=== PATIENT | female | born 1950 | race Caucasian/White ===

== ENCOUNTER 2020-07-23 19:36 | Inpatient (IN) | payer MEDICARE ==
[2020-07-23] MEDS ORDERED: Norepinephrine 8 MG/0.9% NS 250 ML ONE (19:41)
[2020-07-23] MEDS ORDERED: Vancomycin 1 GM/200 ML BAG ONE (20:20)
[2020-07-23] MEDS ORDERED: Vancomycin HCl 1.25 GM in Sodium Chloride 0.9% 250 ML 250 ML IVPB SCH (20:45)
[2020-07-23 21:03] LABS: Mean Corpuscular HGB CONC 34.4 g/dL (32.0-36.0); Mean Corpuscular Hemoglobin 32.2 pg (27.0-31.0); Mean Corpuscular Volume 93.7 fL (78.0-98.0); Mean Platelet Volume 9.3 fL (7.4-10.4); Platelet Count 155 thou/uL (130-400); RBC Distribution Width 13.6 % (11.5-14.5); White Blood Cell (WBC) Count 18.7 thou/uL (4.8-10.8)
[2020-07-23 21:04] LABS: ALT (SGPT) 143 U/L (8-55); AST (SGOT) 252 U/L (5-34); Acetaminophen Less than 6.0 mcg/mL (10.0-30.0); Alcohol Less than 10 mg/dL (Less than 10); Alkaline Phosphatase 82 U/L (40-110); Anion Gap 31 mmol/L (10-20); Bilirubin, Total 0.6 mg/dL (0.2-1.2); CK (CPK) 205 U/L (29-168); Calc. Creatinine Clearance 0 mL/min (70-130); Calcium 7.3 mg/dL (7.8-10.44); Carbon Dioxide 10 mmol/L (23-31); Chloride 104 mmol/L (98-107); Globulin 2.9 g/dL (2.4-3.5); Glucose 249 mg/dL (80-115); Protein, Total 5.9 g/dL (6.0-8.3); Salicylate Less than 8.0 mg/dL (15.0-30.0); Sodium 142 mmol/L (136-145)
[2020-07-23 21:06] LABS: Potassium 2.7 mmol/L (3.5-5.1)
[2020-07-23 21:15] LABS: BUN (Urea Nitrogen) 175 mg/dL (9.8-20.1)
[2020-07-23] MEDS ORDERED: Aspirin Chewable 81 MG TAB ONE (21:29)
[2020-07-23 21:34] LABS: CKMB 33.1 ng/mL (0-6.6)
[2020-07-23 21:47] LABS: Band 39 % (5-11); Lymphocytes 4 % (21-51); MDiff Complete? YES; Metamyelocyte 4 % (0-0); Monocytes 5 % (0-10); Myelocyte 1 % (0-0); Neutrophil 47 % (42-75)
[2020-07-23 21:50] LABS: SARS-CoV-2 NAA Rapid Test DETECTED (NotDetected)
[2020-07-23 21:54] LABS: Critical Call Chem Troponin I RESULT DECREASING; Troponin I 1.054 ng/mL (< 0.028)
--- NOTE | 2020-07-23 21:55 | PDOC.HHP ---
Hospitalist HPI - History of Present Illness Altered mental status, History of Present Illness: This is a 69-year-old female patient who was transferred from outside hospital in [place] on account of altered mental status and a septic shock. I talked to her friend Ms. Hameed who she was living with prior to transition to the hospital. He noted that she was brought to him by her friends about a week ago because she wanted to visit. Her friends did say she had not eaten several days prior to them visiting him. While she was with him she had not eaten anything in several days so he called EMS on account of increasing weakness and she was sent to the hospital. At the [facility] she was given antibiotics and 2 L normal saline on account of hypotension which was refractorywas started on Levophed. Creatinine there was 7.9, BUN 168, troponin 0.9, WBC 14,500 40, lactate [address] of abdomen and pelvis revealed bowel wall thickening of the distal and transverse and ascending colon's. She was transferred here for higher level care. Her friend notes that she has a colostomy which was placed about 3 years ago on account of intestinal obstruction due to colon cancer. He notes she never went back for reversal of the colostomy because she was afraid of the effects of anesthetics given her first experience during the surgery. He notes that she was positive for SARS about 3 months ago after she picked up some friends from the airport who all later had the disease. She has been generally sick since then. He also notes that she has some heart disease for which she takes metoprolol. She has no immediate family. She has children from a previous marriage however has not been in touch with them. She was supposed to come in as a direct admit however it was noted she was on Levophed and required ICU admission. She was brought to the ED on that account. On arrival her blood pressure was 115/79, pulse 104, respiratory 20, temperature 9 7.4 and saturating 97 on room air. She was ANO x2 but generally confused. Her labs showed a lactic acid of 5.2, WBC 18.7 with 39 bands. Hemoglobin was 11.0, platelets 155, troponin was elevated at 1.05. BMP showed potassium of 2.7, bicarb 10, creatinine 6.18 with BUN at 175. She was anuric at the outside facility and has been anuric since she presented here. Nephrology was consulted. She also had AST elevated at 252 and ALT at 153. Covid test is positive. Fluid resuscitation was continued with an extra liter bolus of normal saline, 3 A of sodium bicarb, IV potassium, aspirin 3 to 4 mg, vancomycin. She received Zosyn prior to arrival. Decision was made to admit her in ICU given her dependence on Levophed Dr. Corona was contacted and does not think has sepsis secondary to colitis and does not require any surgical intervention at the moment. Hospitalist team consulted for admission For the time of her evaluation patient ANO x2 but generally confused and was unable to answer many of my questions. Hospitalist ROS - Review of Systems ROS unobtainable: due to mental status Hospitalist History - Past Medical History Other Medical History: Colon cancer - Past Surgical History Other Surgical History: Colon resection - Family History Family History: reports: no pertinent history - Social History Living Situation: Friends - Exam General - other findings: Awake and alert but confused Eye: PERRL, anicteric sclera ENT: normocephalic atraumatic, no oropharyngeal lesions Neck: supple, symmetric, no JVD Heart: RRR, no murmur, no gallops, no rubs Respiratory: CTAB, no wheezes, no rales, no ronchi Gastrointestinal: soft, non-tender, non-distended, normal bowel sounds Gastrointestinal - other findings: Colostomy bag in place on left side. Possible surrounding hernia Neurological: cranial nerve grossly intact, no focal deficits Psychiatric - other findings: ANO x2. Hospitalist Results - Labs Result Diagrams: 07/24/20 03:30 07/24/20 13:14 Lab results: WBC 18.7 thou/uL (4.8-10.8) H 07/23/20 20:25 Hgb 11.0 g/dL (12.0-16.0) L 07/23/20 20:25 Hct 31.9 % (36.0-47.0) L 07/23/20 20:25 MCV 93.7 fL (78.0-98.0) 07/23/20 20:25 Plt Count 155 thou/uL (130-400) 07/23/20 20:25 Sodium 142 mmol/L (136-145) 07/23/20 20:25 Potassium 2.7 mmol/L (3.5-5.1) L* 07/23/20 20:25 Chloride 104 mmol/L (98-107) 07/23/20 20:25 Carbon Dioxide 10 mmol/L (23-31) L 07/23/20 20:25 BUN 175 mg/dL (9.8-20.1) H 07/23/20 20:25 Creatinine 6.18 mg/dL (0.6-1.1) H 07/23/20 20:25 Glucose 249 mg/dL (80-115) H 07/23/20 20:25 Lactic Acid 5.2 mmol/L (0.5-2.2) H* 07/23/20 21:19 Calcium 7.3 mg/dL (7.8-10.44) L 07/23/20 20:25 Total Bilirubin 0.6 mg/dL (0.2-1.2) 07/23/20 20:25 AST 252 U/L (5-34) H 07/23/20 20:25 ALT 143 U/L (8-55) H 07/23/20 20:25 Alkaline Phosphatase 82 U/L (40-110) 07/23/20 20:25 Creatine Kinase 205 U/L (29-168) H 07/23/20 20:25 CK-MB (CK-2) 33.1 ng/mL (0-6.6) H* 07/23/20 20: Troponin I 1.054 ng/mL (< 0.028) H* 07/23/20 21:21 Serum Total Protein 5.9 g/dL (6.0-8.3) L 07/23/20 20:25 Albumin 3.0 g/dL (3.4-4.8) L 07/23/20 20:25 Hospitalist H&P A/P - Plan Plan: This is a 69-year-old female patient transferred from [facility] on account of septic shock of unclear etiology. She is also positive for Covid. Septic shock Has white blood cells 18.7 with 39 bands, lactate 5.2, altered mental status with hypotension requiring pressors. Etiology unclearpossibly colitis/UTI Possibly Covid related Continue IV fluids Continue Levophed and wean off. Admit to CCU COVID-19 infection This could be recurrence Not sure pneumonic symptoms at the moment. Check CRP, ferritin Start zinc and vitamin C Anuric WAYNE Creatinine elevated Continue hydration Nephrology following NSTEMI Troponin I.06 at presentation trending down. Likely demand ischemia from septic shock Unlikely ACS We will trend and monitor. Colostomy Status post bowel resection Surgery was talked toDr. Agustin active intervention now Colostomy management. Severe hypokalemia Replace potassium Check magnesium Electrolyte placement therapy. DVT prophylaxisHeparin CODE STATUSto be discussed
[2020-07-23] MEDS ORDERED: Potassium Chloride 10 MEQ in Premix Bag 1 BAG IVPB SCH (22:00)
[2020-07-23] MEDS ORDERED: Sodium Bicarbonate 150 MEQ in Dextrose 5% in Water 1,000 ML IV SCH (22:30)
[2020-07-23 22:37] LABS: Magnesium 3.7 mg/dL (1.6-2.6); Phosphorus 2.6 mg/dL (2.3-4.7)
[2020-07-23 22:41] LABS: Actual Bicarbonate (HCO3a) 11.3 mEq/L (22-28); Analyzer IN Cardio ER; Base Excess (BEa) -10.6 mEq/L (-2.0 to +3.0); Calcium, Ionized (arterial) 0.92 mmol/L (1.12-1.30); Carboxyhemoglobin (COHb) 0.1 gm% (0.0-3.0); Hemoglobin (Hb) 10.4 g/dL (12.0-16.0); O2 Tension (PaO2), arterial 108.3 mmHg (> 80.0); Potassium - ABG Lab 2.61 mmol/L (3.70-5.30); pH, Arterial 7.45 (7.35-7.45)
[2020-07-23 22:42] LABS: CO2 Tension 16.8 mmHg (35.0-45.0); Puncture Site RRA
[2020-07-23] MEDS ORDERED: Electrolyte Replacement Protocol 1 EACH FS SCH (23:00)
[2020-07-24] MEDS: Sodium Bicarbonate 150 MEQ in Dextrose 5% in Water 1,000 ML IV SCH ×3 (00:05→21:26)
[2020-07-24] MEDS: Sodium Chloride 0.9% 1,000 ML IV SCH ×2 (00:06→06:23)
[2020-07-24] MEDS: Norepinephrine 8 MG/0.9% NS 250 ML IVPB SCH ×3 (00:09→18:43)
[2020-07-24] MEDS: Piperacillin/Tazobactam 4.5 GM in Sodium Chloride 0.9% 100 ML IVPB SCH ×2 (00:09→06:22)
[2020-07-24 00:41] LABS: Lactic Acid 4.4 mmol/L (0.5-2.2)
[2020-07-24 01:41] LABS: Critical Call Chem Troponin I RESULT DECREASING; Troponin I 0.906 ng/mL (< 0.028)
[2020-07-24 01:46] LABS: Creatinine, Urine 68.84 mg/dL (47-110)
[2020-07-24 02:27] LABS: Bacteria/HPF 4+ HPF (None Seen); Bilirubin Negative (Negative); Blood, Urine 2+ (Negative); Clarity Extra Turbid (Clear); Glucose, Urine (Dipstick) Normal (Negative); Ketone, Urine Negative (Negative); Leukocyte 500 Leu/uL (Negative); Nitrite Negative (Negative); Protein, Urine (Dipstick) 200 mg/dL (Neg-Trace); Specific Gravity, Urine 1.011 (1.002-1.036); Squamous Epithelial None Seen HPF (0-3); Urobilinogen Normal mg/dL (Less than 2); WBC/HPF Greater than 50 HPF (0-3); pH, Urine 5.5 (5.0-9.0)
[2020-07-24 02:37] LABS: Urine Culture Reflex Yes Yes
[2020-07-24 04:26] LABS: Anion Gap 20 mmol/L (10-20); Calc. Creatinine Clearance 8 mL/min (70-130); Carbon Dioxide 17 mmol/L (23-31); Chloride 107 mmol/L (98-107); Glucose 243 mg/dL (80-115); Sodium 142 mmol/L (136-145)
[2020-07-24 04:33] LABS: Potassium 2.4 mmol/L (3.5-5.1)
[2020-07-24 04:39] LABS: BUN (Urea Nitrogen) 160 mg/dL (9.8-20.1)
[2020-07-24 05:18] LABS: Anisocytosis SLIGHT = 6-15 cells (100X) (0-5/hpf); Band 53 % (5-11); Elliptocytes SLIGHT = 2-5 cells (100X) (0-1/hpf); Hemoglobin 9.2 g/dL (12.0-16.0); Lymphocytes 4 % (21-51); MDiff Complete? YES; Mean Corpuscular HGB CONC 33.5 g/dL (32.0-36.0); Mean Corpuscular Hemoglobin 31.3 pg (27.0-31.0); Mean Corpuscular Volume 93.4 fL (78.0-98.0); Mean Platelet Volume 9.2 fL (7.4-10.4); Metamyelocyte 6 % (0-0); Monocytes 1 % (0-10); Neutrophil 36 % (42-75); Platelet Count 112 thou/uL (130-400); Platelet Morphology Comment Appears Decreased; RBC Distribution Width 13.5 % (11.5-14.5); Red Blood Cell (RBC) Count 2.93 mill/uL (4.20-5.40); White Blood Cell (WBC) Count 10.3 thou/uL (4.8-10.8)
[2020-07-24] MEDS ORDERED: Potassium Chloride 20 MEQ in Premix Bag 1 BAG IVPB SCH (06:00)
[2020-07-24] MEDS ORDERED: Potassium Chloride 20 MEQ TAB PO SCH (06:45)
[2020-07-24 07:11] LABS: Lactic Acid 3.1 mmol/L (0.5-2.2)
--- NOTE | 2020-07-24 08:36 | PDOC.NEPPN ---
- Subjective Encounter Date: 07/24/20 Encounter Time: 08:34 Subjective: Seen in follow up for WAYNE and metabolic acidosis. More awke but still confused and unable to provide any history. - Objective Vital Signs & Weight: Vital Signs (12 hours) Temp Pulse Ox 07/24/20 08:00 97.8 F 07/24/20 04:00 97.5 F L 07/24/20 00:00 98 07/23/20 22:55 96.5 F L Weight Weight 120 lb 9.486 oz Most Recent Monitor Data Heart Rate from ECG 112 NIBP 112/84 NIBP BP-Mean 93 Respiration from ECG 20 SpO2 78 I&O: 07/23/20 07/24/20 07/25/20 06:59 06:59 06:59 Intake Total 1721 Output Total 355 150 Balance 1366 -150 Result Diagrams: 07/24/20 03:30 07/24/20 03:30 Nephrology ROS - Medication Medications: Active Medications Generic Name Dose Route Start Last Admin Trade Name Freq PRN Reason Stop Dose Admin Sodium Bicarbonate 150 meq/ 1,150 mls @ 100 mls/hr 07/23/20 22:00 07/24/20 00:05 Dextrose/Water IV 1,150 mls INF MELINA Administration Norepinephrine Bitartrate 250 mls @ 0 mls/hr 07/23/20 23:45 07/24/20 00:09 Levophed IVPB 250 mls INF MELINA Administration Protocol Titrate - Exam General Appearance: awake alert General - other findings: acutely ill looking, afebrile. Eye: anicteric sclera ENT: normocephalic atraumatic, dry oral mucosa Neck: symmetric, no JVD Respiratory: no ronchi, normal chest expansion, no tachypnea Respiratory - other findings: fair air entry bilaterally. Cardiovascular: RRR Heart - other findings: tachycardic Gastrointestinal - other findings: full and diffusely tender especially periunbilical/parastomal Extremities: no cyanosis, no edema Neurological: CN's grossly intact, no focal deficits PSYCH: oriented to person Nephrology Results - Labs Result Diagrams: 07/24/20 03:30 07/24/20 03:30 Lab results: WBC 10.3 thou/uL (4.8-10.8) 07/24/20 03:30 Hgb 9.2 g/dL (12.0-16.0) L 07/24/20 03:30 Hct 27.3 % (36.0-47.0) L 07/24/20 03:30 MCV 93.4 fL (78.0-98.0) 07/24/20 03:30 Plt Count 112 thou/uL (130-400) L 07/24/20 03:30 Band Neuts % (Manual) 53 % (5-11) H 07/24/20 03:30 ABG pH 7.45 (7.35-7.45) 07/23/20 20:30 ABG pCO2 16.8 mmHg (35.0-45.0) L* 07/23/20 20:30 ABG pO2 108.3 mmHg (> 80.0) H 07/23/20 20:30 Sodium 142 mmol/L (136-145) 07/24/20 03:30 Potassium 2.4 mmol/L (3.5-5.1) L* 07/24/20 03:30 Chloride 107 mmol/L (98-107) 07/24/20 03:30 Carbon Dioxide 17 mmol/L (23-31) L 07/24/20 03:30 BUN 160 mg/dL (9.8-20.1) H 07/24/20 03:30 Creatinine 5.40 mg/dL (0.6-1.1) H 07/24/20 03:30 Glucose 243 mg/dL (80-115) H 07/24/20 03:30 Lactic Acid 3.1 mmol/L (0.5-2.2) H 07/24/20 06:29 Calcium 7.0 mg/dL (7.8-10.44) L 07/24/20 03:30 Total Bilirubin 0.6 mg/dL (0.2-1.2) 07/23/20 20:25 AST 252 U/L (5-34) H 07/23/20 20:25 ALT 143 U/L (8-55) H 07/23/20 20:25 Alkaline Phosphatase 82 U/L (40-110) 07/23/20 20:25 Creatine Kinase 205 U/L (29-168) H 07/23/20 20:25 CK-MB (CK-2) 33.1 ng/mL (0-6.6) H* 07/23/20 20:25 Troponin I 0.906 ng/mL (< 0.028) H* 07/24/20 01:05 Serum Total Protein 5.9 g/dL (6.0-8.3) L 07/23/20 20:25 Albumin 3.0 g/dL (3.4-4.8) L 07/23/20 20:25 Urine Ketones Negative mg/dL (Negative) 07/24/20 Unknown Urine Blood 2+ (Negative) A 07/24/20 Unknown Urine Nitrite Negative (Negative) 07/24/20 Unknown Ur Leukocyte Esterase 500 Fariha/uL (Negative) A 07/24/20 Unknown Urine RBC 7-10 HPF (0-3) A 07/24/20 Unknown Urine WBC Greater than 50 HPF (0-3) A 07/24/20 Unknown Ur Squamous Epith Cells None Seen HPF (0-3) 07/24/20 Unknown Urine Bacteria 4+ HPF (None Seen) A 07/24/20 Unknown Sodium 142 mmol/L (136-145) 07/24/20 03:30 Potassium 2.4 mmol/L (3.5-5.1) L* 07/24/20 03:30 Chloride 107 mmol/L (98-107) 07/24/20 03:30 Carbon Dioxide 17 mmol/L (23-31) L 07/24/20 03:30 Anion Gap 20 mmol/L (10-20) 07/24/20 03:30 BUN 160 mg/dL (9.8-20.1) H 07/24/20 03:30 Creatinine 5.40 mg/dL (0.6-1.1) H 07/24/20 03:30 Glucose 243 mg/dL (80-115) H 07/24/20 03:30 Calcium 7.0 mg/dL (7.8-10.44) L 07/24/20 03:30 Phosphorus 2.6 mg/dL (2.3-4.7) 07/23/20 21:21 Magnesium 3.7 mg/dL (1.6-2.6) H 07/23/20 21:21 Albumin 3.0 g/dL (3.4-4.8) L 07/23/20 20:25 Nephrology AP PN - Plan ASSESSMENT Acute renal failure: Multifactorial most likely. Hemodynamic factors related sev ere dehydration and septic shock. initially anuric. Now making urine. Severe metabolic acidosis Hypokalemia Suspected mesenteric ischemia given colon thickening, elevated troponin and lactic acidosis. Severe dehydration Acute metabolic encephalopathy: Acute illness, acidosis, WAYNE +/- uremia: improvi ng. Colon cancer s/p colon resection and colostomy Hypocalcemia Elevated troponin Acute transaminitis PLAN Continue ivf and pressor Replete serum porassium monitor intake and output as well as renal functoion and electrolytes. Consider anticoagulation for possible mesenteric ischemia
--- NOTE | 2020-07-24 08:41 | CON ---
DATE OF CONSULTATION: 07/24/2020 TIME SPENT: This is 45 minutes of critical care time. CONSULTING PHYSICIAN: Hospitalist Group, specifically Dr. Sr. HISTORY OF PRESENT ILLNESS: Ms. Villatoro is a 69-year-old female, who is unable to give me any reliable history as she is pleasant, but disoriented and confabulates most of her answers. History and physical indicates that she presented to [facility] yesterday. She had been living with a friend. She had not eaten several days prior to visiting the friend. Apparently, had not been eating or drinking the whole time she was staying with him. When she presented to the hospital, she was hypotensive, she was found to be in acute renal failure. There was some history that she may have a coronavirus about 3 months ago, but I do not think anything that the patient says can be assumed to be reliable. She was given fluids, started on Levophed, and transported here. PAST MEDICAL HISTORY: Not known. PAST SURGICAL HISTORY: She has had some type of colon resection, we think, for colon cancer, but we were not sure, now has a colostomy. FAMILY MEDICAL HISTORY: Not known. SOCIAL HISTORY: She says she does not smoke, drink, or do drugs. MEDICATIONS PRIOR TO ADMISSION: None. REVIEW OF SYSTEMS: Unobtainable. PHYSICAL EXAMINATION: VITAL SIGNS: Heart rate 115, O2 saturation 100% on room air, respirations 16, blood pressure 122/77 on a Levophed drip running at 15 mcg/minute. GENERAL: The patient is pleasant but confused. HEENT: Pupils reactive to light. Sclerae anicteric. Oropharynx clear. NECK: No adenopathy or JVD. LUNGS: Clear to auscultation without evidence of wheezing or rhonchi. CARDIOVASCULAR: Slightly tachycardic without audible murmur. ABDOMEN: Soft except in the right lower quadrant where she has some mild tenderness to deep palpation. She has a colostomy in the left lower quadrant. EXTREMITIES: No clubbing, cyanosis, or edema. MUSCULOSKELETAL: She can move all 4 extremities. She has grossly diminished strength in her lower extremities compared to upper extremities. LABORATORY DATA: White blood cell count 10.3, hemoglobin 9.2, hematocrit 27.3, and platelet count 112, with 36% neutrophils, 53% bands. PH 7.45, pCO2 of 16, pO2 of 108 on room air. Sodium 142, potassium 2.4, chloride 107, CO2 of 17, BUN 160, creatinine 5.4, glucose 243. Lactate was originally 5.2, now is down to 3.1. Calcium 7.0, magnesium 3.7. Troponin 0.906. AST 55, ALT less than 5. Osmolality 344. A chest x-ray was essentially normal except for the subclavian line, which is in place. Abdominal CT shows some bowel wall thickening in the distal transverse colon and descending colon. I do not see any record of a head CT being done. I also do not see any indication of a urine drug screen being performed. ASSESSMENT: 1. Altered mental status, presumably due to sepsis, but could also be due to uremia and acute renal failure. She also may have some kind of underlying severe dementia. 2. Severe metabolic acidosis secondary to acute renal failure and sepsis. PLAN: 1. Agree with broad-spectrum IV antibiotics. 2. Agree with bicarbonate infusion. 3. Need to reduce the Zosyn dose to account for the patient's poor renal function. 4. Add thiamine empirically since we do not really know about alcohol history. 5. Send off COVID antibody test to see if the patient's COVID infection is more distant rather than recent. 6. Consider head CT. 7. Consider neurology consultation. Job ID: [id number]
[2020-07-24] MEDS ORDERED: Potassium Chloride 40 MEQ in Premix Bag 1 BAG IVPB SCH (08:45)
[2020-07-24 09:11] LABS: ALT (SGPT) 153 U/L (8-55); AST (SGOT) 304 U/L (5-34); Albumin 2.5 g/dL (3.4-4.8); Alkaline Phosphatase 64 U/L (40-110); Bilirubin, Direct 0.4 mg/dL (0.1-0.3); Bilirubin, Total 0.7 mg/dL (0.2-1.2); Protein, Total 4.9 g/dL (6.0-8.3)
--- NOTE | 2020-07-24 09:24 | CON ---
DATE OF CONSULTATION: 07/23/2020 SERVICE: Nephrology. REASON FOR CONSULTATION: Acute renal failure. REQUESTING PHYSICIAN: Dr. Sharmin Cote. HISTORY OF PRESENT ILLNESS: The following history was obtained from review of medical record as the patient currently is disoriented and could not provide any history. A 69-year-old female with history of colostomy as well as prior COVID infection in April, admitted on transfer from [place], [place] for further evaluation and treatment. The patient reportedly was brought to the hospital by a friend due to poor oral intake, generalized weakness. At the transferring hospital, the patient was found to be confused and disoriented as well as hypotensive and with markedly elevated BUN and creatinine. She was volume resuscitated and subsequently started on Levophed. On arrival here, the patient is still tachycardic and hypotensive with markedly elevated BUN and creatinine, however, potassium is low at 3.0. Volume resuscitation was continued due to elevated BUN and creatinine. Nephrology consult was requested. The patient initially was said to be somnolent/obtunded at transferring hospital, but currently, she seems more awake and oriented to person. Of note, the patient was anuric at the transferring hospital but has started to make some urine here. She also had markedly elevated lactic acid and impression of sepsis was noted. The patient was also started on broad-spectrum antibiotics. PAST MEDICAL HISTORY: Still unknown completely at this time as the patient is unable to provide any at this point. However, it was also reported the patient had colon cancer, for which she had colon resection and had colostomy. PAST SURGICAL HISTORY: Colon resection, status post colostomy. FAMILY HISTORY: Unable to obtain due to the patient's condition. SOCIAL HISTORY: Currently lives with family. Other components of social history are unknown at this point. ALLERGIES: NO KNOWN DRUG ALLERGIES REPORTED. PRIOR TO HOSPITAL MEDICATIONS: Unknown at this point due to the patient's condition. REVIEW OF SYSTEMS: Could not be performed due to the patient's condition. PHYSICAL EXAMINATION: VITAL SIGNS: Temperature 97.4, pulse 126, respiratory rate 16, SpO2 of 98% on room air, blood pressure is 111/78. GENERAL: Acutely ill-looking female, in no obvious distress. Confused. Afebrile and anicteric. HEENT: Normocephalic, atraumatic. Oral mucosa is dry. NECK: Supple. Symmetrical with no obvious JVD. CARDIOVASCULAR: Regular rhythm and rate but tachycardic. RESPIRATORY: Fair air entry bilaterally with some transmitted breath sounds. No obvious crackle or rhonchi or use of accessory muscles appreciated. GI: Full, soft. Left lower quadrant colostomy noted. Diffuse abdominal tenderness especially around the periumbilical area noted. UROGENITAL: Jacobs catheter is in. EXTREMITIES: Grossly normal looking extremities with no obvious edema or erythema. 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 Oriented to person. Memory lapses noted. Cranial nerves 2 through 12 are grossly intact. The patient moves all extremities. LAB DATA: Pertinent data from the transferring facility as follows. CBC, WBC 13.9, hemoglobin 12.8, MCV 93, platelets 172. CMP showed sodium is 134, potassium 3.0, glucose 287, BUN 186, creatinine 7.9, chloride 86, CO2 11, anion gap 40, calcium 9.8, albumin 3.6, total protein 7.4, AST 65, ALT less than 5, alkaline phosphatase 83, total bilirubin 1.12. Serum osmolality 344. Troponin . Magnesium 3.2. Lactic acid 12.0. Blood gas today showed a pH of 7.33, pCO2 of 18.1, pO2 of 379. COVID rapid antigen was negative. Influenza antigen A and B also negative. Chest x-ray showed right subclavian central venous catheter in place as well as linear scarring or atelectasis in the right lower lung, but otherwise, no infiltrate or pleural effusion, and heart size is normal. CT of the abdomen and pelvis without contrast showed previous sigmoid resection and left lower quadrant colostomy as well as parastomal hernia that contains a short segment of distal transverse colon. However, there was no obvious obstruction due to the hernia. Also noted was some bowel wall thickening of the distal transverse colon and descending colon leading to the colostomy, mild infection or inflammatory colitis cannot be excluded. Liquid stool within the cecum and proximal ascending colon with mild dilatation also noted. Labs obtained here on presentation showed CBC, WBC 18.7, hemoglobin of 11.0, MCV of 93.7, platelet of 155. Arterial blood gas showed pH of 7.45, pCO2 of 16.8, pO2 of 108.3, ionized calcium of 0.92. CMP showed sodium 142, potassium 2.7, chloride 104, CO2 10, BUN 175, creatinine 6.18, glucose 249, calcium 7.3, total bilirubin 0.6, AST 252, ALT 143, alkaline phosphatase 82, total protein 5.9, albumin 3.0. Initial lactic acid was 4.4. Cardiac markers showed CK 205, CK-MB 33.1, troponin 1.065. ASSESSMENT: 1. Acute renal failure: Most likely due to hemodynamic factors related to severe volume depletion from poor oral intake and GI losses. Contribution from medications and are also noted. We do not have patient's home medication list at this point. The patient is grossly volume depleted. Cytokine mediated injury also is contributory, given picture suggestive of septic shock. 2. Severe metabolic acidosis. 3. Hyperglycemia. The patient may be diabetic. 4. Hypokalemia: Most likely due to GI losses. 5. Elevated troponin: Mesenteric ischemia is a concern, given thickening of the colon as well as lactic acidosis and severe metabolic acidosis and GI symptoms. 6. Severe volume depletion. 7. Septic shock. 8. COVID infection. 9. Acute transaminitis. 10. Hypocalcemia. 11. Elevated troponin: NSTEMI versus mesenteric ischemia. PLAN: 1. Agree with aggressive IV fluid resuscitation as well as pressure support. 2. We will start sodium bicarbonate infusion. 3. We will also get urine electrolytes and urinalysis once the patient makes urine. 4. Given improvement in mental status and hemodynamics, there is no immediate need for hemodialysis tonight. We will re-examine the patient in the morning with aggressive fluid therapy. 5. Other treatment as per primary attending. Many thanks for involving us in the care of this patient. We will follow along with you. Job ID: [id number]
[2020-07-24] MEDS: Pantoprazole 40 MG VIAL IVP SCH (09:45)
[2020-07-24] MEDS: Heparin 5,000 UNITS/ML VIAL SC SCH ×3 (09:46→21:15)
--- NOTE | 2020-07-24 11:34 | CON ---
DATE OF CONSULTATION: CONSULTING PHYSICIAN: JANET SWENSON MD HISTORY OF PRESENT ILLNESS: The patient is a 69-year-old woman who was admitted with sepsis and was found to have an elevated troponin level. The patient is unable to give a coherent history. The patient was apparently in her usual state of health when she developed altered mental status. The patient was noted to be hypotensive. She was transferred for further evaluation. The patient unable to give any type of history. PAST MEDICAL HISTORY: Unknown. PAST SURGICAL HISTORY: Cholecystectomy. MEDICATIONS: None known. PHYSICAL EXAMINATION: VITAL SIGNS: Blood pressure 106/66. Physical exam was deferred due to being COVID positive. LABORATORY RESULTS: Sodium 142, potassium 4.2, chloride 107, bicarbonate 17, BUN 160, creatinine 5.4. Troponin was 0.96 with an MB of 33. AST is 304. White blood cell count is 10.3, hemoglobin 9.2, hematocrit 27.3, and platelets are 112. EKG revealed sinus tachycardia with Q-waves suggestive of possible inferior infarct in low-voltage QRS. IMPRESSION: 1. Septic shock. 2. Elevated troponin level. 3. COVID positive. 4. Renal failure. 5. Hypotension. PLAN: This unfortunate woman presented in septic shock. From a Cardiac standpoint, her elevated troponin level is probably secondary to demand ischemia. We will follow this patient with you through her hospitalization. Critical cars Time 30 minutes. Job ID: [id number] [id number]
[2020-07-24] MEDS: Piperacillin/Tazobactam 2.25 GM in Sodium Chloride 0.9% 100 ML IVPB SCH ×2 (13:01→21:17)
[2020-07-24 13:59] LABS: Anion Gap 22 mmol/L (10-20); Calc. Creatinine Clearance 10 mL/min (70-130); Calcium 6.6 mg/dL (7.8-10.44); Carbon Dioxide 20 mmol/L (23-31); Chloride 107 mmol/L (98-107); Glucose 274 mg/dL (80-115); Sodium 146 mmol/L (136-145)
[2020-07-24 14:10] LABS: BUN (Urea Nitrogen) 139 mg/dL (9.8-20.1)
[2020-07-24 16:13] LABS: Medtox Reader # READER 4; Phencyclidine (PCP) Not Detected (NotDetected); THC/Cannabinoid Screen Not Detected (NotDetected)
[2020-07-24 16:14] LABS: Amphetamine Not Detected (NotDetected); Barbiturates Screen Not Detected (NotDetected); Benzodiazepine Screen Not Detected (NotDetected); Cocaine Metabolite Screen Not Detected (NotDetected); Medtox Control Line Valid? VALID (VALID); Methadone Not Detected (NotDetected); Methamphetamine Not Detected (NotDetected); Opiate Screen Not Detected (NotDetected); Oxycodone Screen Not Detected (NotDetected); Tricyclic Screen Not Detected (NotDetected)
--- NOTE | 2020-07-24 16:55 | PDOC.HOSPP ---
- Subjective Encounter Date: 07/24/20 Encounter Time: 10:30 Subjective: pt up in bed no complains. - Objective Vital Signs & Weight: Vital Signs (12 hours) Temp Pulse Ox 07/24/20 12:00 97.6 F 07/24/20 08:00 97.8 F 97 Weight Admit Weight 120 lb Weight 120 lb 9.486 oz Most Recent Monitor Data Heart Rate from ECG 99 NIBP 112/65 NIBP BP-Mean 80 Respiration from ECG 14 SpO2 100 I&O: 07/23/20 07/24/20 07/25/20 06:59 06:59 06:59 Intake Total 1721 0 Output Total 355 985 Balance 1366 -985 Result Diagrams: 07/25/20 03:30 07/25/20 03:30 Hospitalist ROS - Review of Systems Cardiovascular: denies: chest pain, palpitations, orthopnea, paroxysmal noc. dyspnea, edema, light headedness, other Gastrointestinal: denies: nausea, vomiting, abdominal pain, diarrhea, constipation, melena, hematochezia, other Genitourinary: denies: dysuria, frequency, incontinence, hematuria, retention, other - Medication Medications: Active Medications Generic Name Dose Route Start Last Admin Trade Name Freq PRN Reason Stop Dose Admin Heparin Sodium (Porcine) 5,000 units 07/24/20 09:00 07/24/20 14:11 Heparin 5,000 Units/Ml Vial SC 5,000 units TID MELINA Administration Sodium Bicarbonate 150 meq/ 1,150 mls @ 100 mls/hr 07/23/20 22:00 07/24/20 11:05 Dextrose/Water IV 1,150 mls INF MELINA Administration Norepinephrine Bitartrate 250 mls @ 0 mls/hr 07/23/20 23:45 07/24/20 10:12 Levophed IVPB 250 mls INF MELINA Administration Protocol Titrate Thiamine HCl 100 mg/ Sodium 51 mls @ 100 mls/hr 07/24/20 09:00 07/24/20 09:44 Chloride IVPB 07/27/20 21:31 51 mls Q12HR MELINA Administration Piperacillin Sod/Tazobactam 100 mls @ 200 mls/hr 07/24/20 14:00 07/24/20 13:01 Sod 2.25 gm/ Sodium Chloride IVPB 100 mls Q8HR MELINA Administration Pantoprazole Sodium 40 mg 12/24/20 09:00 07/24/20 09:45 Pantoprazole 40 Mg Vial IVP 40 mg DAILY MELINA Administration - Exam Heart: negative: RRR, no murmur, no gallops, no rubs, normal peripheral pulses, irregular, diminshed peripheral pulses, murmur present, II/IV, III/IV Respiratory: negative: CTAB, no wheezes, no rales, no ronchi, normal chest expansion, no tachypnea, normal percussion, rales, rhonchi, tachypneic, wheezes Gastrointestinal: negative: soft, non-tender, non-distended, normal bowel kevin nds, no palpable masses, no hepatomegaly, no splenomegaly, no bruit, no guarding, no rigidity, tender to palpation, distended, diminished bowl sounds, voluntary guarding Hosp A/P (1) Septic shock Code(s): A41.9 - SEPSIS, UNSPECIFIED ORGANISM; R65.21 - SEVERE SEPSIS WITH SEPTIC SHOCK Status: Acute (2) Metabolic acidosis Code(s): E87.2 - ACIDOSIS Status: Acute (3) WAYNE (acute kidney injury) Code(s): N17.9 - ACUTE KIDNEY FAILURE, UNSPECIFIED Status: Acute (4) NSTEMI (non-ST elevated myocardial infarction) Code(s): I21.4 - NON-ST ELEVATION (NSTEMI) MYOCARDIAL INFARCTION Status: Acute (5) Elevated LFTs Code(s): R79.89 - OTHER SPECIFIED ABNORMAL FINDINGS OF BLOOD CHEMISTRY Status: Acute (6) COVID-19 Code(s): U07.1 - COVID-19 Status: Acute - Plan Continue current antibiotics. Creatinine improving. We will continue bicarb drip. Elevated troponins most likely secondary to type II demand ischemia. Will check stool for occult blood patient's colostomy indicates really dark stool. Her H&H also has trended down. Covid positive however she was diagnosed in April. We will continue to monitor blood cultures. ischemic colitis is a possibility given her high lactic acid at the outside facility. will get gi to see if her occult blood comes positive.
[2020-07-24] MEDS ORDERED: Potassium Chloride 40 MEQ in Premix Bag 1 BAG IVPB ONE (17:00)
[2020-07-24 17:12] LABS: SARS-CoV-2 IgG Ab Reactive (NonReactive); SARS-CoV-2 IgG Index 3.65 S/CO (< 1.40)
[2020-07-24 20:43] LABS: Vancomycin, Random 22.8 ug/mL (See Comment)
[2020-07-24] MEDS ORDERED: Vancomycin 1 GM in Premix Bag 1 BAG IVPB SCH (21:00)
[2020-07-24] MEDS ORDERED: FLU VACC QS2020-21(65YR UP)/PF 240 MCG/0.7 ML SYRINGE IM ONE (21:00)
[2020-07-24] MEDS: Benzocaine (Dental) 7 GM TUBE TOP PRN (22:22)
[2020-07-25 04:19] LABS: ALT (SGPT) 79 U/L (8-55); AST (SGOT) 59 U/L (5-34); Albumin 2.2 g/dL (3.4-4.8); Alkaline Phosphatase 57 U/L (40-110); Anion Gap 18 mmol/L (10-20); Bilirubin, Total 0.6 mg/dL (0.2-1.2); Calc. Creatinine Clearance 11 mL/min (70-130); Calcium 6.8 mg/dL (7.8-10.44); Carbon Dioxide 30 mmol/L (23-31); Chloride 104 mmol/L (98-107); Globulin 2.3 g/dL (2.4-3.5); Glucose 195 mg/dL (80-115); Protein, Total 4.5 g/dL (6.0-8.3); Sodium 149 mmol/L (136-145)
[2020-07-25 04:23] LABS: Band 44 % (5-11); Hemoglobin 7.4 g/dL (12.0-16.0); Hypochromia SLIGHT = 6-15 cells (100X) (0-5/hpf); Lymphocytes 5 % (21-51); MDiff Complete? YES; Mean Corpuscular HGB CONC 35.1 g/dL (32.0-36.0); Mean Corpuscular Hemoglobin 32.9 pg (27.0-31.0); Mean Platelet Volume 9.8 fL (7.4-10.4); Metamyelocyte 1 % (0-0); Monocytes 3 % (0-10); Neutrophil 47 % (42-75); Platelet Count 55 thou/uL (130-400); Platelet Morphology Comment Appears Decreased; RBC Distribution Width 13.6 % (11.5-14.5); Red Blood Cell (RBC) Count 2.26 mill/uL (4.20-5.40)
[2020-07-25 04:25] LABS: Potassium 2.8 mmol/L (3.5-5.1)
[2020-07-25 04:31] LABS: BUN (Urea Nitrogen) 139 mg/dL (9.8-20.1)
[2020-07-25] MEDS ORDERED: Potassium Chloride 20 MEQ in Premix Bag 1 BAG IVPB SCH (06:15)
[2020-07-25] MEDS: Piperacillin/Tazobactam 2.25 GM in Sodium Chloride 0.9% 100 ML IVPB SCH ×3 (06:37→21:57)
--- NOTE | 2020-07-25 07:57 | RAD ---
CHEST 1 VIEW: Date: 07/25/2020 INDICATION: Pneumonia. COMPARISON: None. FINDINGS: There is a right subclavian central venous catheter. Lungs are clear. Heart size is within normal [place] its. No pleural effusion or pneumothorax is evident. No acute osseous abnormality is noted. There is thoracolumbar scoliosis. IMPRESSION: 1. No acute air space disease to suggest pneumonia. 2. Right subclavian central venous catheter. POS: BH
[2020-07-25] MEDS: D5 1/4 NS 1,000 ML IV SCH ×3 (08:11→18:10)
[2020-07-25] MEDS: Heparin 5,000 UNITS/ML VIAL SC SCH ×2 (08:12→11:06)
[2020-07-25] MEDS: Pantoprazole 40 MG VIAL IVP SCH (08:12)
[2020-07-25] MEDS: Potassium Chloride 20 MEQ TAB PO SCH ×2 (08:12→10:04)
--- NOTE | 2020-07-25 09:32 | PDOC.NEPPN ---
- Subjective Encounter Date: 07/25/20 Subjective: Seen in follow up for WAYNE and electrolyte derangements. No new problem. Still with some confusion and memory lapses. Oral intake is still poor - Objective Vital Signs & Weight: Vital Signs (12 hours) Temp 07/25/20 04:00 98.5 F 07/25/20 00:00 98.6 F Weight Admit Weight 120 lb Weight 120 lb 9.486 oz Most Recent Monitor Data Heart Rate from ECG 86 NIBP 88/70 NIBP BP-Mean 76 Respiration from ECG 14 SpO2 99 I&O: 07/24/20 07/25/20 07/26/20 06:59 06:59 06:59 Intake Total 1721 4019 Output Total 355 2065 Balance 1366 1954 Result Diagrams: 07/25/20 03:30 07/25/20 03:30 Nephrology ROS - Medication Medications: Active Medications Generic Name Dose Route Start Last Admin Trade Name Freq PRN Reason Stop Dose Admin Benzocaine 0 gm 07/24/20 22:13 07/24/20 22:22 Benzocaine (Dental) 7 Gm Tube TOP 7 gm QIDPRN PRN Administration Topical Anesthetic Heparin Sodium (Porcine) 5,000 units 07/24/20 09:00 07/25/20 08:12 Heparin 5,000 Units/Ml Vial SC 5,000 units TID MELINA Administration Norepinephrine Bitartrate 250 mls @ 0 mls/hr 07/23/20 23:45 07/24/20 18:43 Levophed IVPB 250 mls INF MELINA Administration Protocol Titrate Thiamine HCl 100 mg/ Sodium 51 mls @ 100 mls/hr 07/24/20 09:00 07/25/20 08:12 Chloride IVPB 07/27/20 21:31 51 mls Q12HR MELINA Administration Piperacillin Sod/Tazobactam 100 mls @ 200 mls/hr 07/24/20 14:00 07/25/20 06:37 Sod 2.25 gm/ Sodium Chloride IVPB 100 mls Q8HR MELINA Administration Dextrose/Sodium Chloride 1,000 mls @ 150 mls/hr 07/25/20 07:30 07/25/20 08:11 D5 1/4 Ns IV 1,000 mls .[id number] MELINA Administration Pantoprazole Sodium 40 mg 07/24/20 09:00 07/25/20 08:12 Pantoprazole 40 Mg Vial IVP 40 mg DAILY MELINA Administration Potassium Chloride 40 meq 07/25/20 07:30 07/25/20 08:12 Potassium Chloride 20 Meq Tab PO 07/25/20 10:00 40 meq NOW MELINA Administration Sodium Chloride 10 ml 07/25/20 09:00 07/25/20 08:12 Flush - Normal Saline 10 Ml Syringe IVF 10 ml Q12HR MELINA Administration - Exam General Appearance: awake alert Eye: anicteric sclera ENT: normocephalic atraumatic, moist mucosa Neck: supple, symmetric, no JVD Respiratory: no wheezes, no ronchi, normal chest expansion, no tachypnea Cardiovascular: RRR Gastrointestinal: soft, non-distended, normal bowel sounds Gastrointestinal - other findings: Tenderness and LLQ colostomy noted Extremities: no edema Neurological: CN's grossly intact, no focal deficits PSYCH: oriented to person Psychiatric - other findings: some confusion and memory lapses noted Nephrology Results - Labs Result Diagrams: 07/25/20 03:30 07/25/20 03:30 Lab results: WBC 10.0 thou/uL (4.8-10.8) 07/25/20 03:30 Hgb 7.4 g/dL (12.0-16.0) L 07/25/20 03:30 Hct 21.2 % (36.0-47.0) L 07/25/20 03:30 MCV 94.0 fL (78.0-98.0) 07/25/20 03:30 Plt Count 55 thou/uL (130-400) L 07/25/20 03:30 Band Neuts % (Manual) 44 % (5-11) H 07/25/20 03:30 ABG pH 7.45 (7.35-7.45) 07/23/20 20:30 ABG pCO2 16.8 mmHg (35.0-45.0) L* 07/23/20 20:30 ABG pO2 108.3 mmHg (> 80.0) H 07/23/20 20:30 Sodium 149 mmol/L (136-145) H 07/25/20 03:30 Potassium 2.8 mmol/L (3.5-5.1) L* 07/25/20 03:30 Chloride 104 mmol/L (98-107) 07/25/20 03:30 Carbon Dioxide 30 mmol/L (23-31) 07/25/20 03:30 BUN 139 mg/dL (9.8-20.1) H 07/25/20 03:30 Creatinine 4.19 mg/dL (0.6-1.1) H 07/25/20 03:30 Glucose 195 mg/dL (80-115) H 07/25/20 03:30 Lactic Acid 3.1 mmol/L (0.5-2.2) H 07/24/20 06:29 Calcium 6.8 mg/dL (7.8-10.44) L 07/25/20 03:30 Total Bilirubin 0.6 mg/dL (0.2-1.2) 07/25/20 03:30 AST 59 U/L (5-34) H 07/25/20 03:30 ALT 79 U/L (8-55) H 07/25/20 03:30 Alkaline Phosphatase 57 U/L (40-110) 07/25/20 03:30 Creatine Kinase 205 U/L (29-168) H 07/23/20 20:25 CK-MB (CK-2) 33.1 ng/mL (0-6.6) H* 07/23/20 20:25 Troponin I 0.906 ng/mL (< 0.028) H* 07/24/20 01:05 Serum Total Protein 4.5 g/dL (6.0-8.3) L 07/25/20 03:30 Albumin 2.2 g/dL (3.4-4.8) L 07/25/20 03:30 Urine Ketones Negative mg/dL (Negative) 07/24/20 Unknown Urine Blood 2+ (Negative) A 07/24/20 Unknown Urine Nitrite Negative (Negative) 07/24/20 Unknown Ur Leukocyte Esterase 500 Fariha/uL (Negative) A 07/24/20 Unknown Urine RBC 7-10 HPF (0-3) A 07/24/20 Unknown Urine WBC Greater than 50 HPF (0-3) A 07/24/20 Unknown Ur Squamous Epith Cells None Seen HPF (0-3) 07/24/20 Unknown Urine Bacteria 4+ HPF (None Seen) A 07/24/20 Unknown Sodium 149 mmol/L (136-145) H 07/25/20 03:30 Potassium 2.8 mmol/L (3.5-5.1) L* 07/25/20 03:30 Chloride 104 mmol/L (98-107) 07/25/20 03:30 Carbon Dioxide 30 mmol/L (23-31) 07/25/20 03:30 Anion Gap 18 mmol/L (10-20) 07/25/20 03:30 BUN 139 mg/dL (9.8-20.1) H 07/25/20 03:30 Creatinine 4.19 mg/dL (0.6-1.1) H 07/25/20 03:30 Glucose 195 mg/dL (80-115) H 07/25/20 03:30 Calcium 6.8 mg/dL (7.8-10.44) L 07/25/20 03:30 Phosphorus 2.6 mg/dL (2.3-4.7) 07/23/20 21:21 Magnesium 3.7 mg/dL (1.6-2.6) H 07/23/20 21:21 Albumin 2.2 g/dL (3.4-4.8) L 07/25/20 03:30 Nephrology AP PN - Plan ASSESSMENT Acute renal failure: Multifactorial most likely. Hemodynamic factors related severe dehydration and septic shock. initially anuric. Now making urine. Creat/BUN are trending down, Severe metabolic acidosis: Resolved with alkali therapy Hypernatremia: Due to free water deficit Hypokalemia Suspected mesenteric ischemia given colon thickening, elevated troponin and lactic acidosis. Severe dehydration Acute metabolic encephalopathy: Acute illness, acidosis, WAYNE +/- uremia: improving. Colon cancer s/p colon resection and colostomy Hypocalcemia Elevated troponin Acute transaminitis Acute blood loss anemia: Occult stool positive. HB down to 7.4 PLAN Start hypotonic solution therapy with D5/1/4 saline. DC NS and sodium bicarb in fusion. Continue pressor as needed Replete serum potassium Get serum magnesium and replete if indicated. Monitor intake and output as well as renal functoion and electrolytes. Management of suspected mesenteric ischemia and GI bleeding as per Primary attending.
--- NOTE | 2020-07-25 10:14 | RAD ---
Exam: Abdomen one view HISTORY: Abdominal pain COMPARISON: None FINDINGS: Mild leftward curvature of the lumbar spine may be positional. There are scattered air-filled nondistended, nondilated loops of small bowel. There is air in nondist ended segment of transverse colon. Surgical clips are noted in the abdomen left hemipelvis. No evidence of pneumoperitoneum on this supine projection. No suspicious masses. There is bowel gas that is lateral to the left lower quadrant. If there is concern for hernia, consider CT. IMPRESSION: 1. Nonspecific bowel gas pattern. 2. Bowel gas that is lateral in location with respect to the left lower quadrant. If there is concern for hernia, consider CT.
[2020-07-25] MEDS ORDERED: Potassium Chloride 40 MEQ in Premix Bag 1 BAG IVPB SCH (10:30)
[2020-07-25 10:57] LABS: Base Excess-Venous -10.4 mmol/L (-2.0 to 3.0); Bicarbonate (HCO3v) 12.9 mmol/L (22.0-28.0); CO2 Tension (PvCO2) 21.5 mmHg (40.0-50.0); Calcium, Ionized 0.82 mmol/L (1.15-1.33); Chloride 107 mmol/L (98-107); Hemoglobin - Calc 10.5 g/dL (12.0-16.0); Potassium 2.4 mmol/L (3.5-5.1); Sodium 139 mmol/L (138-145); T. Carbon Dioxide 13.6 mmol/L (22.0-28.0)
[2020-07-25] MEDS: Norepinephrine 8 MG/0.9% NS 250 ML IVPB SCH (14:18)
--- NOTE | 2020-07-25 14:20 | PDOC.HOSPP ---
- Subjective Encounter Date: 07/25/20 Encounter Time: 10:30 Subjective: Patient up in bed oriented x2. - Objective Vital Signs & Weight: Vital Signs (12 hours) Temp Pulse Ox 07/25/20 13:00 97.7 F 07/25/20 08:00 97.2 F L 99 07/25/20 04:00 98.5 F Weight Admit Weight 120 lb Weight 120 lb 9.486 oz Most Recent Monitor Data Heart Rate from ECG 74 NIBP 90/54 NIBP BP-Mean 66 Respiration from ECG 15 SpO2 97 I&O: 07/24/20 07/25/20 07/26/20 06:59 06:59 06:59 Intake Total 1721 4019 434 Output Total 355 2065 435 Balance 1366 4 -1 Result Diagrams: 07/25/20 03:30 07/25/20 03:30 Hospitalist ROS - Review of Systems Respiratory: denies: cough, dry, shortness of breath, hemoptysis, SOB with excertion, pleuritic pain, sputum, wheezing, other Cardiovascular: denies: chest pain, palpitations, orthopnea, paroxysmal noc. dyspnea, edema, light headedness, other Gastrointestinal: reports: abdominal pain Genitourinary: denies: dysuria, frequency, incontinence, hematuria, retention, other - Medication Medications: Active Medications Generic Name Dose Route Start Last Admin Trade Name Freq PRN Reason Stop Dose Admin Benzocaine 0 gm 07/24/20 22:13 07/24/20 22:22 Benzocaine (Dental) 7 Gm Tube TOP 7 gm QIDPRN PRN Administration Topical Anesthetic Norepinephrine Bitartrate 250 mls @ 0 mls/hr 07/23/20 23:45 07/24/20 18:43 Levophed IVPB 250 mls INF MELINA Administration Protocol Titrate Thiamine HCl 100 mg/ Sodium 51 mls @ 100 mls/hr 07/24/20 09:00 07/25/20 08:12 Chloride IVPB 07/27/20 21:31 51 mls Q12HR MELINA Administration Piperacillin Sod/Tazobactam 100 mls @ 200 mls/hr 07/24/20 14:00 07/25/20 06:37 Sod 2.25 gm/ Sodium Chloride IVPB 100 mls Q8HR MELINA Administration Dextrose/Sodium Chloride 1,000 mls @ 150 mls/hr 07/25/20 07:30 07/25/20 08:11 D5 1/4 Ns IV 1,000 mls .[id number] MELINA Administration Potassium Chloride 40 meq/ 100 mls @ 25 mls/hr 07/25/20 10:30 07/25/20 10:37 Device IVPB 07/25/20 15:00 100 mls NOW MELINA Administration Pantoprazole Sodium 40 mg 07/24/20 09:00 07/25/20 08:12 Pantoprazole 40 Mg Vial IVP 40 mg DAILY MELINA Administration Sodium Chloride 10 ml 07/25/20 09:00 07/25/20 08:12 Flush - Normal Saline 10 Ml Syringe IVF 10 ml Q12HR MELINA Administration - Exam Neck: negative: supple, symmetric, no JVD, no thyromegaly, no lymphadenopathy, no carotid bruit, JVD Heart: negative: RRR, no murmur, no gallops, no rubs, normal peripheral pulses, irregular, diminshed peripheral pulses, murmur present, II/IV, III/IV Respiratory: negative: CTAB, no wheezes, no rales, no ronchi, normal chest expansion, no tachypnea, normal percussion, rales, rhonchi, tachypneic, wheezes Gastrointestinal: soft, normal bowel sounds Gastrointestinal - other findings: Pain upon palpation to epigastric area colostomy dark stools. Hosp A/P (1) Septic shock Code(s): A41.9 - SEPSIS, UNSPECIFIED ORGANISM; R65.21 - SEVERE SEPSIS WITH SEPTIC SHOCK Status: Acute (2) Metabolic acidosis Code(s): E87.2 - ACIDOSIS Status: Acute (3) WAYNE (acute kidney injury) Code(s): N17.9 - ACUTE KIDNEY FAILURE, UNSPECIFIED Status: Acute (4) NSTEMI (non-ST elevated myocardial infarction) Code(s): I21.4 - NON-ST ELEVATION (NSTEMI) MYOCARDIAL INFARCTION Status: Acute (5) Elevated LFTs Code(s): R79.89 - OTHER SPECIFIED ABNORMAL FINDINGS OF BLOOD CHEMISTRY Status: Acute (6) COVID-19 Code(s): U07.1 - COVID-19 Status: Acute (7) Colitis Code(s): K52.9 - NONINFECTIVE GASTROENTERITIS AND COLITIS, UNSPECIFIED Status: Acute - Plan Continue current antibiotics. Creatinine improving. We will continue bicarb drip. Elevated troponins most likely secondary to type II demand ischemia. Will check stool for occult blood patient's colostomy indicates really dark stool. Her H&H also has trended down. Covid positive however she was diagnosed in April. We will continue to monitor blood cultures. ischemic colitis is a possibility given her high lactic acid at the outside facility. will get gi to see if her occult blood comes positive. 07/25 patient's H&H continues to drop we will type and screen and transfuse if H&H continues to drop. Will get GI to see the patient since her occult blood is positive. We will continue current antibiotics. She continues to be on a Levophed drip. I believe once we give her blood possibly will be able to take her off the Levophed drip. I will also check a cortisol level in the morning. Patient's bicarb drip has been discontinued.
[2020-07-25 14:48] LABS: Hemoglobin 6.7 g/dL (12.0-16.0)
[2020-07-25 15:17] LABS: Anion Gap 18 mmol/L (10-20); Calc. Creatinine Clearance 12 mL/min (70-130); Calcium 6.9 mg/dL (7.8-10.44); Carbon Dioxide 30 mmol/L (23-31); Chloride 105 mmol/L (98-107); Glucose 206 mg/dL (80-115); Potassium 3.6 mmol/L (3.5-5.1); Sodium 149 mmol/L (136-145)
[2020-07-25 15:28] LABS: BUN (Urea Nitrogen) 117 mg/dL (9.8-20.1)
--- NOTE | 2020-07-25 16:03 | PRG ---
DATE OF SERVICE: 07/25/2020 SUBJECTIVE: Ms. Villatoro is a 69-year-old female. Her close friend from when she grew up gave a very good history when Ms. Villatoro presented with confusion and weakness. Apparently, she picked up several friends from an airport and now This was several months back. Her COVID screen here was still positive since she was isolated. She is confused. PHYSICAL EXAMINATION: VITAL SIGNS: She is afebrile. Heart rate is in the 80s, blood pressure 102/66, respiratory rates in the teens, oximetry is 100%. LUNGS: Clear. HEART: Regular rhythm. ABDOMEN: Soft, minimally tender. LABORATORY DATA: Her hemoglobin is 7.4 this morning, down from 9.2 yesterday. This afternoon, hemoglobin 6.7. I ordered 2 units of packed cells this morning and apparently that have not been given yet. Electrolytes were unremarkable. BUN 117, creatinine 3.87. IMPRESSION: 1. Severe dehydration. 2. ?Early sepsis with encephalopathy. I would wonder if she does not have an early dementia. She is growing gram-negative rods from her urine, but not from her blood. She can have her isolation discontinued. She should continue with volume resuscitation. Gastroenterology has been consulted because of a transverse colon that was noted to be herniated hernia with her colostomy. Dr. Benson has seen her, does not feel that she has ischemic bowel. I would agree with this given her clinical stability and improving creatinine and blood pressures, she does need to be transfused. We will continue to follow the other physicians caring for her. Job ID: [id number]
[2020-07-25] MEDS ORDERED: Calcium Chloride 13.6 MEQ in Sodium Chloride 0.9% 100 ML IVPB SCH (17:15)
--- NOTE | 2020-07-25 19:53 | CON ---
DATE OF CONSULTATION: REASON FOR CONSULT: Anemia, "possible ischemic colitis." History of present illness is obtained from talking with the nurse, reviewing the chart as the patient has altered mental status. HISTORY OF PRESENT ILLNESS: Ms. Villatoro is a 69-year-old female who is from around [place], [place], currently is visiting a friend in the [facility] and was brought to that hospital on the for confusion. Apparently, she was brought to that hospital at 11 with confusion, dehydration, hypotension, metabolic acidosis, and diagnosed with non-ST OH. EMS was told that the patient had not eaten in over a week and had developed confusion. Apparently, she was staying with a friend. The friend reported that she became ill about 2 months ago when she had COVID, but has never got right since that time. The friend is not available presently. The patient could add no further history. In the outside emergency room, she was hypotensive with pressures in the 60s and 70s. Heart rates in the 100s to 160s. She was given IV fluid resuscitation and started on Zosyn. Given sodium bicarbonate as well and placed on some Levophed. Ultimately, her pressures came up and she was transferred to this facility. At the outside hospital showed a white count of 13, hemoglobin of 12.8, platelet counts of 172. CMP showed a glucose of 280, sodium 130, potassium 3, BUN of 168, bicarb of 11, chloride of 86. Sodium 134, creatinine was 7. AST and ALT were 55 and less than 5, albumin 3.6, and protein of 7.4, troponin was 0.92. Lactic gas was 12, pH was 7.3. She had a chest x-ray that showed no infiltrates or effusions and normal heart. Had a CAT scan that showed a previous sigmoid resection, left lower quadrant colostomy, parastomal hernia, and short-segment of distal transverse colon. It did not seem that there was any obstruction and the radiologist did not feel that there was any incarceration. There was some mild thickening of the distal transverse colon. The cecum was full of liquid stool. There were no other abnormalities noted. On arrival here, her pulse is still in the 100s, blood pressure was over 100 systolic. She was afebrile. She is alert and oriented x2 in the emergency room apparently. The patient apparently had surgery consult who did not feel her situation was surgical or that she had ischemic bowel and she was admitted to the ICU. She was seen by Nephrology and Cardiology yesterday. She by ICU staff as well. Here, the nurse states that she is still on mild dose of Levophed. She is a bit confused. She has had only about 300 mL out through her colostomy. It is dark and thin liquid, which is almost black. She has had no hematemesis or nausea, vomiting. She has not had any complaints. She has scant bowel sounds. She was anuric on admission and is now making urine of 40 to 75 mL an hour. Cardiology felt that she was having demand ischemia and not an acute OH. Presently, the patient denies any abdominal pain. She is resting in bed. PAST MEDICAL HISTORY: Colon obstruction. Apparently, this was nonmalignant about 3 years ago. She had a transverse descending colostomy which has persisted. History of COVID back in May. She still is tested positive here today. PAST SURGICAL HISTORY: Previous cholecystectomy. SOCIAL HISTORY: Negative for alcohol, drugs, or tobacco. FAMILY HISTORY: Unknown. REVIEW OF SYSTEMS: Unable to be obtained. MEDICATIONS: Prior to admission outside ER has: 1. Losartan. 2. Metoprolol. 3. Sumatriptan. 4. Atorvastatin. 5. Hydrochlorothiazide. Present medications here: 1. D5 half-normal saline. 2. Levophed. 3. Protonix 40 q.12. 4. Zosyn. 5. Seroquel. 6. Thiamine. PHYSICAL EXAMINATION: VITAL SIGNS: Temperature 97, heart rate is 81 to 83, blood pressure is 96/64 right now. It has been as high as 124/60. Input and output yesterday were 4019 and 5. She has had 100 cc of stool today, 675 yesterday. She has had 1390 urine output yesterday, 415 so far today. GENERAL: She opens her eyes. She does not want to talk, but when I started examining her, she asked me to stop pressing her abdomen. She states that she does not know why she has a colostomy. She knows it is Alessandro time. She does not know where she is otherwise. HEENT: Conjunctiva and sclera clear. She is nonicteric. LUNGS: Clear. HEART: Regular rate and rhythm without clicks or murmurs. ABDOMEN: Soft. There is a stoma in the left lower quadrant which is pink without evidence of ischemia. She has a hernia around that, which is easily reducible. She has mild discomfort when I push her abdomen. No rebound or guarding. Bowel sounds are positive. EXTREMITIES: No clubbing, cyanosis, or edema. SKIN: Without rashes or lesions. There are no petechiae. [place]ATORY [place]: [place] [address] on admission, 10,000 today. Hemoglobin on arrival to this hospital was 11, then 9, then 7 and 6.7 today this afternoon, MCV 93, platelets 155 down to 55, bands 44%, pH on admission here was 7.45. Sodium 149, potassium is 2.9, BUN and creatinine are 139 and 4.1, down from 175 and 6. Lactic acid was 3.1 on arrival here down from 12 at the outside facility that was on the . It has not been checked. Calcium is 6.8, phosphorus is 2.6 on , magnesium 1.6 today, bilirubin 0.6, AST and ALT increased to a high of 304, down to 59 and 153 down to 79, alkaline phosphatase 56, protein 4.5, albumin 2.2. TSH 1.2, a 25-OH vitamin 51. Urine had greater than 50 white blood cells, no squames, 4+ bacteria. Urine drug screen, salicylates negative, acetaminophen level/alcohol negative. Urine drug screen negative. COVID positive. Abdominal x-ray today, nonspecific bowel-gas pattern. Chest x-ray, no pneumonia. ASSESSMENT: 1. This is a 69-year-old who presented to an outside facility with illness for several days prior, not eating for at least a week with profound dehydration, metabolic acidosis, elevated lactic acid, and renal failure with confusion. She has progressive drop in hemoglobin, which may be related to aggressive hydration. She does have dark stool in her ostomy bag, which is occult positive. She has a urine culture that shows gram-negative rods, blood cultures which have been negative here. She did receive antibiotics at an outside ER prior to coming here. Her acidosis is improved. Her blood pressure is improved. She is receiving 2 units of blood now. I think that she was profoundly dehydrated. She may have had a urinary tract infection. Differential diagnosis would include hemolytic uremic like syndrome or hemolysis with DIC and confusion. She does not have a history of heavy alcohol abuse or liver disease to explain her confusion. 2. With regard to her dropping hemoglobin, I do not think we are seeing enough of blood in her GI tract to account for her hypotension. I think her dropping hemoglobin is more related to aggressive fluid resuscitation which I think needs to continue, and I agree with transfusion. 3. As far as her acidosis, I do not think it is related to her bowel. She has a reducible hernia. She does not complain of severe abdominal pain as one would with bowel as this is over 48 hours into her hospitalization. She has had no abdominal pain. If she had necrotic bowel from ischemia, she would either be by now or shows signs of severe peritonitis. RECOMMENDATIONS: 1. Continue IV PPI q.12. Continue aggressive resuscitation. Continue broad-spectrum antibiotics. Consider evaluation for hemolytic uremic syndrome. If the patient does not improve, however, again with dropping BUN with hydration, I think this is probably all severe prerenal azotemia with UTI or other infection and there is still a possibility of GI bleeding. If she shows acute signs of hemorrhage, we can perform emergent EGD. Otherwise, we will transfuse as necessary and at a later date if she continues to have issues with the anemia, we can consider an EGD. 2. As far as a question of ischemic colitis, I do not think she has any ischemia that warrants surgical intervention at this time. She could have some mild ischemic colitis, but definitely has no signs of tenderness or infarction or incarceration of her hernia. Job ID: [id number]
[2020-07-25 21:01] LABS: Vancomycin, Random 16.2 ug/mL (See Comment)
[2020-07-26 04:11] LABS: #Eosinphils 0.1 thou/uL (0.0-0.7); #Lymphocytes 0.8 thou/uL (1.20-3.40); #Monocytes 0.3 thou/uL (0.11-0.59); #Neutrophils 8.1 thou/uL (1.40-6.50); %Basophils 0.1 % (0.0-1.0); %Eosinophils 1.1 % (0.0-10.0); %Lymphocytes 8.3 % (21.0-51.0); %Monocytes 3.2 % (0.0-10.0); %Neutrophils 87.3 % (42.0-75.0); Hemoglobin 9.4 g/dL (12.0-16.0); Mean Corpuscular HGB CONC 35.2 g/dL (32.0-36.0); Mean Corpuscular Hemoglobin 32.7 pg (27.0-31.0); Mean Corpuscular Volume 92.9 fL (78.0-98.0); Mean Platelet Volume 10.4 fL (7.4-10.4); Platelet Count 36 thou/uL (130-400); RBC Distribution Width 13.4 % (11.5-14.5); Red Blood Cell (RBC) Count 2.88 mill/uL (4.20-5.40); White Blood Cell (WBC) Count 9.2 thou/uL (4.8-10.8)
[2020-07-26 04:30] LABS: ALT (SGPT) 53 U/L (8-55); AST (SGOT) 27 U/L (5-34); Albumin 2.1 g/dL (3.4-4.8); Alkaline Phosphatase 58 U/L (40-110); Anion Gap 16 mmol/L (10-20); BUN (Urea Nitrogen) 111 mg/dL (9.8-20.1); Bilirubin, Total 0.7 mg/dL (0.2-1.2); Calc. Creatinine Clearance 14 mL/min (70-130); Calcium 7.2 mg/dL (7.8-10.44); Carbon Dioxide 26 mmol/L (23-31); Chloride 106 mmol/L (98-107); Globulin 2.1 g/dL (2.4-3.5); Glucose 218 mg/dL (80-115); Potassium 3.1 mmol/L (3.5-5.1); Protein, Total 4.2 g/dL (6.0-8.3); Sodium 145 mmol/L (136-145)
[2020-07-26] MEDS: Piperacillin/Tazobactam 2.25 GM in Sodium Chloride 0.9% 100 ML IVPB SCH ×3 (05:21→21:36)
[2020-07-26] MEDS: D5 1/4 NS 1,000 ML IV SCH (05:21)
[2020-07-26] MEDS ORDERED: Potassium Chloride 40 MEQ in Premix Bag 1 BAG IVPB SCH (06:45)
[2020-07-26] MEDS: Lactated Ringer's 1,000 ML IV SCH ×3 (07:24→23:50)
[2020-07-26 07:32] LABS: Magnesium 1.4 mg/dL (1.6-2.6)
[2020-07-26] MEDS ORDERED: Potassium Phosphate 15 MMOL in Sodium Chloride 0.9% 250 ML 250 ML IVPB SCH (08:15)
[2020-07-26] MEDS: Pantoprazole 40 MG VIAL IVP SCH (08:35)
[2020-07-26] MEDS ORDERED: [UNRECOGNIZED DRUG - OTHER] IVPB SCH (09:00)
[2020-07-26] MEDS ORDERED: MAGNESIUM SULFATE IVPB SCH (09:00)
[2020-07-26] MEDS ORDERED: POTASSIUM PHOSPHATE IVPB SCH (09:00)
[2020-07-26] MEDS ORDERED: Aluminum & Magnesium Hydroxide 60 ML, diphenhydrAMINE 150 MG, Lidocaine 2% Viscous Solu... SSW PRN (10:31)
[2020-07-26] MEDS: Albumin 25% 25 GM/100 ML BOT IVPB SCH ×3 (11:50→23:49)
--- NOTE | 2020-07-26 13:31 | PRG ---
DATE OF SERVICE: 07/26/2020 SUBJECTIVE: Ms. Villatoro remains in the Critical Care Unit. OBJECTIVE: VITAL SIGNS: Heart rate is in the 80s, blood pressure is in the 80s to 90s, respiratory rates in the teens, oximetry is in the high 90s. LUNGS: Clear anteriorly. HEART: Regular rhythm. ABDOMEN: Soft. EXTREMITIES: Without asymmetry. LABORATORY DATA: White count 9.2, hemoglobin 9.4, platelets 36,000. Sodium 145, potassium 3.1, chloride 106, bicarb 26, BUN 111, creatinine 3.39, down from 3.87 yesterday. IMPRESSION: 1. History of colostomy. 2. Herniated transverse colon into her parastomal hernia, not felt to be ischemic. 3. Acute on chronic kidney disease, it appears to be improving. 4. Hypotension. She does not appear to be adrenal insufficient based on coordinator of health services cortisol of 16. 5. She does appear to be severely malnourished with an albumin of 2.1. 6. She is empirically on broad antimicrobial coverage. Cultures only showing gram-negative in her urine. 7. Apparently, a manual differential was not done today, so it is unclear whether her left shift is resolving or not. We will get this done. We will continue to follow. Job ID: [id number]
[2020-07-26 14:07] LABS: Band 4 % (5-11); Lymphocytes 16 % (21-51); Ovalocytes SLIGHT = 2-5 cells (100X) (0-1/hpf); Polychromasia SLIGHT = 2-3 cells (100X) (0-2/hpf)
[2020-07-26 14:09] LABS: Large Platelets SLIGHT; Vacuoles SLIGHT
[2020-07-26 14:10] LABS: Platelet Morphology Comment Appears Decreased
[2020-07-26 14:12] LABS: Eosinophils 1 % (0-10); Monocytes 2 % (0-10); Neutrophil 77 % (42-75)
--- NOTE | 2020-07-26 14:18 | PDOC.HOSPP ---
- Subjective Encounter Date: 07/26/20 Encounter Time: 10:30 Subjective: pt up in bed confused. - Objective Vital Signs & Weight: Vital Signs (12 hours) Temp Pulse Ox 07/26/20 11:00 98.5 F 07/26/20 07:38 100 07/26/20 07:00 98.2 F 07/26/20 04:00 97.8 F Weight Admit Weight 120 lb Weight 132 lb 15.02 oz Most Recent Monitor Data Heart Rate from ECG 86 NIBP 93/60 NIBP BP-Mean 71 Respiration from ECG 18 SpO2 100 I&O: 07/25/20 07/26/20 07/27/20 06:59 06:59 06:59 Intake Total 4019 4202.1 545.5 Output Total 2065 1400 290 Balance 1954 2802.1 255.5 Result Diagrams: 07/26/20 03:26 07/26/20 03:26 Hospitalist ROS - Review of Systems Cardiovascular: denies: chest pain, palpitations, orthopnea, paroxysmal noc. dyspnea, edema, light headedness, other Gastrointestinal: denies: nausea, vomiting, abdominal pain, diarrhea, constipation, melena, hematochezia, other - Medication Medications: Active Medications Generic Name Dose Route Start Last Admin Trade Name Freq PRN Reason Stop Dose Admin Albumin Human 25 gm 07/26/20 12:00 07/26/20 11:50 Albumin 25% 25 Gm/100 Ml Bot IVPB 07/27/20 18:01 25 gm Q6H MELINA Administration Benzocaine 0 gm 07/24/20 22:13 07/24/20 22:22 Benzocaine (Dental) 7 Gm Tube TOP 7 gm QIDPRN PRN Administration Topical Anesthetic Al Hydroxide/Mg Hydroxide 60 0 ml 07/26/20 10:31 07/26/20 13:59 ml/ Diphenhydramine HCl 150 mg SSW 10 ml / Lidocaine HCl 60 ml/ Q8H PRN Administration Nystatin 6,000,000 units Mouth Irritation Norepinephrine Bitartrate 250 mls @ 0 mls/hr 07/23/20 23:45 07/25/20 14:18 Levophed IVPB 250 mls INF MELINA Administration Protocol Titrate Thiamine HCl 100 mg/ Sodium 51 mls @ 100 mls/hr 07/24/20 09:00 07/26/20 08:35 Chloride IVPB 07/27/20 21:31 51 mls Q12HR MELINA Administration Piperacillin Sod/Tazobactam 100 mls @ 200 mls/hr 07/24/20 14:00 07/26/20 13:50 Sod 2.25 gm/ Sodium Chloride IVPB 100 mls Q8HR MELINA Administration Lactated Ringer's 1,000 mls @ 125 mls/hr 07/26/20 06:45 07/26/20 07:24 Lactated Ringer's IV 1,000 mls .Q8H MELINA Administration Pantoprazole Sodium 40 mg 07/24/20 09:00 07/26/20 08:35 Pantoprazole 40 Mg Vial IVP 40 mg DAILY MELINA Administration Quetiapine Fumarate 25 mg 07/25/20 21:00 07/26/20 08:50 Quetiapine Fumarate 25 Mg Tab PO 25 mg BID MELINA Administration Sodium Chloride 10 ml 07/25/20 09:00 07/26/20 08:51 Flush - Normal Saline 10 Ml Syringe IVF 10 ml Q12HR MELINA Administration - Exam General - other findings: oral sores noted in mouth Heart: negative: RRR, no murmur, no gallops, no rubs, normal peripheral pulses, irregular, diminshed peripheral pulses, murmur present, II/IV, III/IV Respiratory: negative: CTAB, no wheezes, no rales, no ronchi, normal chest expansion, no tachypnea, normal percussion, rales, rhonchi, tachypneic, wheezes Gastrointestinal: soft Gastrointestinal - other findings: colostomy dark output Extremities: 1+ LE edema Hosp A/P (1) Septic shock Code(s): A41.9 - SEPSIS, UNSPECIFIED ORGANISM; R65.21 - SEVERE SEPSIS WITH SEPTIC SHOCK Status: Acute (2) Metabolic acidosis Code(s): E87.2 - ACIDOSIS Status: Acute (3) WAYNE (acute kidney injury) Code(s): N17.9 - ACUTE KIDNEY FAILURE, UNSPECIFIED Status: Acute (4) NSTEMI (non-ST elevated myocardial infarction) Code(s): I21.4 - NON-ST ELEVATION (NSTEMI) MYOCARDIAL INFARCTION Status: Acute (5) Elevated LFTs Code(s): R79.89 - OTHER SPECIFIED ABNORMAL FINDINGS OF BLOOD CHEMISTRY Status: Acute (6) COVID-19 Code(s): U07.1 - COVID-19 Status: Acute (7) Colitis Code(s): K52.9 - NONINFECTIVE GASTROENTERITIS AND COLITIS, UNSPECIFIED Status: Acute - Plan Continue current antibiotics. Creatinine improving. We will continue bicarb drip. Elevated troponins most likely secondary to type II demand ischemia. Will check stool for occult blood patient's colostomy indicates really dark stool. Her H&H also has trended down. Covid positive however she was diagnosed in April. We will continue to monitor blood cultures. ischemic colitis is a possibility given her high lactic acid at the outside facility. will get gi to see if her occult blood comes positive. 07/25 patient's H&H continues to drop we will type and screen and transfuse if H&H continues to drop. Will get GI to see the patient since her occult blood is positive. We will continue current antibiotics. She continues to be on a Levophed drip. I believe once we give her blood possibly will be able to take her off the Levophed drip. I will also check a cortisol level in the morning. Patient's bicarb drip has been discontinued. 07/26 electrolytes replaced. s/p 2units of blood. pt off levophed drip. will continue abx for now.
--- NOTE | 2020-07-26 14:36 | PDOC.NEPPN ---
- Subjective Encounter Date: 07/26/20 Subjective: Seen and examined. Still confused and disoriented. Oral intake remained very poor. Complaining of oral sores and pain. - Objective Vital Signs & Weight: Vital Signs (12 hours) Temp Pulse Ox 07/26/20 11:00 98.5 F 07/26/20 07:38 100 07/26/20 07:00 98.2 F 07/26/20 04:00 97.8 F Weight Admit Weight 120 lb Weight 132 lb 15.02 oz Most Recent Monitor Data Heart Rate from ECG 86 NIBP 93/60 NIBP BP-Mean 71 Respiration from ECG 18 SpO2 100 I&O: 07/25/20 07/26/20 07/27/20 06:59 06:59 06:59 Intake Total 4019 4202.1 545.5 Output Total 2065 1400 290 Balance 1954 2802.1 255.5 Result Diagrams: 07/26/20 03:26 07/26/20 03:26 Nephrology ROS - Medication Medications: Active Medications Generic Name Dose Route Start Last Admin Trade Name Freq PRN Reason Stop Dose Admin Albumin Human 25 gm 07/26/20 12:00 07/26/20 11:50 Albumin 25% 25 Gm/100 Ml Bot IVPB 07/27/20 18:01 25 gm Q6H MELINA Administration Benzocaine 0 gm 07/24/20 22:13 07/24/20 22:22 Benzocaine (Dental) 7 Gm Tube TOP 7 gm QIDPRN PRN Administration Topical Anesthetic Al Hydroxide/Mg Hydroxide 60 0 ml 07/26/20 10:31 07/26/20 13:59 ml/ Diphenhydramine HCl 150 mg SSW 10 ml / Lidocaine HCl 60 ml/ Q8H PRN Administration Nystatin 6,000,000 units Mouth Irritation Norepinephrine Bitartrate 250 mls @ 0 mls/hr 07/23/20 23:45 07/25/20 14:18 Levophed IVPB 250 mls INF MELINA Administration Protocol Titrate Thiamine HCl 100 mg/ Sodium 51 mls @ 100 mls/hr 07/24/20 09:00 07/26/20 08:35 Chloride IVPB 07/27/20 21:31 51 mls Q12HR MELINA Administration Piperacillin Sod/Tazobactam 100 mls @ 200 mls/hr 07/24/20 14:00 07/26/20 13:50 Sod 2.25 gm/ Sodium Chloride IVPB 100 mls Q8HR MELINA Administration Lactated Ringer's 1,000 mls @ 125 mls/hr 07/26/20 06:45 07/26/20 07:24 Lactated Ringer's IV 1,000 mls .Q8H MELINA Administration Pantoprazole Sodium 40 mg 07/24/20 09:00 07/26/20 08:35 Pantoprazole 40 Mg Vial IVP 40 mg DAILY MELINA Administration Quetiapine Fumarate 25 mg 07/25/20 21:00 07/26/20 08:50 Quetiapine Fumarate 25 Mg Tab PO 25 mg BID MELINA Administration Sodium Chloride 10 ml 07/25/20 09:00 07/26/20 08:51 Flush - Normal Saline 10 Ml Syringe IVF 10 ml Q12HR MELINA Administration - Exam General Appearance: awake alert Eye: anicteric sclera ENT: moist mucosa Neck: supple, symmetric, no JVD Respiratory - other findings: fair air entry bilaterally. No obvious crackles noted Cardiovascular: RRR Gastrointestinal: soft, non-distended, normal bowel sounds, tender to palpation Gastrointestinal - other findings: LLQ colostomy noted Extremities: no edema Neurological: CN's grossly intact, no focal deficits Musculoskeletal: generalized weakness PSYCH: oriented to person Nephrology Results - Labs Result Diagrams: 07/26/20 03:26 07/26/20 03:26 Lab results: WBC 9.2 thou/uL (4.8-10.8) 07/26/20 03:26 Hgb 9.4 g/dL (12.0-16.0) L 07/26/20 03:26 Hct 26.7 % (36.0-47.0) L 07/26/20 03:26 MCV 92.9 fL (78.0-98.0) 07/26/20 03:26 Plt Count 36 thou/uL (130-400) L 07/26/20 03:26 Neutrophils % 87.3 % (42.0-75.0) H 07/26/20 03:26 Band Neuts % (Manual) 4 % (5-11) L 07/26/20 03:26 ABG pH 7.45 (7.35-7.45) 07/23/20 20:30 ABG pCO2 16.8 mmHg (35.0-45.0) L* 07/23/20 20:30 ABG pO2 108.3 mmHg (> 80.0) H 07/23/20 20:30 VBG pCO2 21.5 mmHg (40.0-50.0) L* 07/23/20 20:52 VBG pO2 43.3 mmHg (35.0-45.0) 07/23/20 20:52 Sodium 145 mmol/L (136-145) 07/26/20 03:26 Potassium 3.1 mmol/L (3.5-5.1) L 07/26/20 03:26 Chloride 106 mmol/L (98-107) 07/26/20 03:26 Carbon Dioxide 26 mmol/L (23-31) 07/26/20 03:26 BUN 111 mg/dL (9.8-20.1) H 07/26/20 03:26 Creatinine 3.39 mg/dL (0.6-1.1) H 07/26/20 03:26 Glucose 218 mg/dL (80-115) H 07/26/20 03:26 Lactic Acid 3.1 mmol/L (0.5-2.2) H 07/24/20 06:29 Calcium 7.2 mg/dL (7.8-10.44) L 07/26/20 03:26 Total Bilirubin 0.7 mg/dL (0.2-1.2) 07/26/20 03:26 AST 27 U/L (5-34) 07/26/20 03:26 ALT 53 U/L (8-55) 07/26/20 03:26 Alkaline Phosphatase 58 U/L (40-110) 07/26/20 03:26 Creatine Kinase 205 U/L (29-168) H 07/23/20 20:25 CK-MB (CK-2) 33.1 ng/mL (0-6.6) H* 07/23/20 20:25 Troponin I 0.906 ng/mL (< 0.028) H* 07/24/20 01:05 Serum Total Protein 4.2 g/dL (6.0-8.3) L 07/26/20 03:26 Albumin 2.1 g/dL (3.4-4.8) L 07/26/20 03:26 Urine Ketones Negative mg/dL (Negative) 07/24/20 Unknown Urine Blood 2+ (Negative) A 07/24/20 Unknown Urine Nitrite Negative (Negative) 07/24/20 Unknown Ur Leukocyte Esterase 500 Fariha/uL (Negative) A 07/24/20 Unknown Urine RBC 7-10 HPF (0-3) A 07/24/20 Unknown Urine WBC Greater than 50 HPF (0-3) A 07/24/20 Unknown Ur Squamous Epith Cells None Seen HPF (0-3) 07/24/20 Unknown Urine Bacteria 4+ HPF (None Seen) A 07/24/20 Unknown Sodium 145 mmol/L (136-145) 07/26/20 03:26 Potassium 3.1 mmol/L (3.5-5.1) L 07/26/20 03:26 Chloride 106 mmol/L (98-107) 07/26/20 03:26 Carbon Dioxide 26 mmol/L (23-31) 07/26/20 03:26 Anion Gap 16 mmol/L (10-20) 07/26/20 03:26 BUN 111 mg/dL (9.8-20.1) H 07/26/20 03:26 Creatinine 3.39 mg/dL (0.6-1.1) H 07/26/20 03:26 Glucose 218 mg/dL (80-115) H 07/26/20 03:26 Calcium 7.2 mg/dL (7.8-10.44) L 07/26/20 03:26 Phosphorus 1.0 mg/dL (2.3-4.7) L 07/26/20 03:26 Magnesium 1.4 mg/dL (1.6-2.6) L 07/26/20 03:26 Albumin 2.1 g/dL (3.4-4.8) L 07/26/20 03:26 Nephrology AP PN - Plan ASSESSMENT Acute renal failure: Multifactorial most likely. Hemodynamic factors related severe dehydration and septic shock. initially anuric. Now making urine. Creat/BUN are trending down. Severe metabolic acidosis: Resolved with alkali therapy Hypernatremia: Due to free water deficit. Resolved Hypokalemia:recurrent. Hypomagnesemia Hypophosphatemia Suspected mesenteric ischemia given colon thickening, elevated troponin and lactic acidosis. Severe dehydration Acute metabolic encephalopathy: Acute illness, acidosis, WAYNE +/- uremia: improving. Colon cancer s/p colon resection and colostomy Hypocalcemia Elevated troponin Acute transaminitis Hypoalbuminemia Acute blood loss anemia: Occult stool positive. S/p PRBC transfusion. PLAN Start LR and DC D5/1/4 saline. Replete serum magnesium, potassium and phosphorus. Start albumin infusion inview of hypoalbuminemia to help with weaning off of pressor Wean pressor as tolerated Start magic mouth wash Monitor intake and output as well as renal functoion and electrolytes.
[2020-07-26] MEDS: Multivitamins, Adult 10 ML, Folic Acid 1 MG, Thiamine HCl 100 MG in Dextrose 5 %-0.45 %... IV SCH (16:38)
--- NOTE | 2020-07-27 04:35 | PRG ---
DATE OF SERVICE: 07/26/2020 SUBJECTIVE: Ms. Villatoro remains in the ICU. She has had no overt bleeding. She has ostomy output that is still dark. She is confused, acidosis has improved. She is off Levophed drip and continues on antibiotics. MEDICATIONS: 1. Albumin q.6. 2. Lactated Ringer's at 125. 3. Thiamine. 4. Levophed off. 5. Protonix 40 IV daily. 6. Zosyn. 7. Seroquel. PHYSICAL EXAMINATION: VITAL SIGNS: Temperature is 98, afebrile since admission. Heart rate 91, blood pressure 104/61, respirations 18, O2 saturation 99%. In's and out's today, 4202 and 1400 with urine output of 1 L. Ostomy output of 350. GENERAL: She is still confused when talking. She does not know where she is. She denies any pain. She denies any nausea. LUNGS: Clear. HEART: Regular rate and rhythm without murmurs. ABDOMEN: Soft and nontender. She has a parastomal hernia which is reducible. She has a scant amount of dark ostomy output. LABORATORY DATA: White count is down to 9.2, hemoglobin 6.4 after transfusion, platelet count 36,000, 77 bands, 4 segs. Sodium 145, potassium 3, BUN 111, creatinine 3.39, calcium 7.2, glucose 211, phosphorus 1, magnesium 1.4, protein 4, albumin 2, cortisol 16. TSH normal. ASSESSMENT: 1. Severe anemia, received 2 units of blood yesterday. Ostomy output is dark, it is Hemoccult positive. As she improves, she is going to need endoscopy. 2. Severe acidosis seems to be related to possibly severe hypotension from her anemia and also from severe prerenal azotemia. She had not been eating for some time when she came in. One wonders about alcoholism. She is not able to give any history on this. With her magnesium and phosphorus being low, she is obviously very malnourished and alcoholism would be one concern. She did have mildly elevated LFTs with AST greater than ALT on admission. Alcohol level was less than 10 on admission. I started a banana bag on her today. 3. Severe metabolic acidosis of unclear etiology. It may have been related to demand ischemia. There are no signs of ischemic bowel. There are no signs of incarceration of her hernia. PLAN: Continue hydration. Continue replacement of electrolytes. Continue banana bag. As she stabilizes, we will consider endoscopy tomorrow or the next day. Job ID: [id number]
[2020-07-27 05:23] LABS: Hemoglobin 8.7 g/dL (12.0-16.0); Mean Corpuscular HGB CONC 34.4 g/dL (32.0-36.0); Mean Corpuscular Hemoglobin 32.1 pg (27.0-31.0); Mean Corpuscular Volume 93.4 fL (78.0-98.0); Mean Platelet Volume 10.8 fL (7.4-10.4); Platelet Count 23 thou/uL (130-400); RBC Distribution Width 13.6 % (11.5-14.5); Red Blood Cell (RBC) Count 2.71 mill/uL (4.20-5.40); White Blood Cell (WBC) Count 6.5 thou/uL (4.8-10.8)
[2020-07-27 05:24] LABS: Band 3 % (5-11); Hypochromia SLIGHT = 6-15 cells (100X) (0-5/hpf); Lymphocytes 19 % (21-51); MDiff Complete? YES; Neutrophil 78 % (42-75); Platelet Morphology Comment Appears Decreased
[2020-07-27 05:26] LABS: ALT (SGPT) 28 U/L (8-55); AST (SGOT) 14 U/L (5-34); Albumin 3.4 g/dL (3.4-4.8); Alkaline Phosphatase 56 U/L (40-110); Anion Gap 15 mmol/L (10-20); BUN (Urea Nitrogen) 80 mg/dL (9.8-20.1); Bilirubin, Total 0.9 mg/dL (0.2-1.2); Calc. Creatinine Clearance 18 mL/min (70-130); Calcium 7.6 mg/dL (7.8-10.44); Carbon Dioxide 26 mmol/L (23-31); Chloride 109 mmol/L (98-107); Globulin 1.6 g/dL (2.4-3.5); Glucose 126 mg/dL (80-115); Potassium 3.3 mmol/L (3.5-5.1); Sodium 147 mmol/L (136-145)
[2020-07-27 05:32] LABS: Phosphorus 1.7 mg/dL (2.3-4.7)
[2020-07-27] MEDS: Albumin 25% 25 GM/100 ML BOT IVPB SCH ×2 (06:02→12:32)
[2020-07-27] MEDS: Piperacillin/Tazobactam 2.25 GM in Sodium Chloride 0.9% 100 ML IVPB SCH ×2 (06:05→16:07)
[2020-07-27] MEDS: Lactated Ringer's 1,000 ML IV SCH (06:06)
[2020-07-27] MEDS ORDERED: Potassium Phosphate 30 MMOL in Sodium Chloride 0.9% 250 ML 250 ML IVPB SCH (07:00)
[2020-07-27] MEDS: Pantoprazole 40 MG VIAL IVP SCH (08:04)
[2020-07-27] MEDS: Dextrose 5 %-0.45 % NaCl 1,000 ML IV SCH (08:10)
[2020-07-27] MEDS ORDERED: PHENYLEPHRINE-NS 100 MCG/ML 10 ML SYRINGE ONE (10:51)
--- NOTE | 2020-07-27 12:10 | PRG ---
DATE OF SERVICE: 07/27/2020 SUBJECTIVE: Ms. Villatoro is a little bit more awake. She knows she is in the hospital. She seems more lucid today. She states that she has not been a drinker in the past. She denies any abdominal pain. PHYSICAL EXAMINATION: VITAL SIGNS: Pulse 96, blood pressure 133/94, temperature 96.9. ABDOMEN: Soft, nontender. She still has very dark appearing output through her colostomy. LUNGS: Clear. LABORATORY DATA: Sodium 137, potassium 3.3, BUN and creatinine are 80 and 2.8, glucose 127, phosphorus 1.7, magnesium was 1.4 yesterday. Bilirubin is 0.9. AST and ALT of 14 and 28, protein 5, albumin 3.4, cortisol 16. TSH normal. Her SARS came back positive. She reports she had infection several months ago. ASSESSMENT: 1. History of colostomy. 2. Herniation of transverse colon, parastomal hernia with no overt evidence of ischemia. 3. Acute on chronic renal disease and prerenal azotemia, improving. 4. Hypertension, improving. No adrenal insufficiency. No evidence of overt hemorrhage. She is just not eating and drinking for a while. 5. Serial malnourished and was continued issues with magnesium and phosphorus and need to be corrected. She denies being an alcoholic. 6. Altered mental status, improving with thiamine, multivitamin, folate. 7. Only infection is gram-negative in the urine at this point in time. 8. Anemia with black stool. We will plan for EGD colon today. 9. Issues with the positive coronavirus disease test, radiology thinks that is related to coronavirus 3 months ago. She has no symptoms of active coronavirus disease infection. PLAN: EGD and flex sig via ostomy today. Job ID: [id number]
[2020-07-27] MEDS: Multivitamins, Adult 10 ML, Folic Acid 1 MG, Thiamine HCl 100 MG in Dextrose 5 %-0.45 %... IV SCH (12:34)
--- NOTE | 2020-07-27 12:58 | PDOC.NEPPN ---
- Subjective Encounter Date: 07/27/20 Subjective: Seen and examined. More cooperative and conversational today. Oral intake is still poor. - Objective Vital Signs & Weight: Vital Signs (12 hours) Temp Pulse Ox 07/27/20 11:35 97.4 F L 07/27/20 07:39 97 07/27/20 07:03 96.9 F L 07/27/20 04:00 97.8 F Weight Admit Weight 120 lb Weight 145 lb 8 oz Most Recent Monitor Data Heart Rate from ECG 110 NIBP 129/96 NIBP BP-Mean 107 Respiration from ECG 19 SpO2 97 I&O: 07/26/20 07/27/20 07/28/20 06:59 06:59 06:59 Intake Total 4202.1 3005.5 Output Total 1400 1185 Balance 2802.1 1820.5 Result Diagrams: 07/27/20 04:56 07/27/20 04:56 Nephrology ROS - Medication Medications: Active Medications Generic Name Dose Route Start Last Admin Trade Name Freq PRN Reason Stop Dose Admin Benzocaine 0 gm 07/24/20 22:13 07/24/20 22:22 Benzocaine (Dental) 7 Gm Tube TOP 7 gm QIDPRN PRN Administration Topical Anesthetic Al Hydroxide/Mg Hydroxide 60 0 ml 07/26/20 10:31 07/26/20 13:59 ml/ Diphenhydramine HCl 150 mg SSW 10 ml / Lidocaine HCl 60 ml/ Q8H PRN Administration Nystatin 6,000,000 units Mouth Irritation Norepinephrine Bitartrate 250 mls @ 0 mls/hr 07/23/20 23:45 07/25/20 14:18 Levophed IVPB 250 mls INF MELINA Administration Protocol Titrate Thiamine HCl 100 mg/ Sodium 51 mls @ 100 mls/hr 07/24/20 09:00 07/27/20 08:05 Chloride IVPB 07/27/20 21:31 51 mls Q12HR MELINA Administration Piperacillin Sod/Tazobactam 100 mls @ 200 mls/hr 07/24/20 14:00 07/27/20 06:05 Sod 2.25 gm/ Sodium Chloride IVPB 100 mls Q8HR MELINA Administration Multivitamins 10 ml/ Folic 1,011.2 mls @ 100 mls/hr 07/26/20 12:00 07/27/20 12:34 Acid 1 mg/ Thiamine HCl 100 mg IV 1,011.2 mls / Dextrose/Sodium Chloride Q24HR MELINA Administration Dextrose/Sodium Chloride 1,000 mls @ 150 mls/hr 07/27/20 07:00 07/27/20 08:10 D5 1/2 Ns IV 1,000 mls .Q6H40M MELINA Administration Potassium Phosphate 30 mmol/ 260 mls @ 41.7 mls/hr 07/27/20 07:00 07/27/20 08:04 Sodium Chloride IVPB 07/27/20 14:00 260 mls NOW MELINA Administration Pantoprazole Sodium 40 mg 07/24/20 09:00 07/27/20 08:04 Pantoprazole 40 Mg Vial IVP 40 mg DAILY MELINA Administration Quetiapine Fumarate 25 mg 07/25/20 21:00 07/27/20 08:00 Quetiapine Fumarate 25 Mg Tab PO Not Given BID MELINA Sodium Chloride 10 ml 07/25/20 09:00 07/27/20 08:04 Flush - Normal Saline 10 Ml Syringe IVF 10 ml Q12HR MELINA Administration - Exam General Appearance: awake alert Eye: anicteric sclera ENT: normocephalic atraumatic, moist mucosa Neck: supple, symmetric, no JVD Respiratory: no wheezes, no ronchi, normal chest expansion, no tachypnea Respiratory - other findings: fair air entry bilaterally Gastrointestinal: soft, non-distended, normal bowel sounds Gastrointestinal - other findings: LLQ colostomy and left sided and parastomal tenderness noted Extremities - other findings: bilateral feet fullness noted but no edema Neurological: CN's grossly intact, no focal deficits Musculoskeletal: generalized weakness PSYCH: oriented to person, oriented to place Nephrology Results - Labs Result Diagrams: 07/27/20 04:56 07/27/20 04:56 Lab results: WBC 6.5 thou/uL (4.8-10.8) 07/27/20 04:56 Hgb 8.7 g/dL (12.0-16.0) L 07/27/20 04:56 Hct 25.3 % (36.0-47.0) L 07/27/20 04:56 MCV 93.4 fL (78.0-98.0) 07/27/20 04:56 Plt Count 23 thou/uL (130-400) L* 07/27/20 04:56 Neutrophils % 87.3 % (42.0-75.0) H 07/26/20 03:26 Band Neuts % (Manual) 3 % (5-11) L 07/27/20 04:56 ABG pH 7.45 (7.35-7.45) 07/23/20 20:30 ABG pCO2 16.8 mmHg (35.0-45.0) L* 07/23/20 20:30 ABG pO2 108.3 mmHg (> 80.0) H 07/23/20 20:30 VBG pCO2 21.5 mmHg (40.0-50.0) L* 07/23/20 20:52 VBG pO2 43.3 mmHg (35.0-45.0) 07/23/20 20:52 Sodium 147 mmol/L (136-145) H 07/27/20 04:56 Potassium 3.3 mmol/L (3.5-5.1) L 07/27/20 04:56 Chloride 109 mmol/L (98-107) H 07/27/20 04:56 Carbon Dioxide 26 mmol/L (23-31) 07/27/20 04:56 BUN 80 mg/dL (9.8-20.1) H 07/27/20 04:56 Creatinine 2.80 mg/dL (0.6-1.1) H 07/27/20 04:56 Glucose 126 mg/dL (80-115) H 07/27/20 04:56 Lactic Acid 3.1 mmol/L (0.5-2.2) H 07/24/20 06:29 Calcium 7.6 mg/dL (7.8-10.44) L 07/27/20 04:56 Total Bilirubin 0.9 mg/dL (0.2-1.2) 07/27/20 04:56 AST 14 U/L (5-34) 07/27/20 04:56 ALT 28 U/L (8-55) 07/27/20 04:56 Alkaline Phosphatase 56 U/L (40-110) 07/27/20 04:56 Ammonia 20 umol/L (18-72) 07/27/20 04:56 Creatine Kinase 205 U/L (29-168) H 07/23/20 20:25 CK-MB (CK-2) 33.1 ng/mL (0-6.6) H* 07/23/20 20:25 Troponin I 0.906 ng/mL (< 0.028) H* 07/24/20 01:05 Serum Total Protein 5.0 g/dL (6.0-8.3) L 07/27/20 04:56 Albumin 3.4 g/dL (3.4-4.8) 07/27/20 04:56 Urine Ketones Negative mg/dL (Negative) 07/24/20 Unknown Urine Blood 2+ (Negative) A 07/24/20 Unknown Urine Nitrite Negative (Negative) 07/24/20 Unknown Ur Leukocyte Esterase 500 Fariha/uL (Negative) A 07/24/20 Unknown Urine RBC 7-10 HPF (0-3) A 07/24/20 Unknown Urine WBC Greater than 50 HPF (0-3) A 07/24/20 Unknown Ur Squamous Epith Cells None Seen HPF (0-3) 07/24/20 Unknown Urine Bacteria 4+ HPF (None Seen) A 07/24/20 Unknown Sodium 147 mmol/L (136-145) H 07/27/20 04:56 Potassium 3.3 mmol/L (3.5-5.1) L 07/27/20 04:56 Chloride 109 mmol/L (98-107) H 07/27/20 04:56 Carbon Dioxide 26 mmol/L (23-31) 07/27/20 04:56 Anion Gap 15 mmol/L (10-20) 07/27/20 04:56 BUN 80 mg/dL (9.8-20.1) H 07/27/20 04:56 Creatinine 2.80 mg/dL (0.6-1.1) H 07/27/20 04:56 Glucose 126 mg/dL (80-115) H 07/27/20 04:56 Calcium 7.6 mg/dL (7.8-10.44) L 07/27/20 04:56 Phosphorus 1.7 mg/dL (2.3-4.7) L 07/27/20 04:56 Magnesium 1.4 mg/dL (1.6-2.6) L 07/26/20 03:26 Albumin 3.4 g/dL (3.4-4.8) 07/27/20 04:56 Nephrology AP PN - Plan ASSESSMENT Acute renal failure: Multifactorial most likely. Hemodynamic factors related severe dehydration and septic shock. initially anuric. Now making urine. Creat/BUN are trending down. Severe metabolic acidosis: Resolved with alkali therapy Hypernatremia: Due to free water deficit. Hypokalemia:recurrent. Hypomagnesemia Hypophosphatemia Suspected mesenteric ischemia given colon thickening, elevated troponin and lactic acidosis. Severe dehydration Acute metabolic encephalopathy: Acute illness, acidosis, WAYNE +/- uremia: improving. Colon cancer s/p colon resection and colostomy Hypocalcemia Elevated troponin Acute transaminitis Hypoalbuminemia Acute blood loss anemia: Occult stool positive. S/p PRBC transfusion. Severe thrombocytpenia: medication and sepsis induced. PLAN Replete serum potassium and phosphurus with potassium phosphate. DC LR and start hypotonic solution due to hypernatremia [place] oral intake advised. Monitor intake and output as well as renal functoion and electrolytes.
--- NOTE | 2020-07-27 14:36 | PDOC.HOSPP ---
- Subjective Encounter Date: 07/27/20 Encounter Time: 12:00 Subjective: Patient up in bed more awake and oriented x2. - Objective Vital Signs & Weight: Vital Signs (12 hours) Temp Pulse Ox 07/27/20 11:35 97.4 F L 07/27/20 07:39 97 07/27/20 07:03 96.9 F L 07/27/20 04:00 97.8 F Weight Admit Weight 120 lb Weight 145 lb 8 oz Most Recent Monitor Data Heart Rate from ECG 115 NIBP 129/96 NIBP BP-Mean 107 Respiration from ECG 19 SpO2 96 I&O: 07/26/20 07/27/20 07/28/20 06:59 06:59 06:59 Intake Total 4202.1 3005.5 Output Total 1400 1185 Balance 2802.1 1820.5 Result Diagrams: 07/27/20 04:56 07/27/20 04:56 Hospitalist ROS - Review of Systems Cardiovascular: denies: chest pain, palpitations, orthopnea, paroxysmal noc. dyspnea, edema, light headedness, other Gastrointestinal: denies: nausea, vomiting, abdominal pain, diarrhea, constipation, melena, hematochezia, other Genitourinary: denies: dysuria, frequency, incontinence, hematuria, retention, other - Medication Medications: Active Medications Generic Name Dose Route Start Last Admin Trade Name Freq PRN Reason Stop Dose Admin Benzocaine 0 gm 07/24/20 22:13 07/24/20 22:22 Benzocaine (Dental) 7 Gm Tube TOP 7 gm QIDPRN PRN Administration Topical Anesthetic Al Hydroxide/Mg Hydroxide 60 0 ml 07/26/20 10:31 07/26/20 13:59 ml/ Diphenhydramine HCl 150 mg SSW 10 ml / Lidocaine HCl 60 ml/ Q8H PRN Administration Nystatin 6,000,000 units Mouth Irritation Norepinephrine Bitartrate 250 mls @ 0 mls/hr 07/23/20 23:45 07/25/20 14:18 Levophed IVPB 250 mls INF MELINA Administration Protocol Titrate Thiamine HCl 100 mg/ Sodium 51 mls @ 100 mls/hr 07/24/20 09:00 07/27/20 08:05 Chloride IVPB 07/27/20 21:31 51 mls Q12HR MELINA Administration Piperacillin Sod/Tazobactam 100 mls @ 200 mls/hr 07/24/20 14:00 07/27/20 06:05 Sod 2.25 gm/ Sodium Chloride IVPB 100 mls Q8HR MELINA Administration Multivitamins 10 ml/ Folic 1,011.2 mls @ 100 mls/hr 07/26/20 12:00 07/27/20 12:34 Acid 1 mg/ Thiamine HCl 100 mg IV 1,011.2 mls / Dextrose/Sodium Chloride Q24HR MELINA Administration Dextrose/Sodium Chloride 1,000 mls @ 150 mls/hr 07/27/20 07:00 07/27/20 08:10 D5 1/2 Ns IV 1,000 mls .Q6H40M MELINA Administration Pantoprazole Sodium 40 mg 07/24/20 09:00 07/27/20 08:04 Pantoprazole 40 Mg Vial IVP 40 mg DAILY MELINA Administration Quetiapine Fumarate 25 mg 07/25/20 21:00 07/27/20 08:00 Quetiapine Fumarate 25 Mg Tab PO Not Given BID MELINA Sodium Chloride 10 ml 07/25/20 09:00 07/27/20 08:04 Flush - Normal Saline 10 Ml Syringe IVF 10 ml Q12HR MELINA Administration - Exam Heart: negative: RRR, no murmur, no gallops, no rubs, normal peripheral pulses, irregular, diminshed peripheral pulses, murmur present, II/IV, III/IV Respiratory: negative: CTAB, no wheezes, no rales, no ronchi, normal chest expansion, no tachypnea, normal percussion, rales, rhonchi, tachypneic, wheezes Gastrointestinal: soft Gastrointestinal - other findings: Pain upon palpation Extremities: 1+ LE edema Hosp A/P (1) Septic shock Code(s): A41.9 - SEPSIS, UNSPECIFIED ORGANISM; R65.21 - SEVERE SEPSIS WITH SEPTIC SHOCK Status: Acute (2) Metabolic acidosis Code(s): E87.2 - ACIDOSIS Status: Acute (3) WAYNE (acute kidney injury) Code(s): N17.9 - ACUTE KIDNEY FAILURE, UNSPECIFIED Status: Acute (4) NSTEMI (non-ST elevated myocardial infarction) Code(s): I21.4 - NON-ST ELEVATION (NSTEMI) MYOCARDIAL INFARCTION Status: Acute (5) Elevated LFTs Code(s): R79.89 - OTHER SPECIFIED ABNORMAL FINDINGS OF BLOOD CHEMISTRY Status: Acute (6) COVID-19 Code(s): U07.1 - COVID-19 Status: Acute (7) Colitis Code(s): K52.9 - NONINFECTIVE GASTROENTERITIS AND COLITIS, UNSPECIFIED Status: Acute (8) Thrombocytopenia Code(s): D69.6 - THROMBOCYTOPENIA, UNSPECIFIED Status: Acute - Plan Continue current antibiotics. Creatinine improving. We will continue bicarb drip. Elevated troponins most likely secondary to type II demand ischemia. Will check stool for occult blood patient's colostomy indicates really dark stool. Her H&H also has trended down. Covid positive however she was diagnosed in April. We will continue to monitor blood cultures. ischemic colitis is a possibility given her high lactic acid at the outside facility. will get gi to see if her occult blood comes positive. 07/25 patient's H&H continues to drop we will type and screen and transfuse if H&H continues to drop. Will get GI to see the patient since her occult blood is positive. We will continue current antibiotics. She continues to be on a Levophed drip. I believe once we give her blood possibly will be able to take her off the Levophed drip. I will also check a cortisol level in the morning. Patient's bicarb drip has been discontinued. 07/26 electrolytes replaced. s/p 2units of blood. pt off levophed drip. will continue abx for now. 07/27 we will continue PPI. Patient off the Levophed drip doing well. We will continue antibiotics for now. We will continue to monitor her thrombocytopenia. She is only on Zosyn for possible colitis. Patient to undergo EGD today.
[2020-07-27] MEDS ORDERED: Promethazine HCl 25 MG/ML VIAL IM PRN (15:08)
[2020-07-27] MEDS ORDERED: Ondansetron HCl/PF 4 MG/2 ML Vial IVP PRN (15:08)
[2020-07-27] MEDS ORDERED: Promethazine HCl 25 MG/ML VIAL SLOW IVP PRN (15:08)
[2020-07-27 16:41] LABS: Hemoglobin 9.2 g/dL (12.0-16.0); Platelet Count 24 thou/uL (130-400)
--- NOTE | 2020-07-27 17:22 | PRG ---
DATE OF SERVICE: 07/27/2020 SUBJECTIVE: Sanjuanita Villatoro is clinically stable. She is more alert. Her Seroquel has been held. OBJECTIVE: VITAL SIGNS: She is afebrile. Heart rate is 111, blood pressure 120/92. LUNGS: Unchanged. HEART: Unchanged. ABDOMEN: Unchanged. ASSESSMENT AND PLAN: She is to go for endoscopy today. Her platelet count is down to the 20,000 range. Urine grew out Pseudomonas, pansensitive. She has no acute pulmonary issues. We will sign off. Job ID: [id number]
[2020-07-27 17:28] LABS: INR-International Normal Ratio 1.1
[2020-07-27 21:59] LABS: #Lymphocytes 0.6 thou/uL (1.20-3.40); #Monocytes 0.8 thou/uL (0.11-0.59); #Neutrophils 7.9 thou/uL (1.40-6.50); %Eosinophils 0.1 % (0.0-10.0); %Lymphocytes 6.1 % (21.0-51.0); %Monocytes 8.2 % (0.0-10.0); %Neutrophils 85.6 % (42.0-75.0); Hemoglobin 9.9 g/dL (12.0-16.0); Mean Corpuscular HGB CONC 33.9 g/dL (32.0-36.0); Mean Corpuscular Hemoglobin 31.9 pg (27.0-31.0); Mean Corpuscular Volume 94.3 fL (78.0-98.0); Mean Platelet Volume 11.3 fL (7.4-10.4); Platelet Count 28 thou/uL (130-400); RBC Distribution Width 13.8 % (11.5-14.5); White Blood Cell (WBC) Count 9.2 thou/uL (4.8-10.8)
--- NOTE | 2020-07-27 22:28 | CT ---
CT ABDOMEN NONCONTRAST CT PELVIS NONCONTRAST: (Urolithiasis protocol) DATE: 07/27/2020 HISTORY: 69-year-old female with abdominal pain. "Possible free air" COMPARISON: None TECHNIQUE: IV injection of iodinated contrast media: None Oral contrast media: None FINDINGS: Other than for urolithiasis, the lack of IV and oral contrast limits the evaluation. Through a 5 cm defect in the left lower quadrant anterolateral abdominal wall, there is a colostomy, with extension of left transverse colon loop through the defect, with a 6 x 5 cm air-filled distended component of bowel loop at the colostomy, without surrounding fat stranding. In addition to the colostomy, there are multiple nondilated loops of small intestine within this larg e parastomal hernia sac. The hernia sac is approximately 15.5 x 5.5 x 11 cm. Gas within the herniated small bowel loops, as well as gas within the colostomy, account for the finding noted on th e report of the [facility] earlier today. Abutting the posterior portion of the hernia sac, there is a ill-defined, 5.5 x 3.5 x 9.5 cm region o f fluid density, which could either represent hematoma or edema, in the subcutaneous fat abutting the left lateral abdominal wall. Similar, but smaller such changes in the contralateral right lateral subcutaneous abdominal wall fat. Small amount of free fluid around the liver. Small to moderate amount of free fluid around the spleen . The density of the perisplenic fluid is 22 Hounsfield units. Moderate to large bilateral pleural effusions with adjacent passive atelectasis at bilateral lower lo bes. No pneumoperitoneum identified. Free fluid along the bilateral paracolic gutters, right greater than left. Contiguous with, and inseparable from, the cecum, there is a large, tortuous, tubular shaped fluid co llection with density of approximately 24 Hounsfield units, within the right side of the pelvic cavity, measuring approximately 10.5 x 5 x 5.5 cm. It is uncertain whether this is a hematoma or a dilated bowel loop. Multiple surgical clips in the pelvic cavity, especially on the left. Jacobs catheter within a partially empty bladder. No small bowel dilation. No splenomegaly, abdominal aortic aneurysm, hydronephrosis, or urolithiasis. No small bowel dilation. IMPRESSION: 1) small amount of free fluid within the abdominal cavity. This could either be mild ascites, or hemo peritoneum. 2) large tubular structure within right pelvic cavity. Uncertain whether this represents a large jay nam or dilated bowel loop. 3) moderately large parastomal hernia containing multiple small bowel loops and mesentery, involving left lower quadrant colostomy. 4) moderate to large bilateral pleural effusions. 5) anasarca. 6) possible hematoma in the subcutaneous fat lateral to the lateral abdominal wall and posterior to t he left parastomal hernia. 7) no urolithiasis or obstructive uropathy. 8) no pneumoperitoneum.
[2020-07-28] MEDS ORDERED: Furosemide 20 MG/2 ML VIAL SLOW IVP SCH (00:30)
[2020-07-28 00:31] LABS: Actual Bicarbonate (HCO3a) 16.9 mEq/L (22-28); Base Excess (BEa) -5.3 mEq/L (-2.0 to +3.0); Calcium, Ionized (arterial) 0.99 mmol/L (1.12-1.30); Carboxyhemoglobin (COHb) 0.3 gm% (0.0-3.0); Hemoglobin (Hb) 10.1 g/dL (12.0-16.0); O2 Tension (PaO2), arterial 63.8 mmHg (> 80.0); Potassium - ABG Lab 4.18 mmol/L (3.70-5.30); pH, Arterial 7.48 (7.35-7.45)
[2020-07-28 00:33] LABS: CO2 Tension 23.3 mmHg (35.0-45.0); Puncture Site RBA
[2020-07-28 00:34] LABS: ALV-art Gradient 56.805 mmHg (0-20)
[2020-07-28] MEDS: Piperacillin/Tazobactam 2.25 GM in Sodium Chloride 0.9% 100 ML IVPB SCH ×4 (01:17→17:15)
[2020-07-28] MEDS: Dextrose 5 %-0.45 % NaCl 1,000 ML IV SCH ×2 (01:20→05:12)
--- NOTE | 2020-07-28 06:13 | PRG ---
DATE OF SERVICE: 07/27/2020 SUBJECTIVE: Nurse called me earlier this evening, noted the patient was tachycardic, complaining of more pain at her ostomy area and that it looks swollen. She had not seen it in the past. Also, her heart rate had jumped up. Nurse also stated that she was tachycardic. Reviewing her records, she was tachycardic. Pulse of 120 at 1343. Her endoscopy start time earlier today was at 1457. Due to concerns, repeat her CBC at 2100: White count was 9.2. Hemoglobin 9.9; it was 9.2 at 1600; 8.7 at 4:56, this morning; it was 9.4 yesterday. Also, went ahead and got a CT scan, but without contrast, there was no evidence of free air. However, hernia once again seen as seen the outside hospital with loop of bowel distended. There is no fat stranding. There are dilated loops of small bowel in the hernia sac as well. This hernia sac was about 15 x 5 x 11 cm with gas in the loops and the colostomy and in the small bowel loops. The radiologist was concerned that there was a 5 x 3 x 9 cm fluid density, which could represent hematoma or edema in the subcutaneous fat abutting left abdominal wall. Also, there were contralateral changes in the subcu tissue of the abdominal fat that looks similar. Small amount of fluid in the liver. Small amount of fluid around the spleen, bilateral effusions. No pneumoperitoneum was seen. Fluid along the bilateral paracolic gutters, right greater than left. Contiguous with and inseparable from the cecum. Large tortuous tubular shaped fluid density of 24 Hounsfield units within the right side of the pelvic cavity 10 x 5 x 5. It is uncertain if this is hematoma or dilated loop of bowel. Pelvic clips, Jacobs catheter. Radiologist was unsure if there was hematoma or dilated bowel loops, if there could be hematoma associated with left lower abdominal wall parastomal hernia. He did not comment on the spleen or any new trauma there. I reviewed those films as well. Imaging studies of fluid in the chest seems to have the same density as the fluid around the spleen. Hernia sac does appear a little bit different. Unfortunately, there are no films from the outside facility to compare to, but these changes were not mentioned on the outside report. PHYSICAL EXAMINATION: VITAL SIGNS: Presently, pulse is 124, blood pressure 119/88. This is not different than earlier today in fact higher than yesterday on admission. She is afebrile with a temperature of 97. GENERAL: She is more alert, but a little bit still confused. She knows she is in the hospital. ABDOMEN: She states the pain is not a lot, but she has tenderness around the ostomy. Looking at the ostomy, it is pink. There is minimal output in the bag that is still black like it was before for the last 2 days. Bowel sounds are positive. There is no severe right upper quadrant tenderness or right lower quadrant tenderness or left upper quadrant tenderness. HEART: Sinus tachycardia. LABORATORY DATA: As above. Platelets are low at 28,000. This is about where they have been since she came in. Initially were 155, but it dropped and were 36,000 yesterday. To me though she does appear pale. ASSESSMENT: Increased abdominal pain without any evidence of incarceration of hernia. No evidence of free air. There is some more fluid in the abdomen, could be a concern for rupture or hematoma in the abdomen and splenic rupture can be seen with colonoscopy, which was performed earlier today via ostomy. Additionally, she has about 9 L fluid positive. She does not seem to be short of breath or hypoxic. Unfortunately, we were not able to give IV contrast and cannot tell if the fluid densities represent blood or just third spacing of fluids. She is very malnourished with an albumin of 2 on admission, 2.1 on the , and 3.4 today. Alternately, she could be tachycardic from alcohol withdrawal. She has been here 3 days now. She denies alcohol use and had a negative alcohol level on admission. She does not appear septic. PLAN: We will transfuse 10-pack of platelets, transfuse a unit of blood and keep blood available for her and continue to monitor if there are signs of ongoing drop in hemoglobin or any signs of shock, would consider reimaging. Consult with General Surgery or Vascular Surgery to see if angiogram could be performed. She did have ulcers in the duodenum. They were nonbleeding, but this was felt to be the source of her black stools. Also, she had one small erosion in the colon. We could not reach the cecum due to excessive looping on exam and therefore, the procedure was terminated. I discussed the plan with the nurses. We will proceed. Job ID: [id number]
--- NOTE | 2020-07-28 06:54 | OP ---
DATE OF PROCEDURE: 07/27/2020 PROCEDURES PERFORMED: Esophagogastroduodenoscopy and colonoscopy via colostomy bag. ANESTHESIA: TIVA. PREPROCEDURE DIAGNOSIS: GI hemorrhage. POSTPROCEDURE DIAGNOSES: 1. Ulcers, flat in the esophagus, scattered in the distal third of the esophagus. It is unclear if this is a viral effect or if this is a healing of severe reflux esophagitis. Biopsies obtained. 2. Nodular erosive gastritis in the stomach with normal distention. No masses or overt ulcers. Biopsied. 3. Diffuse shallow ulcers from the bulb of the duodenum all the way to the third portion, scattered, some oozing. No visible vessels. Biopsies obtained. 4. Colonoscopy via the colostomy reveals parastomal hernia with no incarcerated bowel or ischemic bowel. About 20 cm in, there were a few areas of erosions and some old blood. No fresh blood or bleeding sites were identified. The cecum was not able to be reached secondary to excessive looping. RECOMMENDATIONS: 1. IV PPIs. 2. Await histopathology. 3. Transfuse as needed. DESCRIPTION OF PROCEDURE: After the patient was informed of the risks, benefits, and possible complications of endoscopy including perforation, reaction to medication, and aspiration, informed consent was obtained, and the patient was brought to endoscopy suite, where she was sedated in gradual fashion. Once she was comfortable, a bite-block was placed in the incisural orifice. The endoscope was advanced into the esophagus, stomach, into the second and third portions of the duodenum and slowly removed. There was good visualization of the mucosa. The esophagus was notable for several areas of shallow ulcers ranging in size from 3 mm to 1.5 cm in the distal third of the esophagus. It was unclear if this was a viral effect or healing reflux. I suspect the latter, but biopsies were obtained. The stomach was entered and found to have nodular gastritis, it was very friable, and multiple biopsies were obtained. Forward and retroflexed views revealed no infiltrative processes and normal distention. There was . The duodenum was entered and found to be affected by small to large shallow ulcers from the bulb all the way to the third portion with oozing of scant amount of blood, but no visible vessel seen. Multiple biopsies were obtained and submitted to Pathology. The scope was then removed after the stomach was desufflated. Retroflexed views in the stomach were normal. The attention was then turned to the patient's ostomy. A parastomal hernia was noted. This was decompressed as much as possible. The endoscope was advanced through the stoma and as far up into the colon as we could. Due to excessive looping, we could not reach the cecum. There was old blood in the colon, but no fresh blood. No fresh colitis. No evidence of ischemia to the bowel that is inside the hernia. There were a few small erosions in probably the region of the transverse or ascending colon. We could not get these biopsies as the motility of the area was difficult and the scope had excessive looping, the patient was uncomfortable, so the procedure was terminated. The scope was removed. The patient tolerated the procedure well. There were no complications. Job ID: [id number]
[2020-07-28 08:42] LABS: Hemoglobin 9.2 g/dL (12.0-16.0); Mean Corpuscular HGB CONC 34.1 g/dL (32.0-36.0); Mean Corpuscular Volume 93.8 fL (78.0-98.0); Mean Platelet Volume 8.4 fL (7.4-10.4); Platelet Count 90 thou/uL (130-400); RBC Distribution Width 13.6 % (11.5-14.5); Red Blood Cell (RBC) Count 2.87 mill/uL (4.20-5.40); White Blood Cell (WBC) Count 8.5 thou/uL (4.8-10.8)
[2020-07-28 08:46] LABS: Albumin 3.7 g/dL (3.4-4.8); Anion Gap 25 mmol/L (10-20); BUN (Urea Nitrogen) 73 mg/dL (9.8-20.1); Calc. Creatinine Clearance 19 mL/min (70-130); Carbon Dioxide 15 mmol/L (23-31); Chloride 113 mmol/L (98-107); Glucose 178 mg/dL (80-115); Phosphorus 4.8 mg/dL (2.3-4.7); Potassium 4.6 mmol/L (3.5-5.1); Sodium 148 mmol/L (136-145)
[2020-07-28 08:53] LABS: Phosphorus 4.7 mg/dL (2.3-4.7)
[2020-07-28] MEDS: Pantoprazole 40 MG VIAL IVP SCH (09:54)
[2020-07-28 10:51] LABS: Band 1 % (5-11); Lymphocytes 10 % (21-51); MDiff Complete? YES; Monocytes 8 % (0-10); Neutrophil 81 % (42-75); Platelet Morphology Comment Appears Decreased; Polychromasia SLIGHT = 2-3 cells (100X) (0-2/hpf)
--- NOTE | 2020-07-28 12:48 | RAD ---
Portable frontal chest radiograph: 07/28/2020 COMPARISON: 07/25/2020 HISTORY: Short of breath FINDINGS: There is a nasogastric tube extending into the upper abdomen on the left. There is a stable right-sided vascular catheter. No pneumothorax is seen. There is new pulmonary vascular congestion with new interstitial and alveolar opacity in the perihila r regions and both lung bases as well as new moderate-sized pleural effusions, left greater than right. IMPRESSION: Findings suggesting interval development of pulmonary edema. Superimposed infection or as piration cannot be excluded. Recommend follow-up imaging to document resolution.
--- NOTE | 2020-07-28 12:53 | RAD ---
Abdomen one view HISTORY: Nasogastric tube placement. FINDINGS: Distal tip of the nasogastric tube projects over the gastric antrum, sidehole over the arnaud nito body. Visualized bowel gas pattern is nonspecific. The pelvis and the left lower quadrant are excluded from the image. Multiple hemostasis clips overlie the right upper quadrant from prior surgery. Bibasilar infiltrates and pleural fluid are better detailed on chest radiograph performed same time. IMPRESSION : Nasogastric tube is in good radiographic position.
[2020-07-28 13:02] LABS: HIV (1/2) Antibody/Antigen Non-Reactive (NonReactive); HIV 1/2 INDEX 0.09 S/CO (<1.00)
[2020-07-28 13:04] LABS: Vitamin B12 1123 pg/mL (211-911)
[2020-07-28 13:19] LABS: CKMB 3.1 ng/mL (0-6.6)
[2020-07-28] MEDS: Multivitamins, Adult 10 ML, Folic Acid 1 MG, Thiamine HCl 100 MG in Dextrose 5 %-0.45 %... IV SCH (14:09)
--- NOTE | 2020-07-28 15:18 | PDOC.NEPPN ---
- Subjective Encounter Date: 07/28/20 Subjective: Seen and examined.Developed SOB and was given lasix and IVF discontinued. Still confused. - Objective Vital Signs & Weight: Vital Signs (12 hours) Temp Pulse Resp BP Pulse Ox 07/28/20 11:09 97.4 F L 07/28/20 08:00 99 07/28/20 07:24 97.2 F L 07/28/20 07:02 124 H 07/28/20 04:00 124 H 24 H 122/87 99 07/28/20 03:44 98.3 F 07/28/20 03:37 124 H Weight Admit Weight 120 lb Weight 145 lb Most Recent Monitor Data Heart Rate from ECG 124 NIBP 106/75 NIBP BP-Mean 85 Respiration from ECG 30 SpO2 98 I&O: 07/27/20 07/28/20 07/29/20 06:59 06:59 06:59 Intake Total 3005.5 2150 Output Total 1185 1250 Balance 1820.5 900 Result Diagrams: 07/28/20 16:37 07/28/20 08:14 Nephrology ROS - Medication Medications: Active Medications Generic Name Dose Route Start Last Admin Trade Name Freq PRN Reason Stop Dose Admin Benzocaine 0 gm 07/24/20 22:13 07/24/20 22:22 Benzocaine (Dental) 7 Gm Tube TOP 7 gm QIDPRN PRN Administration Topical Anesthetic Al Hydroxide/Mg Hydroxide 60 0 ml 07/26/20 10:31 07/26/20 13:59 ml/ Diphenhydramine HCl 150 mg SSW 10 ml / Lidocaine HCl 60 ml/ Q8H PRN Administration Nystatin 6,000,000 units Mouth Irritation Multivitamins 10 ml/ Folic 1,011.2 mls @ 100 mls/hr 07/26/20 12:00 07/28/20 14:09 Acid 1 mg/ Thiamine HCl 100 mg IV Not Given / Dextrose/Sodium Chloride Q24HR MELINA Piperacillin Sod/Tazobactam 100 mls @ 200 mls/hr 07/28/20 02:00 07/28/20 09:5 3 Sod 2.25 gm/ Sodium Chloride IVPB 100 mls 0200,1000,1800 MELINA Administration Pantoprazole Sodium 40 mg 07/24/20 09:00 07/28/20 09:54 Pantoprazole 40 Mg Vial IVP 40 mg DAILY MELINA Administration Sodium Chloride 10 ml 07/25/20 09:00 07/28/20 09:54 Flush - Normal Saline 10 Ml Syringe IVF 10 ml Q12HR MELINA Administration - Exam General Appearance: awake alert Eye: anicteric sclera ENT: normocephalic atraumatic, moist mucosa Neck: supple, symmetric Respiratory - other findings: fair air entry with crackles Cardiovascular: RRR, murmur present Gastrointestinal: soft, diminished bowl sounds Gastrointestinal - other findings: LLQ colostomy with parastoma swelling. Extremities - other findings: edema of the legs noted Neurological: CN's grossly intact, no focal deficits PSYCH: oriented to person Nephrology Results - Labs Result Diagrams: 07/28/20 16:37 07/28/20 08:14 Lab results: WBC 8.5 thou/uL (4.8-10.8) 07/28/20 08:14 Hgb 9.2 g/dL (12.0-16.0) L 07/28/20 08:14 Hct 26.9 % (36.0-47.0) L 07/28/20 08:14 MCV 93.8 fL (78.0-98.0) 07/28/20 08:14 Plt Count 90 thou/uL (130-400) L 07/28/20 08:14 Neutrophils % 85.6 % (42.0-75.0) H 07/27/20 21:46 Band Neuts % (Manual) 1 % (5-11) L 07/28/20 08:14 ABG pH 7.48 (7.35-7.45) H 07/28/20 00:06 ABG pCO2 23.3 mmHg (35.0-45.0) L* 07/28/20 00:06 ABG pO2 63.8 mmHg (> 80.0) 07/28/20 00:06 VBG pCO2 21.5 mmHg (40.0-50.0) L* 07/23/20 20:52 VBG pO2 43.3 mmHg (35.0-45.0) 07/23/20 20:52 Sodium 148 mmol/L (136-145) H 07/28/20 08:14 Potassium 4.6 mmol/L (3.5-5.1) 07/28/20 08:14 Chloride 113 mmol/L (98-107) H 07/28/20 08:14 Carbon Dioxide 15 mmol/L (23-31) L 07/28/20 08:14 BUN 73 mg/dL (9.8-20.1) H 07/28/20 08:14 Creatinine 2.84 mg/dL (0.6-1.1) H 07/28/20 08:14 Glucose 178 mg/dL (80-115) H 07/28/20 08:14 Lactic Acid 3.1 mmol/L (0.5-2.2) H 07/24/20 06:29 Calcium 8.0 mg/dL (7.8-10.44) 07/28/20 08:14 Total Bilirubin 0.9 mg/dL (0.2-1.2) 07/27/20 04:56 AST 14 U/L (5-34) 07/27/20 04:56 ALT 28 U/L (8-55) 07/27/20 04:56 Alkaline Phosphatase 56 U/L (40-110) 07/27/20 04:56 Ammonia 20 umol/L (18-72) 07/27/20 04:56 Creatine Kinase 205 U/L (29-168) H 07/23/20 20:25 CK-MB (CK-2) 3.1 ng/mL (0-6.6) 07/28/20 12:03 Troponin I 0.352 ng/mL (< 0.028) H* 07/28/20 12:03 Serum Total Protein 5.0 g/dL (6.0-8.3) L 07/27/20 04:56 Albumin 3.7 g/dL (3.4-4.8) 07/28/20 08:14 Urine Ketones Negative mg/dL (Negative) 07/24/20 Unknown Urine Blood 2+ (Negative) A 07/24/20 Unknown Urine Nitrite Negative (Negative) 07/24/20 Unknown Ur Leukocyte Esterase 500 Fariha/uL (Negative) A 07/24/20 Unknown Urine RBC 7-10 HPF (0-3) A 07/24/20 Unknown Urine WBC Greater than 50 HPF (0-3) A 07/24/20 Unknown Ur Squamous Epith Cells None Seen HPF (0-3) 07/24/20 Unknown Urine Bacteria 4+ HPF (None Seen) A 07/24/20 Unknown Sodium 148 mmol/L (136-145) H 07/28/20 08:14 Potassium 4.6 mmol/L (3.5-5.1) 07/28/20 08:14 Chloride 113 mmol/L (98-107) H 07/28/20 08:14 Carbon Dioxide 15 mmol/L (23-31) L 07/28/20 08:14 Anion Gap 25 mmol/L (10-20) H 07/28/20 08:14 BUN 73 mg/dL (9.8-20.1) H 07/28/20 08:14 Creatinine 2.84 mg/dL (0.6-1.1) H 07/28/20 08:14 Glucose 178 mg/dL (80-115) H 07/28/20 08:14 Calcium 8.0 mg/dL (7.8-10.44) 07/28/20 08:14 Phosphorus 4.7 mg/dL (2.3-4.7) 07/28/20 08:14 Phosphorus 4.8 mg/dL (2.3-4.7) H 07/28/20 08:14 Magnesium 2.0 mg/dL (1.6-2.6) 07/28/20 08:14 Albumin 3.7 g/dL (3.4-4.8) 07/28/20 08:14 Nephrology AP PN - Plan ASSESSMENT Acute renal failure: Multifactorial most likely. Hemodynamic factors related severe dehydration and septic shock. initially anuric. Creat/BUN are trending up with discontinuation of iVF. SOB: 2/2 Pulmonary congestion. Echo showed EF 0f 10-15%. Acute systolic and diastolic HF. Now on dobutamine. Severe metabolic acidosis: Resolved with alkali therapy Hypernatremia: Due to free water deficit. Hypokalemia:recurrent. Hypomagnesemia Hypophosphatemia Severe dehydration Acute metabolic encephalopathy: Acute illness, acidosis, WAYNE +/- uremia: improving. Colon cancer s/p colon resection and colostomy Hypocalcemia Elevated troponin Acute transaminitis Hypoalbuminemia Acute blood loss anemia: Occult stool positive. S/p PRBC transfusion. Severe thrombocytpenia: medication and sepsis induced. Improving. PLAN Start lasix now patient is on dobutamine Agree with holding of IVF Agrre with entereal nutrition via the NG tube. Start alkali therapy per tube Monitor intake and output as well as renal functoion and electrolytes.
[2020-07-28] MEDS ORDERED: Sodium Bicarbonate Tab 325 MG TAB PO SCH (15:30)
--- NOTE | 2020-07-28 15:52 | PDOC.HOSPP ---
- Subjective Encounter Date: 07/28/20 Encounter Time: 10:30 Subjective: Patient up in bed on BiPAP. - Objective Vital Signs & Weight: Vital Signs (12 hours) Temp Pulse Resp BP Pulse Ox 07/28/20 15:36 97.4 F L 07/28/20 11:09 97.4 F L 07/28/20 08:00 99 07/28/20 07:24 97.2 F L 07/28/20 07:02 124 H 07/28/20 04:00 124 H 24 H 122/87 99 Weight Admit Weight 120 lb Weight 145 lb Most Recent Monitor Data Heart Rate from ECG 125 NIBP 100/76 NIBP BP-Mean 84 Respiration from ECG 23 SpO2 98 I&O: 07/27/20 07/28/20 07/29/20 06:59 06:59 06:59 Intake Total 3005.5 2150 Output Total 1185 1250 Balance 1820.5 900 Result Diagrams: 07/28/20 08:14 07/28/20 08:14 Hospitalist ROS - Review of Systems Other: unable to obtain - Medication Medications: Active Medications Generic Name Dose Route Start Last Admin Trade Name Freq PRN Reason Stop Dose Admin Benzocaine 0 gm 07/24/20 22:13 07/24/20 22:22 Benzocaine (Dental) 7 Gm Tube TOP 7 gm QIDPRN PRN Administration Topical Anesthetic Al Hydroxide/Mg Hydroxide 60 0 ml 07/26/20 10:31 07/26/20 13:59 ml/ Diphenhydramine HCl 150 mg SSW 10 ml / Lidocaine HCl 60 ml/ Q8H PRN Administration Nystatin 6,000,000 units Mouth Irritation Multivitamins 10 ml/ Folic 1,011.2 mls @ 100 mls/hr 07/26/20 12:00 07/28/20 14:09 Acid 1 mg/ Thiamine HCl 100 mg IV Not Given / Dextrose/Sodium Chloride Q24HR MELINA Piperacillin Sod/Tazobactam 100 mls @ 200 mls/hr 07/28/20 02:00 07/28/20 09:53 Sod 2.25 gm/ Sodium Chloride IVPB 100 mls 0200,1000,1800 MELINA Administration Pantoprazole Sodium 40 mg 07/24/20 09:00 07/28/20 09:54 Pantoprazole 40 Mg Vial IVP 40 mg DAILY MELINA Administration Sodium Chloride 10 ml 07/25/20 09:00 07/28/20 09:54 Flush - Normal Saline 10 Ml Syringe IVF 10 ml Q12HR MELINA Administration - Exam General Appearance: ill appearing General - other findings: appears pale Heart: negative: RRR, no murmur, no gallops, no rubs, normal peripheral pulses, irregular, diminshed peripheral pulses, murmur present, II/IV, III/IV Respiratory: negative: CTAB, no wheezes, no rales, no ronchi, normal chest expansion, no tachypnea, normal percussion, rales, rhonchi, tachypneic, wheezes Gastrointestinal: negative: soft, non-tender, non-distended, normal bowel sounds, no palpable masses, no hepatomegaly, no splenomegaly, no bruit, no guarding, no rigidity, tender to palpation, distended, diminished bowl sounds, voluntary guarding Extremities: 1+ LE edema Hosp A/P (1) Septic shock Code(s): A41.9 - SEPSIS, UNSPECIFIED ORGANISM; R65.21 - SEVERE SEPSIS WITH SEPTIC SHOCK Status: Acute (2) Metabolic acidosis Code(s): E87.2 - ACIDOSIS Status: Acute (3) WAYNE (acute kidney injury) Code(s): N17.9 - ACUTE KIDNEY FAILURE, UNSPECIFIED Status: Acute (4) NSTEMI (non-ST elevated myocardial infarction) Code(s): I21.4 - NON-ST ELEVATION (NSTEMI) MYOCARDIAL INFARCTION Status: Acute (5) Elevated LFTs Code(s): R79.89 - OTHER SPECIFIED ABNORMAL FINDINGS OF BLOOD CHEMISTRY Status: Acute (6) COVID-19 Code(s): U07.1 - COVID-19 Status: Acute (7) Colitis Code(s): K52.9 - NONINFECTIVE GASTROENTERITIS AND COLITIS, UNSPECIFIED Status: Acute (8) Thrombocytopenia Code(s): D69.6 - THROMBOCYTOPENIA, UNSPECIFIED Status: Acute (9) Protein-calorie malnutrition, severe Code(s): E43 - UNSPECIFIED SEVERE PROTEIN-CALORIE MALNUTRITION Status: Acute (10) Systolic heart failure Code(s): I50.20 - UNSPECIFIED SYSTOLIC (CONGESTIVE) HEART FAILURE Status: A cute - Plan Continue current antibiotics. Creatinine improving. We will continue bicarb drip. Elevated troponins most likely secondary to type II demand ischemia. Ashu l check stool for occult blood patient's colostomy indicates really dark stool. Her H&H also has trended down. Covid positive however she was diagnosed in April. We will continue to monitor blood cultures. ischemic colitis is a possibility given her high lactic acid at the outside facility. will get gi to see if her occult blood comes positive. 07/25 patient's H&H continues to drop we will type and screen and transfuse if H&H continues to drop. Will get GI to see the patient since her occult blood is positive. We will continue current antibiotics. She continues to be on a Levophed drip. I believe once we give her blood possibly will be able to take her off the Levophed drip. I will also check a cortisol level in the morning. Patient's bicarb drip has been discontinued. 07/26 electrolytes replaced. s/p 2units of blood. pt off levophed drip. will continue abx for now. 07/27 we will continue PPI. Patient off the Levophed drip doing well. We will continue antibiotics for now. We will continue to monitor her thrombocytopenia. She is only on Zosyn for possible colitis. Patient to undergo EGD today. 07/28 patient's echo indicated an EF of 10% with severe tricuspid regurgitation. We will start her on dobutamine drip. Palliative care consulted. Patient has an NG tube inserted will start tube feedings. Electrolytes replaced. Patient received 1 unit of platelets due to her thrombocytopenia. She is significantly volume overloaded which is expected since she was very dehydrated and malnourished. Significant oral and esophageal ulcers noted on the EGD. Unclear if these oral ulcers are from her recent Covid infection versus other etiologies. B12 level is normal. We will check a CMV and HIV I will also go ahead and do an SONU. Patient was very short of breath she was put on BiPAP most likely secondary to pulmonary edema.
[2020-07-28 16:47] LABS: Hemoglobin 8.7 g/dL (12.0-16.0)
[2020-07-28] MEDS ORDERED: Furosemide 40 MG/4 ML VIAL SLOW IVP SCH (18:45)
[2020-07-28] MEDS ORDERED: D5W-AA 4.25% with LYTES 1,000 ML IV SCH (19:00)
[2020-07-28] MEDS: Sodium Bicarbonate Tab 325 MG TAB PO SCH (20:01)
[2020-07-28 22:25] LABS: Hemoglobin 8.9 g/dL (12.0-16.0)
[2020-07-29] MEDS: Piperacillin/Tazobactam 2.25 GM in Sodium Chloride 0.9% 100 ML IVPB SCH ×3 (02:35→18:03)
[2020-07-29 04:05] LABS: Band 5 % (5-11); Hemoglobin 8.2 g/dL (12.0-16.0); Hypochromia SLIGHT = 6-15 cells (100X) (0-5/hpf); Lymphocytes 4 % (21-51); MDiff Complete? YES; Mean Corpuscular Hemoglobin 32.1 pg (27.0-31.0); Mean Corpuscular Volume 94.4 fL (78.0-98.0); Mean Platelet Volume 10.3 fL (7.4-10.4); Monocytes 12 % (0-10); Neutrophil 79 % (42-75); Platelet Count 81 thou/uL (130-400); Platelet Morphology Comment Appears Decreased; Red Blood Cell (RBC) Count 2.55 mill/uL (4.20-5.40); White Blood Cell (WBC) Count 6.7 thou/uL (4.8-10.8)
[2020-07-29 04:06] LABS: ALT (SGPT) 179 U/L (8-55); AST (SGOT) 207 U/L (5-34); Albumin 3.3 g/dL (3.4-4.8); Alkaline Phosphatase 90 U/L (40-110); Anion Gap 21 mmol/L (10-20); BUN (Urea Nitrogen) 83 mg/dL (9.8-20.1); Bilirubin, Direct 0.7 mg/dL (0.1-0.3); Bilirubin, Total 1.1 mg/dL (0.2-1.2); Calc. Creatinine Clearance 18 mL/min (70-130); Calcium 7.8 mg/dL (7.8-10.44); Carbon Dioxide 20 mmol/L (23-31); Chloride 112 mmol/L (98-107); Globulin 1.8 g/dL (2.4-3.5); Glucose 218 mg/dL (80-115); Phosphorus 4.4 mg/dL (2.3-4.7); Potassium 3.2 mmol/L (3.5-5.1); Protein, Total 5.1 g/dL (6.0-8.3); Sodium 150 mmol/L (136-145)
[2020-07-29 04:07] LABS: Albumin 3.4 g/dL (3.4-4.8); Anion Gap 20 mmol/L (10-20); BUN (Urea Nitrogen) 78 mg/dL (9.8-20.1); BUN/Creatinine Ratio 26.09; Calc. Creatinine Clearance 18 mL/min (70-130); Carbon Dioxide 20 mmol/L (23-31); Chloride 112 mmol/L (98-107); Glucose 219 mg/dL (80-115); Magnesium 1.9 mg/dL (1.6-2.6); Phosphorus 4.6 mg/dL (2.3-4.7); Potassium 3.2 mmol/L (3.5-5.1); Sodium 149 mmol/L (136-145)
--- NOTE | 2020-07-29 06:03 | PRG ---
DATE OF SERVICE: 07/28/2020 SUBJECTIVE: Ms. Villatoro still complains of vague abdominal discomfort, more over by her ostomy than anywhere else. Overnight, she remained tachycardic. She is having echocardiogram now which shows decreased EF and right-sided failure. Reviewed films from last night again with Radiology. They feel that there is not any peritoneal blood. The right lower quadrant fluid collection I think is the cecal pole. The fluid in the ostomy is third spaced fluid and there is no evidence of hematoma around the spleen. OBJECTIVE: VITAL SIGNS: Temperature is 97.2, pulse 120, on BiPAP, 99% saturation. Blood pressure 101/79. Weight 145, it was 120 on admission. LUNGS: No wheezing. Decreased breath sounds at bases. HEART: Sinus tachycardia. ABDOMEN: Soft. No hematoma. Her ostomy is pink. A small amount of black fluid in the ostomy, output 300 mL. Urine output, Jacobs 550 at 6 a.m. this morning, 980 at 5 a.m. yesterday. I talked to the nurse, she put out a total of 1150 yesterday. ASSESSMENT: 1. As far as the issue of bleeding, she has black content in her ostomy but no overt hemorrhage. Her hemoglobin 9.2, it was 9.9, last evening at 2100 hours she did get 1 unit of blood between this. Platelets went from 28,000 to 90,000 with a 10-pack of platelets. White count 8.5. Peripheral smear is pending. EGD did show ulcerations throughout the duodenum but none actively bleeding, just ooze. Colonoscopy showed small erosion, but no overt ischemic colon. There was nodular gastritis which was biopsied as well. Ulcers noted in the esophagus as well, which were biopsied. 2. Tachycardia. This developed actually an hour or so before she went to endoscopy yesterday. There were signs of right-sided heart failure preliminary on echocardiogram and very low EF. 3. Malnutrition. She came in with history of not taking any intake in for 2 weeks. Her magnesium and phosphorus have been replaced now and these are up to 4.8 and 2 today. TSH was normal. Vitamin D was normal. Ammonia was normal. Cortisol was normal. 4. Renal failure. BUN is a little bit lower at 73, creatinine is 2.84, the same. She did become more acidotic with bicarb of 15, down from 26 yesterday. She is on BiPAP now. RECOMMENDATIONS: From a GI standpoint, I will continue IV PPI q.12 hours. Await biopsies. We will put a Cardiology consult for severe heart failure. Nephrology is already following. As she is out of the ICU, I think Pulmonary/Critical Care signed off, but with her change in respiratory status, I will inform them what is going on. Dr. Medel will be resuming care tomorrow, and for the rest of today, from GI standpoint. Job ID: [id number]
[2020-07-29] MEDS ORDERED: Potassium Chloride 20 MEQ TAB PER TUBE SCH (06:30)
--- NOTE | 2020-07-29 09:28 | PRG ---
DATE OF SERVICE: 07/29/2020 SUBJECTIVE: Ms. Villatoro denies any abdominal pain or nausea. Tube feeds have not yet been started. She has continued to have black liquid output from her colostomy, but no red blood. Cardiology has been reconsulted with new echocardiogram demonstrating biventricular heart failure. Biopsies are still pending. Hemoglobin declined by one point over the past 24 hours, down to 8.2. She is being diuresed. OBJECTIVE: VITAL SIGNS: Temperature 97.6, pulse rate 124, blood pressure 108/83, and 97% oxygen saturation on 2 L nasal cannula. GENERAL: Chronically ill, in no distress, somnolent but arousable, able to answer simple questions about symptoms. HEART: Regular tachycardia. LUNGS: Bibasilar crackles. ABDOMEN: Nondistended. Bowel sounds present. Some black liquid stool in the ostomy bag. No red blood. Nothing solid. EXTREMITIES: 1+ bilateral lower extremity edema. LABORATORY STUDIES: Hemoglobin 8.2, WBC 6.7, and platelets are 81. INR 1.1. Sodium 150. Potassium rather 3.2, BUN 83, creatinine 2.99, total bilirubin 1.1, alkaline phosphatase 90, AST 207, ALT 179, troponin 0.352, and albumin 3.3. ASSESSMENT/PLAN: 1. Gastric and esophageal ulcers. This was demonstrated on recent EGD. Biopsies are still pending, likely represents peptic/reflux gastritis and esophagitis, but need to rule out viral inclusions. 2. Acute post hemorrhagic anemia, overall fairly stable the past couple of days. Hemoglobin did drift down to 8.2, but given the patient's fluid overload status and what appears to be resolution of bleeding, would hold on transfusion for now. Continue to trend H and H, transfuse as needed. No plan for any repeat endoscopy. Continue with aggressive IV PPI. Okay to start tube feeds from my perspective. 3. Severe biventricular heart failure. Echocardiogram from yesterday shows severe elevation of right-sided pressures, tricuspid regurgitation and left ventricular ejection fraction only 10% to 15%. We are seeing some spikes in transaminases which are likely hemodynamically related. Cardiology has been reconsulted. Care per Primary Service and Cardiology service. 4. GI can continue to follow up biopsies. Please let us know if there is concern for any significant rebleeding. Job ID: [id number]
[2020-07-29] MEDS: Ivabradine 5 MG TAB PO SCH ×2 (10:28→20:45)
[2020-07-29] MEDS: Sodium Bicarbonate Tab 325 MG TAB PO SCH ×3 (10:29→20:37)
[2020-07-29] MEDS: Pantoprazole 40 MG VIAL IVP SCH (10:29)
--- NOTE | 2020-07-29 11:48 | PDOC.NEPPN ---
- Subjective Encounter Date: 07/29/20 Subjective: Still confused. No new problem On Parentereal nutritin. To start entereal nutrition via NG tube. - Objective Vital Signs & Weight: Vital Signs (12 hours) Temp Pulse Resp BP Pulse Ox 07/29/20 11:12 96.6 F L 07/29/20 07:26 97.6 F 07/29/20 04:00 120 H 28 H 108/85 100 07/29/20 03:55 97.9 F 07/29/20 00:00 118 H 24 H 99 Weight Admit Weight 120 lb Weight 144 lb Most Recent Monitor Data Heart Rate from ECG 124 NIBP 108/83 NIBP BP-Mean 91 Respiration from ECG 19 SpO2 98 I&O: 07/28/20 07/29/20 07/30/20 06:59 06:59 06:59 Intake Total 2150 800 Output Total 1250 1050 Balance 900 -250 Result Diagrams: 07/29/20 03:37 07/29/20 03:37 Nephrology ROS - Medication Medications: Active Medications Generic Name Dose Route Start Last Admin Trade Name Freq PRN Reason Stop Dose Admin Benzocaine 0 gm 07/24/20 22:13 07/24/20 22:22 Benzocaine (Dental) 7 Gm Tube TOP 7 gm QIDPRN PRN Administration Topical Anesthetic Al Hydroxide/Mg Hydroxide 60 0 ml 07/26/20 10:31 07/26/20 13:59 ml/ Diphenhydramine HCl 150 mg SSW 10 ml / Lidocaine HCl 60 ml/ Q8H PRN Administration Nystatin 6,000,000 units Mouth Irritation Multivitamins 10 ml/ Folic 1,011.2 mls @ 100 mls/hr 07/26/20 12:00 07/28/20 14:09 Acid 1 mg/ Thiamine HCl 100 mg IV Not Given / Dextrose/Sodium Chloride Q24HR MELINA Piperacillin Sod/Tazobactam 100 mls @ 200 mls/hr 07/28/20 02:00 07/29/20 10:29 Sod 2.25 gm/ Sodium Chloride IVPB 100 mls 0200,1000,1800 MELINA Administration Amino Acids/Electrolytes/Dextrose 1,000 mls @ 50 mls/hr 07/28/20 19:00 07/28/20 19:59 Clinimix E 4.25/5 IV 1,000 mls INF MELINA Administration Ivabradine 5 mg 07/29/20 09:00 07/29/20 10:28 Ivabradine 5 Mg Tab PO 5 mg BID MELINA Administration Pantoprazole Sodium 40 mg 07/24/20 09:00 07/29/20 10:29 Pantoprazole 40 Mg Vial IVP 40 mg DAILY MELINA Administration Sodium Bicarbonate 650 mg 07/28/20 21:00 07/29/20 10:29 Sodium Bicarbonate Tab 325 Mg Tab PO 650 mg TID MELINA Administration Sodium Chloride 10 ml 07/25/20 09:00 07/29/20 10:30 Flush - Normal Saline 10 Ml Syringe IVF 10 ml Q12HR MELINA Administration - Exam General - other findings: sleepy but arousable. ENT: normocephalic atraumatic, moist mucosa Neck: symmetric Respiratory - other findings: fair air entry with no crackles Cardiovascular: RRR Heart - other findings: tachycardic Gastrointestinal: non-distended, tender to palpation Extremities - other findings: trace to mild leg/feet edema Neurological: CN's grossly intact, no focal deficits PSYCH: oriented to person Psychiatric - other findings: onfused Nephrology Results - Labs Result Diagrams: 07/29/20 03:37 07/29/20 03:37 Lab results: WBC 6.7 thou/uL (4.8-10.8) 07/29/20 03:37 Hgb 8.2 g/dL (12.0-16.0) L 07/29/20 03:37 Hct 24.0 % (36.0-47.0) L 07/29/20 03:37 MCV 94.4 fL (78.0-98.0) 07/29/20 03:37 Plt Count 81 thou/uL (130-400) L 07/29/20 03:37 Neutrophils % 85.6 % (42.0-75.0) H 07/27/20 21:46 Band Neuts % (Manual) 5 % (5-11) 07/29/20 03:37 ABG pH 7.48 (7.35-7.45) H 07/28/20 00:06 ABG pCO2 23.3 mmHg (35.0-45.0) L* 07/28/20 00:06 ABG pO2 63.8 mmHg (> 80.0) 07/28/20 00:06 VBG pCO2 21.5 mmHg (40.0-50.0) L* 07/23/20 20:52 VBG pO2 43.3 mmHg (35.0-45.0) 07/23/20 20:52 Sodium 149 mmol/L (136-145) H 07/29/20 03:37 Sodium 150 mmol/L (136-145) H 07/29/20 03:37 Potassium 3.2 mmol/L (3.5-5.1) L 07/29/20 03:37 Potassium 3.2 mmol/L (3.5-5.1) L 07/29/20 03:37 Chloride 112 mmol/L (98-107) H 07/29/20 03:37 Chloride 112 mmol/L (98-107) H 07/29/20 03:37 Carbon Dioxide 20 mmol/L (23-31) L 07/29/20 03:37 Carbon Dioxide 20 mmol/L (23-31) L 07/29/20 03:37 BUN 78 mg/dL (9.8-20.1) H 07/29/20 03:37 BUN 83 mg/dL (9.8-20.1) H 07/29/20 03:37 Creatinine 2.99 mg/dL (0.6-1.1) H 07/29/20 03:37 Creatinine 2.99 mg/dL (0.6-1.1) H 07/29/20 03:37 Glucose 218 mg/dL (80-115) H 07/29/20 03:37 Glucose 219 mg/dL (80-115) H 07/29/20 03:37 Lactic Acid 3.1 mmol/L (0.5-2.2) H 07/24/20 06:29 Calcium 7.8 mg/dL (7.8-10.44) 07/29/20 03:37 Calcium 8.0 mg/dL (7.8-10.44) 07/29/20 03:37 Total Bilirubin 1.1 mg/dL (0.2-1.2) 07/29/20 03:37 AST 207 U/L (5-34) H 07/29/20 03:37 ALT 179 U/L (8-55) H 07/29/20 03:37 Alkaline Phosphatase 90 U/L (40-110) 07/29/20 03:37 Ammonia 20 umol/L (18-72) 07/27/20 04:56 Creatine Kinase 205 U/L (29-168) H 07/23/20 20:25 CK-MB (CK-2) 3.1 ng/mL (0-6.6) 07/28/20 12:03 Troponin I 0.352 ng/mL (< 0.028) H* 07/28/20 12:03 Serum Total Protein 5.1 g/dL (6.0-8.3) L 07/29/20 03:37 Albumin 3.3 g/dL (3.4-4.8) L 07/29/20 03:37 Albumin 3.4 g/dL (3.4-4.8) 07/29/20 03:37 Urine Ketones Negative mg/dL (Negative) 07/24/20 Unknown Urine Blood 2+ (Negative) A 07/24/20 Unknown Urine Nitrite Negative (Negative) 07/24/20 Unknown Ur Leukocyte Esterase 500 Fariha/uL (Negative) A 07/24/20 Unknown Urine RBC 7-10 HPF (0-3) A 07/24/20 Unknown Urine WBC Greater than 50 HPF (0-3) A 07/24/20 Unknown Ur Squamous Epith Cells None Seen HPF (0-3) 07/24/20 Unknown Urine Bacteria 4+ HPF (None Seen) A 07/24/20 Unknown Sodium 149 mmol/L (136-145) H 07/29/20 03:37 Sodium 150 mmol/L (136-145) H 07/29/20 03:37 Potassium 3.2 mmol/L (3.5-5.1) L 07/29/20 03:37 Potassium 3.2 mmol/L (3.5-5.1) L 07/29/20 03:37 Chloride 112 mmol/L (98-107) H 07/29/20 03:37 Chloride 112 mmol/L (98-107) H 07/29/20 03:37 Carbon Dioxide 20 mmol/L (23-31) L 07/29/20 03:37 Carbon Dioxide 20 mmol/L (23-31) L 07/29/20 03:37 Anion Gap 20 mmol/L (10-20) 07/29/20 03:37 Anion Gap 21 mmol/L (10-20) H 07/29/20 03:37 BUN 78 mg/dL (9.8-20.1) H 07/29/20 03:37 BUN 83 mg/dL (9.8-20.1) H 07/29/20 03:37 Creatinine 2.99 mg/dL (0.6-1.1) H 07/29/20 03:37 Creatinine 2.99 mg/dL (0.6-1.1) H 07/29/20 03:37 Glucose 218 mg/dL (80-115) H 07/29/20 03:37 Glucose 219 mg/dL (80-115) H 07/29/20 03:37 Calcium 7.8 mg/dL (7.8-10.44) 07/29/20 03:37 Calcium 8.0 mg/dL (7.8-10.44) 07/29/20 03:37 Phosphorus 4.4 mg/dL (2.3-4.7) 07/29/20 03:37 Phosphorus 4.6 mg/dL (2.3-4.7) 07/29/20 03:37 Magnesium 1.9 mg/dL (1.6-2.6) 07/29/20 03:37 Albumin 3.3 g/dL (3.4-4.8) L 07/29/20 03:37 Albumin 3.4 g/dL (3.4-4.8) 07/29/20 03:37 Nephrology AP PN - Plan ASSESSMENT Acute renal failure: Multifactorial most likely. Hemodynamic factors related severe dehydration and septic shock. initially anuric. Creat/BUN are trending up SOB: 2/2 Pulmonary congestion. Echo showed EF 0f 10-15%. Acute systolic and diastolic HF. Now on dobutamine. Severe metabolic acidosis: Resolved with alkali therapy Hypernatremia: Due to free water deficit. Hypokalemia:recurrent. Hypomagnesemia Hypophosphatemia Severe dehydration Acute metabolic encephalopathy: Acute illness, acidosis, WAYNE +/- uremia: improving. Colon cancer s/p colon resection and colostomy Hypocalcemia Elevated troponin Acute transaminitis Hypoalbuminemia Acute blood loss anemia: Occult stool positive. S/p PRBC transfusion. Severe thrombocytpenia: medication and sepsis induced. Improving. PLAN Replete serum potassium. Start spironolactone given reduced EF and hypokalemia Hold lasix for now Start free water flushes with entereal nutrition via the NG tube. Continue alkali therapy per tube Monitor intake and output as well as renal function and electrolytes. HF treatment as per Cardiology.
--- NOTE | 2020-07-29 12:45 | PDOC.HOSPP ---
- Subjective Encounter Date: 07/29/20 Encounter Time: 12:43 Subjective: Ms. Villatoro was seen today in follow-up of sepsis and acute kidney failure. She is a bit confused. She was not able to express her needs. - Objective Vital Signs & Weight: Vital Signs (12 hours) Temp Pulse Resp BP Pulse Ox 07/29/20 11:12 96.6 F L 07/29/20 07:26 97.6 F 07/29/20 04:00 120 H 28 H 108/85 100 07/29/20 03:55 97.9 F Weight Admit Weight 120 lb 9.486 oz Weight 144 lb Most Recent Monitor Data Heart Rate from ECG 124 NIBP 108/83 NIBP BP-Mean 91 Respiration from ECG 19 SpO2 98 I&O: 07/28/20 07/29/20 07/30/20 06:59 06:59 06:59 Intake Total 2150 800 Output Total 1250 1050 Balance 900 -250 Result Diagrams: 07/29/20 03:37 07/29/20 03:37 Hospitalist ROS - Medication Medications: Active Medications Generic Name Dose Route Start Last Admin Trade Name Freq PRN Reason Stop Dose Admin Benzocaine 0 gm 07/24/20 22:13 07/24/20 22:22 Benzocaine (Dental) 7 Gm Tube TOP 7 gm QIDPRN PRN Administration Topical Anesthetic Al Hydroxide/Mg Hydroxide 60 0 ml 07/26/20 10:31 07/26/20 13:59 ml/ Diphenhydramine HCl 150 mg SSW 10 ml / Lidocaine HCl 60 ml/ Q8H PRN Administration Nystatin 6,000,000 units Mouth Irritation Multivitamins 10 ml/ Folic 1,011.2 mls @ 100 mls/hr 07/26/20 12:00 07/28/20 14:09 Acid 1 mg/ Thiamine HCl 100 mg IV Not Given / Dextrose/Sodium Chloride Q24HR MELINA Piperacillin Sod/Tazobactam 100 mls @ 200 mls/hr 07/28/20 02:00 07/29/20 10:29 Sod 2.25 gm/ Sodium Chloride IVPB 100 mls 0200,1000,1800 MELINA Administration Amino Acids/Electrolytes/Dextrose 1,000 mls @ 50 mls/hr 07/28/20 19:00 07/28/20 19:59 Clinimix E 4.25/5 IV 1,000 mls INF MELINA Administration Ivabradine 5 mg 07/29/20 09:00 07/29/20 10:28 Ivabradine 5 Mg Tab PO 5 mg BID MELINA Administration Pantoprazole Sodium 40 mg 07/24/20 09:00 07/29/20 10:29 Pantoprazole 40 Mg Vial IVP 40 mg DAILY MELINA Administration Sodium Bicarbonate 650 mg 07/28/20 21:00 07/29/20 10:29 Sodium Bicarbonate Tab 325 Mg Tab PO 650 mg TID MELINA Administration Sodium Chloride 10 ml 07/25/20 09:00 07/29/20 10:30 Flush - Normal Saline 10 Ml Syringe IVF 10 ml Q12HR MELINA Administration - Exam Eye: PERRL, anicteric sclera Heart: RRR, no murmur, no gallops, no rubs, normal peripheral pulses Gastrointestinal: soft, non-tender, non-distended, normal bowel sounds, no palpable masses Extremities: no cyanosis, 2+ LE edema Hosp A/P (1) Sepsis Code(s): A41.9 - SEPSIS, UNSPECIFIED ORGANISM Status: Acute (2) Hypernatremia Code(s): E87.0 - HYPEROSMOLALITY AND HYPERNATREMIA Status: Acute (3) WAYNE (acute kidney injury) Code(s): N17.9 - ACUTE KIDNEY FAILURE, UNSPECIFIED Status: Acute - Plan * Sepsis-urine culture is growing pseudomonas- continue Zosyn * Hypernatremia- replace free water deficit- this is being done via tube feeding, with free water 200ml Q6 * Gastric ulcerations- continue PPI * WAYNE- being managed by Nephrology * COVID infection- this was in April
[2020-07-29] MEDS: Acetaminophen 325 MG TAB PER TUBE PRN (14:37)
[2020-07-29] MEDS: Furosemide 40 MG/4 ML VIAL SLOW IVP SCH (14:38)
[2020-07-29] MEDS ORDERED: Spironolactone 25 MG TAB PER TUBE SCH (16:00)
[2020-07-29] MEDS: Multivitamins, Adult 10 ML, Folic Acid 1 MG, Thiamine HCl 100 MG in Dextrose 5 %-0.45 %... IV SCH (18:01)
--- NOTE | 2020-07-29 19:57 | RAD ---
KUB: 07/29/20 PROVIDED CLINICAL HISTORY: NG tube placement. FINDINGS: Comparison 07/28/20. Bibasilar parenchymal opacities are redemonstrated. Enteric catheter is noted, tip of which overlies the left upper quadrant. The visualized abdominal bowel gas pattern is nonspecific. Surgical clips o verlie the right abdomen. There is no evidence for pneumoperitoneum. IMPRESSION: Enteric catheter positioning as described. POS: JOSE
[2020-07-30] MEDS: Piperacillin/Tazobactam 2.25 GM in Sodium Chloride 0.9% 100 ML IVPB SCH ×3 (02:22→17:52)
[2020-07-30 04:47] LABS: ALT (SGPT) 203 U/L (8-55); AST (SGOT) 127 U/L (5-34); Albumin 3.4 g/dL (3.4-4.8); Alkaline Phosphatase 147 U/L (40-110); Bilirubin, Direct 0.9 mg/dL (0.1-0.3); Bilirubin, Total 1.3 mg/dL (0.2-1.2); Magnesium 1.7 mg/dL (1.6-2.6); Phosphorus 4.3 mg/dL (2.3-4.7); Protein, Total 5.6 g/dL (6.0-8.3)
[2020-07-30 04:57] LABS: Band 26 % (5-11); Lymphocytes 12 % (21-51); MDiff Complete? YES; Mean Corpuscular HGB CONC 33.3 g/dL (32.0-36.0); Mean Corpuscular Hemoglobin 32.1 pg (27.0-31.0); Mean Corpuscular Volume 96.2 fL (78.0-98.0); Mean Platelet Volume 11.8 fL (7.4-10.4); Metamyelocyte 1 % (0-0); Monocytes 10 % (0-10); Neutrophil 51 % (42-75); Nucleated RBC 1 % (0); Platelet Count 121 thou/uL (130-400); Platelet Morphology Comment Appears Decreased; RBC Distribution Width 14.7 % (11.5-14.5); White Blood Cell (WBC) Count 9.9 thou/uL (4.8-10.8)
[2020-07-30] MEDS: Furosemide 40 MG/4 ML VIAL SLOW IVP SCH ×2 (06:09→13:58)
[2020-07-30] MEDS: Sodium Bicarbonate Tab 325 MG TAB PO SCH ×3 (10:19→21:47)
[2020-07-30] MEDS: Ivabradine 5 MG TAB PO SCH ×2 (10:19→21:47)
[2020-07-30] MEDS: Spironolactone 25 MG TAB PER TUBE SCH (10:19)
[2020-07-30] MEDS: Pantoprazole 40 MG VIAL IVP SCH (10:20)
[2020-07-30 11:55] LABS: Anion Gap 23 mmol/L (10-20); BUN (Urea Nitrogen) 90 mg/dL (9.8-20.1); Calc. Creatinine Clearance 18 mL/min (70-130); Calcium 8.2 mg/dL (7.8-10.44); Carbon Dioxide 20 mmol/L (23-31); Chloride 112 mmol/L (98-107); Glucose 177 mg/dL (80-115); Potassium 3.4 mmol/L (3.5-5.1); Sodium 152 mmol/L (136-145)
[2020-07-30] MEDS: Multivitamins, Adult 10 ML, Folic Acid 1 MG, Thiamine HCl 100 MG in Dextrose 5 %-0.45 %... IV SCH (12:33)
--- NOTE | 2020-07-30 13:07 | PDOC.HOSPP ---
- Subjective Encounter Date: 07/30/20 Encounter Time: 13:04 Subjective: awake ,denies any complaint - Objective Vital Signs & Weight: Vital Signs (12 hours) Temp Pulse Resp BP Pulse Ox 07/30/20 11:04 98.0 F 07/30/20 08:00 97 07/30/20 07:21 97.0 F L 07/30/20 04:00 97.0 F L 94 24 H 110/76 98 Weight Admit Weight 120 lb 9.486 oz Weight 144 lb Most Recent Monitor Data Heart Rate from ECG 83 NIBP 121/82 NIBP BP-Mean 95 Respiration from ECG 22 SpO2 98 I&O: 07/29/20 07/30/20 07/31/20 06:59 06:59 06:59 Intake Total 800 1459 Output Total 1050 1400 Balance -250 59 Result Diagrams: 07/30/20 04:12 07/30/20 04:12 Hospitalist ROS - Medication Medications: Active Medications Generic Name Dose Route Start Last Admin Trade Name Freq PRN Reason Stop Dose Admin Acetaminophen 650 mg 07/29/20 13:08 07/29/20 14:37 Acetaminophen 325 Mg Tab PER TUBE 650 mg Q4H PRN Administration Headache/Fever or Pain Benzocaine 0 gm 07/24/20 22:13 07/24/20 22:22 Benzocaine (Dental) 7 Gm Tube TOP 7 gm QIDPRN PRN Administration Topical Anesthetic Al Hydroxide/Mg Hydroxide 60 0 ml 07/26/20 10:31 07/26/20 13:59 ml/ Diphenhydramine HCl 150 mg SSW 10 ml / Lidocaine HCl 60 ml/ Q8H PRN Administration Nystatin 6,000,000 units Mouth Irritation Furosemide 40 mg 07/29/20 14:00 07/30/20 06:09 Furosemide 40 Mg/4 Ml Vial SLOW IVP 40 mg 0600,1400 MELINA Administration Multivitamins 10 ml/ Folic 1,011.2 mls @ 100 mls/hr 07/26/20 12:00 07/30/20 12:33 Acid 1 mg/ Thiamine HCl 100 mg IV Not Given / Dextrose/Sodium Chloride Q24HR MELINA Piperacillin Sod/Tazobactam 100 mls @ 200 mls/hr 07/28/20 02:00 07/30/20 10:18 Sod 2.25 gm/ Sodium Chloride IVPB 100 mls 0200,1000,1800 MELINA Administration Ivabradine 5 mg 07/29/20 09:00 07/30/20 10:19 Ivabradine 5 Mg Tab PO 5 mg BID MELINA Administration Pantoprazole Sodium 40 mg 07/24/20 09:00 07/30/20 10:20 Pantoprazole 40 Mg Vial IVP 40 mg DAILY MELINA Administration Sodium Bicarbonate 650 mg 07/28/20 21:00 07/30/20 10:19 Sodium Bicarbonate Tab 325 Mg Tab PO 650 mg TID MELINA Administration Sodium Chloride 10 ml 07/25/20 09:00 07/30/20 10:20 Flush - Normal Saline 10 Ml Syringe IVF 10 ml Q12HR MELINA Administration Spironolactone 25 mg 07/30/20 08:00 07/30/20 10:19 Spironolactone 25 Mg Tab PER TUBE 25 mg QAM-WM MELINA Administration - Exam General Appearance: awake alert Neck: JVD Heart: RRR Respiratory - other findings: decreased BS, post rales Gastrointestinal: soft, non-distended, normal bowel sounds Extremities: no edema Hosp A/P (1) Acute systolic HF (heart failure) Code(s): I50.21 - ACUTE SYSTOLIC (CONGESTIVE) HEART FAILURE Status: Acute (2) Acute renal failure Status: Acute Qualifiers: Acute renal failure type: unspecified Qualified Code(s): N17.9 - Acute kidney failure, unspecified (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
--- NOTE | 2020-07-30 14:52 | RAD ---
Supine radiograph abdomen: 07/30/2020 COMPARISON: 07/29/2020 HISTORY: Nasogastric tube placement FINDINGS: Stable nasogastric tube in place, distal tip seen within the medial aspect of the left uppe r quadrant. There is nonspecific pleural and parenchymal opacity in the partially imaged lung bases. Supine imaging limits assessment for free intraperitoneal air. IMPRESSION: Nasogastric tube in the left upper quadrant. Bibasilar pleural-parenchymal opacity.
--- NOTE | 2020-07-30 16:58 | PDOC.NEPPN ---
- Subjective Encounter Date: 07/30/20 Subjective: Still confused. Pulled out NG tube. urine output has improved with dobutamine, ivabradine and lasix. Subjective: non-verbal - Objective Vital Signs & Weight: Vital Signs (12 hours) Temp Pulse Ox 07/30/20 15:16 98.3 F 07/30/20 11:04 98.0 F 07/30/20 08:00 97 07/30/20 07:21 97.0 F L Weight Admit Weight 120 lb 9.486 oz Weight 144 lb Most Recent Monitor Data Heart Rate from ECG 114 NIBP 113/77 NIBP BP-Mean 89 Respiration from ECG 25 SpO2 99 I&O: 07/29/20 07/30/20 07/31/20 06:59 06:59 06:59 Intake Total 800 1459 100 Output Total 1050 1400 Balance -250 59 100 Result Diagrams: 07/30/20 04:12 07/30/20 04:12 Nephrology ROS - Medication Medications: Active Medications Generic Name Dose Route Start Last Admin Trade Name Freq PRN Reason Stop Dose Admin Acetaminophen 650 mg 07/29/20 13:08 07/29/20 14:37 Acetaminophen 325 Mg Tab PER TUBE 650 mg Q4H PRN Administration Headache/Fever or Pain Benzocaine 0 gm 07/24/20 22:13 07/24/20 22:22 Benzocaine (Dental) 7 Gm Tube TOP 7 gm QIDPRN PRN Administration Topical Anesthetic Al Hydroxide/Mg Hydroxide 60 0 ml 07/26/20 10:31 07/26/20 13:59 ml/ Diphenhydramine HCl 150 mg SSW 10 ml / Lidocaine HCl 60 ml/ Q8H PRN Administration Nystatin 6,000,000 units Mouth Irritation Furosemide 40 mg 07/29/20 14:00 07/30/20 13:58 Furosemide 40 Mg/4 Ml Vial SLOW IVP 40 mg 0600,1400 MELINA Administration Multivitamins 10 ml/ Folic 1,011.2 mls @ 100 mls/hr 07/26/20 12:00 07/30/20 12:33 Acid 1 mg/ Thiamine HCl 100 mg IV Not Given / Dextrose/Sodium Chloride Q24HR MELINA Piperacillin Sod/Tazobactam 100 mls @ 200 mls/hr 07/28/20 02:00 07/30/20 10:18 Sod 2.25 gm/ Sodium Chloride IVPB 100 mls 0200,1000,1800 MELINA Administration Ivabradine 5 mg 07/29/20 09:00 07/30/20 10:19 Ivabradine 5 Mg Tab PO 5 mg BID MELINA Administration Pantoprazole Sodium 40 mg 07/24/20 09:00 07/30/20 10:20 Pantoprazole 40 Mg Vial IVP 40 mg DAILY MELINA Administration Sodium Bicarbonate 650 mg 07/28/20 21:00 07/30/20 14:04 Sodium Bicarbonate Tab 325 Mg Tab PO 650 mg TID MELINA Administration Sodium Chloride 10 ml 07/25/20 09:00 07/30/20 10:20 Flush - Normal Saline 10 Ml Syringe IVF 10 ml Q12HR MELINA Administration Spironolactone 25 mg 07/30/20 08:00 07/30/20 10:19 Spironolactone 25 Mg Tab PER TUBE 25 mg QAM-WM MELINA Administration - Exam General Appearance: awake alert Eye: anicteric sclera ENT: normocephalic atraumatic, dry oral mucosa Neck: supple, symmetric, no JVD Respiratory: no wheezes, no ronchi, normal chest expansion, no tachypnea Cardiovascular: RRR Gastrointestinal: soft, non-distended, tender to palpation Extremities: no edema Neurological: CN's grossly intact, no focal deficits Musculoskeletal: generalized weakness, diffuse muscle atrophy PSYCH: oriented to person Nephrology Results - Labs Result Diagrams: 07/30/20 04:12 07/30/20 04:12 Lab results: WBC 9.9 thou/uL (4.8-10.8) 07/30/20 04:12 Hgb 9.0 g/dL (12.0-16.0) L 07/30/20 04:12 Hct 27.0 % (36.0-47.0) L 07/30/20 04:12 MCV 96.2 fL (78.0-98.0) 07/30/20 04:12 Plt Count 121 thou/uL (130-400) L 07/30/20 04:12 Neutrophils % 85.6 % (42.0-75.0) H 07/27/20 21:46 Band Neuts % (Manual) 26 % (5-11) H 07/30/20 04:12 ABG pH 7.48 (7.35-7.45) H 07/28/20 00:06 ABG pCO2 23.3 mmHg (35.0-45.0) L* 07/28/20 00:06 ABG pO2 63.8 mmHg (> 80.0) 07/28/20 00:06 VBG pCO2 21.5 mmHg (40.0-50.0) L* 07/23/20 20:52 VBG pO2 43.3 mmHg (35.0-45.0) 07/23/20 20:52 Sodium 152 mmol/L (136-145) H 07/30/20 04:12 Potassium 3.4 mmol/L (3.5-5.1) L 07/30/20 04:12 Chloride 112 mmol/L (98-107) H 07/30/20 04:12 Carbon Dioxide 20 mmol/L (23-31) L 07/30/20 04:12 BUN 90 mg/dL (9.8-20.1) H 07/30/20 04:12 Creatinine 3.08 mg/dL (0.6-1.1) H 07/30/20 04:12 Glucose 177 mg/dL (80-115) H 07/30/20 04:12 Lactic Acid 3.1 mmol/L (0.5-2.2) H 07/24/20 06:29 Calcium 8.2 mg/dL (7.8-10.44) 07/30/20 04:12 Total Bilirubin 1.3 mg/dL (0.2-1.2) H 07/30/20 04:12 AST 127 U/L (5-34) H 07/30/20 04:12 ALT 203 U/L (8-55) H 07/30/20 04:12 Alkaline Phosphatase 147 U/L (40-110) H 07/30/20 04:12 Ammonia 20 umol/L (18-72) 07/27/20 04:56 Creatine Kinase 205 U/L (29-168) H 07/23/20 20:25 CK-MB (CK-2) 3.1 ng/mL (0-6.6) 07/28/20 12:03 Troponin I 0.352 ng/mL (< 0.028) H* 07/28/20 12:03 Serum Total Protein 5.6 g/dL (6.0-8.3) L 07/30/20 04:12 Albumin 3.4 g/dL (3.4-4.8) 07/30/20 04:12 Urine Ketones Negative mg/dL (Negative) 07/24/20 Unknown Urine Blood 2+ (Negative) A 07/24/20 Unknown Urine Nitrite Negative (Negative) 07/24/20 Unknown Ur Leukocyte Esterase 500 Fariha/uL (Negative) A 07/24/20 Unknown Urine RBC 7-10 HPF (0-3) A 07/24/20 Unknown Urine WBC Greater than 50 HPF (0-3) A 07/24/20 Unknown Ur Squamous Epith Cells None Seen HPF (0-3) 07/24/20 Unknown Urine Bacteria 4+ HPF (None Seen) A 07/24/20 Unknown Sodium 152 mmol/L (136-145) H 07/30/20 04:12 Potassium 3.4 mmol/L (3.5-5.1) L 07/30/20 04:12 Chloride 112 mmol/L (98-107) H 07/30/20 04:12 Carbon Dioxide 20 mmol/L (23-31) L 07/30/20 04:12 Anion Gap 23 mmol/L (10-20) H 07/30/20 04:12 BUN 90 mg/dL (9.8-20.1) H 07/30/20 04:12 Creatinine 3.08 mg/dL (0.6-1.1) H 07/30/20 04:12 Glucose 177 mg/dL (80-115) H 07/30/20 04:12 Calcium 8.2 mg/dL (7.8-10.44) 07/30/20 04:12 Phosphorus 4.3 mg/dL (2.3-4.7) 07/30/20 04:12 Magnesium 1.7 mg/dL (1.6-2.6) 07/30/20 04:12 Albumin 3.4 g/dL (3.4-4.8) 07/30/20 04:12 Nephrology AP PN - Plan ASSESSMENT Acute renal failure: Multifactorial most likely. Hemodynamic factors related severe dehydration and septic shock. initially anuric. Creat seem stable around 3. Baseline creat is unknown. ? CKD. Acute systolic and diastolic HF. Now on dobutamine. Improved. Off oxygen Severe metabolic acidosis: Improved with alkali therapy Hypernatremia: Due to free water deficit. improved. Hypokalemia:recurrent. Hypomagnesemia Hypophosphatemia Severe dehydration. Improved with IVF Acute metabolic encephalopathy: Acute illness, acidosis, WAYNE +/- uremia: improving. TMA is a concern given association of encephalopathy with WAYNE and thrombocytopenia. Colon cancer s/p colon resection and colostomy Hypocalcemia Elevated troponin Acute transaminitis Hypoalbuminemia Acute blood loss anemia: Occult stool positive. S/p PRBC transfusion. Severe thrombocytopenia: medication and sepsis induced. Improving. PLAN Replete serum potassium and magnesium Get iron chemistry, PTH, complements, DIC panel and LDH Restart tube feeding and free water flushes once NG tube is reinserted. Continue alkali therapy per tube Monitor intake and output as well as renal function and electrolytes. HF treatment as per Cardiology.
[2020-07-30] MEDS ORDERED: Potassium Chloride 40 MEQ in Premix Bag 1 BAG IVPB SCH (17:15)
[2020-07-30] MEDS ORDERED: Magnesium 2 GM/50 ML 2 GM in Premix Bag 1 BAG IVPB SCH (17:15)
--- NOTE | 2020-07-30 20:07 | PRG ---
DATE OF SERVICE: 07/30/2020 REASON FOR CONSULTATION: Melena, gastric and esophageal ulcerations. SUBJECTIVE: Per nursing staff, the patient has been exhibiting moments of lucidity followed by moments of complete disorientation with inability to follow simple commands. She also had an NG tube placed for tube feeds, but has been restrained at this point due to multiple episodes where the patient removed the NG tube. On my evaluation today, the patient was alert but oriented x0, being unable to tell me her own name. Per nursing staff, they state that she was able to do that earlier in the day. With her inability to adequately give information, most of the information was obtained from nursing staff with no episodes of vomiting, fevers, chills, hematemesis, or hematochezia. She continues to have dark green/black output from her ostomy bag, but no evidence of overt bleeding. OBJECTIVE: VITAL SIGNS: Temperature 98.3, pulse 87, blood pressure 105/62, respiratory rate 19, saturating 96% on room air. GENERAL: The patient was lying in bed, in no acute distress. Alert, but oriented x0. Currently restrained. CARDIOVASCULAR: Regular rate and rhythm with no discernible murmurs, gallops, or rubs. RESPIRATORY: Mild bibasilar crackles auscultated in both lung bases, but clear to auscultation otherwise. ABDOMEN: Normoactive bowel sounds. Soft, nontender, nondistended. EXTREMITIES: No cyanosis or clubbing. 1+ bilateral lower extremity edema extending up to about mid sagastume. LABORATORY DATA: CBC with a white blood cell count of 9.9, hemoglobin 9, hematocrit 27, platelets 121. IMAGING DATA: No current GI imaging is available for review. 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 The stomach with random biopsy showed predominantly unremarkable gastric antral-type mucosa without presence of H pylori. Biopsies within the GE junction and distal esophagus showed active erosive esophagitis with no viral cytopathic effects present. ASSESSMENT AND PLAN: 1. Gastric and esophageal ulcers. The patient presented with darker-colored stools in her ostomy bag, prompting upper endoscopy on July 28, 2020. The upper endoscopy showed ulcerations within the distal esophagus, stomach, as well as the duodenum with biopsy showing evidence of erosive esophagitis likely from reflux. 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 At this time, the origin of her ulcerations is largely unknown and it is unclear if this was due to critical illness versus the use of NSAIDs as an outpatient versus possible Alessia-Sosa syndrome given the fact that the ulcers were within the entire upper GI tract. Recommendations: a. Would continue the patient on PPI 40 mg IV b.i.d. b. Would continue to monitor the patient's H and H and transfuse as necessary to maintain an H and H of 7/. c. Continue to monitor clinically for signs of active GI bleeding. d. Would obtain a fasting gastrin level on the patient in the morning for evaluation of possible Alessia-Sosa syndrome. It may be elevated due to the concurrent administration of PPIs, but should not be greater than 500. 2. Acute post-hemorrhagic anemia. The patient is presenting with darker-colored stools concerning for melena as well as a decrease in her H and H on admission. However, over the last 24 to 48 hours, the patient has had an uptrending H and H with no further evidence of active GI bleeding. She does continue to have some darker-colored stools, but this may be more indicative of dark bile as opposed to continued GI bleeding. Recommendations: a. Would continue to trend her H and H as above. b. Continue PPI IV b.i.d. 3. Severe biventricular heart failure. The patient is presenting with a recent COVID infection and echocardiogram obtained during this admission is now showing severe elevation of right-sided pressures with tricuspid regurgitation and left ventricular ejection fraction of 10% to 15%. 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 Cardiology has been consulted and is currently following the patient. Recommendations: Would defer to Cardiology for evaluation. We will continue to follow. Please call with any questions. Job ID: [id number]
[2020-07-31] MEDS: Piperacillin/Tazobactam 2.25 GM in Sodium Chloride 0.9% 100 ML IVPB SCH ×3 (02:18→18:14)
[2020-07-31] MEDS: Furosemide 40 MG/4 ML VIAL SLOW IVP SCH (05:36)
[2020-07-31 06:54] LABS: Fibrinogen 281 mg/dL (253-463); INR-International Normal Ratio 1.4; PTT 28.6 sec (22.9-36.1); Prothrombin Time 17.5 sec (12.0-14.7)
[2020-07-31 07:02] LABS: D-Dimer Test 3.98 *mcg/mL (0.27-0.43)
[2020-07-31 07:03] LABS: FSP-Qualitative ABNORMAL (Normal); FSP-Semiquantitative >=40 & <80 mcg/mL (Less than 5)
[2020-07-31 07:04] LABS: Platelet Count 159 thou/uL (130-400)
[2020-07-31 07:04] LABS: #Lymphocytes 0.5 thou/uL (1.20-3.40); #Monocytes 0.7 thou/uL (0.11-0.59); #Neutrophils 8.4 thou/uL (1.40-6.50); %Basophils 0.1 % (0.0-1.0); %Eosinophils 0.3 % (0.0-10.0); %Lymphocytes 5.1 % (21.0-51.0); %Monocytes 7.2 % (0.0-10.0); %Neutrophils 87.3 % (42.0-75.0); Mean Corpuscular Hemoglobin 32.2 pg (27.0-31.0); Mean Corpuscular Volume 97.7 fL (78.0-98.0); Mean Platelet Volume 11.3 fL (7.4-10.4); Platelet Count 156 thou/uL (130-400); RBC Distribution Width 14.9 % (11.5-14.5); Red Blood Cell (RBC) Count 2.48 mill/uL (4.20-5.40); White Blood Cell (WBC) Count 9.6 thou/uL (4.8-10.8)
[2020-07-31 07:09] LABS: Iron 52 ug/dL (50-170); Iron Binding Capacity, Total 134 mcg/dL (265-497)
[2020-07-31 07:14] LABS: ALT (SGPT) 132 U/L (8-55); AST (SGOT) 53 U/L (5-34); Albumin 3.2 g/dL (3.4-4.8); Alkaline Phosphatase 113 U/L (40-110); Anion Gap 18 mmol/L (10-20); BUN (Urea Nitrogen) 89 mg/dL (9.8-20.1); Bilirubin, Total 1.1 mg/dL (0.2-1.2); Calc. Creatinine Clearance 17 mL/min (70-130); Calcium 8.1 mg/dL (7.8-10.44); Carbon Dioxide 27 mmol/L (23-31); Chloride 112 mmol/L (98-107); Globulin 2.1 g/dL (2.4-3.5); Glucose 165 mg/dL (80-115); Magnesium 2.1 mg/dL (1.6-2.6); Phosphorus 3.3 mg/dL (2.3-4.7); Potassium 2.6 mmol/L (3.5-5.1); Protein, Total 5.3 g/dL (6.0-8.3); Sodium 154 mmol/L (136-145)
[2020-07-31] MEDS ORDERED: Potassium Chloride 20 MEQ in Premix Bag 1 BAG IVPB SCH (07:45)
--- NOTE | 2020-07-31 07:55 | PDOC.NEPPN ---
- Subjective Encounter Date: 07/31/20 Subjective: Seen in follow up for WAYNE. Still confused. Tolerating tube feeding. - Objective Vital Signs & Weight: Vital Signs (12 hours) Temp Pulse Ox 07/31/20 07:18 97.2 F L 07/31/20 04:43 99 07/31/20 03:34 97.2 F L 07/31/20 00:00 97.1 F L Weight Admit Weight 120 lb 9.486 oz Weight 138 lb 8 oz Most Recent Monitor Data Heart Rate from ECG 64 NIBP 114/64 NIBP BP-Mean 80 Respiration from ECG 19 SpO2 100 I&O: 07/30/20 07/31/20 08/01/20 06:59 06:59 06:59 Intake Total 1459 1500 Output Total 1400 2520 Balance 59 -1020 Result Diagrams: 07/31/20 06:34 07/31/20 06:34 Nephrology ROS - Medication Medications: Active Medications Generic Name Dose Route Start Last Admin Trade Name Freq PRN Reason Stop Dose Admin Acetaminophen 650 mg 07/29/20 13:08 07/29/20 14:37 Acetaminophen 325 Mg Tab PER TUBE 650 mg Q4H PRN Administration Headache/Fever or Pain Benzocaine 0 gm 07/24/20 22:13 07/24/20 22:22 Benzocaine (Dental) 7 Gm Tube TOP 7 gm QIDPRN PRN Administration Topical Anesthetic Al Hydroxide/Mg Hydroxide 60 0 ml 07/26/20 10:31 07/26/20 13:59 ml/ Diphenhydramine HCl 150 mg SSW 10 ml / Lidocaine HCl 60 ml/ Q8H PRN Administration Nystatin 6,000,000 units Mouth Irritation Furosemide 40 mg 07/29/20 14:00 07/31/20 05:36 Furosemide 40 Mg/4 Ml Vial SLOW IVP 40 mg 0600,1400 MELINA Administration Multivitamins 10 ml/ Folic 1,011.2 mls @ 100 mls/hr 07/26/20 12:00 07/30/20 12:33 Acid 1 mg/ Thiamine HCl 100 mg IV Not Given / Dextrose/Sodium Chloride Q24HR MELINA Piperacillin Sod/Tazobactam 100 mls @ 200 mls/hr 07/28/20 02:00 07/31/20 02:18 Sod 2.25 gm/ Sodium Chloride IVPB 100 mls 0200,1000,1800 MELINA Administration Ivabradine 5 mg 07/29/20 09:00 07/30/20 21:47 Ivabradine 5 Mg Tab PO 5 mg BID MELINA Administration Pantoprazole Sodium 40 mg 07/24/20 09:00 07/30/20 10:20 Pantoprazole 40 Mg Vial IVP 40 mg DAILY MELINA Administration Sodium Bicarbonate 650 mg 07/28/20 21:00 07/30/20 21:47 Sodium Bicarbonate Tab 325 Mg Tab PO 650 mg TID MELINA Administration Sodium Chloride 10 ml 07/25/20 09:00 07/30/20 21:47 Flush - Normal Saline 10 Ml Syringe IVF 10 ml Q12HR MELINA Administration Sodium Chloride 10 ml 07/27/20 11:11 07/31/20 05:36 Flush - Normal Saline 10 Ml Syringe IVF 10 ml PRN PRN Administration Saline Flush Spironolactone 25 mg 07/30/20 08:00 07/30/20 10:19 Spironolactone 25 Mg Tab PER TUBE 25 mg QAM-WM MELINA Administration - Exam General Appearance: awake alert General - other findings: afebrile. No distress ENT: normocephalic atraumatic, dry oral mucosa ENT - other findings: NG tube in place Neck: supple, symmetric, no JVD Respiratory - other findings: Fair air entry bilaterally with no obvious c rackles Cardiovascular: RRR Gastrointestinal: soft, non-distended, normal bowel sounds Gastrointestinal - other findings: LLQ colostomy noted Neurological: CN's grossly intact, no focal deficits Musculoskeletal: generalized weakness, diffuse muscle atrophy PSYCH: oriented to person Psychiatric - other findings: confused with memory lapses. Nephrology Results - Labs Result Diagrams: 07/31/20 06:34 07/31/20 06:34 Lab results: WBC 9.6 thou/uL (4.8-10.8) 07/31/20 06:33 Hgb 8.0 g/dL (12.0-16.0) L 07/31/20 06:33 Hct 24.3 % (36.0-47.0) L 07/31/20 06:33 MCV 97.7 fL (78.0-98.0) 07/31/20 06:33 Plt Count 159 thou/uL (130-400) 07/31/20 06:34 Neutrophils % 87.3 % (42.0-75.0) H 07/31/20 06:33 Band Neuts % (Manual) 26 % (5-11) H 07/30/20 04:12 ABG pH 7.48 (7.35-7.45) H 07/28/20 00:06 ABG pCO2 23.3 mmHg (35.0-45.0) L* 07/28/20 00:06 ABG pO2 63.8 mmHg (> 80.0) 07/28/20 00:06 VBG pCO2 21.5 mmHg (40.0-50.0) L* 07/23/20 20:52 VBG pO2 43.3 mmHg (35.0-45.0) 07/23/20 20:52 Sodium 154 mmol/L (136-145) H 07/31/20 06:34 Potassium 2.6 mmol/L (3.5-5.1) L* 07/31/20 06:34 Chloride 112 mmol/L (98-107) H 07/31/20 06:34 Carbon Dioxide 27 mmol/L (23-31) 07/31/20 06:34 BUN 89 mg/dL (9.8-20.1) H 07/31/20 06:34 Creatinine 3.18 mg/dL (0.6-1.1) H 07/31/20 06:34 Glucose 165 mg/dL (80-115) H 07/31/20 06:34 Lactic Acid 3.1 mmol/L (0.5-2.2) H 07/24/20 06:29 Calcium 8.1 mg/dL (7.8-10.44) 07/31/20 06:34 Total Bilirubin 1.1 mg/dL (0.2-1.2) 07/31/20 06:34 AST 53 U/L (5-34) H 07/31/20 06:34 ALT 132 U/L (8-55) H 07/31/20 06:34 Alkaline Phosphatase 113 U/L (40-110) H 07/31/20 06:34 Ammonia 20 umol/L (18-72) 07/27/20 04:56 Creatine Kinase 205 U/L (29-168) H 07/23/20 20:25 CK-MB (CK-2) 3.1 ng/mL (0-6.6) 07/28/20 12:03 Troponin I 0.352 ng/mL (< 0.028) H* 07/28/20 12:03 Serum Total Protein 5.3 g/dL (6.0-8.3) L 07/31/20 06:34 Albumin 3.2 g/dL (3.4-4.8) L 07/31/20 06:34 Urine Ketones Negative mg/dL (Negative) 07/24/20 Unknown Urine Blood 2+ (Negative) A 07/24/20 Unknown Urine Nitrite Negative (Negative) 07/24/20 Unknown Ur Leukocyte Esterase 500 Fariha/uL (Negative) A 07/24/20 Unknown Urine RBC 7-10 HPF (0-3) A 07/24/20 Unknown Urine WBC Greater than 50 HPF (0-3) A 07/24/20 Unknown Ur Squamous Epith Cells None Seen HPF (0-3) 07/24/20 Unknown Urine Bacteria 4+ HPF (None Seen) A 07/24/20 Unknown Sodium 154 mmol/L (136-145) H 07/31/20 06:34 Potassium 2.6 mmol/L (3.5-5.1) L* 07/31/20 06:34 Chloride 112 mmol/L (98-107) H 07/31/20 06:34 Carbon Dioxide 27 mmol/L (23-31) 07/31/20 06:34 Anion Gap 18 mmol/L (10-20) 07/31/20 06:34 BUN 89 mg/dL (9.8-20.1) H 07/31/20 06:34 Creatinine 3.18 mg/dL (0.6-1.1) H 07/31/20 06:34 Glucose 165 mg/dL (80-115) H 07/31/20 06:34 Calcium 8.1 mg/dL (7.8-10.44) 07/31/20 06:34 Phosphorus 3.3 mg/dL (2.3-4.7) 07/31/20 06:34 Magnesium 2.1 mg/dL (1.6-2.6) 07/31/20 06:34 Albumin 3.2 g/dL (3.4-4.8) L 07/31/20 06:34 Nephrology AP PN - Plan ASSESSMENT Acute renal failure: Multifactorial most likely. Hemodynamic factors related severe dehydration and septic shock. initially anuric. Creat seem stable around 3. Baseline creat is unknown. Baseline CKD cannot be ruled given elevated PTH. Acute systolic and diastolic HF. Now on dobutamine. Improved. Off oxygen Severe metabolic acidosis: Improved with alkali therapy Hypernatremia: Due to free water deficit. Hypokalemia:recurrent. Hypomagnesemia Hypophosphatemia Severe dehydration. Improved with IVF Acute metabolic encephalopathy: Acute illness, acidosis, WAYNE +/- uremia: improving. TMA is a concern given association of encephalopathy with WAYNE and thrombocytopenia. Colon cancer s/p colon resection and colostomy Hypocalcemia Elevated troponin Acute transaminitis Hypoalbuminemia Acute blood loss anemia: Occult stool positive. S/p PRBC transfusion. Severe thrombocytopenia: medication and sepsis induced/DIC. Improving. PLAN Replete serum potassium with 80 po and 20 IV of KCL. Get iron chemistry, PTH, complements, DIC panel and LDH Increase free water flushes. Continue alkali therapy per tube Monitor intake and output as well as renal function and electrolytes.
[2020-07-31] MEDS: Pantoprazole 40 MG VIAL IVP SCH (09:03)
[2020-07-31] MEDS: Sodium Bicarbonate Tab 325 MG TAB PO SCH ×3 (09:03→20:36)
[2020-07-31] MEDS: Ivabradine 5 MG TAB PO SCH ×2 (09:03→20:35)
[2020-07-31] MEDS: Spironolactone 25 MG TAB PER TUBE SCH (09:04)
[2020-07-31] MEDS: Potassium Chloride 20 MEQ TAB PO SCH ×2 (09:04→13:08)
[2020-07-31] MEDS: Multivitamins, Adult 10 ML, Folic Acid 1 MG, Thiamine HCl 100 MG in Dextrose 5 %-0.45 %... IV SCH (12:47)
--- NOTE | 2020-07-31 14:10 | PRG ---
DATE OF SERVICE: 07/31/2020 SUBJECTIVE: Ms. Villatoro has had her ostomy output turned back to brown, non-bloody, non-melenic stool. She has also had some sores in her mouth and is not tolerating oral intake for that reason. She has an NG tube in place. OBJECTIVE: VITAL SIGNS: Temperature 97.2, blood pressure 106/66, pulse 66. GENERAL: She is in no acute distress. NG tube is in place. LUNGS: Clear to auscultation bilaterally. HEART: Regular rate and rhythm without murmur. ABDOMEN: Soft, nontender, and nondistended. Bowel sounds are present. She has liquidy brown stool in ostomy bag. EXTREMITIES: No lower extremity edema. IMPRESSION: 1. Gastrointestinal bleed, currently resolved. 2. Anemia secondary to acute blood loss. 3. Ulcerations of the esophagus and stomach and small bowel. Biopsies are negative for Helicobacter pylori. Biopsies of the esophagus were negative for viral inclusions. 4. 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 RECOMMENDATIONS: 1. Continue proton pump inhibitor IV. 2. She can continue NG tube feedings and as her oral ulcerations improve, then she could transition back to oral diet intake. 3. I will ask Pathology to send additional stains to rule out HSV or CMV from the ulcer biopsies. 4. I will sign off for now. Please call if GI can be of assistance. Job ID: [id number]
--- NOTE | 2020-07-31 14:40 | PDOC.HOSPP ---
- Subjective Encounter Date: 07/31/20 Encounter Time: 14:38 Subjective: awake, makes eye contact. no verbalization - Objective Vital Signs & Weight: Vital Signs (12 hours) Temp Pulse Ox 07/31/20 11:17 97.2 F L 07/31/20 09:42 99 07/31/20 08:00 99 07/31/20 07:18 97.2 F L 07/31/20 04:43 99 07/31/20 03:34 97.2 F L Weight Admit Weight 120 lb 9.486 oz Weight 138 lb 8 oz Most Recent Monitor Data Heart Rate from ECG 66 NIBP 106/66 NIBP BP-Mean 79 Respiration from ECG 23 SpO2 99 I&O: 07/30/20 07/31/20 08/01/20 06:59 06:59 06:59 Intake Total 1459 1500 200 Output Total 1400 2520 Balance 59 -1020 200 Result Diagrams: 07/31/20 06:34 07/31/20 06:34 Hospitalist ROS - Medication Medications: Active Medications Generic Name Dose Route Start Last Admin Trade Name Freq PRN Reason Stop Dose Admin Acetaminophen 650 mg 07/29/20 13:08 07/29/20 14:37 Acetaminophen 325 Mg Tab PER TUBE 650 mg Q4H PRN Administration Headache/Fever or Pain Benzocaine 0 gm 07/24/20 22:13 07/24/20 22:22 Benzocaine (Dental) 7 Gm Tube TOP 7 gm QIDPRN PRN Administration Topical Anesthetic Al Hydroxide/Mg Hydroxide 60 0 ml 07/26/20 10:31 07/26/20 13:59 ml/ Diphenhydramine HCl 150 mg SSW 10 ml / Lidocaine HCl 60 ml/ Q8H PRN Administration Nystatin 6,000,000 units Mouth Irritation Multivitamins 10 ml/ Folic 1,011.2 mls @ 100 mls/hr 07/26/20 12:00 07/31/20 12:47 Acid 1 mg/ Thiamine HCl 100 mg IV Not Given / Dextrose/Sodium Chloride Q24HR MELINA Piperacillin Sod/Tazobactam 100 mls @ 200 mls/hr 07/28/20 02:00 07/31/20 09:03 Sod 2.25 gm/ Sodium Chloride IVPB 100 mls 0200,1000,1800 MELINA Administration Ivabradine 5 mg 07/29/20 09:00 07/31/20 09:03 Ivabradine 5 Mg Tab PO 5 mg BID MELINA Administration Pantoprazole Sodium 40 mg 07/24/20 09:00 07/31/20 09:03 Pantoprazole 40 Mg Vial IVP 40 mg DAILY MELINA Administration Sodium Bicarbonate 650 mg 07/28/20 21:00 07/31/20 09:03 Sodium Bicarbonate Tab 325 Mg Tab PO 650 mg TID MELINA Administration Sodium Chloride 10 ml 07/25/20 09:00 07/31/20 09:04 Flush - Normal Saline 10 Ml Syringe IVF 10 ml Q12HR MELINA Administration Sodium Chloride 10 ml 07/27/20 11:11 07/31/20 05:36 Flush - Normal Saline 10 Ml Syringe IVF 10 ml PRN PRN Administration Saline Flush Spironolactone 25 mg 07/30/20 08:00 07/31/20 09:04 Spironolactone 25 Mg Tab PER TUBE 25 mg QAM-WM MELINA Administration - Exam Neck: JVD Heart: RRR, II/IV Respiratory - other findings: coarse BS Gastrointestinal: soft, normal bowel sounds Extremities: 1+ LE edema Hosp A/P (1) Acute systolic HF (heart failure) Code(s): I50.21 - ACUTE SYSTOLIC (CONGESTIVE) HEART FAILURE Status: Acute (2) Acute renal failure Status: Acute Qualifiers: Acute renal failure type: unspecified Qualified Code(s): N17.9 - Acute kidney failure, unspecified (3) 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
[2020-07-31] MEDS: Furosemide 20 MG/2 ML VIAL SLOW IVP SCH (14:56)
--- NOTE | 2020-07-31 16:23 | RAD ---
Abdomen one view HISTORY: Nasogastric tube replacement. COMPARISON: 07/30/2020. FINDINGS: Nasogastric tube is partially obscured by motion. Proximal port overlies the expected locat ion of the gastric fundus with the distal tip at the inferior margin of the image expected location of the gastric antrum. Central venous catheter in the SVC, bilateral pleural fluid, and gallbladder fossa hemostasis clips a re apparent (despite motion artifact). Lower abdomen and pelvis are not included on the image. IMPRESSION : Nasogastric tube within the stomach.
[2020-07-31 19:06] LABS: Hemoglobin 8.3 g/dL (12.0-16.0); Platelet Count 161 thou/uL (130-400)
[2020-07-31 19:36] LABS: CMV IgG AB Less than 0.60 U/mL (0.00-0.59)
[2020-08-01 00:24] LABS: Hemoglobin 8.1 g/dL (12.0-16.0); Platelet Count 149 thou/uL (130-400)
[2020-08-01] MEDS: Piperacillin/Tazobactam 2.25 GM in Sodium Chloride 0.9% 100 ML IVPB SCH ×3 (02:40→17:38)
[2020-08-01 04:36] LABS: ALT (SGPT) 101 U/L (8-55); AST (SGOT) 40 U/L (5-34); Albumin 2.9 g/dL (3.4-4.8); Alkaline Phosphatase 109 U/L (40-110); Anion Gap 19 mmol/L (10-20); BUN (Urea Nitrogen) 84 mg/dL (9.8-20.1); Calc. Creatinine Clearance 17 mL/min (70-130); Calcium 7.8 mg/dL (7.8-10.44); Carbon Dioxide 26 mmol/L (23-31); Chloride 109 mmol/L (98-107); Globulin 2.1 g/dL (2.4-3.5); Glucose 205 mg/dL (80-115); Sodium 152 mmol/L (136-145)
[2020-08-01 04:37] LABS: Complement-C4 12.3 mg/dL (15-57)
[2020-08-01 04:39] LABS: Potassium 2.4 mmol/L (3.5-5.1)
[2020-08-01] MEDS: Potassium Bicarbonate/Cit Ac 20 MEQ TAB PER TUBE SCH ×2 (05:27→08:57)
[2020-08-01] MEDS: Furosemide 20 MG/2 ML VIAL SLOW IVP SCH ×2 (05:27→14:30)
[2020-08-01 06:44] LABS: HBSAg Index 0.12 S/CO (0-0.99); Hep B Surf Ag Non-Reactive S/CO (NonReactive)
[2020-08-01 06:45] LABS: HBCM Index 0.06 S/CO (0-0.79); Hep C IgG Ab Non-Reactive (NonReactive); Hep C Index 0.06 S/CO (0-0.79); Hepatitis B Core IgM Abs Non-Reactive (NonReactive)
[2020-08-01 07:16] LABS: Hemoglobin 7.6 g/dL (12.0-16.0); Platelet Count 135 thou/uL (130-400)
[2020-08-01] MEDS: Pantoprazole 40 MG VIAL IVP SCH (08:56)
[2020-08-01] MEDS: Spironolactone 25 MG TAB PER TUBE SCH (08:56)
[2020-08-01] MEDS: Sodium Bicarbonate Tab 325 MG TAB PO SCH ×2 (08:56→20:17)
[2020-08-01] MEDS: Ivabradine 5 MG TAB PO SCH ×2 (08:56→20:18)
--- NOTE | 2020-08-01 09:31 | PDOC.NEPPN ---
- Subjective Encounter Date: 08/01/20 Subjective: Seen and examined. Still confused. No distress. - Objective Vital Signs & Weight: Vital Signs (12 hours) Temp 08/01/20 07:29 97.6 F 08/01/20 04:00 96.7 F L 07/31/20 23:27 96.8 F L Weight Admit Weight 120 lb 9.486 oz Weight 136 lb 2 oz Most Recent Monitor Data Heart Rate from ECG 72 NIBP 126/70 NIBP BP-Mean 88 Respiration from ECG 19 SpO2 97 I&O: 07/31/20 08/01/20 08/02/20 06:59 06:59 06:59 Intake Total 1500 3302 Output Total 2520 2125 Balance -1020 1177 Result Diagrams: 08/01/20 07:09 08/01/20 03:48 Nephrology ROS - Medication Medications: Active Medications Generic Name Dose Route Start Last Admin Trade Name Freq PRN Reason Stop Dose Admin Acetaminophen 650 mg 07/29/20 13:08 07/29/20 14:37 Acetaminophen 325 Mg Tab PER TUBE 650 mg Q4H PRN Administration Headache/Fever or Pain Benzocaine 0 gm 07/24/20 22:13 07/24/20 22:22 Benzocaine (Dental) 7 Gm Tube TOP 7 gm QIDPRN PRN Administration Topical Anesthetic Al Hydroxide/Mg Hydroxide 60 0 ml 07/26/20 10:31 07/26/20 13:59 ml/ Diphenhydramine HCl 150 mg SSW 10 ml / Lidocaine HCl 60 ml/ Q8H PRN Administration Nystatin 6,000,000 units Mouth Irritation Furosemide 20 mg 07/31/20 14:00 08/01/20 05:27 Furosemide 20 Mg/2 Ml Vial SLOW IVP 20 mg 0600,1400 MELINA Administration Multivitamins 10 ml/ Folic 1,011.2 mls @ 100 mls/hr 07/26/20 12:00 07/31/20 12:47 Acid 1 mg/ Thiamine HCl 100 mg IV Not Given / Dextrose/Sodium Chloride Q24HR MELINA Piperacillin Sod/Tazobactam 100 mls @ 200 mls/hr 07/28/20 02:00 08/01/20 08:56 Sod 2.25 gm/ Sodium Chloride IVPB 100 mls 0200,1000,1800 MELINA Administration Ivabradine 5 mg 07/29/20 09:00 08/01/20 08:56 Ivabradine 5 Mg Tab PO 5 mg BID MELINA Administration Pantoprazole Sodium 40 mg 07/24/20 09:00 08/01/20 08:56 Pantoprazole 40 Mg Vial IVP 40 mg DAILY MELINA Administration Sodium Bicarbonate 650 mg 07/31/20 21:00 08/01/20 08:56 Sodium Bicarbonate Tab 325 Mg Tab PO 650 mg BID MELINA Administration Sodium Chloride 10 ml 07/25/20 09:00 08/01/20 08:58 Flush - Normal Saline 10 Ml Syringe IVF 10 ml Q12HR MELINA Administration Sodium Chloride 10 ml 07/27/20 11:11 07/31/20 05:36 Flush - Normal Saline 10 Ml Syringe IVF 10 ml PRN PRN Administration Saline Flush Spironolactone 25 mg 07/30/20 08:00 08/01/20 08:56 Spironolactone 25 Mg Tab PER TUBE 25 mg QAM-WM MELINA Administration - Exam General Appearance: awake alert Eye: anicteric sclera ENT: normocephalic atraumatic, moist mucosa Neck: symmetric, no JVD Respiratory: no tachypnea Respiratory - other findings: fair air entry bilaterally with no obvious crackle s. Cardiovascular: irregular Gastrointestinal: soft, non-distended, normal bowel sounds Gastrointestinal - other findings: Colostomy noted Extremities: no edema Neurological: CN's grossly intact, no focal deficits PSYCH: oriented to person Nephrology Results - Labs Result Diagrams: 08/01/20 07:09 08/01/20 03:48 Lab results: WBC 9.6 thou/uL (4.8-10.8) 07/31/20 06:33 Hgb 7.6 g/dL (12.0-16.0) L 08/01/20 07:09 Hct 23.3 % (36.0-47.0) L 08/01/20 07:09 MCV 97.7 fL (78.0-98.0) 07/31/20 06:33 Plt Count 135 thou/uL (130-400) 08/01/20 07:09 Neutrophils % 87.3 % (42.0-75.0) H 07/31/20 06:33 Band Neuts % (Manual) 26 % (5-11) H 07/30/20 04:12 ABG pH 7.48 (7.35-7.45) H 07/28/20 00:06 ABG pCO2 23.3 mmHg (35.0-45.0) L* 07/28/20 00:06 ABG pO2 63.8 mmHg (> 80.0) 07/28/20 00:06 VBG pCO2 21.5 mmHg (40.0-50.0) L* 07/23/20 20:52 VBG pO2 43.3 mmHg (35.0-45.0) 07/23/20 20:52 Sodium 152 mmol/L (136-145) H 08/01/20 03:48 Potassium 2.4 mmol/L (3.5-5.1) L* 08/01/20 03:48 Chloride 109 mmol/L (98-107) H 08/01/20 03:48 Carbon Dioxide 26 mmol/L (23-31) 08/01/20 03:48 BUN 84 mg/dL (9.8-20.1) H 08/01/20 03:48 Creatinine 3.03 mg/dL (0.6-1.1) H 08/01/20 03:48 Glucose 205 mg/dL (80-115) H 08/01/20 03:48 Lactic Acid 3.1 mmol/L (0.5-2.2) H 07/24/20 06:29 Calcium 7.8 mg/dL (7.8-10.44) 08/01/20 03:48 Total Bilirubin 1.0 mg/dL (0.2-1.2) 08/01/20 03:48 AST 40 U/L (5-34) H 08/01/20 03:48 ALT 101 U/L (8-55) H 08/01/20 03:48 Alkaline Phosphatase 109 U/L (40-110) 08/01/20 03:48 Ammonia 20 umol/L (18-72) 07/27/20 04:56 Creatine Kinase 205 U/L (29-168) H 07/23/20 20:25 CK-MB (CK-2) 3.1 ng/mL (0-6.6) 07/28/20 12:03 Troponin I 0.352 ng/mL (< 0.028) H* 07/28/20 12:03 Serum Total Protein 5.0 g/dL (6.0-8.3) L 08/01/20 03:48 Albumin 2.9 g/dL (3.4-4.8) L 08/01/20 03:48 Urine Ketones Negative mg/dL (Negative) 07/24/20 Unknown Urine Blood 2+ (Negative) A 07/24/20 Unknown Urine Nitrite Negative (Negative) 07/24/20 Unknown Ur Leukocyte Esterase 500 Fariha/uL (Negative) A 07/24/20 Unknown Urine RBC 7-10 HPF (0-3) A 07/24/20 Unknown Urine WBC Greater than 50 HPF (0-3) A 07/24/20 Unknown Ur Squamous Epith Cells None Seen HPF (0-3) 07/24/20 Unknown Urine Bacteria 4+ HPF (None Seen) A 07/24/20 Unknown Sodium 152 mmol/L (136-145) H 08/01/20 03:48 Potassium 2.4 mmol/L (3.5-5.1) L* 08/01/20 03:48 Chloride 109 mmol/L (98-107) H 08/01/20 03:48 Carbon Dioxide 26 mmol/L (23-31) 08/01/20 03:48 Anion Gap 19 mmol/L (10-20) 08/01/20 03:48 BUN 84 mg/dL (9.8-20.1) H 08/01/20 03:48 Creatinine 3.03 mg/dL (0.6-1.1) H 08/01/20 03:48 Glucose 205 mg/dL (80-115) H 08/01/20 03:48 Calcium 7.8 mg/dL (7.8-10.44) 08/01/20 03:48 Phosphorus 3.3 mg/dL (2.3-4.7) 07/31/20 06:34 Magnesium 2.1 mg/dL (1.6-2.6) 07/31/20 06:34 Albumin 2.9 g/dL (3.4-4.8) L 08/01/20 03:48 Nephrology AP PN - Plan ASSESSMENT Acute renal failure: Multifactorial most likely. Hemodynamic factors related severe dehydration and septic shock. initially anuric. Creat seem stable around 3. Baseline creat is unknown. Baseline CKD cannot be ruled given elevated PTH. Acute systolic and diastolic HF. Now on dobutamine. Improved. Off oxygen Severe metabolic acidosis: Improved with alkali therapy Hypernatremia: Due to free water deficit. Hypokalemia:recurrent. Hypomagnesemia Hypophosphatemia Severe dehydration. Improved with IVF Acute metabolic encephalopathy: Acute illness, acidosis, WAYNE +/- uremia: improving. TTP is a concern given association of encephalopathy with WAYNE and thrombocytopenia. Complements are low also. Colon cancer s/p colon resection and colostomy Hypocalcemia Elevated troponin Acute transaminitis Hypoalbuminemia Acute blood loss anemia: Occult stool positive. S/p PRBC transfusion. Severe thrombocytopenia: medication and sepsis induced/DIC. Improving. PLAN Replete serum potassium. Recheck electrolytes and supllement more if indicated. Get Retic count and peripheral blood smear. Recommend MRI head and Hematology consult. Increase free water flushes. Continue alkali therapy per tube Monitor intake and output as well as renal function and electrolytes. D/w primary attending.
[2020-08-01 11:52] LABS: Reticulocyte Count 3.8 % (0.5-1.5)
--- NOTE | 2020-08-01 12:30 | PDOC.HOSPP ---
- Subjective Encounter Date: 08/01/20 Subjective: awake, no appropriate verbal responce. does make eye contact and acknowledge examiners presence - Objective Vital Signs & Weight: Vital Signs (12 hours) Temp Pulse Ox 08/01/20 11:08 98.1 F 08/01/20 08:00 99 08/01/20 07:29 97.6 F 08/01/20 04:00 96.7 F L Weight Admit Weight 120 lb 9.486 oz Weight 136 lb 2 oz Most Recent Monitor Data Heart Rate from ECG 75 NIBP 116/54 NIBP BP-Mean 74 Respiration from ECG 28 SpO2 96 I&O: 07/31/20 08/01/20 08/02/20 06:59 06:59 06:59 Intake Total 1500 3302 Output Total 2520 2125 Balance -1020 1177 Result Diagrams: 08/01/20 07:09 08/01/20 03:48 Hospitalist ROS - Medication Medications: Active Medications Generic Name Dose Route Start Last Admin Trade Name Freq PRN Reason Stop Dose Admin Acetaminophen 650 mg 07/29/20 13:08 07/29/20 14:37 Acetaminophen 325 Mg Tab PER TUBE 650 mg Q4H PRN Administration Headache/Fever or Pain Benzocaine 0 gm 07/24/20 22:13 07/24/20 22:22 Benzocaine (Dental) 7 Gm Tube TOP 7 gm QIDPRN PRN Administration Topical Anesthetic Al Hydroxide/Mg Hydroxide 60 0 ml 07/26/20 10:31 07/26/20 13:59 ml/ Diphenhydramine HCl 150 mg SSW 10 ml / Lidocaine HCl 60 ml/ Q8H PRN Administration Nystatin 6,000,000 units Mouth Irritation Furosemide 20 mg 07/31/20 14:00 08/01/20 05:27 Furosemide 20 Mg/2 Ml Vial SLOW IVP 20 mg 0600,1400 MELINA Administration Multivitamins 10 ml/ Folic 1,011.2 mls @ 100 mls/hr 07/26/20 12:00 07/31/20 12:47 Acid 1 mg/ Thiamine HCl 100 mg IV Not Given / Dextrose/Sodium Chloride Q24HR MELINA Piperacillin Sod/Tazobactam 100 mls @ 200 mls/hr 07/28/20 02:00 08/01/20 08:56 Sod 2.25 gm/ Sodium Chloride IVPB 100 mls 0200,1000,1800 MELINA Administration Ivabradine 5 mg 07/29/20 09:00 08/01/20 08:56 Ivabradine 5 Mg Tab PO 5 mg BID MELINA Administration Pantoprazole Sodium 40 mg 07/24/20 09:00 08/01/20 08:56 Pantoprazole 40 Mg Vial IVP 40 mg DAILY MELINA Administration Sodium Bicarbonate 650 mg 07/31/20 21:00 08/01/20 08:56 Sodium Bicarbonate Tab 325 Mg Tab PO 650 mg BID MELIAN Administration Sodium Chloride 10 ml 07/25/20 09:00 08/01/20 08:58 Flush - Normal Saline 10 Ml Syringe IVF 10 ml Q12HR MELINA Administration Sodium Chloride 10 ml 07/27/20 11:11 07/31/20 05:36 Flush - Normal Saline 10 Ml Syringe IVF 10 ml PRN PRN Administration Saline Flush Spironolactone 25 mg 07/30/20 08:00 08/01/20 08:56 Spironolactone 25 Mg Tab PER TUBE 25 mg QAM-WM MELINA Administration - Exam General Appearance: awake alert Neck: no JVD Heart: RRR, no murmur Respiratory: CTAB Gastrointestinal: soft, normal bowel sounds Gastrointestinal - other findings: ostomy LLQ, fcning Extremities: no edema Hosp A/P (1) Acute systolic HF (heart failure) Code(s): I50.21 - ACUTE SYSTOLIC (CONGESTIVE) HEART FAILURE Status: Acute (2) Acute renal failure Status: Acute Qualifiers: Acute renal failure type: unspecified Qualified Code(s): N17.9 - Acute kidney failure, unspecified (3) 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 Code(s): U07.1 - COVID-19; I43 - CARDIOMYOPATHY IN DISEASES CLASSIFIED ELSEWHERE Status: Acute (4) Lactic acidosis Code(s): E87.2 - ACIDOSIS Status: Acute (5) COVID-19 Code(s): U07.1 - COVID-19 Status: Acute (6) Encephalopathy Code(s): G93.40 - ENCEPHALOPATHY, UNSPECIFIED Status: Acute (7) Hypokalemia Code(s): E87.6 - HYPOKALEMIA Status: Acute (8) Elevated LFTs Code(s): R79.89 - OTHER SPECIFIED ABNORMAL FINDINGS OF BLOOD CHEMISTRY Status: Acute (9) Hypernatremia Code(s): E87.0 - HYPEROSMOLALITY AND HYPERNATREMIA Status: Acute (10) Thrombocytopenia Code(s): D69.6 - THROMBOCYTOPENIA, UNSPECIFIED Status: Resolved (11) Colostomy in place Code(s): Z93.3 - COLOSTOMY STATUS Status: Acute - Plan 1. 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 encephalopathy-multifactoral- MRI brain 4. COVID 5. hypokalemia- replace, discussed with nephrology prognosis poor. has been seen by palliative care. no family
[2020-08-01] MEDS: Multivitamins, Adult 10 ML, Folic Acid 1 MG, Thiamine HCl 100 MG in Dextrose 5 %-0.45 %... IV SCH (13:17)
[2020-08-01] MEDS: Potassium Chloride 20 MEQ in Premix Bag 1 BAG IVPB SCH (13:17)
--- NOTE | 2020-08-01 13:58 | PRG ---
DATE OF SERVICE: 08/01/2020 SUBJECTIVE: Remains in the MICU. OBJECTIVE: VITAL SIGNS: Temperature 98, blood pressure 106/70, pulse respiratory rate 18. GENERAL: She is apparently on Dobutrex. She is encephalopathic. Is and Os are positive. CHEST: Rhonchi, crackles. CARDIAC: Normal S1, S2. No gallops. ABDOMEN: No masses. LABORATORY DATA: Sodium is 152, potassium 2.4. BUN is 84, creatinine 3.0, so that is why she may be dry. She had a serology done on the seven days ago, which was positive for coronavirus. Cardiomyopathy, renal failure, encephalopathy. She is on Dobutrex antibiotics. All cultures are negative. Urine has Pseudomonas. Pulmonary burch, she appears to be stable. I am going to follow at a distance. Job ID: [id number]
[2020-08-01 15:49] LABS: Anisocytosis SLIGHT = 6-15 cells (100X) (0-5/hpf); Band 31 % (5-11); Eosinophils 1 % (0-10); Hemoglobin 7.8 g/dL (12.0-16.0); Large Platelets SLIGHT; Lymphocytes 7 % (21-51); MDiff Complete? YES; Macrocytosis SLIGHT = 6-15 cells (100X) (0-5/hpf); Mean Corpuscular HGB CONC 33.6 g/dL (32.0-36.0); Mean Corpuscular Hemoglobin 33.3 pg (27.0-31.0); Mean Platelet Volume 11.6 fL (7.4-10.4); Monocytes 5 % (0-10); Neutrophil 56 % (42-75); Nucleated RBC 2 % (0); Platelet Count 147 thou/uL (130-400); Platelet Morphology Comment Appears Adequate; Polychromasia MODERATE = 3-4 cells (100X) (0-2/hpf); RBC Distribution Width 15.1 % (11.5-14.5); Red Blood Cell (RBC) Count 2.35 mill/uL (4.20-5.40); Target Cells SLIGHT = 2-5 cells (100X) (0-1/hpf); White Blood Cell (WBC) Count 9.4 thou/uL (4.8-10.8)
[2020-08-01 16:08] LABS: Anion Gap 20 mmol/L (10-20); Carbon Dioxide 27 mmol/L (23-31); Chloride 106 mmol/L (98-107); Potassium 3.5 mmol/L (3.5-5.1); Sodium 149 mmol/L (136-145)
[2020-08-01 16:13] LABS: BUN (Urea Nitrogen) 79 mg/dL (9.8-20.1); Calc. Creatinine Clearance 17 mL/min (70-130); Glucose 182 mg/dL (80-115)
[2020-08-01 17:57] LABS: Hep A IgM AB Non-Reactive (NonReactive); Hep A IgM S/CO 0.09 S/CO (0-0.79)
[2020-08-01] MEDS: Acetaminophen 325 MG TAB PER TUBE PRN (20:17)
[2020-08-01] MEDS ORDERED: Potassium Chloride 20 MEQ TAB PO SCH (21:30)
[2020-08-01] MEDS: DOBUTamine 500 mg/250 ml 250 ML IVPB SCH (23:07)
[2020-08-02] MEDS: Piperacillin/Tazobactam 2.25 GM in Sodium Chloride 0.9% 100 ML IVPB SCH ×3 (02:24→19:43)
[2020-08-02 04:16] LABS: ALT (SGPT) 91 U/L (8-55); AST (SGOT) 54 U/L (5-34); Alkaline Phosphatase 148 U/L (40-110); Anion Gap 22 mmol/L (10-20); BUN (Urea Nitrogen) 84 mg/dL (9.8-20.1); Calc. Creatinine Clearance 18 mL/min (70-130); Calcium 7.9 mg/dL (7.8-10.44); Carbon Dioxide 25 mmol/L (23-31); Chloride 107 mmol/L (98-107); Globulin 2.4 g/dL (2.4-3.5); Glucose 178 mg/dL (80-115); Magnesium 1.9 mg/dL (1.6-2.6); Potassium 3.8 mmol/L (3.5-5.1); Protein, Total 5.4 g/dL (6.0-8.3); Sodium 150 mmol/L (136-145)
[2020-08-02] MEDS: Furosemide 20 MG/2 ML VIAL SLOW IVP SCH ×2 (05:38→13:42)
[2020-08-02] MEDS: Spironolactone 25 MG TAB PER TUBE SCH (10:13)
[2020-08-02] MEDS: Potassium Bicarbonate/Cit Ac 20 MEQ TAB PO SCH (10:13)
[2020-08-02] MEDS: Sodium Bicarbonate Tab 325 MG TAB PO SCH ×2 (10:13→22:00)
[2020-08-02] MEDS: Ivabradine 5 MG TAB PO SCH ×2 (10:13→22:00)
[2020-08-02] MEDS: Pantoprazole 40 MG VIAL IVP SCH (10:14)
--- NOTE | 2020-08-02 13:32 | EKG ---
Test Reason : Blood Pressure : / mmHG Vent. Rate : 124 BPM Atrial Rate : 124 BPM P-R Int : 140 ms QRS Dur : 078 ms QT Int : 332 ms P-R-T Axes : 100 259 079 degrees QTc Int : 476 ms Suspect arm lead reversal, interpretation assumes no reversal Sinus tachycardia with Fusion complexes Right atrial enlargement Right superior axis deviation Pulmonary disease pattern Inferior-posterior infarct , age undetermined Abnormal ECG Low voltage QRS Poor precordial transition Confirmed by MARISOL COATS DO ([id number]), manager editorial WINIFRED GIBBS ([id number]) on 08/02/2020 1:31:56 PM Referred By: Confirmed By:MARISOL COATS DO
--- NOTE | 2020-08-02 13:38 | PDOC.NEPPN ---
- Subjective Encounter Date: 08/02/20 Subjective: Since confused. Remained awake and afebrile. Tolerating tube feeding - Objective Vital Signs & Weight: Vital Signs (12 hours) Temp Pulse Ox 08/02/20 11:26 97.7 F 08/02/20 07:54 99 08/02/20 07:10 97.1 F L 08/02/20 03:40 97.6 F Weight Admit Weight 120 lb 9.486 oz Weight 138 lb 6 oz Most Recent Monitor Data Heart Rate from ECG 64 NIBP 110/66 NIBP BP-Mean 80 Respiration from ECG 21 SpO2 99 I&O: 08/01/20 08/02/20 08/03/20 06:59 06:59 06:59 Intake Total 3902 3801 250 Output Total 2125 2050 Balance 1777 1751 250 Result Diagrams: 08/01/20 15:06 08/02/20 03:41 Nephrology ROS - Medication Medications: Active Medications Generic Name Dose Route Start Last Admin Trade Name Freq PRN Reason Stop Dose Admin Acetaminophen 650 mg 07/29/20 13:08 08/01/20 20:17 Acetaminophen 325 Mg Tab PER TUBE 650 mg Q4H PRN Administration Headache/Fever or Pain Benzocaine 0 gm 07/24/20 22:13 07/24/20 22:22 Benzocaine (Dental) 7 Gm Tube TOP 7 gm QIDPRN PRN Administration Topical Anesthetic Al Hydroxide/Mg Hydroxide 60 0 ml 07/26/20 10:31 07/26/20 13:59 ml/ Diphenhydramine HCl 150 mg SSW 10 ml / Lidocaine HCl 60 ml/ Q8H PRN Administration Nystatin 6,000,000 units Mouth Irritation Furosemide 20 mg 07/31/20 14:00 08/02/20 05:38 Furosemide 20 Mg/2 Ml Vial SLOW IVP 20 mg 0600,1400 MELINA Administration Piperacillin Sod/Tazobactam 100 mls @ 200 mls/hr 07/28/20 02:00 08/02/20 10:12 Sod 2.25 gm/ Sodium Chloride IVPB 100 mls 0200,1000,1800 MELINA Administration Dobutamine HCl/Dextrose 250 mls @ 4.933 mls/hr 07/28/20 13:30 08/01/20 23:07 Dobutamine 500 Mg/250 Ml IVPB 250 mls INF MELINA Administration Protocol 2.5 MCG/KG/MIN Ivabradine 5 mg 07/29/20 09:00 08/02/20 10:13 Ivabradine 5 Mg Tab PO 5 mg BID MELINA Administration Pantoprazole Sodium 40 mg 07/24/20 09:00 08/02/20 10:14 Pantoprazole 40 Mg Vial IVP 40 mg DAILY MELINA Administration Potassium Bicarbonate/Citric Acid 20 meq 08/02/20 08:00 08/02/20 10:13 Potassium Bicarbonate/Cit Ac 20 Meq Tab PO 20 meq QAM-WM MELINA Administration Sodium Bicarbonate 650 mg 07/31/20 21:00 08/02/20 10:13 Sodium Bicarbonate Tab 325 Mg Tab PO 650 mg BID MELINA Administration Sodium Chloride 10 ml 07/25/20 09:00 08/02/20 10:14 Flush - Normal Saline 10 Ml Syringe IVF 10 ml Q12HR MELINA Administration Sodium Chloride 10 ml 07/27/20 11:11 07/31/20 05:36 Flush - Normal Saline 10 Ml Syringe IVF 10 ml PRN PRN Administration Saline Flush Spironolactone 25 mg 07/30/20 08:00 08/02/20 10:13 Spironolactone 25 Mg Tab PER TUBE 25 mg QAM-WM MELINA Administration - Exam General Appearance: awake alert Eye: anicteric sclera ENT: normocephalic atraumatic, moist mucosa Neck: supple, symmetric, no JVD Respiratory - other findings: fair air entry bilateraly with no crackles or rhonchi Cardiovascular: RRR Gastrointestinal: soft, non-distended Gastrointestinal - other findings: LLQ colostomy noted Extremities - other findings: Edema of upper limbs noted. No leg edema Neurological: CN's grossly intact, no focal deficits Musculoskeletal: generalized weakness, diffuse muscle atrophy PSYCH: oriented to person Nephrology Results - Labs Result Diagrams: 08/01/20 15:06 08/02/20 03:41 Lab results: WBC 9.4 thou/uL (4.8-10.8) 08/01/20 15:06 Hgb 7.8 g/dL (12.0-16.0) L 08/01/20 15:06 Hct 23.2 % (36.0-47.0) L 08/01/20 15:06 MCV 99.0 fL (78.0-98.0) H 08/01/20 15:06 Plt Count 147 thou/uL (130-400) 08/01/20 15:06 Neutrophils % 87.3 % (42.0-75.0) H 07/31/20 06:33 Band Neuts % (Manual) 31 % (5-11) H 08/01/20 15:06 ABG pH 7.48 (7.35-7.45) H 07/28/20 00:06 ABG pCO2 23.3 mmHg (35.0-45.0) L* 07/28/20 00:06 ABG pO2 63.8 mmHg (> 80.0) 07/28/20 00:06 VBG pCO2 21.5 mmHg (40.0-50.0) L* 07/23/20 20:52 VBG pO2 43.3 mmHg (35.0-45.0) 07/23/20 20:52 Sodium 150 mmol/L (136-145) H 08/02/20 03:41 Potassium 3.8 mmol/L (3.5-5.1) 08/02/20 03:41 Chloride 107 mmol/L (98-107) 08/02/20 03:41 Carbon Dioxide 25 mmol/L (23-31) 08/02/20 03:41 BUN 84 mg/dL (9.8-20.1) H 08/02/20 03:41 Creatinine 2.93 mg/dL (0.6-1.1) H 08/02/20 03:41 Glucose 178 mg/dL (80-115) H 08/02/20 03:41 Lactic Acid 3.1 mmol/L (0.5-2.2) H 07/24/20 06:29 Calcium 7.9 mg/dL (7.8-10.44) 08/02/20 03:41 Total Bilirubin 1.0 mg/dL (0.2-1.2) 08/02/20 03:41 AST 54 U/L (5-34) H 08/02/20 03:41 ALT 91 U/L (8-55) H 08/02/20 03:41 Alkaline Phosphatase 148 U/L (40-110) H 08/02/20 03:41 Ammonia 20 umol/L (18-72) 07/27/20 04:56 Creatine Kinase 205 U/L (29-168) H 07/23/20 20:25 CK-MB (CK-2) 3.1 ng/mL (0-6.6) 07/28/20 12:03 Troponin I 0.352 ng/mL (< 0.028) H* 07/28/20 12:03 Serum Total Protein 5.4 g/dL (6.0-8.3) L 08/02/20 03:41 Albumin 3.0 g/dL (3.4-4.8) L 08/02/20 03:41 Urine Ketones Negative mg/dL (Negative) 07/24/20 Unknown Urine Blood 2+ (Negative) A 07/24/20 Unknown Urine Nitrite Negative (Negative) 07/24/20 Unknown Ur Leukocyte Esterase 500 Fariha/uL (Negative) A 07/24/20 Unknown Urine RBC 7-10 HPF (0-3) A 07/24/20 Unknown Urine WBC Greater than 50 HPF (0-3) A 07/24/20 Unknown Ur Squamous Epith Cells None Seen HPF (0-3) 07/24/20 Unknown Urine Bacteria 4+ HPF (None Seen) A 07/24/20 Unknown Sodium 150 mmol/L (136-145) H 08/02/20 03:41 Potassium 3.8 mmol/L (3.5-5.1) 08/02/20 03:41 Chloride 107 mmol/L (98-107) 08/02/20 03:41 Carbon Dioxide 25 mmol/L (23-31) 08/02/20 03:41 Anion Gap 22 mmol/L (10-20) H 08/02/20 03:41 BUN 84 mg/dL (9.8-20.1) H 08/02/20 03:41 Creatinine 2.93 mg/dL (0.6-1.1) H 08/02/20 03:41 Glucose 178 mg/dL (80-115) H 08/02/20 03:41 Calcium 7.9 mg/dL (7.8-10.44) 08/02/20 03:41 Phosphorus 3.3 mg/dL (2.3-4.7) 07/31/20 06:34 Magnesium 1.9 mg/dL (1.6-2.6) 08/02/20 03:41 Albumin 3.0 g/dL (3.4-4.8) L 08/02/20 03:41 Nephrology AP PN - Plan ASSESSMENT Acute renal failure: Multifactorial most likely. Hemodynamic factors related severe dehydration and septic shock. initially anuric. Creat seem stable around 3. Baseline creat is unknown. Baseline CKD cannot be ruled given elevated PTH. Acute systolic and diastolic HF. Now on dobutamine. Improved. Severe metabolic acidosis: Improved with alkali therapy Hypernatremia: Due to free water deficit. Hypokalemia:recurrent. Hypomagnesemia Hypophosphatemia Severe dehydration. Improved with IVF Acute metabolic encephalopathy: Acute illness, acidosis, WAYNE +/- uremia: improving. TTP is a concern given association of encephalopathy with WAYNE, cardiomyopathy and thrombocytopenia. Complements are low also. Colon cancer s/p colon resection and colostomy Hypocalcemia Elevated troponin Acute transaminitis Hypoalbuminemia Acute blood loss anemia: Occult stool positive. S/p PRBC transfusion. Severe thrombocytopenia: medication and sepsis induced/DIC. Improving. PLAN Increase free water flushes to 250 cc every 2 hours Continue alkali therapy per tube Awaiting Hematology evaluation and MRI Monitor intake and output as well as renal function and electrolytes. D/w primary attending.
--- NOTE | 2020-08-02 19:18 | PDOC.HOSPP ---
- Subjective Encounter Date: 08/02/20 Subjective: Patient did verbalize some today. She appeared to be apologizing and upset that she had done something wrong. Was not able to fully comprehend what she was saying. - Objective Vital Signs & Weight: Vital Signs (12 hours) Temp Pulse Ox 08/02/20 15:07 97.2 F L 08/02/20 11:26 97.7 F 08/02/20 07:54 99 Weight Admit Weight 120 lb 9.486 oz Weight 138 lb 6 oz Most Recent Monitor Data Heart Rate from ECG 86 NIBP 93/75 NIBP BP-Mean 81 Respiration from ECG 16 SpO2 97 I&O: 08/01/20 08/02/20 08/03/20 06:59 06:59 06:59 Intake Total 3902 3801 1000 Output Total 2125 2050 Balance 1777 1751 1000 Result Diagrams: 08/01/20 15:06 08/02/20 03:41 Hospitalist ROS - Medication Medications: Active Medications Generic Name Dose Route Start Last Admin Trade Name Freq PRN Reason Stop Dose Admin Acetaminophen 650 mg 07/29/20 13:08 08/01/20 20:17 Acetaminophen 325 Mg Tab PER TUBE 650 mg Q4H PRN Administration Headache/Fever or Pain Benzocaine 0 gm 07/24/20 22:13 07/24/20 22:22 Benzocaine (Dental) 7 Gm Tube TOP 7 gm QIDPRN PRN Administration Topical Anesthetic Al Hydroxide/Mg Hydroxide 60 0 ml 07/26/20 10:31 07/26/20 13:59 ml/ Diphenhydramine HCl 150 mg SSW 10 ml / Lidocaine HCl 60 ml/ Q8H PRN Administration Nystatin 6,000,000 units Mouth Irritation Furosemide 20 mg 07/31/20 14:00 08/02/20 13:42 Furosemide 20 Mg/2 Ml Vial SLOW IVP 20 mg 0600,1400 MELINA Administration Piperacillin Sod/Tazobactam 100 mls @ 200 mls/hr 07/28/20 02:00 08/02/20 10:12 Sod 2.25 gm/ Sodium Chloride IVPB 100 mls 0200,1000,1800 MELINA Administration Dobutamine HCl/Dextrose 250 mls @ 4.933 mls/hr 07/28/20 13:30 08/01/20 23:07 Dobutamine 500 Mg/250 Ml IVPB 250 mls INF MELINA Administration Protocol 2.5 MCG/KG/MIN Ivabradine 5 mg 07/29/20 09:00 08/02/20 10:13 Ivabradine 5 Mg Tab PO 5 mg BID MELINA Administration Pantoprazole Sodium 40 mg 07/24/20 09:00 08/02/20 10:14 Pantoprazole 40 Mg Vial IVP 40 mg DAILY MELINA Administration Potassium Bicarbonate/Citric Acid 20 meq 08/02/20 08:00 08/02/20 10:13 Potassium Bicarbonate/Cit Ac 20 Meq Tab PO 20 meq QAM-WM MELINA Administration Sodium Bicarbonate 650 mg 07/31/20 21:00 08/02/20 10:13 Sodium Bicarbonate Tab 325 Mg Tab PO 650 mg BID MELIAN Administration Sodium Chloride 10 ml 07/25/20 09:00 08/02/20 10:14 Flush - Normal Saline 10 Ml Syringe IVF 10 ml Q12HR MELINA Administration Sodium Chloride 10 ml 07/27/20 11:11 07/31/20 05:36 Flush - Normal Saline 10 Ml Syringe IVF 10 ml PRN PRN Administration Saline Flush Spironolactone 25 mg 07/30/20 08:00 08/02/20 10:13 Spironolactone 25 Mg Tab PER TUBE 25 mg QAM-WM MELINA Administration - Exam General Appearance: NAD, awake alert General - other findings: She does make eye contact and try to interact. ENT - other findings: Tiny erythematous spot on soft palate. Heart: RRR, no murmur, no gallops, no rubs, normal peripheral pulses Respiratory: CTAB, no wheezes, no rales, no ronchi, normal chest expansion, no tachypnea, normal percussion Gastrointestinal: soft, non-tender, non-distended, normal bowel sounds, no palpable masses, no hepatomegaly, no splenomegaly, no bruit Extremities: no cyanosis, no clubbing, no edema Skin: normal turgor Neurological: no new deficit Musculoskeletal: normal tone, normal strength, no muscle wasting Hosp A/P (1) Acute metabolic encephalopathy Code(s): G93.41 - METABOLIC ENCEPHALOPATHY Status: Acute (2) Acute blood loss anemia Code(s): D62 - ACUTE POSTHEMORRHAGIC ANEMIA Status: Acute (3) WAYNE (acute kidney injury) Code(s): N17.9 - ACUTE KIDNEY FAILURE, UNSPECIFIED Status: Acute (4) Acute renal failure Status: Acute Qualifiers: Acute renal failure type: unspecified Qualified Code(s): N17.9 - Acute kidney failure, unspecified (5) Acute systolic HF (heart failure) Code(s): I50.21 - ACUTE SYSTOLIC (CONGESTIVE) HEART FAILURE Status: Acute (6) COVID-19 Code(s): U07.1 - COVID-19 Status: Acute (7) 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 Code(s): U07.1 - COVID-19; I43 - CARDIOMYOPATHY IN DISEASES CLASSIFIED ELSEWHERE Status: Acute (8) Elevated LFTs Code(s): R79.89 - OTHER SPECIFIED ABNORMAL FINDINGS OF BLOOD CHEMISTRY Status: Acute (9) Hypernatremia Code(s): E87.0 - HYPEROSMOLALITY AND HYPERNATREMIA Status: Acute (10) Metabolic acidosis Code(s): E87.2 - ACIDOSIS Status: Acute (11) Septic shock Code(s): A41.9 - SEPSIS, UNSPECIFIED ORGANISM; R65.21 - SEVERE SEPSIS WITH SEPTIC SHOCK Status: Acute (12) Thrombocytopenia Code(s): D69.6 - THROMBOCYTOPENIA, UNSPECIFIED Status: Resolved (13) Esophageal ulcer Code(s): K22.10 - ULCER OF ESOPHAGUS WITHOUT BLEEDING Status: Acute - Plan Septic shock: Patient experienced this at the outside facility prior to her transfer here. Specific source is not clear to me at this time. Appears to be resolved presently. Acute metabolic encephalopathy: Unclear etiology but it appears to be almost chronic at this point. Patient does appear to be actually talking more today than she has this entire admission per her nurse. MRI was ordered however she is not likely able to be compliant enough to do that yet. We will hold for now. GI bleed: Patient had ulcerations in her mouth esophagus stomach and small intestine. Hemoglobin is holding relatively steady. Continue PPI. Appreciate GI input. Anemia: Possibly secondary to GI bleeding. Patient has been transfused 2 units of packed red blood cells and 1 unit of platelets. Continue to monitor hemoglobin. Acute kidney injury/renal failure: Appreciate nephrology following. Managing fluids. Cardiomyopathy: Possibly related to Covid infection. Echo reveals an ejection fraction of 10 to 15%. She also has severely enlarged right ventricle with severe tricuspid regurgitation and dilated IVC. She also has moderate MR. On dobutamine. Acute transaminitis: May be secondary to right heart failure and passive congestion. Hypernatremia: Patient is currently receiving NG tube feeds awaiting resolution of mouth ulcers. Increase free water. Ulcers of the mouth, esophagus, stomach, small intestine: Etiology unclear. Viral studies pending. Oral exam today appears to not reveal significant ulcerations. Can likely DC the NG tube and try oral feeds again tomorrow. Recent COVID-19 pneumonia: Appears to be stable from that perspective. Disposition: Patient does not appear to have any family members that can be located. Continue IMCU care for now. Will discuss with cardiology and consider transition to telemetry.
--- NOTE | 2020-08-02 20:10 | CON ---
DATE OF CONSULTATION: 08/02/2020 REASON FOR CONSULTATION: Possible TTP. HISTORY OF PRESENT ILLNESS: The patient is a 69-year-old woman who has been hospitalized since July 23 for multiorgan system failure associated initially with shock and altered mental status. There was a question of COVID positivity 1 to 2 months prior to admission and she tested positive again with a rapid test on admission. She has been treated with fluids, antibiotics, pressors, and general supportive measures over the past 10 days and is improving. Laboratory studies on admission included an abnormal CBC manifested by a white blood cell count of 18.7 with left shift, hemoglobin 11, MCV 93.7, and platelet count 155,000. Over the next few days, the platelet count decreased to a low of 23,000 on July 27 and has since gradually improved to a platelet count of 147,000 today. She received 2 units packed red blood cells shortly after admission and her hemoglobin has been stable without transfusion since the day after [place]. Chemistries initially showed lactic acidosis with renal failure with a significant prerenal component. Most recent creatinine is 2.93 and BUN 84, fairly stable over several days. Liver function is mildly abnormal, manifested by an AST of 54 and ALT 91. The reticulocyte index is near normal. LDH slightly elevated. Total bilirubin is 1.0 with no fractionation. At this point, there was some concern over thrombotic thrombocytopenic purpura (TTP) and I am asked to see the patient and provide further recommendations in that regard. PAST MEDICAL HISTORY: ALLERGIES: none noted MEDICATIONS: Dobutamine, furosemide, ivabradine, pantoprazole, and spironolactone. MEDICAL ILLNESS: she had a history of colon obstruction and underwent a colostomy which is in place. This apparently was not for tumor. She has no other significant medical problems noted in the chart. PAST SURGICAL HISTORY: She underwent previous cholecystectomy as well as the colostomy creation. SOCIAL HISTORY: She does not use alcohol or tobacco. FAMILY HISTORY: Unknown. REVIEW OF SYSTEMS: Unobtainable as the patient is unable to meaningfully participate in a history. PHYSICAL EXAMINATION: VITAL SIGNS: Temperature 97.7, blood pressure 110/66, respiratory rate 21, pulse 64 and regular. GENERAL: The patient is chronically ill, but in no acute distress. She is alert and cooperative. However, she is disoriented to person, place, and time. HEENT: The extraocular movements are intact. The pupils seem equal and round, reactive to light. NECK: Supple. LUNGS: Clear. CARDIOVASCULAR: Regular rate and rhythm without murmur, gallop, or click. ABDOMEN: No tenderness, organomegaly, masses, bruits, or ascites. EXTREMITIES: No clubbing, cyanosis, edema. SKIN: Normal. LYMPH: No adenopathy. MUSCULOSKELETAL: No active arthritis. NEUROLOGICAL: No focal findings and the cranial nerves 2-12 grossly intact. LABORATORY DATA: See history of present illness. Cultures are negative except urine positive for Pseudomonas. IMAGING DATA: A CT scan of the abdomen and pelvis on July 27 shows no significant abnormality, although there is fluid and a large parastomal hernia. IMPRESSION: 1. Multiorgan system failure, possibly COVID related and/or sepsis with only culture positive being urine Pseudomonas. 2. Transient thrombocytopenia, now resolved with no evidence of TTP likely secondary to sepsis syndrome. RECOMMENDATIONS: At this point, there is no evidence of TTP. There is no evidence of microangiopathic hemolytic anemia and the platelet count has improved spontaneously, which would be inconsistent with untreated TTP. I would continue current therapy. I have no specific hematologic recommendations at this time. Thanks very much for allowing me to provide more recommendations. Job ID: [id number] [facility]
[2020-08-03] MEDS: Piperacillin/Tazobactam 2.25 GM in Sodium Chloride 0.9% 100 ML IVPB SCH ×3 (02:25→18:19)
[2020-08-03 04:52] LABS: ALT (SGPT) 109 U/L (8-55); AST (SGOT) 94 U/L (5-34); Albumin 2.9 g/dL (3.4-4.8); Alkaline Phosphatase 152 U/L (40-110); Anion Gap 21 mmol/L (10-20); BUN (Urea Nitrogen) 77 mg/dL (9.8-20.1); Bilirubin, Total 0.9 mg/dL (0.2-1.2); Calc. Creatinine Clearance 19 mL/min (70-130); Calcium 7.6 mg/dL (7.8-10.44); Carbon Dioxide 25 mmol/L (23-31); Chloride 100 mmol/L (98-107); Globulin 2.6 g/dL (2.4-3.5); Glucose 165 mg/dL (80-115); Potassium 4.3 mmol/L (3.5-5.1); Protein, Total 5.5 g/dL (6.0-8.3); Sodium 142 mmol/L (136-145)
[2020-08-03] MEDS: Furosemide 20 MG/2 ML VIAL SLOW IVP SCH ×2 (05:37→13:16)
[2020-08-03] MEDS: Spironolactone 25 MG TAB PER TUBE SCH (09:01)
[2020-08-03] MEDS: Ivabradine 5 MG TAB PO SCH ×2 (09:02→22:04)
[2020-08-03] MEDS: Pantoprazole 40 MG VIAL IVP SCH (09:02)
[2020-08-03] MEDS: Potassium Bicarbonate/Cit Ac 20 MEQ TAB PO SCH (09:02)
[2020-08-03] MEDS: Sodium Bicarbonate Tab 325 MG TAB PO SCH (10:30)
--- NOTE | 2020-08-03 15:42 | PRG ---
DATE OF SERVICE: 08/03/2020 SUBJECTIVE: Ms. Villatoro is in bed, resting comfortably. OBJECTIVE: VITAL SIGNS: Her blood pressure 102/58, pulse 100, sinus. LUNGS: Clear anteriorly and laterally. CARDIAC: Normal S1, normal S2. ABDOMEN: Soft, nontender. The patient is still on dobutamine. ASSESSMENT: 1. Congestive heart failure systolic chronic. 2. Anemia. 3. Hypernatremia, improved. PLAN: 1. Continue dobutamine. 2. Continue Corlanor. 3. Continue furosemide. No other recommendations presently. addendum chart reviewed, no clear indication to continue dobutamine at this time, wean dobutamine off. Job ID: [id number] [facility]TDD
--- NOTE | 2020-08-03 15:46 | PDOC.NEPPN ---
- Subjective Encounter Date: 08/03/20 Subjective: Still confused. Tolerating tube feeding well. Still on dobutamine. - Objective Vital Signs & Weight: Vital Signs (12 hours) Temp 08/03/20 15:23 97.5 F L 08/03/20 11:19 97.1 F L 08/03/20 07:01 97.5 F L 08/03/20 04:00 97.7 F Weight Admit Weight 120 lb 9.486 oz Weight 138 lb 6 oz Most Recent Monitor Data Heart Rate from ECG 111 NIBP 102/58 NIBP BP-Mean 72 Respiration from ECG 23 SpO2 99 I&O: 08/02/20 08/03/20 08/04/20 06:59 06:59 06:59 Intake Total 3801 3298.3 250 Output Total 2049 1975 Balance 1751 1323.3 250 Result Diagrams: 08/01/20 15:06 08/03/20 03:40 Nephrology ROS - Medication Medications: Active Medications Generic Name Dose Route Start Last Admin Trade Name Freq PRN Reason Stop Dose Admin Acetaminophen 650 mg 07/29/20 13:08 08/01/20 20:17 Acetaminophen 325 Mg Tab PER TUBE 650 mg Q4H PRN Administration Headache/Fever or Pain Benzocaine 0 gm 07/24/20 22:13 07/24/20 22:22 Benzocaine (Dental) 7 Gm Tube TOP 7 gm QIDPRN PRN Administration Topical Anesthetic Al Hydroxide/Mg Hydroxide 60 0 ml 07/26/20 10:31 07/26/20 13:59 ml/ Diphenhydramine HCl 150 mg SSW 10 ml / Lidocaine HCl 60 ml/ Q8H PRN Administration Nystatin 6,000,000 units Mouth Irritation Furosemide 20 mg 07/31/20 14:00 08/03/20 13:16 Furosemide 20 Mg/2 Ml Vial SLOW IVP 20 mg 0600,1400 MELINA Administration Piperacillin Sod/Tazobactam 100 mls @ 200 mls/hr 07/28/20 02:00 08/03/20 09:01 Sod 2.25 gm/ Sodium Chloride IVPB 100 mls 0200,1000,1800 MELINA Administration Dobutamine HCl/Dextrose 250 mls @ 4.933 mls/hr 07/28/20 13:30 08/01/20 23:07 Dobutamine 500 Mg/250 Ml IVPB 250 mls INF MELINA Administration Protocol 2.5 MCG/KG/MIN Ivabradine 5 mg 07/29/20 09:00 08/03/20 09:02 Ivabradine 5 Mg Tab PO 5 mg BID MELINA Administration Pantoprazole Sodium 40 mg 07/24/20 09:00 08/03/20 09:02 Pantoprazole 40 Mg Vial IVP 40 mg DAILY MELINA Administration Potassium Bicarbonate/Citric Acid 20 meq 08/02/20 08:00 08/03/20 09:02 Potassium Bicarbonate/Cit Ac 20 Meq Tab PO 20 meq QAM-WM MELINA Administration Sodium Chloride 10 ml 07/25/20 09:00 08/03/20 09:02 Flush - Normal Saline 10 Ml Syringe IVF 10 ml Q12HR MELINA Administration Sodium Chloride 10 ml 07/27/20 11:11 07/31/20 05:36 Flush - Normal Saline 10 Ml Syringe IVF 10 ml PRN PRN Administration Saline Flush Spironolactone 25 mg 07/30/20 08:00 08/03/20 09:01 Spironolactone 25 Mg Tab PER TUBE 25 mg QAM-WM MELINA Administration - Exam General Appearance: awake alert Eye: anicteric sclera ENT: normocephalic atraumatic, moist mucosa Neck: symmetric, no JVD Respiratory: no wheezes, no rales, no ronchi, normal chest expansion Respiratory - other findings: fair air entry bilaterally Cardiovascular: RRR Gastrointestinal: soft, non-tender, non-distended, normal bowel sounds Gastrointestinal - other findings: LLQ colostomy noted. Jacobs catheter in place Extremities - other findings: edema of the hands noted. no edema of the legs noted Neurological: CN's grossly intact, no focal deficits Musculoskeletal: generalized weakness PSYCH: oriented to person Nephrology Results - Labs Result Diagrams: 08/01/20 15:06 08/03/20 03:40 Lab results: WBC 9.4 thou/uL (4.8-10.8) 08/01/20 15:06 Hgb 7.8 g/dL (12.0-16.0) L 08/01/20 15:06 Hct 23.2 % (36.0-47.0) L 08/01/20 15:06 MCV 99.0 fL (78.0-98.0) H 08/01/20 15:06 Plt Count 147 thou/uL (130-400) 08/01/20 15:06 Neutrophils % 87.3 % (42.0-75.0) H 07/31/20 06:33 Band Neuts % (Manual) 31 % (5-11) H 08/01/20 15:06 ABG pH 7.48 (7.35-7.45) H 07/28/20 00:06 ABG pCO2 23.3 mmHg (35.0-45.0) L* 07/28/20 00:06 ABG pO2 63.8 mmHg (> 80.0) 07/28/20 00:06 VBG pCO2 21.5 mmHg (40.0-50.0) L* 07/23/20 20:52 VBG pO2 43.3 mmHg (35.0-45.0) 07/23/20 20:52 Sodium 142 mmol/L (136-145) 08/03/20 03:40 Potassium 4.3 mmol/L (3.5-5.1) 08/03/20 03:40 Chloride 100 mmol/L (98-107) 08/03/20 03:40 Carbon Dioxide 25 mmol/L (23-31) 08/03/20 03:40 BUN 77 mg/dL (9.8-20.1) H 08/03/20 03:40 Creatinine 2.74 mg/dL (0.6-1.1) H 08/03/20 03:40 Glucose 165 mg/dL (80-115) H 08/03/20 03:40 Lactic Acid 3.1 mmol/L (0.5-2.2) H 07/24/20 06:29 Calcium 7.6 mg/dL (7.8-10.44) L 08/03/20 03:40 Total Bilirubin 0.9 mg/dL (0.2-1.2) 08/03/20 03:40 AST 94 U/L (5-34) H 08/03/20 03:40 ALT 109 U/L (8-55) H 08/03/20 03:40 Alkaline Phosphatase 152 U/L (40-110) H 08/03/20 03:40 Ammonia 20 umol/L (18-72) 07/27/20 04:56 Creatine Kinase 205 U/L (29-168) H 07/23/20 20:25 CK-MB (CK-2) 3.1 ng/mL (0-6.6) 07/28/20 12:03 Troponin I 0.352 ng/mL (< 0.028) H* 07/28/20 12:03 Serum Total Protein 5.5 g/dL (6.0-8.3) L 08/03/20 03:40 Albumin 2.9 g/dL (3.4-4.8) L 08/03/20 03:40 Urine Ketones Negative mg/dL (Negative) 07/24/20 Unknown Urine Blood 2+ (Negative) A 07/24/20 Unknown Urine Nitrite Negative (Negative) 07/24/20 Unknown Ur Leukocyte Esterase 500 Fariha/uL (Negative) A 07/24/20 Unknown Urine RBC 7-10 HPF (0-3) A 07/24/20 Unknown Urine WBC Greater than 50 HPF (0-3) A 07/24/20 Unknown Ur Squamous Epith Cells None Seen HPF (0-3) 07/24/20 Unknown Urine Bacteria 4+ HPF (None Seen) A 07/24/20 Unknown Sodium 142 mmol/L (136-145) 08/03/20 03:40 Potassium 4.3 mmol/L (3.5-5.1) 08/03/20 03:40 Chloride 100 mmol/L (98-107) 08/03/20 03:40 Carbon Dioxide 25 mmol/L (23-31) 08/03/20 03:40 Anion Gap 21 mmol/L (10-20) H 08/03/20 03:40 BUN 77 mg/dL (9.8-20.1) H 08/03/20 03:40 Creatinine 2.74 mg/dL (0.6-1.1) H 08/03/20 03:40 Glucose 165 mg/dL (80-115) H 08/03/20 03:40 Calcium 7.6 mg/dL (7.8-10.44) L 08/03/20 03:40 Phosphorus 3.3 mg/dL (2.3-4.7) 07/31/20 06:34 Magnesium 1.9 mg/dL (1.6-2.6) 08/02/20 03:41 Albumin 2.9 g/dL (3.4-4.8) L 08/03/20 03:40 Nephrology AP PN - Plan ASSESSMENT Acute renal failure: Multifactorial most likely. Hemodynamic factors related severe dehydration, cardiorenal syndrome and septic shock. Initially anuric. Making more urine with dobutamine. Acute systolic and diastolic HF. Now on dobutamine. Improved. Cardiomyopathy with EF of 10-15. etiology is unclear. Severe metabolic acidosis: Improved with alkali therapy Hypernatremia: Due to free water deficit. Hypokalemia:recurrent. Hypomagnesemia Hypophosphatemia Severe dehydration. Resolved with IVF Acute metabolic encephalopathy: Etiology remained unclear. ? Acute illness, acidosis, CVA, WAYNE +/- uremia. No significant change yet. MRI cannot be done due to tremors. TTP unlikely with no schistocytes. Colon cancer s/p colon resection and colostomy Hypocalcemia Elevated troponin Acute transaminitis Hypoalbuminemia Acute blood loss anemia: Occult stool positive. S/p PRBC transfusion. Severe thrombocytopenia: medication and sepsis induced/DIC. Improving. PLAN Continue tube feeding with free water flushes Continue alkali therapy per tube Monitor intake and output as well as renal function and electrolytes.
[2020-08-03 16:01] LABS: ANA Symphony (Qualitative) Negative (Negative); ANA Symphony (Quantitative) 0.1 Ratio (< 0.7 Negative); dsDNA IgG Antibody 0.5 IU/mL (<10 Negative)
--- NOTE | 2020-08-03 18:05 | PDOC.HOSPP ---
- Subjective Encounter Date: 08/03/20 non-verbal - Objective Vital Signs & Weight: Vital Signs (12 hours) Temp 08/03/20 15:23 97.5 F L 08/03/20 11:19 97.1 F L 08/03/20 07:01 97.5 F L Weight Admit Weight 120 lb 9.486 oz Weight 138 lb 6 oz Most Recent Monitor Data Heart Rate from ECG 83 NIBP 126/72 NIBP BP-Mean 90 Respiration from ECG 18 SpO2 99 I&O: 08/02/20 08/03/20 08/04/20 06:59 06:59 06:59 Intake Total 3801 3298.3 500 Output Total 2050 1975 700 Balance 1751 1323.3 -200 Result Diagrams: 08/01/20 15:06 08/03/20 03:40 Hospitalist ROS - Medication Medications: Active Medications Generic Name Dose Route Start Last Admin Trade Name Freq PRN Reason Stop Dose Admin Acetaminophen 650 mg 07/29/20 13:08 08/01/20 20:17 Acetaminophen 325 Mg Tab PER TUBE 650 mg Q4H PRN Administration Headache/Fever or Pain Benzocaine 0 gm 07/24/20 22:13 07/24/20 22:22 Benzocaine (Dental) 7 Gm Tube TOP 7 gm QIDPRN PRN Administration Topical Anesthetic Al Hydroxide/Mg Hydroxide 60 0 ml 07/26/20 10:31 07/26/20 13:59 ml/ Diphenhydramine HCl 150 mg SSW 10 ml / Lidocaine HCl 60 ml/ Q8H PRN Administration Nystatin 6,000,000 units Mouth Irritation Furosemide 20 mg 07/31/20 14:00 08/03/20 13:16 Furosemide 20 Mg/2 Ml Vial SLOW IVP 20 mg 0600,1400 MELINA Administration Piperacillin Sod/Tazobactam 100 mls @ 200 mls/hr 07/28/20 02:00 08/03/20 09:01 Sod 2.25 gm/ Sodium Chloride IVPB 100 mls 0200,1000,1800 MELINA Administration Dobutamine HCl/Dextrose 250 mls @ 4.933 mls/hr 07/28/20 13:30 08/01/20 23:07 Dobutamine 500 Mg/250 Ml IVPB 250 mls INF MELINA Administration Protocol 2.5 MCG/KG/MIN Ivabradine 5 mg 07/29/20 09:00 08/03/20 09:02 Ivabradine 5 Mg Tab PO 5 mg BID MELINA Administration Pantoprazole Sodium 40 mg 07/24/20 09:00 08/03/20 09:02 Pantoprazole 40 Mg Vial IVP 40 mg DAILY MELINA Administration Potassium Bicarbonate/Citric Acid 20 meq 08/02/20 08:00 08/03/20 09:02 Potassium Bicarbonate/Cit Ac 20 Meq Tab PO 20 meq QAM-WM MELINA Administration Sodium Chloride 10 ml 07/25/20 09:00 08/03/20 09:02 Flush - Normal Saline 10 Ml Syringe IVF 10 ml Q12HR MELINA Administration Sodium Chloride 10 ml 07/27/20 11:11 07/31/20 05:36 Flush - Normal Saline 10 Ml Syringe IVF 10 ml PRN PRN Administration Saline Flush Spironolactone 25 mg 07/30/20 08:00 08/03/20 09:01 Spironolactone 25 Mg Tab PER TUBE 25 mg QAM-WM MELINA Administration - Exam General Appearance: NAD, awake alert ENT: no oropharyngeal lesions Neck: supple Heart: RRR, no murmur, no gallops, no rubs, normal peripheral pulses Respiratory: CTAB, no wheezes, no rales, no ronchi, normal chest expansion, no tachypnea, normal percussion Gastrointestinal: soft, non-tender, non-distended, normal bowel sounds, no palpable masses, no hepatomegaly, no splenomegaly, no bruit Extremities: no cyanosis, no clubbing, no edema Skin: normal turgor Neurological - other findings: Tremor Musculoskeletal: generalized weakness Psychiatric: not oriented Psychiatric - other findings: Encephalopathic. She does follow a few very simple commands. Hosp A/P (1) Acute metabolic encephalopathy Code(s): G93.41 - METABOLIC ENCEPHALOPATHY Status: Acute (2) Acute blood loss anemia Code(s): D62 - ACUTE POSTHEMORRHAGIC ANEMIA Status: Acute (3) WAYNE (acute kidney injury) Code(s): N17.9 - ACUTE KIDNEY FAILURE, UNSPECIFIED Status: Acute (4) Acute renal failure Status: Acute Qualifiers: Acute renal failure type: unspecified Qualified Code(s): N17.9 - Acute kidney failure, unspecified (5) Acute systolic HF (heart failure) Code(s): I50.21 - ACUTE SYSTOLIC (CONGESTIVE) HEART FAILURE Status: Acute (6) COVID-19 Code(s): U07.1 - COVID-19 Status: Acute (7) 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 Code(s): U07.1 - COVID-19; I43 - CARDIOMYOPATHY IN DISEASES CLASSIFIED ELSEWHERE Status: Acute (8) Elevated LFTs Code(s): R79.89 - OTHER SPECIFIED ABNORMAL FINDINGS OF BLOOD CHEMISTRY Status: Acute (9) Hypernatremia Code(s): E87.0 - HYPEROSMOLALITY AND HYPERNATREMIA Status: Acute (10) Metabolic acidosis Code(s): E87.2 - ACIDOSIS Status: Acute (11) Septic shock Code(s): A41.9 - SEPSIS, UNSPECIFIED ORGANISM; R65.21 - SEVERE SEPSIS WITH SEPTIC SHOCK Status: Acute (12) Thrombocytopenia Code(s): D69.6 - THROMBOCYTOPENIA, UNSPECIFIED Status: Resolved (13) Esophageal ulcer Code(s): K22.10 - ULCER OF ESOPHAGUS WITHOUT BLEEDING Status: Acute - Plan Septic shock: Patient experienced this at the outside facility prior to her transfer here. Specific source is not clear to me at this time. Appears to be resolved presently. Acute metabolic encephalopathy: Unclear etiology but it appears to be almost chronic at this point. Patient has attempted to talk a bit at times but is largely nonverbal. MRI was ordered however she is not likely able to be compliant enough to do that yet. We will hold for now. GI bleed: Patient had ulcerations in her mouth, esophagus, stomach and small intestine. Hemoglobin is holding relatively steady. Continue PPI. Appreciate GI input. Anemia: Possibly secondary to GI bleeding. Patient has been transfused 2 units of packed red blood cells and 1 unit of platelets. Continue to monitor hemoglobin. Acute kidney injury/renal failure: Appreciate nephrology following. [place] to be partly due to significant dehydration. Managing fluids. GFR has appeared to stabilize around 17. Cardiomyopathy: Possibly related to Covid infection. Echo reveals an ejection fraction of 10 to 15%. She also has severely enlarged right ventricle with severe tricuspid regurgi tation and dilated IVC. She also has moderate MR. On dobutamine until 08/03/2020 at which time it is being weaned by cardiology. Acute transaminitis: May be secondary to right heart failure and passive congestion. No evidence of other significant pathology Hypernatremia: Patient had significant mouth ulcers requiring the use of an NG tube for nutri tion. She became hypernatremic and subsequently free water was increased. On 08/03/2020 the patient's sodium normalized. Ulcers of the mouth, esophagus, stomach, small intestine: Etiology unclear. Viral studies pending. Exam on 08/02/2020 did not reveal any persistent ulcerations. On 08/03/2020 speech therapy reassess the patient. She appears to have an intact swallow although cognitively it is still challenging. Attempting to retry oral feeds. If successful, can likely DC the NG tube on 08/04/2020. Recent COVID-19 pneumonia: Appears to be stable from that perspective. Unclear if this might have been the source of her encephalopathy or cardiomyo drake. Disposition: Patient does not appear to have any family members that can be located. Continue [facility] care for now. Will discuss with cardiology and consider transition to telemetry now that she is weaning off the dobutamine. This patient will need to be placed.
[2020-08-04] MEDS: DOBUTamine 500 mg/250 ml 250 ML IVPB SCH (02:56)
[2020-08-04] MEDS: Piperacillin/Tazobactam 2.25 GM in Sodium Chloride 0.9% 100 ML IVPB SCH (02:56)
[2020-08-04 04:05] LABS: ALT (SGPT) 133 U/L (8-55); AST (SGOT) 102 U/L (5-34); Albumin 2.9 g/dL (3.4-4.8); Alkaline Phosphatase 170 U/L (40-110); Anion Gap 19 mmol/L (10-20); BUN (Urea Nitrogen) 71 mg/dL (9.8-20.1); Bilirubin, Total 0.8 mg/dL (0.2-1.2); Calc. Creatinine Clearance 21 mL/min (70-130); Calcium 7.6 mg/dL (7.8-10.44); Carbon Dioxide 28 mmol/L (23-31); Chloride 95 mmol/L (98-107); Globulin 2.6 g/dL (2.4-3.5); Glucose 170 mg/dL (80-115); Potassium 3.4 mmol/L (3.5-5.1); Protein, Total 5.5 g/dL (6.0-8.3); Sodium 139 mmol/L (136-145)
[2020-08-04] MEDS: Furosemide 20 MG/2 ML VIAL SLOW IVP SCH ×2 (06:10→14:56)
--- NOTE | 2020-08-04 08:36 | PDOC.NEPPN ---
- Subjective Encounter Date: 08/04/20 Subjective: Seen and examined. Still confused. Pulled out NG tube earlier. verbalizing some ocassionally. - Objective Vital Signs & Weight: Vital Signs (12 hours) Temp 08/04/20 07:35 97.9 F 08/04/20 03:38 97.1 F L 08/04/20 00:27 97.3 F L Weight Admit Weight 120 lb 9.486 oz Weight 138 lb 6 oz Most Recent Monitor Data Heart Rate from ECG 88 NIBP 135/79 NIBP BP-Mean 97 Respiration from ECG 20 SpO2 99 I&O: 08/03/20 08/04/20 08/05/20 06:59 06:59 06:59 Intake Total 3298.3 2395 Output Total 1975 1900 Balance 1323.3 495 Result Diagrams: 08/01/20 15:06 08/04/20 03:38 Nephrology ROS - Medication Medications: Active Medications Generic Name Dose Route Start Last Admin Trade Name Freq PRN Reason Stop Dose Admin Acetaminophen 650 mg 07/29/20 13:08 08/01/20 20:17 Acetaminophen 325 Mg Tab PER TUBE 650 mg Q4H PRN Administration Headache/Fever or Pain Benzocaine 0 gm 07/24/20 22:13 07/24/20 22:22 Benzocaine (Dental) 7 Gm Tube TOP 7 gm QIDPRN PRN Administration Topical Anesthetic Al Hydroxide/Mg Hydroxide 60 0 ml 07/26/20 10:31 07/26/20 13:59 ml/ Diphenhydramine HCl 150 mg SSW 10 ml / Lidocaine HCl 60 ml/ Q8H PRN Administration Nystatin 6,000,000 units Mouth Irritation Furosemide 20 mg 07/31/20 14:00 08/04/20 06:10 Furosemide 20 Mg/2 Ml Vial SLOW IVP 20 mg 0600,1400 MELINA Administration Piperacillin Sod/Tazobactam 100 mls @ 200 mls/hr 07/28/20 02:00 08/04/20 02:56 Sod 2.25 gm/ Sodium Chloride IVPB 100 mls 0200,1000,1800 MELINA Administration Dobutamine HCl/Dextrose 250 mls @ 4.933 mls/hr 07/28/20 13:30 08/04/20 02:56 Dobutamine 500 Mg/250 Ml IVPB 250 mls INF MELINA Administration Protocol 2.5 MCG/KG/MIN Ivabradine 5 mg 07/29/20 09:00 08/03/20 22:04 Ivabradine 5 Mg Tab PO 5 mg BID MELINA Administration Pantoprazole Sodium 40 mg 07/24/20 09:00 08/03/20 09:02 Pantoprazole 40 Mg Vial IVP 40 mg DAILY MELINA Administration Sodium Chloride 10 ml 07/25/20 09:00 08/03/20 22:03 Flush - Normal Saline 10 Ml Syringe IVF 10 ml Q12HR MELINA Administration Sodium Chloride 10 ml 07/27/20 11:11 07/31/20 05:36 Flush - Normal Saline 10 Ml Syringe IVF 10 ml PRN PRN Administration Saline Flush - Exam General Appearance: awake alert Eye: anicteric sclera ENT: normocephalic atraumatic Neck: symmetric, no JVD Respiratory - other findings: fair air entry bilaterally Cardiovascular: RRR Gastrointestinal: soft, non-distended, normal bowel sounds Gastrointestinal - other findings: LLQ colostomy noted as well as bernal catheter Extremities - other findings: edema of upper limbs noted. No lower extremity edema appreciated Neurological: CN's grossly intact, no focal deficits Neurological - other findings: still confused. oriented to person. Nephrology Results - Labs Result Diagrams: 08/01/20 15:06 08/04/20 03:38 Lab results: WBC 9.4 thou/uL (4.8-10.8) 08/01/20 15:06 Hgb 7.8 g/dL (12.0-16.0) L 08/01/20 15:06 Hct 23.2 % (36.0-47.0) L 08/01/20 15:06 MCV 99.0 fL (78.0-98.0) H 08/01/20 15:06 Plt Count 147 thou/uL (130-400) 08/01/20 15:06 Neutrophils % 87.3 % (42.0-75.0) H 07/31/20 06:33 Band Neuts % (Manual) 31 % (5-11) H 08/01/20 15:06 ABG pH 7.48 (7.35-7.45) H 07/28/20 00:06 ABG pCO2 23.3 mmHg (35.0-45.0) L* 07/28/20 00:06 ABG pO2 63.8 mmHg (> 80.0) 07/28/20 00:06 VBG pCO2 21.5 mmHg (40.0-50.0) L* 07/23/20 20:52 VBG pO2 43.3 mmHg (35.0-45.0) 07/23/20 20:52 Sodium 139 mmol/L (136-145) 08/04/20 03:38 Potassium 3.4 mmol/L (3.5-5.1) L 08/04/20 03:38 Chloride 95 mmol/L (98-107) L 08/04/20 03:38 Carbon Dioxide 28 mmol/L (23-31) 08/04/20 03:38 BUN 71 mg/dL (9.8-20.1) H 08/04/20 03:38 Creatinine 2.53 mg/dL (0.6-1.1) H 08/04/20 03:38 Glucose 170 mg/dL (80-115) H 08/04/20 03:38 Lactic Acid 3.1 mmol/L (0.5-2.2) H 07/24/20 06:29 Calcium 7.6 mg/dL (7.8-10.44) L 08/04/20 03:38 Total Bilirubin 0.8 mg/dL (0.2-1.2) 08/04/20 03:38 AST 102 U/L (5-34) H 08/04/20 03:38 ALT 133 U/L (8-55) H 08/04/20 03:38 Alkaline Phosphatase 170 U/L (40-110) H 08/04/20 03:38 Ammonia 20 umol/L (18-72) 07/27/20 04:56 Creatine Kinase 205 U/L (29-168) H 07/23/20 20:25 CK-MB (CK-2) 3.1 ng/mL (0-6.6) 07/28/20 12:03 Troponin I 0.352 ng/mL (< 0.028) H* 07/28/20 12:03 Serum Total Protein 5.5 g/dL (6.0-8.3) L 08/04/20 03:38 Albumin 2.9 g/dL (3.4-4.8) L 08/04/20 03:38 Urine Ketones Negative mg/dL (Negative) 07/24/20 Unknown Urine Blood 2+ (Negative) A 07/24/20 Unknown Urine Nitrite Negative (Negative) 07/24/20 Unknown Ur Leukocyte Esterase 500 Fariha/uL (Negative) A 07/24/20 Unknown Urine RBC 7-10 HPF (0-3) A 07/24/20 Unknown Urine WBC Greater than 50 HPF (0-3) A 07/24/20 Unknown Ur Squamous Epith Cells None Seen HPF (0-3) 07/24/20 Unknown Urine Bacteria 4+ HPF (None Seen) A 07/24/20 Unknown Sodium 139 mmol/L (136-145) 08/04/20 03:38 Potassium 3.4 mmol/L (3.5-5.1) L 08/04/20 03:38 Chloride 95 mmol/L (98-107) L 08/04/20 03:38 Carbon Dioxide 28 mmol/L (23-31) 08/04/20 03:38 Anion Gap 19 mmol/L (10-20) 08/04/20 03:38 BUN 71 mg/dL (9.8-20.1) H 08/04/20 03:38 Creatinine 2.53 mg/dL (0.6-1.1) H 08/04/20 03:38 Glucose 170 mg/dL (80-115) H 08/04/20 03:38 Calcium 7.6 mg/dL (7.8-10.44) L 08/04/20 03:38 Phosphorus 3.3 mg/dL (2.3-4.7) 07/31/20 06:34 Magnesium 1.9 mg/dL (1.6-2.6) 08/02/20 03:41 Albumin 2.9 g/dL (3.4-4.8) L 08/04/20 03:38 Nephrology AP PN - Plan ASSESSMENT Acute renal failure: Multifactorial most likely. Hemodynamic factors related severe dehydration, cardiorenal syndrome and septic shock. Initially anuric. Making more urine with dobutamine. Creat is trending down. Acute systolic and diastolic HF. Now on dobutamine. Improved. Cardiomyopathy with EF of 10-15. etiology is unclear. Severe metabolic acidosis: Improved with alkali therapy Electrolytes derangement: Hypernatremia, Hypokalemia, Hypomagnesemia, Hypophosphatemia and hypocalcemia Severe dehydration. Resolved with IVF Acute metabolic encephalopathy: Etiology remained unclear. ? Acute illness, acidosis, CVA, WAYNE +/- uremia. No significant change yet. MRI cannot be done due to tremors. Colon cancer s/p colon resection and colostomy Hypoalbuminemia Acute blood loss anemia: Occult stool positive. S/p PRBC transfusion. Severe thrombocytopenia: medication and sepsis induced/DIC. Improving. Worsening LFT: ? etiology unclear PLAN Increase spironolactone Replete serum potassium Decrease free water flushes Monitor intake and output as well as renal function and electrolytes.
[2020-08-04] MEDS ORDERED: Potassium Chloride 20 MEQ TAB PO SCH (08:45)
[2020-08-04] MEDS: Spironolactone 25 MG TAB PER TUBE SCH ×2 (10:51→10:53)
[2020-08-04] MEDS: Potassium Bicarbonate/Cit Ac 20 MEQ TAB PO SCH (10:52)
[2020-08-04] MEDS: Ivabradine 5 MG TAB PO SCH ×2 (10:52→21:13)
[2020-08-04] MEDS: Pantoprazole 40 MG VIAL IVP SCH (10:53)
--- NOTE | 2020-08-04 14:02 | PDOC.FMACP ---
Advance Care Planning - Problem (1) WAYNE (acute kidney injury) Status: Acute Code(s): N17.9 - ACUTE KIDNEY FAILURE, UNSPECIFIED (2) Acute blood loss anemia Status: Acute Code(s): D62 - ACUTE POSTHEMORRHAGIC ANEMIA (3) 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 Status: Acute Code(s): U07.1 - COVID-19; I43 - CARDIOMYOPATHY IN DISEASES CLASSIFIED ELSEWHERE (4) Encephalopathy Status: Acute Code(s): G93.40 - ENCEPHALOPATHY, UNSPECIFIED (5) Systolic heart failure Status: Acute Code(s): I50.20 - UNSPECIFIED SYSTOLIC (CONGESTIVE) HEART FAILURE - Note Participants: palliative care, other Summary: Patient encephalopathic. Lacking Medical capacity. Patient is reported to have two sons, no known contact information. Patient has a gentlemen Gustoshia Hunter who is listed on demographic information, but no legal documents completed designating him as surrogate decision maker. He is unaware of patient sons names or contact information. Discussed with Dr Prince. Will reach out to Dr Nugent and Dr Hopper to see if either is agreeable to complete DNAR/OOHDNAR with Dr Prince as a second signature. Francesca Ramon has communicated with Terrie Hunter and suggested communicating with "[employer]" to attempt to secure a surrogate decision maker for Ms Villatoro. Advanced Care Planning was discussed. The Palliative Care Team will be engaged to assist with completion of any outstanding forms that are needed. Time Spent (mins): 35
--- NOTE | 2020-08-04 14:11 | CT ---
CT Abdomen Pelvis WO Con 08/04/2020 12:30 PM HISTORY: Transaminitis. Prior abnormal CT exam. COMPARISON: 07/27/2020 Technique: Multiple contiguous axial CT images are obtained through the abdomen and pelvis without IV contrast. Coronal reformats are provided. FINDINGS: This examination is limited for the evaluation of solid organs and vascular structures due to the lac k of intravenous contrast. Lower Chest: Small to moderate-sized bilateral pleural effusions are present which do appear mildly i mproved from prior study with persistent adjacent consolidation probably attributable to passive atelectasis. Liver: Grossly normal non-enhanced CT appearance. Gallbladder: Surgically absent. Pancreas: Grossly normal nonenhanced CT appearance. Spleen: Grossly normal nonenhanced CT appearance. Adrenals: Grossly normal nonenhanced CT appearance. Kidneys and ureters: No ureteral calculus is seen bilaterally. Questionable punctate nonobstructing c alculus in the lower pole right kidney. No hydronephrosis is present. Urinary bladder: Jacobs catheter present in decompressed urinary bladder Reproductive Organs: Evidence of hysterectomy. Lymph Nodes: No enlarged lymph nodes. Bowel: Small bowel is normal in caliber. Left lower quadrant colostomy with Su's pouch is again noted. There is a large parastomal hernia with multiple loops of small bowel seen extending into the hernia defect also noted on prior exam. There is no evidence of a bowel obstruction. Peritoneum/retroperitoneum: There has been interval improvement in the free fluid within the abdomen and pelvis noted on prior exam. Trace amount of fluid is again seen adjacent to the liver, and this also appears improved. There is mention of a large tubular shaped mildly increased density tubular st ructure in the right lower quadrant. This area is much smaller on today's examination with previous greatest dimension of 10.6 cm and on today's examination greatest measurement is 4.4 cm. This may act ually represent the cecum in this region as this is contiguous with the ascending colon. This again could potentially represent fluid collection which is decreasing in size, but this is difficult to fu rther evaluate without oral contrast. Surgical clips are seen in the pelvis. Vessels: Mild vascular calcifications are seen in the abdominal aorta.. Abdominal Wall: There is subcutaneous edema seen about the abdomen bilaterally also present on prior exam with mild improvement in the degree of subcutaneous edema posterior to the region of the peristomal hernia left lateral lower quadrant/upper pelvis. Midline scarring is present anterior abdo hernando wall. Bones: No suspicious lytic or sclerotic osseous lesions are identified. IMPRESSION: 1. Moderate size bilateral pleural effusions which do appear mildly improved compared to prior exam. Associated passive atelectasis is noted. 2. Previously described tubular structure in the right lateral pelvis is again seen but much smaller in size. This could represent a loop of bowel which has decompressed. This is difficult to adequately evaluate without oral contrast. Interval decrease in size of a right pelvic collection can not be excluded. 3. Left lower quadrant colostomy with associated parastomal hernia with multiple loops of nondilated small bowel within the hernia defect. There is no evidence of a bowel obstruction. 4. Mild interval decrease in intraperitoneal free fluid including slight interval decrease in fluid a djacent to the liver. 5. Subcutaneous edema diffusely, but improvement in subcutaneous edema lateral left flank region autumn cent to the parastomal hernia.
--- NOTE | 2020-08-04 14:47 | PRG ---
DATE OF SERVICE: 08/04/2020 SUBJECTIVE: Ms. Villatoro is resting comfortably. No complaints. No shortness of breath. She is being weaned off dobutamine. OBJECTIVE: VITAL SIGNS: Blood pressure 135/78, pulse is 94. LUNGS: Clear. CARDIAC: Normal S1, normal S2. There is no new murmur, rub, or gallop. ABDOMEN: Soft, nontender. ASSESSMENT: 1. Congestive heart failure, systolic, chronic, stable. 2. Anemia with a hemoglobin of 7.8. PLAN: 1. Discontinue dobutamine. 2. She is still on IV Lasix. 3. She is on Corlanor. 4. Okay to transfer to telemetry. Prognosis appears guarded to poor. Liver function tests are elevated. Creatinine is 2.5. Job ID: [id number]
--- NOTE | 2020-08-04 16:45 | PDOC.HOSPP ---
- Subjective Encounter Date: 08/04/20 non-verbal - Objective Vital Signs & Weight: Vital Signs (12 hours) Temp Pulse Ox 08/04/20 15:52 98.2 F 08/04/20 13:14 100 08/04/20 12:00 100 08/04/20 11:19 98.1 F 08/04/20 08:00 98 08/04/20 07:35 97.9 F Weight Admit Weight 120 lb 9.486 oz Weight 138 lb 6 oz Most Recent Monitor Data Heart Rate from ECG 96 NIBP 136/83 NIBP BP-Mean 100 Respiration from ECG 23 SpO2 94 I&O: 08/03/20 08/04/20 08/05/20 06:59 06:59 06:59 Intake Total 3298.3 2395 Output Total 1975 1900 Balance 1323.3 495 Result Diagrams: 08/01/20 15:06 08/04/20 03:38 Hospitalist ROS - Medication Medications: Active Medications Generic Name Dose Route Start Last Admin Trade Name Freq PRN Reason Stop Dose Admin Acetaminophen 650 mg 07/29/20 13:08 08/01/20 20:17 Acetaminophen 325 Mg Tab PER TUBE 650 mg Q4H PRN Administration Headache/Fever or Pain Benzocaine 0 gm 07/24/20 22:13 07/24/20 22:22 Benzocaine (Dental) 7 Gm Tube TOP 7 gm QIDPRN PRN Administration Topical Anesthetic Al Hydroxide/Mg Hydroxide 60 0 ml 07/26/20 10:31 07/26/20 13:59 ml/ Diphenhydramine HCl 150 mg SSW 10 ml / Lidocaine HCl 60 ml/ Q8H PRN Administration Nystatin 6,000,000 units Mouth Irritation Furosemide 20 mg 07/31/20 14:00 08/04/20 14:56 Furosemide 20 Mg/2 Ml Vial SLOW IVP 20 mg 0600,1400 MELINA Administration Dobutamine HCl/Dextrose 250 mls @ 4.933 mls/hr 07/28/20 13:30 08/04/20 02:56 Dobutamine 500 Mg/250 Ml IVPB 250 mls INF MELINA Administration Protocol 2.5 MCG/KG/MIN Ivabradine 5 mg 07/29/20 09:00 08/04/20 10:52 Ivabradine 5 Mg Tab PO 5 mg BID MELINA Administration Pantoprazole Sodium 40 mg 07/24/20 09:00 08/04/20 10:53 Pantoprazole 40 Mg Vial IVP 40 mg DAILY MELINA Administration Sodium Chloride 10 ml 07/25/20 09:00 08/04/20 10:53 Flush - Normal Saline 10 Ml Syringe IVF 10 ml Q12HR MELINA Administration Sodium Chloride 10 ml 07/27/20 11:11 07/31/20 05:36 Flush - Normal Saline 10 Ml Syringe IVF 10 ml PRN PRN Administration Saline Flush Spironolactone 50 mg 08/04/20 08:00 08/04/20 10:51 Spironolactone 25 Mg Tab PER TUBE 50 mg QAM-WM MELINA Administration - Exam General Appearance: NAD, awake alert General - other findings: Nonverbal and does not interact significantly Heart: RRR, no murmur, no gallops, no rubs, normal peripheral pulses Respiratory: CTAB, no wheezes, no rales, no ronchi, normal chest expansion, no tachypnea, normal percussion Gastrointestinal: soft, non-tender, non-distended, normal bowel sounds, no palpable masses Gastrointestinal - other findings: Colostomy Extremities - other findings: Diffuse generalized edema Skin: normal turgor Neurological: no focal deficits Psychiatric - other findings: Still encephalopathic Hosp A/P (1) Acute metabolic encephalopathy Code(s): G93.41 - METABOLIC ENCEPHALOPATHY Status: Acute (2) Acute blood loss anemia Code(s): D62 - ACUTE POSTHEMORRHAGIC ANEMIA Status: Acute (3) WAYNE (acute kidney injury) Code(s): N17.9 - ACUTE KIDNEY FAILURE, UNSPECIFIED Status: Acute (4) Acute renal failure Status: Acute Qualifiers: Acute renal failure type: unspecified Qualified Code(s): N17.9 - Acute kidney failure, unspecified (5) Acute systolic HF (heart failure) Code(s): I50.21 - ACUTE SYSTOLIC (CONGESTIVE) HEART FAILURE Status: Acute (6) COVID-19 Code(s): U07.1 - COVID-19 Status: Acute (7) 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 Code(s): U07.1 - COVID-19; I43 - CARDIOMYOPATHY IN DISEASES CLASSIFIED ELSEWHERE Status: Acute (8) Elevated LFTs Code(s): R79.89 - OTHER SPECIFIED ABNORMAL FINDINGS OF BLOOD CHEMISTRY Status: Acute (9) Hypernatremia Code(s): E87.0 - HYPEROSMOLALITY AND HYPERNATREMIA Status: Acute (10) Metabolic acidosis Code(s): E87.2 - ACIDOSIS Status: Acute (11) Septic shock Code(s): A41.9 - SEPSIS, UNSPECIFIED ORGANISM; R65.21 - SEVERE SEPSIS WITH SEPTIC SHOCK Status: Acute (12) Thrombocytopenia Code(s): D69.6 - THROMBOCYTOPENIA, UNSPECIFIED Status: Resolved (13) Esophageal ulcer Code(s): K22.10 - ULCER OF ESOPHAGUS WITHOUT BLEEDING Status: Acute - Plan Septic shock: Patient experienced this at the outside facility prior to her transfer here. Specific source is not clear to me at this time. Appears to be resolved presently. Acute metabolic encephalopathy: Unclear etiology but it appears to be chronic at this point. Patient has attempted to talk a bit at times but is largely nonverbal. MRI was ordered however she is not likely able to be compliant enough to do that yet. GI bleed: Patient had ulcerations in her mouth, esophagus, stomach and small intestine. Hemoglobin is holding relatively steady. Continue PPI. Appreciate GI input. Anemia: Possibly secondary to GI bleeding. Patient has been transfused 2 units of packed red blood cells and 1 unit of platelets. Continue to monitor hemoglobin. Acute kidney injury/renal failure: Appreciate nephrology following. Devers to be partly due to significant dehydration. Managing fluids. GFR has appeared to stabilize around 17. Cardiomyopathy: Possibly related to Covid infection. Echo reveals an ejection fraction of 10 to 15%. She also has severely enlarged right ventricle with severe tricuspid regurgitation and dilated IVC. She also has moderate MR. On dobutamine until 08/03/2020 at which time it is being weaned by cardiology. On 08/04/2020 patient appears to still be somewhat dependent on the dobutamine. Acute transaminitis: May be secondary to right heart failure and passive congestion. No evidence of other significant pathology. CT abdomen and pelvis on 08/04/2020 revealed normal-appearing liver and a surgically absent gallbladder. Abnormal CT pelvis: Patient had some tubelike structure in the pelvis that was concerning for possible dilated loop of small bowel or possible hematoma on original CT. Repeat on 08/04/2020 appears to show some improvement. Likely was actually small bowel. Hypernatremia: Patient had significant mouth ulcers requiring the use of an NG tube for nutrition. She became hypernatremic and subsequently free water was increased. On 08/03/2020 the patient's sodium normalized. Ulcers of the mouth, esophagus, stomach, small intestine: Etiology unclear. Viral studies pending. Exam on 08/02/2020 did not reveal any persistent ulcerations. Dysphagia: On 08/03/2020 speech therapy reassess the patient. She appears to have an intact swallow although cognitively it is still challenging. Attempting to retry oral feeds. On 08/04/2020 the patient continued to have some difficulties. Unclear if the patient will be able to sustain adequate amounts of p.o. intake. Patient has pulled out number less than 8 NG tube at this time. I suspect she would pull out a PEG tube as well. We will likely need to give it a day or 2 to see how she will manage. Recent COVID-19 pneumonia: Appears to be stable from that perspective. Unclear if this might have been the source of her encephalopathy or cardiomyopathy. Disposition: Patient does not appear to have any family members that can be located. Continue [facility] care for now. Will discuss with cardiology and consider transition to telemetry now that she is weaning off the dobutamine. This patient will need to be placed.
[2020-08-05] MEDS: Furosemide 20 MG/2 ML VIAL SLOW IVP SCH ×2 (06:22→14:45)
[2020-08-05] MEDS: Pantoprazole 40 MG VIAL IVP SCH (07:47)
[2020-08-05] MEDS: Ivabradine 5 MG TAB PO SCH ×2 (07:47→20:58)
[2020-08-05] MEDS: Spironolactone 25 MG TAB PER TUBE SCH (07:47)
[2020-08-05 08:31] LABS: ALT (SGPT) 120 U/L (8-55); AST (SGOT) 71 U/L (5-34); Alkaline Phosphatase 116 U/L (40-110); Anion Gap 21 mmol/L (10-20); BUN (Urea Nitrogen) 65 mg/dL (9.8-20.1); Calc. Creatinine Clearance 21 mL/min (70-130); Calcium 7.9 mg/dL (7.8-10.44); Carbon Dioxide 29 mmol/L (23-31); Chloride 95 mmol/L (98-107); Glucose 103 mg/dL (80-115); Hemoglobin 7.7 g/dL (12.0-16.0); Mean Corpuscular HGB CONC 32.4 g/dL (32.0-36.0); Mean Corpuscular Hemoglobin 32.4 pg (27.0-31.0); Mean Platelet Volume 10.9 fL (7.4-10.4); Platelet Count 132 thou/uL (130-400); RBC Distribution Width 15.5 % (11.5-14.5); Red Blood Cell (RBC) Count 2.37 mill/uL (4.20-5.40); Sodium 142 mmol/L (136-145); White Blood Cell (WBC) Count 9.7 thou/uL (4.8-10.8)
[2020-08-05 08:35] LABS: Potassium 2.8 mmol/L (3.5-5.1)
--- NOTE | 2020-08-05 09:08 | PDOC.NEPPN ---
- Subjective Encounter Date: 08/05/20 Subjective: Seen and examined. More responsives and will more words today. Still confused. Refusing oral intake since pulling out NG tube yesterday. - Objective Vital Signs & Weight: Vital Signs (12 hours) Temp 08/05/20 07:15 97.7 F 08/05/20 04:00 99.1 F 08/04/20 23:24 99.0 F Weight Admit Weight 120 lb 9.486 oz Weight 138 lb 6 oz Most Recent Monitor Data Heart Rate from ECG 86 NIBP 118/65 NIBP BP-Mean 82 Respiration from ECG 22 SpO2 90 I&O: 08/04/20 08/05/20 08/06/20 06:59 06:59 06:59 Intake Total 2395 200 Output Total 1900 2700 Balance 495 -2500 Result Diagrams: 08/05/20 07:40 08/05/20 07:40 Nephrology ROS - Medication Medications: Active Medications Generic Name Dose Route Start Last Admin Trade Name Freq PRN Reason Stop Dose Admin Acetaminophen 650 mg 07/29/20 13:08 08/01/20 20:17 Acetaminophen 325 Mg Tab PER TUBE 650 mg Q4H PRN Administration Headache/Fever or Pain Benzocaine 0 gm 07/24/20 22:13 07/24/20 22:22 Benzocaine (Dental) 7 Gm Tube TOP 7 gm QIDPRN PRN Administration Topical Anesthetic Al Hydroxide/Mg Hydroxide 60 0 ml 07/26/20 10:31 07/26/20 13:59 ml/ Diphenhydramine HCl 150 mg SSW 10 ml / Lidocaine HCl 60 ml/ Q8H PRN Administration Nystatin 6,000,000 units Mouth Irritation Furosemide 20 mg 07/31/20 14:00 08/05/20 06:22 Furosemide 20 Mg/2 Ml Vial SLOW IVP 20 mg 0600,1400 MELINA Administration Dobutamine HCl/Dextrose 250 mls @ 4.933 mls/hr 07/28/20 13:30 08/04/20 02:56 Dobutamine 500 Mg/250 Ml IVPB 250 mls INF MELINA Administration Protocol 2.5 MCG/KG/MIN Ivabradine 5 mg 07/29/20 09:00 08/05/20 07:47 Ivabradine 5 Mg Tab PO 5 mg BID MELINA Administration Pantoprazole Sodium 40 mg 07/24/20 09:00 08/05/20 07:47 Pantoprazole 40 Mg Vial IVP 40 mg DAILY MELINA Administration Sodium Chloride 10 ml 07/25/20 09:00 08/05/20 07:47 Flush - Normal Saline 10 Ml Syringe IVF 10 ml Q12HR MELINA Administration Sodium Chloride 10 ml 07/27/20 11:11 07/31/20 05:36 Flush - Normal Saline 10 Ml Syringe IVF 10 ml PRN PRN Administration Saline Flush Spironolactone 50 mg 08/04/20 08:00 08/05/20 07:47 Spironolactone 25 Mg Tab PER TUBE 50 mg QAM- MELINA Administration - Exam General Appearance: awake alert Eye: anicteric sclera ENT: normocephalic atraumatic, moist mucosa Neck: supple, symmetric, no JVD Respiratory: no wheezes, no rales, no ronchi, normal chest expansion, no tachypnea Respiratory - other findings: fair air entry bilaterally Cardiovascular: RRR Gastrointestinal: soft, non-tender, non-distended, normal bowel sounds Gastrointestinal - other findings: LLQ colostomy noted Extremities: no edema Neurological: CN's grossly intact PSYCH: oriented to person Psychiatric - other findings: confused Nephrology Results - Labs Result Diagrams: 08/05/20 07:40 08/05/20 07:40 Lab results: WBC 9.7 thou/uL (4.8-10.8) 08/05/20 07:40 Hgb 7.7 g/dL (12.0-16.0) L 08/05/20 07:40 Hct 23.7 % (36.0-47.0) L 08/05/20 07:40 MCV 100.0 fL (78.0-98.0) H 08/05/20 07:40 Plt Count 132 thou/uL (130-400) 08/05/20 07:40 Neutrophils % 87.3 % (42.0-75.0) H 07/31/20 06:33 Band Neuts % (Manual) 31 % (5-11) H 08/01/20 15:06 ABG pH 7.48 (7.35-7.45) H 07/28/20 00:06 ABG pCO2 23.3 mmHg (35.0-45.0) L* 07/28/20 00:06 ABG pO2 63.8 mmHg (> 80.0) 07/28/20 00:06 VBG pCO2 21.5 mmHg (40.0-50.0) L* 07/23/20 20:52 VBG pO2 43.3 mmHg (35.0-45.0) 07/23/20 20:52 Sodium 142 mmol/L (136-145) 08/05/20 07:40 Potassium 2.8 mmol/L (3.5-5.1) L* 08/05/20 07:40 Chloride 95 mmol/L (98-107) L 08/05/20 07:40 Carbon Dioxide 29 mmol/L (23-31) 08/05/20 07:40 BUN 65 mg/dL (9.8-20.1) H 08/05/20 07:40 Creatinine 2.54 mg/dL (0.6-1.1) H 08/05/20 07:40 Glucose 103 mg/dL (80-115) 08/05/20 07:40 Lactic Acid 3.1 mmol/L (0.5-2.2) H 07/24/20 06:29 Calcium 7.9 mg/dL (7.8-10.44) 08/05/20 07:40 Total Bilirubin 1.0 mg/dL (0.2-1.2) 08/05/20 07:40 AST 71 U/L (5-34) H 08/05/20 07:40 ALT 120 U/L (8-55) H 08/05/20 07:40 Alkaline Phosphatase 116 U/L (40-110) H 08/05/20 07:40 Ammonia 20 umol/L (18-72) 07/27/20 04:56 Creatine Kinase 205 U/L (29-168) H 07/23/20 20:25 CK-MB (CK-2) 3.1 ng/mL (0-6.6) 07/28/20 12:03 Troponin I 0.352 ng/mL (< 0.028) H* 07/28/20 12:03 Serum Total Protein 6.0 g/dL (6.0-8.3) 08/05/20 07:40 Albumin 3.0 g/dL (3.4-4.8) L 08/05/20 07:40 Urine Ketones Negative mg/dL (Negative) 07/24/20 Unknown Urine Blood 2+ (Negative) A 07/24/20 Unknown Urine Nitrite Negative (Negative) 07/24/20 Unknown Ur Leukocyte Esterase 500 Fariha/uL (Negative) A 07/24/20 Unknown Urine RBC 7-10 HPF (0-3) A 07/24/20 Unknown Urine WBC Greater than 50 HPF (0-3) A 07/24/20 Unknown Ur Squamous Epith Cells None Seen HPF (0-3) 07/24/20 Unknown Urine Bacteria 4+ HPF (None Seen) A 07/24/20 Unknown Sodium 142 mmol/L (136-145) 08/05/20 07:40 Potassium 2.8 mmol/L (3.5-5.1) L* 08/05/20 07:40 Chloride 95 mmol/L (98-107) L 08/05/20 07:40 Carbon Dioxide 29 mmol/L (23-31) 08/05/20 07:40 Anion Gap 21 mmol/L (10-20) H 08/05/20 07:40 BUN 65 mg/dL (9.8-20.1) H 08/05/20 07:40 Creatinine 2.54 mg/dL (0.6-1.1) H 08/05/20 07:40 Glucose 103 mg/dL (80-115) 08/05/20 07:40 Calcium 7.9 mg/dL (7.8-10.44) 08/05/20 07:40 Phosphorus 3.3 mg/dL (2.3-4.7) 07/31/20 06:34 Magnesium 1.9 mg/dL (1.6-2.6) 08/02/20 03:41 Albumin 3.0 g/dL (3.4-4.8) L 08/05/20 07:40 Nephrology AP PN - Plan ASSESSMENT Hypokalemia: Due to diuretic and poor oral intake Acute renal failure: Multifactorial most likely. Hemodynamic factors related severe dehydration, cardiorenal syndrome and septic shock. Improved with IVF and ionorope with diuretic. Acute systolic and diastolic HF. Dobutamine discontinued on 08/04/20. Improved. Cardiomyopathy with EF of 10-15. etiology is unclear. Severe metabolic acidosis: Improved with alkali therapy Electrolytes derangement: Hypernatremia, Hypokalemia, Hypomagnesemia, Hypophosphatemia and hypocalcemia Severe dehydration. Resolved with IVF Acute metabolic encephalopathy: Etiology remained unclear. ? Acute illness, acidosis, CVA, WAYNE +/- uremia. Severe PCM may be contributory Colon cancer s/p colon resection and colostomy Hypoalbuminemia PLAN Replete serum potassium with IV potassium chloride. Get magnesium level and replete if indicated Recommend PEG tube placement for nutrition and administration of medications. Continue other medications Monitor intake and output as well as renal function and electrolytes.
[2020-08-05 09:17] LABS: Band 18 % (5-11); Eosinophils 1 % (0-10); Lymphocytes 1 % (21-51); MDiff Complete? YES; Monocytes 13 % (0-10); Neutrophil 65 % (42-75); Platelet Morphology Comment Appears Adequate; Polychromasia SLIGHT = 2-3 cells (100X) (0-2/hpf)
[2020-08-05] MEDS ORDERED: Potassium Chloride 40 MEQ in Premix Bag 1 BAG IVPB SCH (09:45)
[2020-08-05] MEDS: hydrALAZINE 10 MG TAB PO SCH ×2 (14:44→20:59)
[2020-08-05] MEDS ORDERED: hydrALAZINE 25 MG TAB PO SCH (15:00)
--- NOTE | 2020-08-05 18:41 | PDOC.HOSPP ---
- Subjective Encounter Date: 08/05/20 Subjective: The patient has become remarkably talkative today. Patient indicated to me that she felt okay. She denied any pains. She did tell me that she does have 2 children. Says she has a son named Oskar Villatoro who lives outside of [facility]. She says she also has a daughter. She is not sure where she lives now. Sounds like she had a falling out with her children around a divorce situation. - Objective Vital Signs & Weight: Vital Signs (12 hours) Temp Pulse 08/05/20 15:40 99.6 F 08/05/20 14:44 94 08/05/20 11:50 99.0 F 08/05/20 07:15 97.7 F Weight Admit Weight 120 lb 9.486 oz Weight 138 lb 6 oz Most Recent Monitor Data Heart Rate from ECG 98 NIBP 107/85 NIBP BP-Mean 92 Respiration from ECG 12 SpO2 80 I&O: 08/04/20 08/05/20 08/06/20 06:59 06:59 06:59 Intake Total 2395 200 Output Total 1900 2700 Balance 495 -2500 Result Diagrams: 08/05/20 07:40 08/05/20 07:40 Hospitalist ROS - Medication Medications: Active Medications Generic Name Dose Route Start Last Admin Trade Name Nader PRN Reason Stop Dose Admin Acetaminophen 650 mg 07/29/20 13:08 08/01/20 20:17 Acetaminophen 325 Mg Tab PER TUBE 650 mg Q4H PRN Administration Headache/Fever or Pain Benzocaine 0 gm 07/24/20 22:13 07/24/20 22:22 Benzocaine (Dental) 7 Gm Tube TOP 7 gm QIDPRN PRN Administration Topical Anesthetic Al Hydroxide/Mg Hydroxide 60 0 ml 07/26/20 10:31 07/26/20 13:59 ml/ Diphenhydramine HCl 150 mg SSW 10 ml / Lidocaine HCl 60 ml/ Q8H PRN Administration Nystatin 6,000,000 units Mouth Irritation Furosemide 20 mg 07/31/20 14:00 08/05/20 14:45 Furosemide 20 Mg/2 Ml Vial SLOW IVP 20 mg 0600,1400 MELINA Administration Hydralazine HCl 10 mg 08/05/20 15:00 08/05/20 14:44 Hydralazine 10 Mg Tab PO 10 mg TID MELINA Administration Ivabradine 5 mg 07/29/20 09:00 08/05/20 07:47 Ivabradine 5 Mg Tab PO 5 mg BID MELINA Administration Pantoprazole Sodium 40 mg 07/24/20 09:00 08/05/20 07:47 Pantoprazole 40 Mg Vial IVP 40 mg DAILY MELINA Administration Sodium Chloride 10 ml 07/25/20 09:00 08/05/20 07:47 Flush - Normal Saline 10 Ml Syringe IVF 10 ml Q12HR MELINA Administration Sodium Chloride 10 ml 07/27/20 11:11 07/31/20 05:36 Flush - Normal Saline 10 Ml Syringe IVF 10 ml PRN PRN Administration Saline Flush Spironolactone 50 mg 08/04/20 08:00 08/05/20 07:47 Spironolactone 25 Mg Tab PER TUBE 50 mg QAM-WM MELINA Administration - Exam General Appearance: NAD, awake alert Heart: RRR, no murmur, no gallops, no rubs, normal peripheral pulses Respiratory: CTAB, no wheezes, no rales, no ronchi, normal chest expansion, no tachypnea, normal percussion Gastrointestinal: soft, non-tender, non-distended, normal bowel sounds, no palpable masses, no hepatomegaly, no splenomegaly, no bruit Extremities: 1+ LE edema Skin: normal turgor Neurological: no focal deficits Psychiatric: normal affect Psychiatric - other findings: Much improved mentation. Coherent speech for the most part Hosp A/P (1) Acute metabolic encephalopathy Code(s): G93.41 - METABOLIC ENCEPHALOPATHY Status: Acute (2) Acute blood loss anemia Code(s): D62 - ACUTE POSTHEMORRHAGIC ANEMIA Status: Acute (3) WAYNE (acute kidney injury) Code(s): N17.9 - ACUTE KIDNEY FAILURE, UNSPECIFIED Status: Acute (4) Acute renal failure Status: Acute Qualifiers: Acute renal failure type: unspecified Qualified Code(s): N17.9 - Acute kidney failure, unspecified (5) Acute systolic HF (heart failure) Code(s): I50.21 - ACUTE SYSTOLIC (CONGESTIVE) HEART FAILURE Status: Acute (6) COVID-19 Code(s): U07.1 - COVID-19 Status: Acute (7) 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 Code(s): U07.1 - COVID-19; I43 - CARDIOMYOPATHY IN DISEASES CLASSIFIED ELSEWHERE Status: Acute (8) Elevated LFTs Code(s): R79.89 - OTHER SPECIFIED ABNORMAL FINDINGS OF BLOOD CHEMISTRY Status: Acute (9) Hypernatremia Code(s): E87.0 - HYPEROSMOLALITY AND HYPERNATREMIA Status: Acute (10) Metabolic acidosis Code(s): E87.2 - ACIDOSIS Status: Acute (11) Septic shock Code(s): A41.9 - SEPSIS, UNSPECIFIED ORGANISM; R65.21 - SEVERE SEPSIS WITH SEPTIC SHOCK Status: Acute (12) Thrombocytopenia Code(s): D69.6 - THROMBOCYTOPENIA, UNSPECIFIED Status: Resolved (13) Esophageal ulcer Code(s): K22.10 - ULCER OF ESOPHAGUS WITHOUT BLEEDING Status: Acute - Plan Septic shock: Patient experienced this at the outside facility prior to her transfer here. Specific source is not clear to me at this time. Appears to be resolved presently. Acute metabolic encephalopathy: Unclear etiology but it appears to be chronic at this point. Patient has attempted to talk a bit at times but is largely nonverbal. On 08/05/2020 the patient abruptly became much more appropriate. Relatively normal conversation, but still somewhat confused. GI bleed: Patient had ulcerations in her mouth, esophagus, stomach and small intestine. Hemoglobin is holding relatively steady. Continue PPI. Appreciate GI input. Anemia: Possibly secondary to GI bleeding. Patient has been transfused 2 units of packed red blood cells and 1 unit of platelets. Continue to monitor hemoglobin. Acute kidney injury/renal failure: Appreciate nephrology following. [place] to be partly due to significant dehydration. Managing fluids. GFR has appeared to stabilize around 17. Metabolic acidosis: Appears to be improved. Cardiomyopathy: Possibly related to Covid infection. Echo reveals an ejection fraction of 10 to 15%. She also has severely enlarged right ventricle with severe tricuspid regurgitation and dilated IVC. She also has moderate MR. On dobutamine until 08/03/2020 at which time it is being weaned by cardiology. On 08/04/2020 patient appears to still be somewhat dependent on the dobutamine. Acute transaminitis: May be secondary to right heart failure and passive congestion. No evidence of other significant pathology. CT abdomen and pelvis on 08/04/2020 revealed normal-appearing liver and a surgically absent gallbladder. Abnormal CT pelvis: Patient had some tubelike structure in the pelvis that was concerning for possible dilated loop of small bowel or possible hematoma on original CT. Repeat on 08/04/2020 appears to show some improvement. Likely was actually small bowel. Hypernatremia: Patient had significant mouth ulcers requiring the use of an NG tube for nutrition. She became hypernatremic and subsequently free water was increased. On 08/03/2020 the patient's sodium normalized. Ulcers of the mouth, esophagus, stomach, small intestine: Etiology unclear. Viral studies pending. Exam on 08/02/2020 did not reveal any persistent ulcerations. Dysphagia: On 08/03/2020 speech therapy reassess the patient. She appears to have an intact swallow although cognitively it is still challenging. Attempting to retry oral feeds. On 08/04/2020 the patient continued to have some difficulties. Unclear if the patient will be able to sustain adequate amounts of p.o. intake. Patient has pulled out no less than 8 NG tubes. We will continue to follow her p.o. intake as her encephalopathy clearly appears to be improving. Recent COVID-19 pneumonia: Appears to be stable from that perspective. Unclear if this might have been the source of her encephalopathy or cardiomyopathy. Disposition: Patient does not appear to have any family members that can be located. Continue [facility] care for now. Will discuss with cardiology and consider transition to telemetry now that she is weaning off the dobutamine. This patient will need to be placed.
[2020-08-05] MEDS: Acetaminophen 325 MG TAB PER TUBE PRN (20:57)
[2020-08-06] MEDS: Furosemide 20 MG/2 ML VIAL SLOW IVP SCH ×2 (05:10→15:07)
[2020-08-06] MEDS ORDERED: Magnesium Sulfate 4 GM in Sodium Chloride 0.9% 250 ML 250 ML IVPB SCH (07:15)
[2020-08-06] MEDS: Pantoprazole 40 MG VIAL IVP SCH (08:42)
[2020-08-06] MEDS: hydrALAZINE 10 MG TAB PO SCH ×4 (08:43→21:09)
[2020-08-06] MEDS: Spironolactone 25 MG TAB PER TUBE SCH (08:43)
[2020-08-06] MEDS: Ivabradine 5 MG TAB PO SCH ×2 (09:14→21:09)
[2020-08-06 12:36] LABS: Anion Gap 20 mmol/L (10-20); BUN (Urea Nitrogen) 58 mg/dL (9.8-20.1); Calc. Creatinine Clearance 21 mL/min (70-130); Carbon Dioxide 29 mmol/L (23-31); Chloride 97 mmol/L (98-107); Glucose 199 mg/dL (80-115); Sodium 144 mmol/L (136-145)
[2020-08-06 12:43] LABS: Potassium 2.2 mmol/L (3.5-5.1)
[2020-08-06] MEDS: Acetaminophen 325 MG TAB PER TUBE PRN (15:07)
[2020-08-06] MEDS: Potassium Chloride 40 MEQ in Premix Bag 1 BAG IVPB SCH ×2 (15:31→17:39)
--- NOTE | 2020-08-06 16:27 | PDOC.HOSPP ---
- Subjective Encounter Date: 08/06/20 Subjective: Again the patient today is very talkative. She denies any particular problems. Says she actually feels quite well. She remains confused and believes we are in [place]. - Objective Vital Signs & Weight: Vital Signs (12 hours) Temp Pulse Resp BP Pulse Ox 08/06/20 15:07 91 08/06/20 11:54 99.1 F 91 18 123/74 97 08/06/20 09:16 92 08/06/20 08:43 92 08/06/20 08:00 99 F 92 18 127/71 97 Weight Admit Weight 120 lb 9.486 oz Weight 138 lb 6 oz Most Recent Monitor Data Heart Rate from ECG 81 NIBP 112/48 NIBP BP-Mean 69 Respiration from ECG 22 SpO2 97 I&O: 08/05/20 08/06/20 08/07/20 06:59 06:59 06:59 Intake Total 200 270 300 Output Total 2700 1250 Balance -2500 -980 300 Result Diagrams: 08/05/20 07:40 08/06/20 11:27 Hospitalist ROS - Medication Medications: Active Medications Generic Name Dose Route Start Last Admin Trade Name Freq PRN Reason Stop Dose Admin Acetaminophen 650 mg 07/29/20 13:08 08/06/20 15:07 Acetaminophen 325 Mg Tab PER TUBE 650 mg Q4H PRN Administration Headache/Fever or Pain Benzocaine 0 gm 07/24/20 22:13 07/24/20 22:22 Benzocaine (Dental) 7 Gm Tube TOP 7 gm QIDPRN PRN Administration Topical Anesthetic Al Hydroxide/Mg Hydroxide 60 0 ml 07/26/20 10:31 07/26/20 13:59 ml/ Diphenhydramine HCl 150 mg SSW 10 ml / Lidocaine HCl 60 ml/ Q8H PRN Administration Nystatin 6,000,000 units Mouth Irritation Furosemide 20 mg 07/31/20 14:00 08/06/20 15:07 Furosemide 20 Mg/2 Ml Vial SLOW IVP 20 mg 0600,1400 MELINA Administration Hydralazine HCl 25 mg 08/06/20 09:00 08/06/20 15:07 Hydralazine 10 Mg Tab PO 25 mg TID MELINA Administration Potassium Chloride 40 meq/ 100 mls @ 25 mls/hr 08/06/20 14:00 01/06/21 15:31 Device IVPB 08/06/20 21:59 100 mls Q4H MELINA Administration Ivabradine 5 mg 07/29/20 09:00 08/06/20 09:14 Ivabradine 5 Mg Tab PO 5 mg BID MELINA Administration Pantoprazole Sodium 40 mg 07/24/20 09:00 08/06/20 08:42 Pantoprazole 40 Mg Vial IVP 40 mg DAILY MELINA Administration Sodium Chloride 10 ml 07/25/20 09:00 08/06/20 08:37 Flush - Normal Saline 10 Ml Syringe IVF 10 ml Q12HR MELINA Administration Sodium Chloride 10 ml 07/27/20 11:11 07/31/20 05:36 Flush - Normal Saline 10 Ml Syringe IVF 10 ml PRN PRN Administration Saline Flush Spironolactone 50 mg 08/04/20 08:00 08/06/20 08:43 Spironolactone 25 Mg Tab PER TUBE 50 mg QAM-WM MELINA Administration - Exam General Appearance: NAD, awake alert Neck: supple, symmetric, no JVD, no thyromegaly, no lymphadenopathy, no carotid bruit Heart: RRR, no murmur, no gallops, no rubs, normal peripheral pulses Respiratory: CTAB, no wheezes, no rales, no ronchi, normal chest expansion, no tachypnea, normal percussion Gastrointestinal: soft, non-tender, non-distended, normal bowel sounds, no palpable masses, no hepatomegaly Gastrointestinal - other findings: Colostomy Extremities: no cyanosis, no clubbing, no edema Skin: normal turgor Musculoskeletal: normal tone, normal strength, no muscle wasting Psychiatric: normal affect, not oriented Hosp A/P (1) Acute metabolic encephalopathy Code(s): G93.41 - METABOLIC ENCEPHALOPATHY Status: Acute (2) Acute blood loss anemia Code(s): D62 - ACUTE POSTHEMORRHAGIC ANEMIA Status: Acute (3) WAYNE (acute kidney injury) Code(s): N17.9 - ACUTE KIDNEY FAILURE, UNSPECIFIED Status: Acute (4) Acute renal failure Status: Acute Qualifiers: Acute renal failure type: unspecified Qualified Code(s): N17.9 - Acute kidney failure, unspecified (5) Acute systolic HF (heart failure) Code(s): I50.21 - ACUTE SYSTOLIC (CONGESTIVE) HEART FAILURE Status: Acute (6) COVID-19 Code(s): U07.1 - COVID-19 Status: Acute (7) 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 Code(s): U07.1 - COVID-19; I43 - CARDIOMYOPATHY IN DISEASES CLASSIFIED ELSEWHERE Status: Acute (8) Elevated LFTs Code(s): R79.89 - OTHER SPECIFIED ABNORMAL FINDINGS OF BLOOD CHEMISTRY Status: Acute (9) Hypernatremia Code(s): E87.0 - HYPEROSMOLALITY AND HYPERNATREMIA Status: Acute (10) Metabolic acidosis Code(s): E87.2 - ACIDOSIS Status: Acute (11) Septic shock Code(s): A41.9 - SEPSIS, UNSPECIFIED ORGANISM; R65.21 - SEVERE SEPSIS WITH SEPTIC SHOCK Status: Acute (12) Thrombocytopenia Code(s): D69.6 - THROMBOCYTOPENIA, UNSPECIFIED Status: Resolved (13) Esophageal ulcer Code(s): K22.10 - ULCER OF ESOPHAGUS WITHOUT BLEEDING Status: Acute - Plan Septic shock: Patient experienced this at the outside facility prior to her transfer here. Specific source is not clear to me at this time. Appears to be resolved presently. It is possible the patient just had some profound dehydration. Acute metabolic encephalopathy: Unclear etiology but it appears to be chronic at this point. Given the severe uremia its likely that she had uremic encephalopathy. Patient has attempted to talk a bit at times but is largely nonverbal. On 08/05/2020 the patient abruptly became much more appropriate. Relatively normal conversation, but still somewhat confused. This coincides with her uremia improving. GI bleed: Patient had ulcerations in her mouth, esophagus, stomach and small intestine. She underwent endoscopy which revealed some ulcerations of the mouth esophagus stomach and small intestine. Biopsies were unrevealing. Hemoglobin is holding relatively steady. Continue PPI. Appreciate GI input. Could have potentially been contributing to some of the uremia. Anemia: Possibly secondary to GI bleeding. Patient has been transfused 2 units of packed red blood cells and 1 unit of platelets. Continue to monitor hemoglobin. Acute kidney injury/renal failure: Appreciate nephrology following. [place] to be partly due to significant dehydration. Managing fluids. GFR has appeared to stabilize around 19. Initially had very extreme uremia. Patient initially had a BUN of 175. Has subsequently improved over time with fluids and management. Metabolic acidosis: Appears to be improved. Secondary to severe uremia and kidney failure. Cardiomyopathy: Possibly related to Covid infection. Echo reveals an ejection fraction of 10 to 15%. She also has severely enlarged right ventricle with severe tricuspid regurgitation and dilated IVC. She also has moderate MR. On dobutamine until 08/03/2020 at which time it was weaned off. Acute transaminitis: May be secondary to right heart failure and passive congestion. No evidence of other significant pathology. CT abdomen and pelvis on 08/04/2020 revealed normal-appearing liver and a surgically absent gallbladder. Abnormal CT pelvis: Patient had some tubelike structure in the pelvis that was concerning for pos sible dilated loop of small bowel or possible hematoma on original CT. Repeat on 08/04/2020 appears to show some improvement. Likely was actually small bowel. Hypernatremia: Patient had significant mouth ulcers requiring the use of an NG tube for nutrition. She became hypernatremic and subsequently free water was increased. On 08/03/2020 the patient's sodium normalized. Ulcers of the mouth, esophagus, stomach, small intestine: Etiology unclear. Viral studies negative. Exam on 08/02/2020 did not reveal any persistent ulcerations. Patient did have some low complement levels but her autoimmune screening was otherwise negative. Dysphagia: Largely related to her encephalopathy. On 08/03/2020 speech therapy reassess the patient. On 08/04/2020 the patient continued to have some difficulties. Patient has pulled out no less than 8 NG tubes. Continue to monitor as her encephalopathy improved. Suspect that she would likely pull out a PEG tube if that was attempted. Recent COVID-19 pneumonia: Appears to be stable from that perspective. Unclear what if any role played in her presentation. Did not appear that she had any specific symptoms related to this. Disposition: Patient does not appear to have any family members that can be located. If her information is correct she has had a falling out with her children over a divorce situation and she is not in a relationship with her children at this time. This patient will need to be placed.
--- NOTE | 2020-08-06 18:05 | PRG ---
DATE OF SERVICE: 08/06/2020 OBJECTIVE: VITAL SIGNS: Patient noted with the following vital signs; afebrile, temperature 99.1, pulse 91 to 113, respiratory rate of 18, O2 saturations are 95% with blood pressure 146/74. HEENT: Unremarkable. CARDIOVASCULAR SYSTEM: First and second heart sounds were heard. Tachycardic. RESPIRATORY SYSTEM: Clear to auscultation. DIGESTIVE SYSTEM: Benign with positive bowel sounds. EXTREMITIES: No peripheral edema. SKIN: No new gross rash. LYMPHATICS: No peripheral lymphadenopathy. LABORATORY INVESTIGATION: Showed a potassium of 2.2, creatinine 2.5 with BUN of 58. CBC showed a hemoglobin of 7.7. IMPRESSION: 1. Advanced systolic heart failure/cardiomyopathy. 2. Severe hypokalemia. 3. Acute on chronic kidney disease, much improved. Likely in the context of dehydration and cardiorenal syndrome. 4. Coronavirus disease pneumonitis. 5. Tachyarrhythmia. PLAN: 1. Given the fact that this seems patient's creatinine has plateaued around 2.5, this may be the new baseline of this patient. Therefore, may be able to start this patient on a low-dose angiotensin-converting enzyme inhibitor and discontinue hydralazine. 2. Gentle diuresis. 3. Replete the potassium. Patient already getting some magnesium supplementation. 4. Further management will be dependent on the clinical course. I do agree with adding beta-fani to this patient's regimen to address the tachyarrhythmia, which could be a combination of though patient may benefit more from carvedilol as opposed to p.o. metoprolol. Job ID: [id number]
[2020-08-06] MEDS ORDERED: Metoprolol Tartrate 25 MG TAB PO SCH (21:00)
[2020-08-07] MEDS: Furosemide 20 MG/2 ML VIAL SLOW IVP SCH (05:22)
[2020-08-07 07:22] LABS: Anion Gap 22 mmol/L (10-20); BUN (Urea Nitrogen) 56 mg/dL (9.8-20.1); Calc. Creatinine Clearance 19 mL/min (70-130); Calcium 8.5 mg/dL (7.8-10.44); Carbon Dioxide 26 mmol/L (23-31); Chloride 102 mmol/L (98-107); Glucose 146 mg/dL (80-115); Sodium 147 mmol/L (136-145)
[2020-08-07 07:27] LABS: Potassium 2.9 mmol/L (3.5-5.1)
--- NOTE | 2020-08-07 07:50 | PDOC.PALFU ---
Palliative Care Follow-up Note Discussed if OOHDNAR needs to be signed for two physicians secondary to no family/mpoa. Discussed with both Dr Prince and Dr Nugent. Patient family friend Kennedy provided guidance on attempting to secure [employer]PO[employer], provided information for "[facility] [employer]". Secondary to confusion, declining functional status patient will require kj barroso CM to assist. Palliative care will sign off, if we can assist in the future please re consult our team
[2020-08-07] MEDS ORDERED: Spironolactone 25 MG TAB PO SCH (08:30)
[2020-08-07] MEDS: Potassium Chloride 40 MEQ in Sodium Chloride 0.9% 250 ML 250 ML IVPB SCH ×2 (09:34→15:49)
[2020-08-07] MEDS: Ivabradine 5 MG TAB PO SCH ×2 (09:39→21:17)
[2020-08-07] MEDS: hydrALAZINE 10 MG TAB PO SCH ×3 (09:39→21:17)
[2020-08-07] MEDS: Pantoprazole 40 MG VIAL IVP SCH (09:40)
[2020-08-07] MEDS: Spironolactone 25 MG TAB PER TUBE SCH (09:47)
--- NOTE | 2020-08-07 10:53 | CT ---
EXAM: CT Brain WO Con PROVIDED CLINICAL HISTORY: Subdural hematoma COMPARISON: MRI brain 08/17/2020 9:10 AM FINDINGS: The ventricular system appears normal in size and morphology. There are bilateral hypodense extra-axi al fluid collections about the cerebral convexities, left greater than right. There is no shift of the midline structures. The basilar cisterns appear patent. There is no evidence for acute intracrani al hemorrhage. The extracranial soft tissues and osseous structures demonstrate an unremarkable CT appearance. IMPRESSION: Hypodense extra-axial cerebral convexity fluid collections, left greater than right, compatible with chronic subdural hematoma/subdural hygromas. No evidence for acute intracranial hemorrhage or mass effect.
--- NOTE | 2020-08-07 11:33 | MRI ---
BRAIN MRI WITHOUT CONTRAST: DATE: 08/07/2020. COMPARISON: None. HISTORY: Difficulty breathing, encephalopathy. TECHNIQUE: Multiplanar, multisequence MR imaging of the brain is provided without contrast. FINDINGS: This study is markedly limited secondary to patient motion artifact. There are 2-3 punctate foci of increased signal intensity on the diffusion weighted imaging within the right frontal lobe near the v ertex suggesting punctate areas of acute infarction. The axial gradient echo imaging demonstrates no evidence for intracranial hemorrhage. The axial FLAIR imaging is quite limited secondary to motion. There appears to be a subdural fluid collection on the right with FLAIR iso-hyperintensity which is seen at the axial level of the centrum semiovale through the axial level of the sylvian fissure. Th ere are linear areas of blooming artifact within this region on the gradient echo imaging. This sugg ests an age-indeterminate right subdural hematoma measuring up to approximately 5 mm in greatest mary sverse dimension. There is prominence of the subdural space on the left as well with increased T2 and decreased FLAIR s ignal which could represent prominence of the subdural space on the basis of volume loss or could rep resent a small chronic left subdural hematoma. Imaged paranasal sinuses and mastoid air cells appear well aerated. Subdural fluid collection in the left frontal region measures up to 6 mm in transvers e dimension. IMPRESSION: Findings suggesting punctate acute infarctions near the vertex within the right frontal lobe. Age-in determinate bilateral subdural hematomas are suspected, for which a head CT is advised. Results were relayed to Dr. Prince via Jarv[facility] at 9:30 a.m. 08/07/2020. CODE CR POS: [facility]
--- NOTE | 2020-08-07 14:14 | PDOC.HOSPP ---
- Subjective Encounter Date: 08/07/20 Subjective: Patient is again talkative today. - Objective Vital Signs & Weight: Vital Signs (12 hours) Temp Pulse Resp BP Pulse Ox 08/07/20 11:22 98.2 F 92 16 139/80 92 L 08/07/20 09:39 91 08/07/20 07:55 97.6 F 91 16 155/92 H 92 L 08/07/20 07:50 92 L 08/07/20 04:00 98.2 F 98 16 161/99 H 92 L Weight Admit Weight 120 lb 9.486 oz Weight 125 lb 11.2 oz Most Recent Monitor Data Heart Rate from ECG 81 NIBP 112/48 NIBP BP-Mean 69 Respiration from ECG 22 SpO2 97 I&O: 08/06/20 08/07/20 08/08/20 06:59 06:59 06:59 Intake Total 270 780 Output Total 1250 1050 20 Balance -980 -270 -20 Result Diagrams: 08/05/20 07:40 08/07/20 06:44 Hospitalist ROS - Medication Medications: Active Medications Generic Name Dose Route Start Last Admin Trade Name Freq PRN Reason Stop Dose Admin Acetaminophen 650 mg 07/29/20 13:08 08/06/20 15:07 Acetaminophen 325 Mg Tab PER TUBE 650 mg Q4H PRN Administration Headache/Fever or Pain Benzocaine 0 gm 07/24/20 22:13 07/24/20 22:22 Benzocaine (Dental) 7 Gm Tube TOP 7 gm QIDPRN PRN Administration Topical Anesthetic Al Hydroxide/Mg Hydroxide 60 0 ml 07/26/20 10:31 07/26/20 13:59 ml/ Diphenhydramine HCl 150 mg SSW 10 ml / Lidocaine HCl 60 ml/ Q8H PRN Administration Nystatin 6,000,000 units Mouth Irritation Hydralazine HCl 25 mg 08/06/20 09:00 08/07/20 09:39 Hydralazine 10 Mg Tab PO 25 mg TID MELINA Administration Potassium Chloride 40 meq/ 270 mls @ 67.5 mls/hr 08/07/20 08:30 08/07/20 09:34 Sodium Chloride IVPB 08/07/20 16:29 270 mls Q4H MELINA Administration Ivabradine 5 mg 07/29/20 09:00 08/07/20 09:39 Ivabradine 5 Mg Tab PO 5 mg BID MELINA Administration Pantoprazole Sodium 40 mg 07/24/20 09:00 08/07/20 09:40 Pantoprazole 40 Mg Vial IVP 40 mg DAILY MELINA Administration Sodium Chloride 10 ml 07/25/20 09:00 08/07/20 09:34 Flush - Normal Saline 10 Ml Syringe IVF 10 ml Q12HR MELINA Administration Sodium Chloride 10 ml 07/27/20 11:11 07/31/20 05:36 Flush - Normal Saline 10 Ml Syringe IVF 10 ml PRN PRN Administration Saline Flush - Exam General Appearance: NAD, awake alert Heart: RRR, no murmur, no gallops, no rubs, normal peripheral pulses Respiratory: CTAB, no wheezes, no rales, no ronchi, normal chest expansion, no tachypnea Respiratory - other findings: Diminished at bases Gastrointestinal: soft, non-tender, non-distended, normal bowel sounds, no palpable masses, no hepatomegaly, no splenomegaly, no bruit Extremities: no cyanosis, no clubbing, no edema Skin: normal turgor Neurological: no focal deficits Musculoskeletal: generalized weakness (Significant) Psychiatric: normal affect, normal behavior, oriented to person (Patient appears to actually comprehend fairly well. I believe she may have some expressive defects but is actually fairly cognitively clear.) Hosp A/P (1) Acute metabolic encephalopathy Code(s): G93.41 - METABOLIC ENCEPHALOPATHY Status: Acute (2) Acute blood loss anemia Code(s): D62 - ACUTE POSTHEMORRHAGIC ANEMIA Status: Acute (3) WAYNE (acute kidney injury) Code(s): N17.9 - ACUTE KIDNEY FAILURE, UNSPECIFIED Status: Acute (4) Acute renal failure Status: Acute Qualifiers: Acute renal failure type: unspecified Qualified Code(s): N17.9 - Acute kidney failure, unspecified (5) Acute systolic HF (heart failure) Code(s): I50.21 - ACUTE SYSTOLIC (CONGESTIVE) HEART FAILURE Status: Acute (6) COVID-19 Code(s): U07.1 - COVID-19 Status: Acute (7) 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 Code(s): U07.1 - COVID-19; I43 - CARDIOMYOPATHY IN DISEASES CLASSIFIED ELSEWHERE Status: Acute (8) Elevated LFTs Code(s): R79.89 - OTHER SPECIFIED ABNORMAL FINDINGS OF BLOOD CHEMISTRY Status: Acute (9) Hypernatremia Code(s): E87.0 - HYPEROSMOLALITY AND HYPERNATREMIA Status: Acute (10) Metabolic acidosis Code(s): E87.2 - ACIDOSIS Status: Acute (11) Septic shock Code(s): A41.9 - SEPSIS, UNSPECIFIED ORGANISM; R65.21 - SEVERE SEPSIS WITH SEPTIC SHOCK Status: Acute (12) Thrombocytopenia Code(s): D69.6 - THROMBOCYTOPENIA, UNSPECIFIED Status: Resolved (13) Esophageal ulcer Code(s): K22.10 - ULCER OF ESOPHAGUS WITHOUT BLEEDING Status: Acute (14) Acute CVA (cerebrovascular accident) Code(s): I63.9 - CEREBRAL INFARCTION, UNSPECIFIED Status: Acute (15) Chronic subdural hematoma Code(s): I62.03 - NONTRAUMATIC CHRONIC SUBDURAL HEMORRHAGE Status: Acute - Plan Septic shock: Patient experienced this at the outside facility prior to her transfer here. Specific source is not clear to me at this time. Appears to be resolved presently. It is possible the patient just had some profound dehydration. No specific source of infection was identified. She certainly did have evidence of significant dehydration with prerenal azotemia and acute renal failure. Acute metabolic encephalopathy: Unclear etiology. Given the severe uremia its likely that she had uremic encephalopathy. She also has a new stroke which was diagnosed on 08/07/2020 with MRI and chronic subdural hematomas. Patient was completely nonverbal until around 08/04/2020. On 08/05/2020 the patient abruptly became much more appropriate. Relatively normal conversation, but still somewhat confused. This coincides with her uremia improving. She appeared to have improved cognitive function by 08/07/2020. GI bleed: Patient had ulcerations in her mouth, esophagus, stomach and small intestine. She underwent endoscopy which revealed some ulcerations of the mouth esophagus stomach and small intestine. Biopsies were unrevealing. Hemoglobin subsequently held relatively steady. Continued PPI. Appreciate GI input. Could have potentially been contributing to some of the uremia. Anemia: Possibly secondary to GI bleeding. Patient has been transfused 2 units of packed red blood cells and 1 unit of platelets. Continued to monitor hemoglobin. Acute kidney injury/renal failure: Appreciate nephrology following. Mchenry to be partly due to significant dehydration. Managing fluids. GFR has appeared to stabilize around 19. Initially had very extreme uremia. Patient initially had a BUN of 175. Has subsequently improved over time with fluids and management. Metabolic acidosis: Appears to be improved. Secondary to severe uremia and kidney failure. Cardiomyopathy: Possibly related to Covid infection. Echo reveals an ejection fraction of 10 to 15%. She also has severely enlarged right ventricle with severe tricuspid regurgitation and dilated IVC. She also has moderate MR. On dobutamine until 08/03/2020 at which time it was weaned off. The patient was on fairly high dose of metoprolol prior to admission. Once her blood pressure stabilized that she was started back on carvedilol. Continue to titrate the carvedilol and consider MONIK inhibitor/ARB as her renal function has stabilized. Continuing hydralazine for afterload reduction. Acute transaminitis: May be secondary to right heart failure and passive congestion. No evidence of other significant pathology. CT abdomen and pelvis on 08/04/2020 revealed normal-appearing liver and a surgically absent gallbladder. Abnormal CT pelvis: Patient had some tubelike structure in the pelvis that was concerning for possible dilated loop of small bowel or possible hematoma on original CT. Repeat on 08/04/2020 appears to show some improvement. Likely was actually small bowel. Hypernatremia: Patient had significant mouth ulcers requiring the use of an NG tube for nutrition. She became hypernatremic and subsequently free water was increased. On 08/03/2020 the patient's sodium normalized. Ulcers of the mouth, esophagus, stomach, small intestine: Etiology unclear. Viral studies negative. Could possibly have been related to the severe uremia. Exam on 08/02/2020 did not reveal any persistent ulcerations. Patient did have some low complement levels but her autoimmune screening was otherwise negative. Dysphagia: Largely related to her encephalopathy although evidence for stroke and subdural hematoma on 08/07/2020 certainly could be responsible as well.. On 08/03/2020 speech therapy reassess the patient. On 08/04/2020 the patient continued to have some difficulties. Patient has pulled out no less than 8 NG tubes. Continue to monitor as her encephalopathy improved. Suspect that she would likely pull out a PEG tube if that was attempted. On 08/07/2020 patient still having relatively modest p.o. intake. Consult dietary for calorie count. Recent COVID-19 pneumonia: Appears to be stable from that perspective. Unclear what if any role played in her presentation. Did not appear that she had any specific symptoms related to this. Hypokalemia: Patient has been experiencing significant hypokalemia for several days on 08/07. She has received repletion through the electrolyte protocol but continues to remain hypokalemic. Her Aldactone dose is increased to 100 mg p.o. daily. Continue with IV repletion. Acute CVA: MRI of the head on 08/07/2020 revealed acute CVA. Patient did not have any new neurologic findings. In fact she seems to be improving. The MRI was obtained on this date due to the fact that she was finally at a point we felt she was stable and could be appropriately still long enough to get the test performed. We will consult neurology. Resume statin. Avoid significant aspirin or anticoagulation due to the recent GI bleed with GI tract ulcerations, and the fact that she has the chronic subdural hematomas. Neurochecks every 4. Patient already has therapy involvement. We will add OT. Chronic subdural hematoma: Given the more chronic nature of these findings per radiology, will not likely need any intervention at this time. She may need repeat CT scan in a few weeks to determine stability. Disposition: Patient does not appear to have any family members that can be located. If her information is correct she has had a falling out with her children over a divorce situation and she is not in a relationship with her children at this time. This patient will likely need to be placed. On 08/07/2020 the patient appeared to be more cognitively intact. Palliative care pharmacy services representative talk to the patient. The patient was able to define a medical power of state attorney and understand what that meant. She was able to identify a friend named Constance as that person. Constance was contacted and and was willing to serve as the MPOA. Initially the plan was to pursue two-physician DNR status, however the patient has cognitively improved to the point where she will likely be able to participate in that decision process herself.
[2020-08-07] MEDS: Carvedilol 6.25 MG TAB PO SCH (15:54)
[2020-08-07] MEDS ORDERED: Carvedilol 3.125 MG TAB PO SCH (17:00)
--- NOTE | 2020-08-07 17:26 | CON ---
NEUROLOGY CONSULTATION DATE OF CONSULTATION: 08/07/2020 REASON FOR CONSULTATION: Stroke. HISTORY OF PRESENT ILLNESS: Ms. Villatoro is a 69-year-old female with medical history significant for recent COVID pneumonia, chronic subdural hematoma, cardiomyopathy, has been admitted to the hospital for the treatment of septic shock, acute metabolic encephalopathy, gastrointestinal bleed, anemia, hyponatremia, ulcers of the mouth, stomach and small intestine and hypokalemia, consulted by Neurology for acute CVA. History is obtained from review of the medical records since the patient is a poor historian and is unable to provide the history. Per records, she has difficulty breathing and was encephalopathic, so MRI of the brain was ordered which showed punctate acute infarction near the vertex within the right frontal lobe and age indeterminate bilateral subdural hematoma. Head CT was recommended to further evaluate the subdural hematoma. Head CT was performed also today which showed hypodense extra-axial cerebral convexity fluid collections, left greater than right, compatible with chronic subdural hematoma/subdural hygromas. No evidence of acute intracranial effect. The patient knows the name only. She does have expressive aphasia and emotional lability and is unable to provide much of the history. REVIEW OF SYSTEMS: Unobtainable due to the patient's mental status. ALLERGIES: NO KNOWN DRUG ALLERGIES. HOME MEDICATIONS: 1. Nexium. 2. Cetirizine. 3. Losartan. 4. Hydrochlorothiazide. 5. Montelukast sodium. 6. Metoprolol succinate. 7. Atorvastatin. 8. Calcium. 9. Sumatriptan succinate. PAST MEDICAL HISTORY: Colon cancer. PAST SURGICAL HISTORY: Colon resection. FAMILY HISTORY: No significant family history. SOCIAL HISTORY: The patient was living with a friend. Vital Signs & Weight: Vital Signs (12 hours) Temp Pulse Resp BP Pulse Ox 08/07/20 11:22 98.2 F 92 16 139/80 92 L 08/07/20 09:39 91 08/07/20 07:55 97.6 F 91 16 155/92 H 92 L 08/07/20 07:50 92 L 08/07/20 04:00 98.2 F 98 16 161/99 H 92 L Weight Admit Weight 120 lb 9.486 oz Weight 125 lb 11.2 oz Most Recent Monitor Data Heart Rate from ECG 81 NIBP 112/48 NIBP BP-Mean 69 Respiration from ECG 22 SpO2 97 I&O: 08/06/20 08/07/20 08/08/20 06:59 06:59 06:59 Intake Total 270 780 Output Total 5098 1050 20 Balance -980 -270 -20 Active Medications Generic Name Dose Route Start Last Admin Trade Name Freq PRN Reason Stop Dose Admin Acetaminophen 650 mg 07/29/20 13:08 08/06/20 15:07 Acetaminophen 325 Mg Tab PER TUBE 650 mg Q4H PRN Administration Headache/Fever or Pain Benzocaine 0 gm 07/24/20 22:13 07/24/20 22:22 Benzocaine (Dental) 7 Gm Tube TOP 7 gm QIDPRN PRN Administration Topical Anesthetic Al Hydroxide/Mg Hydroxide 60 0 ml 07/26/20 10:31 07/26/20 13:59 ml/ Diphenhydramine HCl 150 mg SSW 10 ml / Lidocaine HCl 60 ml/ Q8H PRN Administration Nystatin 6,000,000 units Mouth Irritation Hydralazine HCl 25 mg 08/06/20 09:00 08/07/20 09:39 Hydralazine 10 Mg Tab PO 25 mg TID MELINA Administration Potassium Chloride 40 meq/ 270 mls @ 67.5 mls/hr 08/07/20 08:30 08/07/20 09:34 Sodium Chloride IVPB 08/07/20 16:29 270 mls Q4H MELINA Administration Ivabradine 5 mg 07/29/20 09:00 08/07/20 09:39 Ivabradine 5 Mg Tab PO 5 mg BID MELINA Administration Pantoprazole Sodium 40 mg 07/24/20 09:00 08/07/20 09:40 Pantoprazole 40 Mg Vial IVP 40 mg DAILY MELINA Administration Sodium Chloride 10 ml 07/25/20 09:00 08/07/20 09:34 Flush - Normal Saline 10 Ml Syringe IVF 10 ml Q12HR MELINA Administration Sodium Chloride 10 ml 07/27/20 11:11 07/31/20 05:36 Flush - Normal Saline 10 Ml Syringe IVF 10 ml PRN PRN Administration Saline Flush PHYSICAL EXAMINATION: General Appearance: NAD, awake alert Heart: RRR, no murmur, no gallops, no rubs, normal peripheral pulses Respiratory: CTAB, no wheezes, no rales, no ronchi, normal chest expansion, no tachypnea Respiratory - other findings: Diminished at bases Gastrointestinal: soft, non-tender, non-distended, normal bowel sounds, no palpable masses, no hepatomegaly, no splenomegaly, no bruit Extremities: no cyanosis, no clubbing, no edema Skin: normal turgor Neurological: Mental status; the patient is alert and oriented to person only. She is emotionally labile and does have expressive aphasia. Cranial nerves 2 through 12 intact. Muscle, tone and bulk are normal. Moving all 4 extremities equally and symmetrically. Sensory, withdraws to nailbed pressure bilaterally. Cerebellar, did not cooperate with the testing. Gait deferred due to the patient's safety reason. DATA REVIEWED: I reviewed the labs and MRI of the brain, which was consistent with acute infarction. ASSESSMENT AND PLAN: (1) Acute metabolic encephalopathy Code(s): G93.41 - METABOLIC ENCEPHALOPATHY Status: Acute (2) Acute blood loss anemia Code(s): D62 - ACUTE POSTHEMORRHAGIC ANEMIA Status: Acute (3) WAYNE (acute kidney injury) Code(s): N17.9 - ACUTE KIDNEY FAILURE, UNSPECIFIED Status: Acute (4) Acute renal failure Status: Acute Qualifiers: Acute renal failure type: unspecified Qualified Code(s): N17.9 - Acute kidney failure, unspecified (5) Acute systolic HF (heart failure) Code(s): I50.21 - ACUTE SYSTOLIC (CONGESTIVE) HEART FAILURE Status: Acute (6) COVID-19 Code(s): U07.1 - COVID-19 Status: Acute (7) 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 Code(s): U07.1 - COVID-19; I43 - CARDIOMYOPATHY IN DISEASES CLASSIFIED ELSEWHERE Status: Acute (8) Elevated LFTs Code(s): R79.89 - OTHER SPECIFIED ABNORMAL FINDINGS OF BLOOD CHEMISTRY Status: Acute (9) Hypernatremia Code(s): E87.0 - HYPEROSMOLALITY AND HYPERNATREMIA Status: Acute (10) Metabolic acidosis Code(s): E87.2 - ACIDOSIS Status: Acute (11) Septic shock Code(s): A41.9 - SEPSIS, UNSPECIFIED ORGANISM; R65.21 - SEVERE SEPSIS WITH SEPTIC SHOCK Status: Acute (12) Thrombocytopenia Code(s): D69.6 - THROMBOCYTOPENIA, UNSPECIFIED Status: Resolved (13) Esophageal ulcer Code(s): K22.10 - ULCER OF ESOPHAGUS WITHOUT BLEEDING Status: Acute (14) Acute CVA (cerebrovascular accident) Code(s): I63.9 - CEREBRAL INFARCTION, UNSPECIFIED Status: Acute (15) Chronic subdural hematoma Code(s): I62.03 - NONTRAUMATIC CHRONIC SUBDURAL HEMORRHAGE Status: Acute Ms. Sanjuanita Villatoro is a 69-year-old female, who was transferred from [facility] [place] on 07/23/2020 with septic shock of unclear etiology. She was also positive for COVID. The patient has been treated in the hospital for multiple problems including septic shock, acute kidney injury, NSTEMI, and severe hypokalemia. She became encephalopathic today, so MRI of the brain was done, which showed acute infarctions in the right frontal lobe and subdural hematomas. Follow up head CT did show there are chronic subdural hematomas. Telemetry to rule out arrhythmias. 2D echocardiogram from 07/28/2020 reviewed, which shows ejection fraction of 10% to 15%. Cardiology is on board. Carotid Dopplers to rule out significant stenosis. Neuro checks every 4 hours. PT/OT/Speech. EEG to evaluate for confusion and to rule out cortical irritability. Continue medical management per primary team, Cardiology and Nephrology. Start aspirin and high-intensity statin for secondary stroke prevention. Permissive control of blood pressure at this time. Strict control of blood glucose. DVT prophylaxis, GI prophylaxis. Thank you for the consult. Job ID: [id number] MTDD
[2020-08-07] MEDS: Atorvastatin Calcium 40 MG TAB PO SCH (21:17)
[2020-08-08 05:44] LABS: Anion Gap 21 mmol/L (10-20); BUN (Urea Nitrogen) 58 mg/dL (9.8-20.1); Calc. Creatinine Clearance 20 mL/min (70-130); Calcium 8.7 mg/dL (7.8-10.44); Carbon Dioxide 26 mmol/L (23-31); Chloride 108 mmol/L (98-107); Glucose 161 mg/dL (80-115); Sodium 151 mmol/L (136-145)
[2020-08-08 06:15] LABS: Band 20 % (5-11); Hemoglobin 8.4 g/dL (12.0-16.0); Lymphocytes 3 % (21-51); MDiff Complete? YES; Mean Corpuscular HGB CONC 31.3 g/dL (32.0-36.0); Mean Corpuscular Hemoglobin 32.3 pg (27.0-31.0); Mean Platelet Volume 10.9 fL (7.4-10.4); Monocytes 5 % (0-10); Neutrophil 72 % (42-75); Platelet Count 229 thou/uL (130-400); Platelet Morphology Comment Appears Adequate; RBC Distribution Width 16.4 % (11.5-14.5); White Blood Cell (WBC) Count 17.1 thou/uL (4.8-10.8)
--- NOTE | 2020-08-08 09:31 | PDOC.EEG ---
Neurology EEG Report - Report Report: This EEG was performed using 24 channel [employer] video EEG machine with 24 disc yeni ctrodes. This was an extended 2 hours 7 minutes of inpatient video EEG recording. Digital analysis of the EEG was done for spike and seizure detection which revealed no abnormalities. Background: There is a nonsustained posterior background rhythm of 8-8.5 Hz. Hyperventilation: Not performed. Photic Stimulation: No significant response. Sleep: No stage change is observed. EEG Diagnosis: Intermittent irregular theta activity seen during the reording. Nonsustained P osterior background rhythm. Clinical Interpretation: This EEG is consistent with mild generalized nonspecific cerebral dysfunction.
[2020-08-08] MEDS: Ivabradine 5 MG TAB PO SCH ×2 (09:57→20:15)
[2020-08-08] MEDS: hydrALAZINE 10 MG TAB PO SCH ×3 (09:57→20:16)
[2020-08-08] MEDS: Pantoprazole 40 MG VIAL IVP SCH (09:57)
[2020-08-08] MEDS: Spironolactone 25 MG TAB PO SCH (09:59)
[2020-08-08] MEDS: Carvedilol 6.25 MG TAB PO SCH ×2 (09:59→18:40)
[2020-08-08] MEDS: Furosemide 40 MG TAB PO SCH (09:59)
[2020-08-08] MEDS: Acetaminophen 325 MG TAB PER TUBE PRN ×2 (10:03→20:17)
--- NOTE | 2020-08-08 15:02 | PDOC.HOSPP ---
- Subjective Encounter Date: 08/08/20 - Objective Vital Signs & Weight: Vital Signs (12 hours) Temp Pulse Resp BP Pulse Ox 08/08/20 12:50 54 L 119/67 08/08/20 11:22 97.5 F L 71 18 96/52 L 95 08/08/20 09:57 88 08/08/20 07:43 97.7 F 81 18 147/87 H 97 08/08/20 04:00 97.5 F L 84 18 154/85 H 94 L Weight Admit Weight 120 lb 9.486 oz Weight 128 lb 1.6 oz Most Recent Monitor Data Heart Rate from ECG 81 NIBP 112/48 NIBP BP-Mean 69 Respiration from ECG 22 SpO2 97 I&O: 08/07/20 08/08/20 08/09/20 06:59 06:59 06:59 Intake Total 780 240 Output Total 1050 420 Balance -270 -420 240 Result Diagrams: 08/08/20 04:44 08/08/20 04:44 Hospitalist ROS - Medication Medications: Active Medications Generic Name Dose Route Start Last Admin Trade Name Freq PRN Reason Stop Dose Admin Acetaminophen 650 mg 07/29/20 13:08 08/08/20 10:03 Acetaminophen 325 Mg Tab PER TUBE 650 mg Q4H PRN Administration Headache/Fever or Pain Atorvastatin Calcium 40 mg 08/07/20 21:00 08/07/20 21:17 Atorvastatin Calcium 40 Mg Tab PO 40 mg HS MELINA Administration Benzocaine 0 gm 07/24/20 22:13 07/24/20 22:22 Benzocaine (Dental) 7 Gm Tube TOP 7 gm QIDPRN PRN Administration Topical Anesthetic Carvedilol 6.25 mg 08/07/20 17:00 08/08/20 09:59 Carvedilol 6.25 Mg Tab PO 6.25 mg BID-WM MELINA Administration Al Hydroxide/Mg Hydroxide 60 0 ml 07/26/20 10:31 07/26/20 13:59 ml/ Diphenhydramine HCl 150 mg SSW 10 ml / Lidocaine HCl 60 ml/ Q8H PRN Administration Nystatin 6,000,000 units Mouth Irritation Furosemide 40 mg 08/08/20 07:30 08/08/20 09:59 Furosemide 40 Mg Tab PO 40 mg DAILY-AC MELINA Administration Hydralazine HCl 25 mg 08/06/20 09:00 08/08/20 09:57 Hydralazine 10 Mg Tab PO 25 mg TID MELINA Administration Ivabradine 5 mg 07/29/20 09:00 08/08/20 09:57 Ivabradine 5 Mg Tab PO 5 mg BID MELINA Administration Sodium Chloride 10 ml 07/25/20 09:00 08/08/20 10:00 Flush - Normal Saline 10 Ml Syringe IVF 10 ml Q12HR MELINA Administration Sodium Chloride 10 ml 07/27/20 11:11 07/31/20 05:36 Flush - Normal Saline 10 Ml Syringe IVF 10 ml PRN PRN Administration Saline Flush Spironolactone 100 mg 08/08/20 08:00 08/08/20 09:59 Spironolactone 25 Mg Tab PO 100 mg QAM-WM MELINA Administration - Exam General Appearance: NAD, awake alert Heart: RRR, no murmur, no gallops, no rubs, normal peripheral pulses, II/IV Respiratory: CTAB, no wheezes, no rales, no ronchi, normal chest expansion, no tachypnea, normal percussion Gastrointestinal: soft, non-tender, non-distended, normal bowel sounds, no palpable masses, no hepatomegaly, no splenomegaly, no bruit Extremities: no cyanosis, no clubbing Extremities - other findings: Edema of the LEs Musculoskeletal: generalized weakness Psychiatric: normal affect, normal behavior, A&O x 3 Hosp A/P (1) Acute metabolic encephalopathy Code(s): G93.41 - METABOLIC ENCEPHALOPATHY Status: Acute (2) Acute blood loss anemia Code(s): D62 - ACUTE POSTHEMORRHAGIC ANEMIA Status: Acute (3) WAYNE (acute kidney injury) Code(s): N17.9 - ACUTE KIDNEY FAILURE, UNSPECIFIED Status: Acute (4) Acute renal failure Status: Acute Qualifiers: Acute renal failure type: unspecified Qualified Code(s): N17.9 - Acute kidney failure, unspecified (5) Acute systolic HF (heart failure) Code(s): I50.21 - ACUTE SYSTOLIC (CONGESTIVE) HEART FAILURE Status: Acute (6) COVID-19 Code(s): U07.1 - COVID-19 Status: Acute (7) 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 Code(s): U07.1 - COVID-19; I43 - CARDIOMYOPATHY IN DISEASES CLASSIFIED ELSEWHERE Status: Acute (8) Elevated LFTs Code(s): R79.89 - OTHER SPECIFIED ABNORMAL FINDINGS OF BLOOD CHEMISTRY Status: Acute (9) Hypernatremia Code(s): E87.0 - HYPEROSMOLALITY AND HYPERNATREMIA Status: Acute (10) Metabolic acidosis Code(s): E87.2 - ACIDOSIS Status: Acute (11) Septic shock Code(s): A41.9 - SEPSIS, UNSPECIFIED ORGANISM; R65.21 - SEVERE SEPSIS WITH SEPTIC SHOCK Status: Acute (12) Thrombocytopenia Code(s): D69.6 - THROMBOCYTOPENIA, UNSPECIFIED Status: Resolved (13) Esophageal ulcer Code(s): K22.10 - ULCER OF ESOPHAGUS WITHOUT BLEEDING Status: Acute (14) Acute CVA (cerebrovascular accident) Code(s): I63.9 - CEREBRAL INFARCTION, UNSPECIFIED Status: Acute (15) Chronic subdural hematoma Code(s): I62.03 - NONTRAUMATIC CHRONIC SUBDURAL HEMORRHAGE Status: Acute - Plan Septic shock: Patient experienced this at the outside facility prior to her transfer here. Specific source is not clear to me at this time. Appears to be resolved presently. It is possible the patient just had some profound dehydration. No specific source of infection was identified. She certainly did have evidence of significant dehydration with prerenal azotemia and acute renal failure. Acute metabolic encephalopathy: Unclear etiology. Given the severe uremia its likely that she had uremic encephalopathy. She also has a new stroke which was diagnosed on 08/07/2020 with MRI and chronic subdural hematomas. Patient was completely nonverbal until around 08/04/2020. On 08/05/2020 the patient abruptly became much more appropriate. Relatively normal conversation, but still somewhat confused. This coincides with her uremia improving. She appeared to have improved cognitive function by 08/07/2020. GI bleed: Patient had ulcerations in her mouth, esophagus, stomach and small intestine. She underwent endoscopy which revealed some ulcerations of the mouth esophagus stomach and small intestine. Biopsies were unrevealing. Hemoglobin subsequently held relatively steady. Continued PPI. Appreciate GI input. Could have potentially been contributing to some of the uremia. Anemia: Possibly secondary to GI bleeding. Patient has been transfused 2 units of packed red blood cells and 1 unit of platelets. Continued to monitor hemoglobin. Acute kidney injury/renal failure: Appreciate nephrology following. [place] to be partly due to significant dehydration. Managing fluids. GFR has appeared to stabilize around 19. Initially had very extreme uremia. Patient initially had a BUN of 175. Has subsequently improved over time with fluids and management. Metabolic acidosis: Appears to be improved. Secondary to severe uremia and kidney failure. Cardiomyopathy: Possibly related to Covid infection. Echo reveals an ejection fraction of 10 to 15%. She also has severely enlarged right ventricle with severe tricuspid regurgitation and dilated IVC. She also has moderate MR. On dobutamine until 08/03/2020 at which time it was weaned off. The patient was on fairly high dose of metoprolol prior to admission. Once her blood pressure stabilized that she was started back on carvedilol. Continue to titrate the carvedilol and consider MONIK inhibitor/ARB as her renal function has stabilized. Continuing hydralazine for afterload reduction. Acute transaminitis: May be secondary to right heart failure and passive congestion. No evidence of other significant pathology. CT abdomen and pelvis on 08/04/2020 revealed normal-appearing liver and a surgically absent gallbladder. Abnormal CT pelvis: Patient had some tubelike structure in the pelvis that was concerning for possible dilated loop of small bowel or possible hematoma on original CT. Repeat on 08/04/2020 appears to show some improvement. Likely was actually small bowel. Hypernatremia: Patient had significant mouth ulcers requiring the use of an NG tube for nutrition. She became hypernatremic and subsequently free water was increased. On 08/03/2020 the patient's sodium normalized. Subsequently, her sodium gradually increased to 151 on 08/08/20. Given the poor po intake, she was started on D5 08/02 NS with 20 meq of Kcl at 50 cc/hr. Ulcers of the mouth, esophagus, stomach, small intestine: Etiology unclear. Viral studies negative. Could possibly have been related to the severe uremia. Exam on 08/02/2020 did not reveal any persistent ulcerations. Patient did have some low complement levels but her autoimmune screening was otherwise negative. Dysphagia: Largely related to her encephalopathy although evidence for stroke and subdural hematoma on 08/07/2020 certainly could be responsible as well.. On 08/03/2020 speech therapy reassess the patient. On 08/04/2020 the patient continued to have some difficulties. Patient has pulled out no less than 8 NG tubes. Continue to monitor as her encephalopathy improved. Suspect that she would likely pull out a PEG tube if that was attempted. On 08/07/2020 patient still having relatively modest p.o. intake. Consult dietary for calorie count. Appeared to be failing on her calorie count on 08/08/20 and her sodium required D5 1/2 NS. She may need a PEG. Her mental status has improved and she may be able to tolerate a PEG at this p oint. Appears to be necessary. She has an MPOA now that could consent for it. Recent COVID-19 pneumonia: Appears to be stable from that perspective. Unclear what if any role played in her presentation. Did not appear that she had any specific symptoms related to this. Hypokalemia: Patient has been experiencing significant hypokalemia for several days on 08/07/2020. She has received repletion through the electrolyte protocol but continues to re main hypokalemic. Her Aldactone dose is increased to 100 mg p.o. daily. Continue with IV repletion. Acute CVA: MRI of the head on 08/07/2020 revealed acute CVA. Patient did not have any new neurologic findings. In fact she seems to be improving. The MRI was obtained on this date due to the fact that she was finally at a point we felt she was stable and could be appropriately still long enough to get the test performed. We will consult neurology. Resume statin. Avoid significant aspirin or anticoagulation due to the recent GI bleed with GI tract ulcerations, and the fact that she has the chronic subdural hematomas. Neurochecks every 4. Patient already has therapy involvement. We will add OT. Avoiding ASA in light of the GI bleed. Chronic subdural hematoma: Given the more chronic nature of these findings per radiology, will not likely need any intervention at this time. She may need repeat CT scan in a few weeks to determine stability. Disposition: Patient does not appear to have any family members that can be located. If her information is correct she has had a falling out with her children over a divorce situation and she is not in a relationship with her children at this time. This patient will likely need to be placed. On 08/07/2020 the patient appeared to be more cognitively intact. Palliative care used equipment sales representative talk to the patient. The patient was able to define a medical power of commercial real estate attorney and understand what that meant. She was able to identify a friend named Constance as that person. Constance was contacted and and was willing to serve as the MPOA. Initially the plan was to pursue two-physician DNR status, however the patient has cognitively improved to the point where she will likely be able to participate in that decision process herself.
[2020-08-08 15:46] LABS: Bacteria/HPF None Seen HPF (None Seen); Bilirubin Negative (Negative); Blood, Urine Negative (Negative); Clarity Clear (Clear); Glucose, Urine (Dipstick) Normal (Negative); Ketone, Urine Negative (Negative); Leukocyte Negative Leu/uL (Negative); Nitrite Negative (Negative); Protein, Urine (Dipstick) 70 mg/dL (Neg-Trace); RBC/HPF 0-3 HPF (0-3); Specific Gravity, Urine 1.014 (1.002-1.036); Squamous Epithelial 0-3 HPF (0-3); Urobilinogen Normal mg/dL (Less than 2); pH, Urine 6.5 (5.0-9.0)
[2020-08-08 15:51] LABS: Urine Culture Reflex Yes Yes
[2020-08-08] MEDS: D5 1/2 NS w/20 mEq KCL 1,000 ML IV SCH (16:01)
[2020-08-08] MEDS: Atorvastatin Calcium 40 MG TAB PO SCH (20:15)
[2020-08-09 08:22] LABS: #Eosinphils 0.1 thou/uL (0.0-0.7); #Lymphocytes 0.6 thou/uL (1.20-3.40); #Monocytes 0.5 thou/uL (0.11-0.59); #Neutrophils 12.4 thou/uL (1.40-6.50); %Basophils 0.1 % (0.0-1.0); %Lymphocytes 4.7 % (21.0-51.0); %Monocytes 3.3 % (0.0-10.0); %Neutrophils 90.9 % (42.0-75.0); Hemoglobin 8.1 g/dL (12.0-16.0); Mean Corpuscular HGB CONC 31.8 g/dL (32.0-36.0); Mean Corpuscular Hemoglobin 32.7 pg (27.0-31.0); Mean Platelet Volume 9.8 fL (7.4-10.4); Platelet Count 221 thou/uL (130-400); Red Blood Cell (RBC) Count 2.49 mill/uL (4.20-5.40); White Blood Cell (WBC) Count 13.7 thou/uL (4.8-10.8)
[2020-08-09 08:40] LABS: Anion Gap 18 mmol/L (10-20); BUN (Urea Nitrogen) 60 mg/dL (9.8-20.1); Calc. Creatinine Clearance 20 mL/min (70-130); Calcium 8.4 mg/dL (7.8-10.44); Carbon Dioxide 26 mmol/L (23-31); Chloride 110 mmol/L (98-107); Glucose 165 mg/dL (80-115); Potassium 3.2 mmol/L (3.5-5.1); Sodium 151 mmol/L (136-145)
[2020-08-09] MEDS: Ivabradine 5 MG TAB PO SCH ×2 (10:17→21:36)
[2020-08-09] MEDS: Spironolactone 25 MG TAB PO SCH (10:17)
[2020-08-09] MEDS: Carvedilol 6.25 MG TAB PO SCH ×2 (10:18→17:16)
[2020-08-09] MEDS: Furosemide 40 MG TAB PO SCH (10:18)
[2020-08-09] MEDS: hydrALAZINE 10 MG TAB PO SCH ×3 (10:18→21:35)
[2020-08-09] MEDS: D5 1/2 NS w/20 mEq KCL 1,000 ML IV SCH (11:45)
[2020-08-09] MEDS: Acetaminophen 325 MG TAB PER TUBE PRN (17:13)
--- NOTE | 2020-08-09 17:21 | PDOC.HOSPP ---
- Subjective Encounter Date: 08/09/20 Encounter Time: 17:10 Subjective: f/u for prolonged hospital stay admitted on 07/23/20. Awaiting placement options but no decision yet. - Objective Vital Signs & Weight: Vital Signs (12 hours) Temp Pulse Resp BP Pulse Ox 08/09/20 16:00 97.7 F 70 20 144/78 H 98 08/09/20 12:26 97.4 F L 61 16 120/81 97 08/09/20 10:18 76 08/09/20 07:15 97.7 F 71 17 143/77 H 98 08/09/20 06:00 96 F L Weight Admit Weight 120 lb 9.486 oz Weight 130 lb Most Recent Monitor Data Heart Rate from ECG 81 NIBP 112/48 NIBP BP-Mean 69 Respiration from ECG 22 SpO2 97 I&O: 08/08/20 08/09/20 08/10/20 06:59 06:59 06:59 Intake Total 1116 60 Output Total 420 395 Balance -420 721 60 Result Diagrams: 08/09/20 08:05 08/09/20 08:05 Additional Labs: Microbiology 08/08/20 15:50 Urine Straight Catheter Urine Culture - Preliminary NO GROWTH AT 12 HOURS Laboratory Tests 08/05/20 08/05/20 08/07/20 07:40 07:40 06:44 WBC Hgb 7.7 L Sodium 147 H Potassium 2.9 L* BUN 56 H Creatinine 2.48 H Magnesium 1.3 L 08/08/20 08/08/20 08/09/20 04:44 04:44 05:09 WBC 17.1 H Hgb 8.4 L Sodium 151 H Potassium 4.0 BUN 58 H Creatinine 2.45 H Magnesium 2.0 Radiology Reviewed by me: Yes (MRI brain - chronic bilat subdural hematomas, punctate infarcts noted) EKG Reviewed by me: Yes (Tele - SR) Hospitalist ROS - Medication Medications: Active Medications Generic Name Dose Route Start Last Admin Trade Name Freq PRN Reason Stop Dose Admin Acetaminophen 650 mg 07/29/20 13:08 08/08/20 20:17 Acetaminophen 325 Mg Tab PER TUBE 650 mg Q4H PRN Administration Headache/Fever or Pain Atorvastatin Calcium 40 mg 08/07/20 21:00 08/08/20 20:15 Atorvastatin Calcium 40 Mg Tab PO 40 mg HS MELINA Administration Benzocaine 0 gm 07/24/20 22:13 07/24/20 22:22 Benzocaine (Dental) 7 Gm Tube TOP 7 gm QIDPRN PRN Administration Topical Anesthetic Carvedilol 6.25 mg 08/07/20 17:00 08/09/20 10:18 Carvedilol 6.25 Mg Tab PO 6.25 mg BID-WM MELINA Administration Al Hydroxide/Mg Hydroxide 60 0 ml 07/26/20 10:31 07/26/20 13:59 ml/ Diphenhydramine HCl 150 mg SSW 10 ml / Lidocaine HCl 60 ml/ Q8H PRN Administration Nystatin 6,000,000 units Mouth Irritation Furosemide 40 mg 08/08/20 07:30 08/09/20 10:18 Furosemide 40 Mg Tab PO 40 mg DAILY-AC MELINA Administration Hydralazine HCl 25 mg 08/06/20 09:00 08/09/20 10:18 Hydralazine 10 Mg Tab PO 25 mg TID MELINA Administration Potassium Chloride/Dextrose/Sod Cl 1,000 mls @ 50 mls/hr 08/08/20 15:15 08/09/20 11:45 D5 1/2 Ns W/20 Meq Kcl IV 1,000 mls .Q20H MELINA Administration Ivabradine 5 mg 07/29/20 09:00 08/09/20 10:17 Ivabradine 5 Mg Tab PO 5 mg BID MELINA Administration Pantoprazole Sodium 40 mg 08/09/20 09:00 08/09/20 10:20 Pantoprazole 40 Mg Tab PO 40 mg DAILY MELINA Administration Sodium Chloride 10 ml 07/25/20 09:00 08/09/20 10:20 Flush - Normal Saline 10 Ml Syringe IVF Not Given Q12HR MELINA Sodium Chloride 10 ml 07/27/20 11:11 07/31/20 05:36 Flush - Normal Saline 10 Ml Syringe IVF 10 ml PRN PRN Administration Saline Flush Spironolactone 100 mg 08/08/20 08:00 08/09/20 10:17 Spironolactone 25 Mg Tab PO 100 mg QAM-WM MELINA Administration - Exam General Appearance: NAD, awake alert Eye: PERRL, anicteric sclera ENT: normocephalic atraumatic, no oropharyngeal lesions Neck: supple, symmetric, no JVD, no thyromegaly, no lymphadenopathy Heart: RRR, no gallops, no rubs, normal peripheral pulses Heart - other findings: S1, S2 Respiratory: CTAB, no wheezes, no rales, no ronchi, normal chest expansion Gastrointestinal: soft, non-tender, non-distended, normal bowel sounds, no palpable masses Extremities: no cyanosis, 1+ LE edema Skin: normal turgor Neurological: cranial nerve grossly intact, no new deficit Musculoskeletal: normal tone, generalized weakness Psychiatric: normal affect, A&O x 3 Hosp A/P (1) WAYNE (acute kidney injury) Code(s): N17.9 - ACUTE KIDNEY FAILURE, UNSPECIFIED Status: Acute Plan: Continue low-volume IVF's, avoid nephrotoxic meds and limit contrast exposure (2) Hypernatremia Code(s): E87.0 - HYPEROSMOLALITY AND HYPERNATREMIA Status: Acute Plan: Continue D5W @ 50ml/h, serial Na+ monitoring (3) Acute metabolic encephalopathy Code(s): G93.41 - METABOLIC ENCEPHALOPATHY Status: Acute Plan: Improved, likely multifactorial (4) Acute CVA (cerebrovascular accident) Code(s): I63.9 - CEREBRAL INFARCTION, UNSPECIFIED Status: Acute Plan: Small punctate infarcts, med mgmt (5) Acute blood loss anemia Code(s): D62 - ACUTE POSTHEMORRHAGIC ANEMIA Status: Acute Plan: s/p 2u PRBC's and 1u Plts, stable H/H currently (6) COVID-19 Code(s): U07.1 - COVID-19 Status: Chronic (7) Chronic subdural hematoma Code(s): I62.03 - NONTRAUMATIC CHRONIC SUBDURAL HEMORRHAGE Status: Chronic Plan: Supportive mgmt - Plan PT/OT, social worker aide, respiratory therapy, out of bed/ambulate, DVT proph w/SCDs Consults: Palliative Care Continue supportive mgmt OOB with PT for mobilization Change to D5W @ 50ml/h Encourage po intake Placement options pending AM lab: BMP
[2020-08-09] MEDS ORDERED: Electrolyte Replacement Protocol FS PRN (18:15)
[2020-08-09] MEDS: Dextrose 5% in Water 1,000 ML IV SCH (18:17)
[2020-08-09] MEDS: Benzocaine (Dental) 7 GM TUBE TOP PRN ×2 (18:17→21:37)
[2020-08-09] MEDS ORDERED: Magnesium 2 GM/50 ML 2 GM in Premix Bag 1 BAG IVPB SCH (18:30)
[2020-08-09] MEDS ORDERED: Potassium Chloride 40 MEQ in Sodium Chloride 0.9% 250 ML 250 ML IVPB SCH (19:00)
[2020-08-09] MEDS: Zolpidem Tartrate 5 MG TAB PO PRN (21:34)
[2020-08-09] MEDS: Atorvastatin Calcium 40 MG TAB PO SCH (21:35)
[2020-08-10 05:40] LABS: Anion Gap 19 mmol/L (10-20); BUN (Urea Nitrogen) 58 mg/dL (9.8-20.1); Calc. Creatinine Clearance 20 mL/min (70-130); Calcium 8.4 mg/dL (7.8-10.44); Carbon Dioxide 26 mmol/L (23-31); Chloride 112 mmol/L (98-107); Glucose 149 mg/dL (80-115); Potassium 3.8 mmol/L (3.5-5.1); Sodium 153 mmol/L (136-145)
[2020-08-10 05:52] LABS: Hemoglobin 8.8 g/dL (12.0-16.0); Mean Corpuscular HGB CONC 31.8 g/dL (32.0-36.0); Mean Corpuscular Hemoglobin 32.3 pg (27.0-31.0); Mean Platelet Volume 9.7 fL (7.4-10.4); Platelet Count 269 thou/uL (130-400); RBC Distribution Width 16.1 % (11.5-14.5); Red Blood Cell (RBC) Count 2.71 mill/uL (4.20-5.40); White Blood Cell (WBC) Count 15.2 thou/uL (4.8-10.8)
[2020-08-10 05:53] LABS: Lymphocytes 2 % (21-51); MDiff Complete? YES; Myelocyte 1 % (0-0); Neutrophil 97 % (42-75); Platelet Morphology Comment PLT clumps seen-ADEQ; RBC Morphology Normal; Target Cells MODERATE= 6-15 cells (100X) (0-1/hpf)
[2020-08-10] MEDS: Carvedilol 6.25 MG TAB PO SCH ×2 (08:00→18:02)
[2020-08-10] MEDS: Furosemide 40 MG TAB PO SCH (08:00)
[2020-08-10] MEDS: hydrALAZINE 10 MG TAB PO SCH ×3 (08:01→20:24)
[2020-08-10] MEDS: Spironolactone 25 MG TAB PO SCH (08:04)
[2020-08-10] MEDS: Ivabradine 5 MG TAB PO SCH (08:05)
[2020-08-10] MEDS: Acetaminophen 325 MG TAB PER TUBE PRN (10:59)
[2020-08-10] MEDS: Dextrose 5% in Water 1,000 ML IV SCH ×2 (15:47→17:28)
--- NOTE | 2020-08-10 16:54 | PDOC.HOSPP ---
- Subjective Encounter Date: 08/10/20 Encounter Time: 16:45 Subjective: f/u for WAYNE/hypernatremia/AMS/deconditioning. Receiving D5W with persistent hypernatremia. - Objective Vital Signs & Weight: Vital Signs (12 hours) Temp Pulse Resp BP BP Pulse Ox 08/10/20 15:43 69 140/76 08/10/20 12:00 97.9 F 67 29 H 108/58 L 94 L 08/10/20 08:01 73 132/83 Weight Admit Weight 120 lb 9.486 oz Weight 128 lb 1.6 oz Most Recent Monitor Data Heart Rate from ECG 81 NIBP 112/48 NIBP BP-Mean 69 Respiration from ECG 22 SpO2 97 I&O: 08/09/20 08/10/20 08/11/20 06:59 06:59 06:59 Intake Total 1116 1419 Output Total 395 570 Balance 721 849 Result Diagrams: 08/10/20 05:09 08/10/20 05:09 Additional Labs: Microbiology 08/09/20 03:57 Catheter Tip Catheter Tip Culture - Preliminary 08/08/20 15:50 Urine Straight Catheter Urine Culture - Preliminary NO GROWTH AT 12 HOURS Laboratory Tests 08/05/20 08/05/20 08/07/20 07:40 07:40 06:44 WBC Hgb 7.7 L Sodium 147 H Potassium 2.9 L* BUN 56 H Creatinine 2.48 H Magnesium 1.3 L 08/08/20 08/08/20 08/09/20 04:44 04:44 05:09 WBC 17.1 H Hgb 8.4 L Sodium 151 H Potassium 4.0 BUN 58 H Creatinine 2.45 H Magnesium 2.0 08/09/20 08:05 WBC Hgb Sodium 151 H Potassium 3.2 L BUN Creatinine 2.42 H Magnesium EKG Reviewed by me: Yes (Tele - SR) Hospitalist ROS - Medication Medications: Active Medications Generic Name Dose Route Start Last Admin Trade Name Freq PRN Reason Stop Dose Admin Acetaminophen 650 mg 07/29/20 13:08 08/10/20 10:59 Acetaminophen 325 Mg Tab PER TUBE 650 mg Q4H PRN Administration Headache/Fever or Pain Atorvastatin Calcium 40 mg 08/07/20 21:00 08/09/20 21:35 Atorvastatin Calcium 40 Mg Tab PO 40 mg HS MELINA Administration Benzocaine 0 gm 07/24/20 22:13 08/09/20 21:37 Benzocaine (Dental) 7 Gm Tube TOP 7 gm QIDPRN PRN Administration Topical Anesthetic Carvedilol 6.25 mg 08/07/20 17:00 08/10/20 08:00 Carvedilol 6.25 Mg Tab PO 6.25 mg BID-WM MELINA Administration Al Hydroxide/Mg Hydroxide 60 0 ml 07/26/20 10:31 07/26/20 13:59 ml/ Diphenhydramine HCl 150 mg SSW 10 ml / Lidocaine HCl 60 ml/ Q8H PRN Administration Nystatin 6,000,000 units Mouth Irritation Furosemide 40 mg 08/08/20 07:30 08/10/20 08:00 Furosemide 40 Mg Tab PO 40 mg DAILY-AC MELINA Administration Hydralazine HCl 25 mg 08/06/20 09:00 08/10/20 15:43 Hydralazine 10 Mg Tab PO 25 mg TID MELINA Administration Pantoprazole Sodium 40 mg 08/09/20 09:00 08/10/20 08:01 Pantoprazole 40 Mg Tab PO 40 mg DAILY MELINA Administration Sacubitril/Valsartan 1 tab 08/09/20 21:00 08/10/20 08:00 Sacubitril 24mg/Valsartan 26mg Tab PO 1 tab BID MELINA Administration Sodium Chloride 10 ml 07/25/20 09:00 08/10/20 08:06 Flush - Normal Saline 10 Ml Syringe IVF Not Given Q12HR MELINA Sodium Chloride 10 ml 07/27/20 11:11 07/31/20 05:36 Flush - Normal Saline 10 Ml Syringe IVF 10 ml PRN PRN Administration Saline Flush Spironolactone 100 mg 08/08/20 08:00 08/10/20 08:04 Spironolactone 25 Mg Tab PO 100 mg QAM-WM MELINA Administration Zolpidem Tartrate 5 mg 08/07/20 17:12 08/09/20 21:34 Zolpidem Tartrate 5 Mg Tab PO 5 mg HSPRN PRN Administration Insomnia - Exam General Appearance: NAD, awake alert, ill appearing Eye: PERRL, anicteric sclera ENT: normocephalic atraumatic, no oropharyngeal lesions Neck: supple, symmetric, no JVD, no thyromegaly, no lymphadenopathy Heart: RRR, no gallops, no rubs, normal peripheral pulses Heart - other findings: S1, S2 Respiratory: CTAB, no wheezes, no rales, no ronchi, normal chest expansion Gastrointestinal: soft, non-tender, non-distended, normal bowel sounds, no palpable masses Extremities: no cyanosis, no clubbing, 1+ LE edema Skin: normal turgor Neurological: no new deficit Musculoskeletal: generalized weakness Psychiatric: oriented to person, flat affect, somnolent Hosp A/P (1) WAYNE (acute kidney injury) Code(s): N17.9 - ACUTE KIDNEY FAILURE, UNSPECIFIED Status: Acute Plan: Continue IVF's, avoid nephrotoxic meds and limit contrast exposure (2) Hypernatremia Code(s): E87.0 - HYPEROSMOLALITY AND HYPERNATREMIA Status: Acute Plan: Persistent, increase D5W 75ml/h, serial Na+ monitoring (3) Acute metabolic encephalopathy Code(s): G93.41 - METABOLIC ENCEPHALOPATHY Status: Acute Plan: Intermittent and persistent, multifactorial, supportive mgmt (4) Acute CVA (cerebrovascular accident) Code(s): I63.9 - CEREBRAL INFARCTION, UNSPECIFIED Status: Acute (5) Acute blood loss anemia Code(s): D62 - ACUTE POSTHEMORRHAGIC ANEMIA Status: Acute (6) COVID-19 Code(s): U07.1 - COVID-19 Status: Chronic (7) Chronic subdural hematoma Code(s): I62.03 - NONTRAUMATIC CHRONIC SUBDURAL HEMORRHAGE Status: Chronic Plan: No acute surgical intervention, avoid anticoagulation - Plan PT/OT, social media intern, out of bed/ambulate, DVT proph w/SCDs Consults: Palliative Care Continue supportive mgmt OOB with PT for mobilization Change to D5W @ 75ml/h Encourage po intake Placement options pending AM lab: BMP
[2020-08-10] MEDS: Atorvastatin Calcium 40 MG TAB PO SCH (20:24)
[2020-08-10] MEDS: Zolpidem Tartrate 5 MG TAB PO PRN (20:24)
[2020-08-11] MEDS: Dextrose 5% in Water 1,000 ML IV SCH ×2 (04:32→13:38)
[2020-08-11 05:32] LABS: Anion Gap 20 mmol/L (10-20); BUN (Urea Nitrogen) 58 mg/dL (9.8-20.1); Calc. Creatinine Clearance 20 mL/min (70-130); Calcium 8.2 mg/dL (7.8-10.44); Carbon Dioxide 24 mmol/L (23-31); Chloride 114 mmol/L (98-107); Glucose 132 mg/dL (80-115); Potassium 3.3 mmol/L (3.5-5.1); Sodium 155 mmol/L (136-145)
[2020-08-11] MEDS ORDERED: Potassium Chloride 20 MEQ TAB PO SCH (08:30)
[2020-08-11] MEDS: Carvedilol 6.25 MG TAB PO SCH ×2 (09:35→18:02)
[2020-08-11] MEDS: Spironolactone 25 MG TAB PO SCH (09:35)
[2020-08-11] MEDS: Furosemide 40 MG TAB PO SCH (09:35)
[2020-08-11] MEDS: hydrALAZINE 10 MG TAB PO SCH ×3 (09:36→21:54)
--- NOTE | 2020-08-11 12:06 | PDOC.HOSPP ---
- Subjective Encounter Date: 08/11/20 Encounter Time: 12:00 Subjective: f/u for AMS/WAYNE/hypernatremia/deconditioning. Nursing reports pt has pulled out multiple IV's/colostomy bag. Remains confused. - Objective Vital Signs & Weight: Vital Signs (12 hours) Temp Pulse Resp BP Pulse Ox 08/11/20 12:00 98.2 F 83 16 130/58 L 98 08/11/20 09:36 89 08/11/20 08:59 98 08/11/20 07:57 97.9 F 89 18 141/96 H 98 08/11/20 03:38 97.8 F 85 16 129/68 95 08/11/20 00:09 97.4 F L 80 16 118/69 99 Weight Admit Weight 120 lb 9.486 oz Weight 127 lb 14.4 oz Most Recent Monitor Data Heart Rate from ECG 81 NIBP 112/48 NIBP BP-Mean 69 Respiration from ECG 22 SpO2 97 I&O: 08/10/20 08/11/20 08/12/20 06:59 06:59 06:59 Intake Total 1419 230 Output Total 570 200 Balance 849 30 Result Diagrams: 08/10/20 05:09 08/11/20 04:45 Additional Labs: Microbiology 08/09/20 03:57 Catheter Tip Catheter Tip Culture - Preliminary 08/08/20 15:50 Urine Straight Catheter Urine Culture - Preliminary NO GROWTH AT 12 HOURS Laboratory Tests 08/05/20 08/05/20 08/07/20 07:40 07:40 06:44 WBC Hgb 7.7 L Sodium 147 H Potassium 2.9 L* BUN 56 H Creatinine 2.48 H Magnesium 1.3 L 08/08/20 08/08/20 08/09/20 04:44 04:44 05:09 WBC 17.1 H Hgb 8.4 L Sodium 151 H Potassium 4.0 BUN 58 H Creatinine 2.45 H Magnesium 2.0 08/09/20 08/10/20 08:05 05:09 WBC Hgb Sodium 151 H 153 H Potassium 3.2 L BUN 58 H Creatinine 2.42 H 2.42 H Magnesium Hospitalist ROS - Medication Medications: Active Medications Generic Name Dose Route Start Last Admin Trade Name Freq PRN Reason Stop Dose Admin Acetaminophen 650 mg 07/29/20 13:08 08/10/20 10:59 Acetaminophen 325 Mg Tab PER TUBE 650 mg Q4H PRN Administration Headache/Fever or Pain Atorvastatin Calcium 40 mg 08/07/20 21:00 08/10/20 20:24 Atorvastatin Calcium 40 Mg Tab PO 40 mg HS MELINA Administration Benzocaine 0 gm 07/24/20 22:13 08/09/20 21:37 Benzocaine (Dental) 7 Gm Tube TOP 7 gm QIDPRN PRN Administration Topical Anesthetic Carvedilol 6.25 mg 08/07/20 17:00 08/11/20 09:35 Carvedilol 6.25 Mg Tab PO 6.25 mg BID-WM MELINA Administration Al Hydroxide/Mg Hydroxide 60 0 ml 07/26/20 10:31 07/26/20 13:59 ml/ Diphenhydramine HCl 150 mg SSW 10 ml / Lidocaine HCl 60 ml/ Q8H PRN Administration Nystatin 6,000,000 units Mouth Irritation Hydralazine HCl 25 mg 08/06/20 09:00 08/11/20 09:36 Hydralazine 10 Mg Tab PO 25 mg TID MELINA Administration Dextrose/Water 1,000 mls @ 75 mls/hr 08/10/20 16:50 08/11/20 04:32 D5w IV Not Given .[id number] MELINA Pantoprazole Sodium 40 mg 08/09/20 09:00 08/11/20 09:36 Pantoprazole 40 Mg Tab PO 40 mg DAILY MELINA Administration Sacubitril/Valsartan 1 tab 08/09/20 21:00 08/11/20 09:36 Sacubitril 24mg/Valsartan 26mg Tab PO 1 tab BID MELINA Administration Sodium Chloride 10 ml 07/25/20 09:00 08/11/20 09:39 Flush - Normal Saline 10 Ml Syringe IVF Not Given Q12HR MELINA Sodium Chloride 10 ml 07/27/20 11:11 07/31/20 05:36 Flush - Normal Saline 10 Ml Syringe IVF 10 ml PRN PRN Administration Saline Flush Spironolactone 100 mg 08/08/20 08:00 08/11/20 09:35 Spironolactone 25 Mg Tab PO 100 mg QAM-WM MELINA Administration Zolpidem Tartrate 5 mg 08/07/20 17:12 08/10/20 20:24 Zolpidem Tartrate 5 Mg Tab PO 5 mg HSPRN PRN Administration Insomnia - Exam General Appearance: awake alert Eye: PERRL, anicteric sclera ENT: normocephalic atraumatic, no oropharyngeal lesions Neck: supple, symmetric, no JVD, no thyromegaly, no lymphadenopathy Heart: RRR, no gallops, no rubs, normal peripheral pulses Respiratory: CTAB, no wheezes, no rales, no ronchi, normal chest expansion, no tachypnea Gastrointestinal: soft, non-tender, non-distended, normal bowel sounds, no palpable masses Gastrointestinal - other findings: + colostomy in place Extremities: no cyanosis, no clubbing, no edema Extremities - other findings: moves randomly and spontaneously Skin - other findings: poor turgor Neurological: cranial nerve grossly intact Musculoskeletal: normal tone, generalized weakness Psychiatric: oriented to person Hosp A/P (1) WAYNE (acute kidney injury) Code(s): N17.9 - ACUTE KIDNEY FAILURE, UNSPECIFIED Status: Acute Plan: Secondary to dehydration and poor po intake, IVF's, avoid nephrotoxic meds and limit contrast exposure (2) Hypernatremia Code(s): E87.0 - HYPEROSMOLALITY AND HYPERNATREMIA Status: Acute Plan: Worsening, start D5W @ 100ml/h, serial Na+ monitoring (3) Acute metabolic encephalopathy Code(s): G93.41 - METABOLIC ENCEPHALOPATHY Status: Acute Plan: Persistent, likely multifactorial with component of dementia (4) Acute CVA (cerebrovascular accident) Code(s): I63.9 - CEREBRAL INFARCTION, UNSPECIFIED Status: Acute (5) Acute blood loss anemia Code(s): D62 - ACUTE POSTHEMORRHAGIC ANEMIA Status: Acute (6) COVID-19 Code(s): U07.1 - COVID-19 Status: Chronic (7) Chronic subdural hematoma Code(s): I62.03 - NONTRAUMATIC CHRONIC SUBDURAL HEMORRHAGE Status: Chronic - Plan PT/OT, social work specialist, speech therapy, out of bed/ambulate, DVT proph w/SCDs Continue supportive mgmt OOB with PT for mobilization Change to D5W @ 100ml/h Encourage po intake Placement options with CM Place soft wrist restraints to limit pulling out IV's/colostomy AM lab: BMP
[2020-08-11] MEDS: Atorvastatin Calcium 40 MG TAB PO SCH (21:38)
[2020-08-12] MEDS: Acetaminophen 325 MG TAB PER TUBE PRN ×2 (02:15→09:51)
[2020-08-12] MEDS: Melatonin 3 MG TAB PO PRN (02:17)
[2020-08-12] MEDS: Dextrose 5% in Water 1,000 ML IV SCH ×3 (02:24→17:00)
[2020-08-12 05:37] LABS: Anion Gap 15 mmol/L (10-20); BUN (Urea Nitrogen) 48 mg/dL (9.8-20.1); Calc. Creatinine Clearance 19 mL/min (70-130); Calcium 7.7 mg/dL (7.8-10.44); Carbon Dioxide 24 mmol/L (23-31); Chloride 116 mmol/L (98-107); Glucose 188 mg/dL (80-115); Potassium 3.3 mmol/L (3.5-5.1); Sodium 152 mmol/L (136-145)
[2020-08-12] MEDS: Benzocaine (Dental) 7 GM TUBE TOP PRN ×2 (09:49→15:10)
[2020-08-12] MEDS: Spironolactone 25 MG TAB PO SCH (09:51)
[2020-08-12] MEDS: hydrALAZINE 10 MG TAB PO SCH ×3 (09:52→20:57)
[2020-08-12] MEDS: Carvedilol 6.25 MG TAB PO SCH ×2 (09:52→18:15)
--- NOTE | 2020-08-12 12:37 | PDOC.HOSPP ---
- Subjective Encounter Date: 08/12/20 Encounter Time: 12:05 Subjective: f/u for WAYNE/hypernatremia/confusion/deconditioning pulling out 2 more IV's in last 24h. Placed in wrist restraints. - Objective Vital Signs & Weight: Vital Signs (12 hours) Temp Pulse Resp BP Pulse Ox 08/12/20 11:33 97.4 F L 80 18 96/58 L 99 08/12/20 09:52 90 08/12/20 07:40 97.8 F 90 18 134/70 99 08/12/20 04:00 97.9 F 87 16 115/67 99 Weight Admit Weight 120 lb 9.486 oz Weight 122 lb 9.6 oz Most Recent Monitor Data Heart Rate from ECG 81 NIBP 112/48 NIBP BP-Mean 69 Respiration from ECG 22 SpO2 97 I&O: 08/11/20 08/12/20 08/13/20 06:59 06:59 06:59 Intake Total 230 1536 30 Output Total 200 450 Balance 30 1086 30 Result Diagrams: 08/10/20 05:09 08/12/20 04:54 Additional Labs: Microbiology 08/09/20 03:57 Catheter Tip Catheter Tip Culture - Preliminary 08/08/20 15:50 Urine Straight Catheter Urine Culture - Preliminary NO GROWTH AT 12 HOURS Laboratory Tests 08/05/20 08/05/20 08/07/20 07:40 07:40 06:44 WBC Hgb 7.7 L Sodium 147 H Potassium 2.9 L* BUN 56 H Creatinine 2.48 H Magnesium 1.3 L 08/08/20 08/08/20 08/09/20 04:44 04:44 05:09 WBC 17.1 H Hgb 8.4 L Sodium 151 H Potassium 4.0 BUN 58 H Creatinine 2.45 H Magnesium 2.0 08/09/20 08/10/20 08:05 05:09 WBC Hgb Sodium 151 H 153 H Potassium 3.2 L BUN 58 H Creatinine 2.42 H 2.42 H Magnesium EKG Reviewed by me: Yes (Tele - SR) Hospitalist ROS - Medication Medications: Active Medications Generic Name Dose Route Start Last Admin Trade Name Freq PRN Reason Stop Dose Admin Acetaminophen 650 mg 07/29/20 13:08 08/12/20 09:51 Acetaminophen 325 Mg Tab PER TUBE 650 mg Q4H PRN Administration Headache/Fever or Pain Atorvastatin Calcium 40 mg 08/07/20 21:00 08/11/20 21:38 Atorvastatin Calcium 40 Mg Tab PO 40 mg HS MELINA Administration Benzocaine 0 gm 07/24/20 22:13 08/12/20 09:49 Benzocaine (Dental) 7 Gm Tube TOP 7 gm QIDPRN PRN Administration Topical Anesthetic Carvedilol 6.25 mg 08/07/20 17:00 08/12/20 09:52 Carvedilol 6.25 Mg Tab PO 6.25 mg BID-WM MELINA Administration Al Hydroxide/Mg Hydroxide 60 0 ml 07/26/20 10:31 07/26/20 13:59 ml/ Diphenhydramine HCl 150 mg SSW 10 ml / Lidocaine HCl 60 ml/ Q8H PRN Administration Nystatin 6,000,000 units Mouth Irritation Hydralazine HCl 25 mg 08/06/20 09:00 08/12/20 09:52 Hydralazine 10 Mg Tab PO 25 mg TID MELINA Administration Dextrose/Water 1,000 mls @ 100 mls/hr 08/11/20 12:02 08/12/20 02:24 D5w IV 1,000 mls .Q10H MELINA Administration Melatonin 3 mg 08/07/20 17:12 08/12/20 02:17 Melatonin 3 Mg Tab PO 3 mg HS PRN Administration Insomnia Pantoprazole Sodium 40 mg 08/09/20 09:00 08/12/20 09:53 Pantoprazole 40 Mg Tab PO 40 mg DAILY MELINA Administration Sacubitril/Valsartan 1 tab 08/09/20 21:00 08/12/20 09:51 Sacubitril 24mg/Valsartan 26mg Tab PO 1 tab BID MELINA Administration Sodium Chloride 10 ml 07/25/20 09:00 08/12/20 09:54 Flush - Normal Saline 10 Ml Syringe IVF Not Given Q12HR MELINA Sodium Chloride 10 ml 07/27/20 11:11 07/31/20 05:36 Flush - Normal Saline 10 Ml Syringe IVF 10 ml PRN PRN Administration Saline Flush Spironolactone 100 mg 08/08/20 08:00 08/12/20 09:51 Spironolactone 25 Mg Tab PO 100 mg QAM-WM MELINA Administration Zolpidem Tartrate 5 mg 08/07/20 17:12 08/10/20 20:24 Zolpidem Tartrate 5 Mg Tab PO 5 mg HSPRN PRN Administration Insomnia - Exam General Appearance: awake alert Eye: PERRL, anicteric sclera ENT: normocephalic atraumatic, no oropharyngeal lesions Neck: supple, symmetric, no JVD, no thyromegaly, no lymphadenopathy Heart: RRR, no gallops, no rubs, normal peripheral pulses Heart - other findings: S1, S2 Respiratory: CTAB, no wheezes, no rales, no ronchi, normal chest expansion, no tachypnea Gastrointestinal: soft, non-tender, non-distended, normal bowel sounds, no palpable masses Extremities: no cyanosis, no clubbing, no edema Skin: normal turgor Neurological: no new deficit Musculoskeletal: generalized weakness Psychiatric: oriented to person, somnolent Hosp A/P (1) WAYNE (acute kidney injury) Code(s): N17.9 - ACUTE KIDNEY FAILURE, UNSPECIFIED Status: Acute Plan: Avoid nephrotoxic meds and limit contrast exposure, serial creatinine (2) Hypernatremia Code(s): E87.0 - HYPEROSMOLALITY AND HYPERNATREMIA Status: Acute Plan: Persistent, continue IVF's, serial Na+ monitoring (3) Acute metabolic encephalopathy Code(s): G93.41 - METABOLIC ENCEPHALOPATHY Status: Acute Plan: Persistent, likely component of dementia, supportive mgmt (4) Acute CVA (cerebrovascular accident) Code(s): I63.9 - CEREBRAL INFARCTION, UNSPECIFIED Status: Acute (5) Acute blood loss anemia Code(s): D62 - ACUTE POSTHEMORRHAGIC ANEMIA Status: Acute (6) COVID-19 Code(s): U07.1 - COVID-19 Status: Chronic Plan: No O2 requirement (7) Chronic subdural hematoma Code(s): I62.03 - NONTRAUMATIC CHRONIC SUBDURAL HEMORRHAGE Status: Chronic - Plan PT/OT, social worker palliative care, speech therapy, DVT proph w/SCDs Consults: Palliative Care Continue supportive mgmt OOB with PT for mobilization Change to D5W @ 100ml/h Encourage po intake Placement options with CM Place soft wrist restraints to limit pulling out IV's/colostomy AM lab: BMP
[2020-08-12] MEDS ORDERED: Ondansetron ODT 4 MG TAB PO PRN (12:47)
[2020-08-12] MEDS: Atorvastatin Calcium 40 MG TAB PO SCH (20:57)
[2020-08-12] MEDS ORDERED: Potassium Chloride 20 MEQ TAB PO SCH (22:00)
[2020-08-12] MEDS ORDERED: Potassium Bicarbonate/Cit Ac 20 MEQ TAB PO SCH (22:30)
[2020-08-13] MEDS: Dextrose 5% in Water 1,000 ML IV SCH ×3 (05:03→19:43)
[2020-08-13 06:10] LABS: Anion Gap 18 mmol/L (10-20); BUN (Urea Nitrogen) 39 mg/dL (9.8-20.1); Calc. Creatinine Clearance 19 mL/min (70-130); Calcium 7.4 mg/dL (7.8-10.44); Carbon Dioxide 18 mmol/L (23-31); Chloride 112 mmol/L (98-107); Glucose 137 mg/dL (80-115); Magnesium 1.4 mg/dL (1.6-2.6); Potassium 3.7 mmol/L (3.5-5.1); Sodium 144 mmol/L (136-145)
[2020-08-13] MEDS ORDERED: Magnesium Sulfate 4 GM in Sodium Chloride 0.9% 250 ML 250 ML IVPB SCH (08:15)
[2020-08-13] MEDS ORDERED: Carvedilol 6.25 MG TAB PO SCH (08:30)
[2020-08-13] MEDS: Sodium Bicarbonate Tab 325 MG TAB PO SCH ×3 (10:41→20:57)
[2020-08-13] MEDS: Spironolactone 25 MG TAB PO SCH (10:41)
[2020-08-13] MEDS: Carvedilol 6.25 MG TAB PO SCH ×2 (12:29→18:05)
[2020-08-13] MEDS: Benzocaine (Dental) 7 GM TUBE TOP PRN (12:39)
--- NOTE | 2020-08-13 12:58 | PDOC.NEPPN ---
- Subjective Encounter Date: 08/13/20 Subjective: Seen and examined. Still altered. Oral intake is very poor. - Objective Vital Signs & Weight: Vital Signs (12 hours) Temp Pulse Resp BP Pulse Ox 08/13/20 11:50 98.1 F 85 16 129/79 98 08/13/20 04:00 98.4 F 87 18 126/70 100 Weight Admit Weight 120 lb 9.486 oz Weight 125 lb 3.2 oz Most Recent Monitor Data Heart Rate from ECG 81 NIBP 112/48 NIBP BP-Mean 69 Respiration from ECG 22 SpO2 97 I&O: 08/12/20 08/13/20 08/14/20 06:59 06:59 06:59 Intake Total 1536 2138 Output Total 450 660 Balance 1086 1478 Result Diagrams: 08/10/20 05:09 08/13/20 05:35 Nephrology ROS - Medication Medications: Active Medications Generic Name Dose Route Start Last Admin Trade Name Freq PRN Reason Stop Dose Admin Acetaminophen 650 mg 07/29/20 13:08 08/12/20 09:51 Acetaminophen 325 Mg Tab PER TUBE 650 mg Q4H PRN Administration Headache/Fever or Pain Atorvastatin Calcium 40 mg 08/07/20 21:00 08/12/20 20:57 Atorvastatin Calcium 40 Mg Tab PO 40 mg HS MELINA Administration Benzocaine 0 gm 07/24/20 22:13 08/13/20 12:39 Benzocaine (Dental) 7 Gm Tube TOP 7 gm QIDPRN PRN Administration Topical Anesthetic Al Hydroxide/Mg Hydroxide 60 0 ml 07/26/20 10:31 07/26/20 13:59 ml/ Diphenhydramine HCl 150 mg SSW 10 ml / Lidocaine HCl 60 ml/ Q8H PRN Administration Nystatin 6,000,000 units Mouth Irritation Dextrose/Water 1,000 mls @ 100 mls/hr 08/11/20 12:02 08/13/20 05:03 D5w IV 1,000 mls .Q10H MELINA Administration Melatonin 3 mg 08/07/20 17:12 08/12/20 02:17 Melatonin 3 Mg Tab PO 3 mg HS PRN Administration Insomnia Pantoprazole Sodium 40 mg 08/09/20 09:00 08/13/20 10:42 Pantoprazole 40 Mg Tab PO 40 mg DAILY MELINA Administration Sacubitril/Valsartan 1 tab 08/09/20 21:00 08/13/20 12:47 Sacubitril 24mg/Valsartan 26mg Tab PO Not Given BID MELINA Sodium Bicarbonate 650 mg 08/13/20 09:00 08/13/20 10:41 Sodium Bicarbonate Tab 325 Mg Tab PO 650 mg TID MELINA Administration Sodium Chloride 10 ml 07/25/20 09:00 08/13/20 10:45 Flush - Normal Saline 10 Ml Syringe IVF Not Given Q12HR MELINA Sodium Chloride 10 ml 07/27/20 11:11 07/31/20 05:36 Flush - Normal Saline 10 Ml Syringe IVF 10 ml PRN PRN Administration Saline Flush Spironolactone 100 mg 08/08/20 08:00 08/13/20 10:41 Spironolactone 25 Mg Tab PO 100 mg QAM-WM MELINA Administration Zolpidem Tartrate 5 mg 08/07/20 17:12 08/10/20 20:24 Zolpidem Tartrate 5 Mg Tab PO 5 mg HSPRN PRN Administration Insomnia - Exam General Appearance: awake alert Eye: anicteric sclera ENT: normocephalic atraumatic, dry oral mucosa Neck: no JVD Respiratory: no ronchi, normal chest expansion, no tachypnea Cardiovascular: RRR Gastrointestinal: soft, non-tender, non-distended Gastrointestinal - other findings: colostomy noted Extremities: no edema Neurological: CN's grossly intact, no focal deficits PSYCH: oriented to person Nephrology Results - Labs Result Diagrams: 08/10/20 05:09 08/13/20 05:35 Lab results: WBC 15.2 thou/uL (4.8-10.8) H 08/10/20 05:09 Hgb 8.8 g/dL (12.0-16.0) L 08/10/20 05:09 Hct 27.6 % (36.0-47.0) L 08/10/20 05:09 MCV 102.0 fL (78.0-98.0) H 08/10/20 05:09 Plt Count 269 thou/uL (130-400) 08/10/20 05:09 Neutrophils % 90.9 % (42.0-75.0) H 08/09/20 08:05 Band Neuts % (Manual) 20 % (5-11) H 08/08/20 04:44 ABG pH 7.48 (7.35-7.45) H 07/28/20 00:06 ABG pCO2 23.3 mmHg (35.0-45.0) L* 07/28/20 00:06 ABG pO2 63.8 mmHg (> 80.0) 07/28/20 00:06 VBG pCO2 21.5 mmHg (40.0-50.0) L* 07/23/20 20:52 VBG pO2 43.3 mmHg (35.0-45.0) 07/23/20 20:52 Sodium 144 mmol/L (136-145) 08/13/20 05:35 Potassium 3.7 mmol/L (3.5-5.1) 08/13/20 05:35 Chloride 112 mmol/L (98-107) H 08/13/20 05:35 Carbon Dioxide 18 mmol/L (23-31) L 08/13/20 05:35 BUN 39 mg/dL (9.8-20.1) H 08/13/20 05:35 Creatinine 2.42 mg/dL (0.6-1.1) H 08/13/20 05:35 Glucose 137 mg/dL (80-115) H 08/13/20 05:35 Lactic Acid 3.1 mmol/L (0.5-2.2) H 07/24/20 06:29 Calcium 7.4 mg/dL (7.8-10.44) L 08/13/20 05:35 Total Bilirubin 1.0 mg/dL (0.2-1.2) 08/05/20 07:40 AST 71 U/L (5-34) H 08/05/20 07:40 ALT 120 U/L (8-55) H 08/05/20 07:40 Alkaline Phosphatase 116 U/L (40-110) H 08/05/20 07:40 Ammonia 20 umol/L (18-72) 07/27/20 04:56 Creatine Kinase 205 U/L (29-168) H 07/23/20 20:25 CK-MB (CK-2) 3.1 ng/mL (0-6.6) 07/28/20 12:03 Troponin I 0.352 ng/mL (< 0.028) H* 07/28/20 12:03 Serum Total Protein 6.0 g/dL (6.0-8.3) 08/05/20 07:40 Albumin 3.0 g/dL (3.4-4.8) L 08/05/20 07:40 Urine Ketones Negative mg/dL (Negative) 08/08/20 15:00 Urine Blood Negative (Negative) 08/08/20 15:00 Urine Nitrite Negative (Negative) 08/08/20 15:00 Ur Leukocyte Esterase Negative Fariha/uL (Negative) 08/08/20 15:00 Urine RBC 0-3 HPF (0-3) 08/08/20 15:00 Urine WBC 4-6 HPF (0-3) A 08/08/20 15:00 Ur Squamous Epith Cells 0-3 HPF (0-3) 08/08/20 15:00 Urine Bacteria None Seen HPF (None Seen) 08/08/20 15:00 Sodium 144 mmol/L (136-145) 08/13/20 05:35 Potassium 3.7 mmol/L (3.5-5.1) 08/13/20 05:35 Chloride 112 mmol/L (98-107) H 08/13/20 05:35 Carbon Dioxide 18 mmol/L (23-31) L 08/13/20 05:35 Anion Gap 18 mmol/L (10-20) 08/13/20 05:35 BUN 39 mg/dL (9.8-20.1) H 08/13/20 05:35 Creatinine 2.42 mg/dL (0.6-1.1) H 08/13/20 05:35 Glucose 137 mg/dL (80-115) H 08/13/20 05:35 Calcium 7.4 mg/dL (7.8-10.44) L 08/13/20 05:35 Phosphorus 3.3 mg/dL (2.3-4.7) 07/31/20 06:34 Magnesium 1.4 mg/dL (1.6-2.6) L 08/13/20 05:35 Albumin 3.0 g/dL (3.4-4.8) L 08/05/20 07:40 Nephrology AP PN - Plan ASSESSMENT Hypomagnesemia Metabolic acidosis Hyoernatremia: Resolved with D5W Acute renal failure: Multifactorial most likely. Hemodynamic factors related severe dehydration, cardiorenal syndrome and septic shock. Improved with IVF and ionorope with diuretic. Presumed baseline CKD Acute systolic and diastolic HF. Dobutamine discontinued on 08/04/20. Improved. Cardiomyopathy with EF of 10-15. etiology is unclear. Encephalopathy: Etiology remained unclea. Persists. PCM Colon cancer s/p colon resection and colostomy Hypoalbuminemia PLAN Replete serum magnesium with with IV magnesium sulphate. Start alkali therapy Continue dextrose infusion as oral intake is abysmal. Recommend PEG tube placement for nutrition and administration of medications. Continue other medications Monitor intake and output as well as renal function and electrolytes.
--- NOTE | 2020-08-13 13:44 | PDOC.HOSPP ---
- Subjective Encounter Date: 08/13/20 Encounter Time: 13:35 Subjective: f/u for AMS/Deconditioning/COVID awaiting potential SNF placement. BATCH AND FURNACE MANAGER stating pt taking more po than the day before. - Objective Vital Signs & Weight: Vital Signs (12 hours) Temp Pulse Resp BP Pulse Ox 08/13/20 11:50 98.1 F 85 16 129/79 98 08/13/20 04:00 98.4 F 87 18 126/70 100 Weight Admit Weight 120 lb 9.486 oz Weight 125 lb 3.2 oz Most Recent Monitor Data Heart Rate from ECG 81 NIBP 112/48 NIBP BP-Mean 69 Respiration from ECG 22 SpO2 97 I&O: 08/12/20 08/13/20 08/14/20 06:59 06:59 06:59 Intake Total 1536 2138 Output Total 450 660 Balance 1086 1478 Result Diagrams: 08/10/20 05:09 08/13/20 05:35 Additional Labs: Microbiology 08/09/20 03:57 Catheter Tip Catheter Tip Culture - Preliminary 08/08/20 15:50 Urine Straight Catheter Urine Culture - Preliminary NO GROWTH AT 12 HOURS Laboratory Tests 08/05/20 08/05/20 08/07/20 07:40 07:40 06:44 WBC Hgb 7.7 L Sodium 147 H Potassium 2.9 L* BUN 56 H Creatinine 2.48 H Magnesium 1.3 L 08/08/20 08/08/20 08/09/20 04:44 04:44 05:09 WBC 17.1 H Hgb 8.4 L Sodium 151 H Potassium 4.0 BUN 58 H Creatinine 2.45 H Magnesium 2.0 08/09/20 08/10/20 08/12/20 08:05 05:09 04:54 WBC Hgb Sodium 151 H 153 H 152 H Potassium 3.2 L 3.3 L BUN 58 H 48 H Creatinine 2.42 H 2.42 H 2.57 H Magnesium 08/13/20 05:35 WBC Hgb Sodium Potassium BUN Creatinine Magnesium 1.4 L EKG Reviewed by me: Yes (Tele - SR) Hospitalist ROS - Medication Medications: Active Medications Generic Name Dose Route Start Last Admin Trade Name Freq PRN Reason Stop Dose Admin Acetaminophen 650 mg 07/29/20 13:08 08/12/20 09:51 Acetaminophen 325 Mg Tab PER TUBE 650 mg Q4H PRN Administration Headache/Fever or Pain Atorvastatin Calcium 40 mg 08/07/20 21:00 08/12/20 20:57 Atorvastatin Calcium 40 Mg Tab PO 40 mg HS MELINA Administration Benzocaine 0 gm 07/24/20 22:13 08/13/20 12:39 Benzocaine (Dental) 7 Gm Tube TOP 7 gm QIDPRN PRN Administration Topical Anesthetic Al Hydroxide/Mg Hydroxide 60 0 ml 07/26/20 10:31 07/26/20 13:59 ml/ Diphenhydramine HCl 150 mg SSW 10 ml / Lidocaine HCl 60 ml/ Q8H PRN Administration Nystatin 6,000,000 units Mouth Irritation Melatonin 3 mg 08/07/20 17:12 08/12/20 02:17 Melatonin 3 Mg Tab PO 3 mg HS PRN Administration Insomnia Pantoprazole Sodium 40 mg 08/09/20 09:00 08/13/20 10:42 Pantoprazole 40 Mg Tab PO 40 mg DAILY MELINA Administration Sacubitril/Valsartan 1 tab 08/09/20 21:00 08/13/20 12:47 Sacubitril 24mg/Valsartan 26mg Tab PO Not Given BID MELINA Sodium Bicarbonate 650 mg 08/13/20 09:00 08/13/20 10:41 Sodium Bicarbonate Tab 325 Mg Tab PO 650 mg TID MELINA Administration Sodium Chloride 10 ml 07/25/20 09:00 08/13/20 10:45 Flush - Normal Saline 10 Ml Syringe IVF Not Given Q12HR MELINA Sodium Chloride 10 ml 07/27/20 11:11 07/31/20 05:36 Flush - Normal Saline 10 Ml Syringe IVF 10 ml PRN PRN Administration Saline Flush Spironolactone 100 mg 08/08/20 08:00 08/13/20 10:41 Spironolactone 25 Mg Tab PO 100 mg QAM-WM MELINA Administration Zolpidem Tartrate 5 mg 08/07/20 17:12 08/10/20 20:24 Zolpidem Tartrate 5 Mg Tab PO 5 mg HSPRN PRN Administration Insomnia - Exam General Appearance: NAD, awake alert Eye: PERRL, anicteric sclera ENT: normocephalic atraumatic, no oropharyngeal lesions Neck: supple, symmetric, no JVD, no thyromegaly, no lymphadenopathy Heart: RRR, no gallops, no rubs, normal peripheral pulses Respiratory: CTAB, no wheezes, no rales, no ronchi, normal chest expansion Gastrointestinal: soft, non-tender, non-distended, normal bowel sounds, no palpable masses Gastrointestinal - other findings: + colostomy Extremities: no cyanosis, no edema Skin: normal turgor Neurological: cranial nerve grossly intact, no new deficit Musculoskeletal: generalized weakness Psychiatric: oriented to person Hosp A/P (1) WAYNE (acute kidney injury) Code(s): N17.9 - ACUTE KIDNEY FAILURE, UNSPECIFIED Status: Acute Plan: Improved, continue volume support, serial monitoring (2) Hypernatremia Code(s): E87.0 - HYPEROSMOLALITY AND HYPERNATREMIA Status: Acute Plan: Improved, continue D5W and monitor serial Na+ (3) Acute metabolic encephalopathy Code(s): G93.41 - METABOLIC ENCEPHALOPATHY Status: Acute Plan: Persistent, multifactorial, supportive mgmt (4) Acute CVA (cerebrovascular accident) Code(s): I63.9 - CEREBRAL INFARCTION, UNSPECIFIED Status: Acute (5) Acute blood loss anemia Code(s): D62 - ACUTE POSTHEMORRHAGIC ANEMIA Status: Acute (6) COVID-19 Code(s): U07.1 - COVID-19 Status: Chronic (7) Chronic subdural hematoma Code(s): I62.03 - NONTRAUMATIC CHRONIC SUBDURAL HEMORRHAGE Status: Chronic - Plan PT/OT, social media editor, respiratory therapy, out of bed/ambulate, DVT proph w/SCDs Consults: Palliative Care Continue supportive mgmt OOB with PT for mobilization Change to D5W @ 75ml/h Encourage po intake, monitor with assistance with BATCH AND FURNACE MANAGER/Dietary Placement options with CM Place soft wrist restraints to limit pulling out IV's/colostomy AM lab: BMP
[2020-08-13] MEDS: Atorvastatin Calcium 40 MG TAB PO SCH (20:57)
[2020-08-13] MEDS: Melatonin 3 MG TAB PO PRN (20:57)
[2020-08-14 05:31] LABS: Anion Gap 13 mmol/L (10-20); BUN (Urea Nitrogen) 36 mg/dL (9.8-20.1); Calc. Creatinine Clearance 23 mL/min (70-130); Calcium 7.4 mg/dL (7.8-10.44); Carbon Dioxide 21 mmol/L (23-31); Chloride 109 mmol/L (98-107); Glucose 120 mg/dL (80-115); Potassium 3.2 mmol/L (3.5-5.1); Sodium 140 mmol/L (136-145)
[2020-08-14] MEDS ORDERED: Potassium Chloride 20 MEQ TAB PO SCH (08:00)
[2020-08-14] MEDS: Spironolactone 25 MG TAB PO SCH (08:36)
[2020-08-14] MEDS: Sodium Bicarbonate Tab 325 MG TAB PO SCH ×3 (08:36→22:27)
[2020-08-14] MEDS: Carvedilol 6.25 MG TAB PO SCH ×2 (08:37→16:10)
[2020-08-14] MEDS ORDERED: Dextrose 5% in Water 1,000 ML IV SCH (11:49)
--- NOTE | 2020-08-14 11:51 | PDOC.NEPPN ---
- Subjective Encounter Date: 08/14/20 Subjective: No new problem. Oral intake remained poor. Attempting ti eat by mouth. NG tube is off. - Objective Vital Signs & Weight: Vital Signs (12 hours) Temp Pulse Resp BP Pulse Ox 08/14/20 08:37 99 08/14/20 07:57 97.5 F L 76 14 122/67 99 08/14/20 03:23 99.0 F 72 16 111/65 98 Weight Admit Weight 120 lb 9.486 oz Weight 132 lb Most Recent Monitor Data Heart Rate from ECG 81 NIBP 112/48 NIBP BP-Mean 69 Respiration from ECG 22 SpO2 97 I&O: 08/13/20 08/14/20 08/15/20 06:59 06:59 06:59 Intake Total 2138 950 Output Total 660 375 Balance 1478 575 Result Diagrams: 08/10/20 05:09 08/14/20 04:39 Nephrology ROS - Medication Medications: Active Medications Generic Name Dose Route Start Last Admin Trade Name Freq PRN Reason Stop Dose Admin Acetaminophen 650 mg 07/29/20 13:08 08/12/20 09:51 Acetaminophen 325 Mg Tab PER TUBE 650 mg Q4H PRN Administration Headache/Fever or Pain Atorvastatin Calcium 40 mg 08/07/20 21:00 08/13/20 20:57 Atorvastatin Calcium 40 Mg Tab PO 40 mg HS MELINA Administration Benzocaine 0 gm 07/24/20 22:13 08/13/20 12:39 Benzocaine (Dental) 7 Gm Tube TOP 7 gm QIDPRN PRN Administration Topical Anesthetic Carvedilol 12.5 mg 08/13/20 17:00 08/14/20 08:37 Carvedilol 6.25 Mg Tab PO 12.5 mg BID-WM MELINA Administration Al Hydroxide/Mg Hydroxide 60 0 ml 07/26/20 10:31 07/26/20 13:59 ml/ Diphenhydramine HCl 150 mg SSW 10 ml / Lidocaine HCl 60 ml/ Q8H PRN Administration Nystatin 6,000,000 units Mouth Irritation Melatonin 3 mg 08/07/20 17:12 08/13/20 20:57 Melatonin 3 Mg Tab PO 3 mg HS PRN Administration Insomnia Pantoprazole Sodium 40 mg 08/09/20 09:00 08/14/20 08:36 Pantoprazole 40 Mg Tab PO 40 mg DAILY MELINA Administration Sacubitril/Valsartan 1 tab 08/09/20 21:00 08/14/20 08:36 Sacubitril 24mg/Valsartan 26mg Tab PO 1 tab BID MELINA Administration Sodium Bicarbonate 650 mg 08/13/20 09:00 08/14/20 08:36 Sodium Bicarbonate Tab 325 Mg Tab PO 650 mg TID MELINA Administration Sodium Chloride 10 ml 07/25/20 09:00 08/14/20 08:37 Flush - Normal Saline 10 Ml Syringe IVF Not Given Q12HR MELINA Sodium Chloride 10 ml 07/27/20 11:11 07/31/20 05:36 Flush - Normal Saline 10 Ml Syringe IVF 10 ml PRN PRN Administration Saline Flush Spironolactone 100 mg 08/08/20 08:00 08/14/20 08:36 Spironolactone 25 Mg Tab PO 100 mg QAM-WM MELINA Administration Zolpidem Tartrate 5 mg 08/07/20 17:12 08/10/20 20:24 Zolpidem Tartrate 5 Mg Tab PO 5 mg HSPRN PRN Administration Insomnia - Exam General Appearance: awake alert Eye: anicteric sclera ENT: normocephalic atraumatic, moist mucosa Neck: supple, symmetric, no JVD Respiratory: no wheezes, no rales, no ronchi, normal chest expansion Cardiovascular: RRR Gastrointestinal: soft, non-tender, non-distended, normal bowel sounds Gastrointestinal - other findings: colostomy in place Extremities: no edema Neurological: CN's grossly intact, no focal deficits, no new deficit Neurological - other findings: oriented to person. Confusion and memeory lapses noted Nephrology Results - Labs Result Diagrams: 08/10/20 05:09 08/14/20 04:39 Lab results: WBC 15.2 thou/uL (4.8-10.8) H 08/10/20 05:09 Hgb 8.8 g/dL (12.0-16.0) L 08/10/20 05:09 Hct 27.6 % (36.0-47.0) L 08/10/20 05:09 MCV 102.0 fL (78.0-98.0) H 08/10/20 05:09 Plt Count 269 thou/uL (130-400) 08/10/20 05:09 Neutrophils % 90.9 % (42.0-75.0) H 08/09/20 08:05 Band Neuts % (Manual) 20 % (5-11) H 08/08/20 04:44 ABG pH 7.48 (7.35-7.45) H 07/28/20 00:06 ABG pCO2 23.3 mmHg (35.0-45.0) L* 07/28/20 00:06 ABG pO2 63.8 mmHg (> 80.0) 07/28/20 00:06 VBG pCO2 21.5 mmHg (40.0-50.0) L* 07/23/20 20:52 VBG pO2 43.3 mmHg (35.0-45.0) 07/23/20 20:52 Sodium 140 mmol/L (136-145) 08/14/20 04:39 Potassium 3.2 mmol/L (3.5-5.1) L 08/14/20 04:39 Chloride 109 mmol/L (98-107) H 08/14/20 04:39 Carbon Dioxide 21 mmol/L (23-31) L 08/14/20 04:39 BUN 36 mg/dL (9.8-20.1) H 08/14/20 04:39 Creatinine 2.23 mg/dL (0.6-1.1) H 08/14/20 04:39 Glucose 120 mg/dL (80-115) H 08/14/20 04:39 Lactic Acid 3.1 mmol/L (0.5-2.2) H 07/24/20 06:29 Calcium 7.4 mg/dL (7.8-10.44) L 08/14/20 04:39 Total Bilirubin 1.0 mg/dL (0.2-1.2) 08/05/20 07:40 AST 71 U/L (5-34) H 08/05/20 07:40 ALT 120 U/L (8-55) H 08/05/20 07:40 Alkaline Phosphatase 116 U/L (40-110) H 08/05/20 07:40 Ammonia 20 umol/L (18-72) 07/27/20 04:56 Creatine Kinase 205 U/L (29-168) H 07/23/20 20:25 CK-MB (CK-2) 3.1 ng/mL (0-6.6) 07/28/20 12:03 Troponin I 0.352 ng/mL (< 0.028) H* 07/28/20 12:03 Serum Total Protein 6.0 g/dL (6.0-8.3) 08/05/20 07:40 Albumin 3.0 g/dL (3.4-4.8) L 08/05/20 07:40 Urine Ketones Negative mg/dL (Negative) 08/08/20 15:00 Urine Blood Negative (Negative) 08/08/20 15:00 Urine Nitrite Negative (Negative) 08/08/20 15:00 Ur Leukocyte Esterase Negative Fariha/uL (Negative) 08/08/20 15:00 Urine RBC 0-3 HPF (0-3) 08/08/20 15:00 Urine WBC 4-6 HPF (0-3) A 08/08/20 15:00 Ur Squamous Epith Cells 0-3 HPF (0-3) 08/08/20 15:00 Urine Bacteria None Seen HPF (None Seen) 08/08/20 15:00 Sodium 140 mmol/L (136-145) 08/14/20 04:39 Potassium 3.2 mmol/L (3.5-5.1) L 08/14/20 04:39 Chloride 109 mmol/L (98-107) H 08/14/20 04:39 Carbon Dioxide 21 mmol/L (23-31) L 08/14/20 04:39 Anion Gap 13 mmol/L (10-20) 08/14/20 04:39 BUN 36 mg/dL (9.8-20.1) H 08/14/20 04:39 Creatinine 2.23 mg/dL (0.6-1.1) H 08/14/20 04:39 Glucose 120 mg/dL (80-115) H 08/14/20 04:39 Calcium 7.4 mg/dL (7.8-10.44) L 08/14/20 04:39 Phosphorus 3.3 mg/dL (2.3-4.7) 07/31/20 06:34 Magnesium 1.4 mg/dL (1.6-2.6) L 08/13/20 05:35 Albumin 3.0 g/dL (3.4-4.8) L 08/05/20 07:40 Nephrology AP PN - Plan ASSESSMENT Hypokalemia Hypomagnesemia Metabolic acidosis Hyoernatremia: Resolved with D5W Acute renal failure: Multifactorial most likely. Hemodynamic factors related severe dehydration, cardiorenal syndrome and septic shock. Improved with IVF and ionorope with diuretic. Presumed baseline CKD Acute systolic and diastolic HF. Dobutamine discontinued on 08/04/20. Improved. Cardiomyopathy with EF of 10-15. etiology is unclear. Encephalopathy: Etiology remained unclea. Persists. PCM Colon cancer s/p colon resection and colostomy Hypoalbuminemia PLAN Replete serum potassium with KCL. Decrease D5W to 40 given resolution of hypernatremia. Continue alkali therapy Monitor intake and output as well as renal function and electrolytes.
--- NOTE | 2020-08-14 15:31 | PDOC.PALFU ---
Palliative Care Follow-up Note Palliative care will sign off as Patient MPOA secured and CM facilitating discharge at this time. Please re consult if Goal of Care needs to be revisited or assistance with complex decision making.
--- NOTE | 2020-08-14 17:05 | PDOC.HOSPP ---
- Subjective Encounter Date: 08/14/20 Encounter Time: 17:00 Subjective: f/u for AMS/deconditioning/dementia awaiting SNF options. No new events reported. - Objective Vital Signs & Weight: Vital Signs (12 hours) Temp Pulse Resp BP BP Pulse Ox 08/14/20 16:00 98.8 F 78 15 125/71 99 08/14/20 12:00 97.3 F L 73 16 101/66 99 08/14/20 10:09 98/60 08/14/20 08:37 99 08/14/20 07:57 97.5 F L 76 14 122/67 99 Weight Admit Weight 120 lb 9.486 oz Weight 132 lb Most Recent Monitor Data Heart Rate from ECG 81 NIBP 112/48 NIBP BP-Mean 69 Respiration from ECG 22 SpO2 97 I&O: 08/13/20 08/14/20 08/15/20 06:59 06:59 06:59 Intake Total 2138 950 Output Total 660 375 Balance 1478 575 Result Diagrams: 08/10/20 05:09 08/14/20 04:39 Additional Labs: Microbiology 08/09/20 03:57 Catheter Tip Catheter Tip Culture - Preliminary 08/08/20 15:50 Urine Straight Catheter Urine Culture - Preliminary NO GROWTH AT 12 HOURS Laboratory Tests 08/05/20 08/05/20 08/07/20 07:40 07:40 06:44 WBC Hgb 7.7 L Sodium 147 H Potassium 2.9 L* BUN 56 H Creatinine 2.48 H Magnesium 1.3 L 08/08/20 08/08/20 08/09/20 04:44 04:44 05:09 WBC 17.1 H Hgb 8.4 L Sodium 151 H Potassium 4.0 BUN 58 H Creatinine 2.45 H Magnesium 2.0 08/09/20 08/10/20 08/12/20 08:05 05:09 04:54 WBC Hgb Sodium 151 H 153 H 152 H Potassium 3.2 L 3.3 L BUN 58 H 48 H Creatinine 2.42 H 2.42 H 2.57 H Magnesium 08/13/20 05:35 WBC Hgb Sodium Potassium BUN Creatinine Magnesium 1.4 L Hospitalist ROS - Medication Medications: Active Medications Generic Name Dose Route Start Last Admin Trade Name Freq PRN Reason Stop Dose Admin Acetaminophen 650 mg 07/29/20 13:08 08/12/20 09:51 Acetaminophen 325 Mg Tab PER TUBE 650 mg Q4H PRN Administration Headache/Fever or Pain Atorvastatin Calcium 40 mg 08/07/20 21:00 08/13/20 20:57 Atorvastatin Calcium 40 Mg Tab PO 40 mg HS MELINA Administration Benzocaine 0 gm 07/24/20 22:13 08/13/20 12:39 Benzocaine (Dental) 7 Gm Tube TOP 7 gm QIDPRN PRN Administration Topical Anesthetic Carvedilol 12.5 mg 08/13/20 17:00 08/14/20 16:10 Carvedilol 6.25 Mg Tab PO 12.5 mg BID-WM MELINA Administration Al Hydroxide/Mg Hydroxide 60 0 ml 07/26/20 10:31 07/26/20 13:59 ml/ Diphenhydramine HCl 150 mg SSW 10 ml / Lidocaine HCl 60 ml/ Q8H PRN Administration Nystatin 6,000,000 units Mouth Irritation Dextrose/Water 1,000 mls @ 40 mls/hr 08/14/20 11:49 08/14/20 12:02 D5w IV 1,000 mls .Q24H MELINA Administration Melatonin 3 mg 08/07/20 17:12 08/13/20 20:57 Melatonin 3 Mg Tab PO 3 mg HS PRN Administration Insomnia Pantoprazole Sodium 40 mg 08/09/20 09:00 08/14/20 08:36 Pantoprazole 40 Mg Tab PO 40 mg DAILY MELINA Administration Sacubitril/Valsartan 1 tab 08/09/20 21:00 08/14/20 08:36 Sacubitril 24mg/Valsartan 26mg Tab PO 1 tab BID MELINA Administration Sodium Bicarbonate 650 mg 08/13/20 09:00 08/14/20 16:10 Sodium Bicarbonate Tab 325 Mg Tab PO 650 mg TID MELINA Administration Sodium Chloride 10 ml 07/25/20 09:00 08/14/20 08:37 Flush - Normal Saline 10 Ml Syringe IVF Not Given Q12HR MELINA Sodium Chloride 10 ml 07/27/20 11:11 07/31/20 05:36 Flush - Normal Saline 10 Ml Syringe IVF 10 ml PRN PRN Administration Saline Flush Spironolactone 100 mg 08/08/20 08:00 08/14/20 08:36 Spironolactone 25 Mg Tab PO 100 mg QAM-WM MELINA Administration Zolpidem Tartrate 5 mg 08/07/20 17:12 08/10/20 20:24 Zolpidem Tartrate 5 Mg Tab PO 5 mg HSPRN PRN Administration Insomnia - Exam General Appearance: NAD, awake alert Eye: PERRL, anicteric sclera ENT: normocephalic atraumatic, no oropharyngeal lesions Neck: supple, symmetric, no JVD, no thyromegaly, no lymphadenopathy Heart: RRR, no gallops, no rubs, normal peripheral pulses Heart - other findings: S1, S2 Respiratory: CTAB, no wheezes, no rales, no ronchi, normal chest expansion, no tachypnea Gastrointestinal: soft, non-tender, non-distended, normal bowel sounds, no palpable masses Extremities: no cyanosis, no clubbing, no edema Skin: normal turgor Neurological: no new deficit Musculoskeletal: normal tone, generalized weakness Psychiatric: oriented to person, flat affect, somnolent Hosp A/P (1) WAYNE (acute kidney injury) Code(s): N17.9 - ACUTE KIDNEY FAILURE, UNSPECIFIED Status: Acute Plan: Improved, continue low-volume IVF's, avoid nephrotoxic meds and limit contrast (2) Hypernatremia Code(s): E87.0 - HYPEROSMOLALITY AND HYPERNATREMIA Status: Acute Plan: Resolved, continue current IVF's (3) Acute metabolic encephalopathy Code(s): G93.41 - METABOLIC ENCEPHALOPATHY Status: Acute Plan: Persistent and likely multifactorial, supportive mgmt, SNF options pending (4) Acute CVA (cerebrovascular accident) Code(s): I63.9 - CEREBRAL INFARCTION, UNSPECIFIED Status: Acute (5) Acute blood loss anemia Code(s): D62 - ACUTE POSTHEMORRHAGIC ANEMIA Status: Acute (6) COVID-19 Code(s): U07.1 - COVID-19 Status: Chronic Plan: No respiratory compromise currently (7) Chronic subdural hematoma Code(s): I62.03 - NONTRAUMATIC CHRONIC SUBDURAL HEMORRHAGE Status: Chronic - Plan PT/OT, social service coordinator, speech therapy, respiratory therapy, DVT proph w/SCDs Continue supportive mgmt OOB with PT for mobilization Change to D5W @ 40ml/h Encourage po intake, monitor with assistance with [employer]/Dietary Placement options with CM AM lab: BMP
[2020-08-14] MEDS: Atorvastatin Calcium 40 MG TAB PO SCH (22:27)
[2020-08-15] MEDS: Carvedilol 6.25 MG TAB PO SCH ×2 (09:54→17:51)
[2020-08-15] MEDS: Spironolactone 25 MG TAB PO SCH (09:54)
[2020-08-15] MEDS: Sodium Bicarbonate Tab 325 MG TAB PO SCH ×3 (09:54→21:43)
[2020-08-15 10:58] LABS: Albumin 2.9 g/dL (3.4-4.8); Anion Gap 16 mmol/L (10-20); BUN (Urea Nitrogen) 31 mg/dL (9.8-20.1); BUN/Creatinine Ratio 13.48; Calc. Creatinine Clearance 22 mL/min (70-130); Calcium 7.9 mg/dL (7.8-10.44); Carbon Dioxide 19 mmol/L (23-31); Chloride 108 mmol/L (98-107); Glucose 112 mg/dL (80-115); Magnesium 2.1 mg/dL (1.6-2.6); Potassium 3.8 mmol/L (3.5-5.1)
[2020-08-15 11:04] LABS: Sodium 139 mmol/L (136-145)
--- NOTE | 2020-08-15 15:01 | PDOC.NEPPN ---
- Subjective Encounter Date: 08/15/20 Subjective: Seen and examined. More awake and conversational. No fever. Oral intake remained suboptimal. - Objective Vital Signs & Weight: Vital Signs (12 hours) Temp Pulse Pulse Pulse Resp BP BP 08/15/20 11:42 98.0 F 73 16 08/15/20 09:20 97.9 F 81 17 08/15/20 09:14 83 80 133/87 119/61 08/15/20 04:52 98.4 F 84 15 BP BP Pulse Ox Pulse Ox Pulse Ox 08/15/20 11:42 96/57 L 99 08/15/20 09:20 119/64 99 08/15/20 09:14 100 99 08/15/20 04:52 130/76 100 Weight Admit Weight 120 lb 9.486 oz Weight 134 lb 3.2 oz Most Recent Monitor Data Heart Rate from ECG 81 NIBP 112/48 NIBP BP-Mean 69 Respiration from ECG 22 SpO2 97 I&O: 08/14/20 08/15/20 08/16/20 06:59 06:59 06:59 Intake Total 950 600 Output Total 375 550 Balance 575 50 Result Diagrams: 08/10/20 05:09 08/15/20 10:20 Nephrology ROS - Medication Medications: Active Medications Generic Name Dose Route Start Last Admin Trade Name Freq PRN Reason Stop Dose Admin Acetaminophen 650 mg 07/29/20 13:08 08/12/20 09:51 Acetaminophen 325 Mg Tab PER TUBE 650 mg Q4H PRN Administration Headache/Fever or Pain Atorvastatin Calcium 40 mg 08/07/20 21:00 08/14/20 22:27 Atorvastatin Calcium 40 Mg Tab PO 40 mg HS MELINA Administration Benzocaine 0 gm 07/24/20 22:13 08/13/20 12:39 Benzocaine (Dental) 7 Gm Tube TOP 7 gm QIDPRN PRN Administration Topical Anesthetic Carvedilol 12.5 mg 08/13/20 17:00 08/15/20 09:54 Carvedilol 6.25 Mg Tab PO 12.5 mg BID-WM MELINA Administration Al Hydroxide/Mg Hydroxide 60 0 ml 07/26/20 10:31 07/26/20 13:59 ml/ Diphenhydramine HCl 150 mg SSW 10 ml / Lidocaine HCl 60 ml/ Q8H PRN Administration Nystatin 6,000,000 units Mouth Irritation Melatonin 3 mg 08/07/20 17:12 08/13/20 20:57 Melatonin 3 Mg Tab PO 3 mg HS PRN Administration Insomnia Pantoprazole Sodium 40 mg 08/09/20 09:00 08/15/20 09:55 Pantoprazole 40 Mg Tab PO 40 mg DAILY MELINA Administration Sacubitril/Valsartan 1 tab 08/09/20 21:00 08/15/20 09:55 Sacubitril 24mg/Valsartan 26mg Tab PO 1 tab BID MELINA Administration Sodium Bicarbonate 650 mg 08/13/20 09:00 08/15/20 14:52 Sodium Bicarbonate Tab 325 Mg Tab PO 650 mg TID MELINA Administration Sodium Chloride 10 ml 07/25/20 09:00 08/15/20 09:55 Flush - Normal Saline 10 Ml Syringe IVF Not Given Q12HR MELINA Sodium Chloride 10 ml 07/27/20 11:11 07/31/20 05:36 Flush - Normal Saline 10 Ml Syringe IVF 10 ml PRN PRN Administration Saline Flush Spironolactone 100 mg 08/08/20 08:00 08/15/20 09:54 Spironolactone 25 Mg Tab PO 100 mg QAM-WM MELINA Administration Zolpidem Tartrate 5 mg 08/07/20 17:12 08/10/20 20:24 Zolpidem Tartrate 5 Mg Tab PO 5 mg HSPRN PRN Administration Insomnia - Exam General Appearance: awake alert Eye: anicteric sclera ENT: normocephalic atraumatic, moist mucosa Neck: symmetric, no JVD Respiratory: no wheezes, no rales, no ronchi, normal chest expansion, no tachypnea Cardiovascular: RRR Gastrointestinal: soft, non-tender, non-distended, normal bowel sounds Gastrointestinal - other findings: colostomy noted Extremities: no edema Neurological: CN's grossly intact, no focal deficits Musculoskeletal: generalized weakness, diffuse muscle atrophy PSYCH: oriented to person, oriented to place Nephrology Results - Labs Result Diagrams: 08/10/20 05:09 08/15/20 10:20 Lab results: WBC 15.2 thou/uL (4.8-10.8) H 08/10/20 05:09 Hgb 8.8 g/dL (12.0-16.0) L 08/10/20 05:09 Hct 27.6 % (36.0-47.0) L 08/10/20 05:09 MCV 102.0 fL (78.0-98.0) H 08/10/20 05:09 Plt Count 269 thou/uL (130-400) 08/10/20 05:09 Neutrophils % 90.9 % (42.0-75.0) H 08/09/20 08:05 Band Neuts % (Manual) 20 % (5-11) H 08/08/20 04:44 ABG pH 7.48 (7.35-7.45) H 07/28/20 00:06 ABG pCO2 23.3 mmHg (35.0-45.0) L* 07/28/20 00:06 ABG pO2 63.8 mmHg (> 80.0) 07/28/20 00:06 VBG pCO2 21.5 mmHg (40.0-50.0) L* 07/23/20 20:52 VBG pO2 43.3 mmHg (35.0-45.0) 07/23/20 20:52 Sodium 139 mmol/L (136-145) 08/15/20 10:20 Potassium 3.8 mmol/L (3.5-5.1) 08/15/20 10:20 Chloride 108 mmol/L (98-107) H 08/15/20 10:20 Carbon Dioxide 19 mmol/L (23-31) L 08/15/20 10:20 BUN 31 mg/dL (9.8-20.1) H 08/15/20 10:20 Creatinine 2.30 mg/dL (0.6-1.1) H 08/15/20 10:20 Glucose 112 mg/dL (80-115) 08/15/20 10:20 Lactic Acid 3.1 mmol/L (0.5-2.2) H 07/24/20 06:29 Calcium 7.9 mg/dL (7.8-10.44) 08/15/20 10:20 Total Bilirubin 1.0 mg/dL (0.2-1.2) 08/05/20 07:40 AST 71 U/L (5-34) H 08/05/20 07:40 ALT 120 U/L (8-55) H 08/05/20 07:40 Alkaline Phosphatase 116 U/L (40-110) H 08/05/20 07:40 Ammonia 20 umol/L (18-72) 07/27/20 04:56 Creatine Kinase 205 U/L (29-168) H 07/23/20 20:25 CK-MB (CK-2) 3.1 ng/mL (0-6.6) 07/28/20 12:03 Troponin I 0.352 ng/mL (< 0.028) H* 07/28/20 12:03 Serum Total Protein 6.0 g/dL (6.0-8.3) 08/05/20 07:40 Albumin 2.9 g/dL (3.4-4.8) L 08/15/20 10:20 Urine Ketones Negative mg/dL (Negative) 08/08/20 15:00 Urine Blood Negative (Negative) 08/08/20 15:00 Urine Nitrite Negative (Negative) 08/08/20 15:00 Ur Leukocyte Esterase Negative Fariha/uL (Negative) 08/08/20 15:00 Urine RBC 0-3 HPF (0-3) 08/08/20 15:00 Urine WBC 4-6 HPF (0-3) A 08/08/20 15:00 Ur Squamous Epith Cells 0-3 HPF (0-3) 08/08/20 15:00 Urine Bacteria None Seen HPF (None Seen) 08/08/20 15:00 Sodium 139 mmol/L (136-145) 08/15/20 10:20 Potassium 3.8 mmol/L (3.5-5.1) 08/15/20 10:20 Chloride 108 mmol/L (98-107) H 08/15/20 10:20 Carbon Dioxide 19 mmol/L (23-31) L 08/15/20 10:20 Anion Gap 16 mmol/L (10-20) 08/15/20 10:20 BUN 31 mg/dL (9.8-20.1) H 08/15/20 10:20 Creatinine 2.30 mg/dL (0.6-1.1) H 08/15/20 10:20 Glucose 112 mg/dL (80-115) 08/15/20 10:20 Calcium 7.9 mg/dL (7.8-10.44) 08/15/20 10:20 Phosphorus 4.0 mg/dL (2.3-4.7) 08/15/20 10:20 Magnesium 2.1 mg/dL (1.6-2.6) 08/15/20 10:20 Albumin 2.9 g/dL (3.4-4.8) L 08/15/20 10:20 Nephrology AP PN - Plan ASSESSMENT Acute renal failure: Multifactorial related severe dehydration, cardiorenal syndrome and septic shock. Improved. Creat has stabilized around 2.3. ? New baseline. Presumed CKD. baseline creat is unknown Hypokalemia: Repleted Hypomagnesemia: Repleted. Metabolic acidosis Hyoernatremia: Resolved. Acute systolic and diastolic HF. Dobutamine discontinued on 08/04/20. Improved. Cardiomyopathy with EF of 10-15. etiology is unclear. ? acute related to uremia and acute illness. Rechecking Echo may be prudent. Encephalopathy: Etiology remained unclear. ? acute illness and or uremia electrolyte derangements. Improving slowly. PCM Colon cancer s/p colon resection and colostomy Hypoalbuminemia PLAN Nutritional rehabilitation to continue. Monitor electrolytes and replete as needed Continue alkali therapy Monitor intake and output as well as renal function and electrolytes.
--- NOTE | 2020-08-15 15:41 | PDOC.HOSPP ---
- Subjective Encounter Date: 08/15/20 Encounter Time: 15:40 Subjective: f/u for AMS/Hypernatremia/Deconditioning/?Dementia. Overall feeling better. Awaiting SNF options. - Objective Vital Signs & Weight: Vital Signs (12 hours) Temp Pulse Pulse Pulse Resp BP BP 08/15/20 11:42 98.0 F 73 16 08/15/20 09:20 97.9 F 81 17 08/15/20 09:14 83 80 133/87 119/61 08/15/20 04:52 98.4 F 84 15 BP BP Pulse Ox Pulse Ox Pulse Ox 08/15/20 11:42 96/57 L 99 08/15/20 09:20 119/64 99 08/15/20 09:14 100 99 08/15/20 04:52 130/76 100 Weight Admit Weight 120 lb 9.486 oz Weight 134 lb 3.2 oz Most Recent Monitor Data Heart Rate from ECG 81 NIBP 112/48 NIBP BP-Mean 69 Respiration from ECG 22 SpO2 97 I&O: 08/14/20 08/15/20 08/16/20 06:59 06:59 06:59 Intake Total 950 600 Output Total 375 550 Balance 575 50 Result Diagrams: 08/10/20 05:09 08/15/20 10:20 Additional Labs: Microbiology 08/09/20 03:57 Catheter Tip Catheter Tip Culture - Preliminary 08/08/20 15:50 Urine Straight Catheter Urine Culture - Preliminary NO GROWTH AT 12 HOURS Laboratory Tests 08/05/20 08/05/20 08/07/20 07:40 07:40 06:44 WBC Hgb 7.7 L Sodium 147 H Potassium 2.9 L* BUN 56 H Creatinine 2.48 H Magnesium 1.3 L 08/08/20 08/08/20 08/09/20 04:44 04:44 05:09 WBC 17.1 H Hgb 8.4 L Sodium 151 H Potassium 4.0 BUN 58 H Creatinine 2.45 H Magnesium 2.0 08/09/20 08/10/20 08/12/20 08:05 05:09 04:54 WBC Hgb Sodium 151 H 153 H 152 H Potassium 3.2 L 3.3 L BUN 58 H 48 H Creatinine 2.42 H 2.42 H 2.57 H Magnesium 08/13/20 05:35 WBC Hgb Sodium Potassium BUN Creatinine Magnesium 1.4 L Hospitalist ROS - Medication Medications: Active Medications Generic Name Dose Route Start Last Admin Trade Name Freq PRN Reason Stop Dose Admin Acetaminophen 650 mg 07/29/20 13:08 08/12/20 09:51 Acetaminophen 325 Mg Tab PER TUBE 650 mg Q4H PRN Administration Headache/Fever or Pain Atorvastatin Calcium 40 mg 08/07/20 21:00 08/14/20 22:27 Atorvastatin Calcium 40 Mg Tab PO 40 mg HS MELINA Administration Benzocaine 0 gm 07/24/20 22:13 08/13/20 12:39 Benzocaine (Dental) 7 Gm Tube TOP 7 gm QIDPRN PRN Administration Topical Anesthetic Carvedilol 12.5 mg 08/13/20 17:00 08/15/20 09:54 Carvedilol 6.25 Mg Tab PO 12.5 mg BID-WM MELINA Administration Al Hydroxide/Mg Hydroxide 60 0 ml 07/26/20 10:31 07/26/20 13:59 ml/ Diphenhydramine HCl 150 mg SSW 10 ml / Lidocaine HCl 60 ml/ Q8H PRN Administration Nystatin 6,000,000 units Mouth Irritation Melatonin 3 mg 08/07/20 17:12 08/13/20 20:57 Melatonin 3 Mg Tab PO 3 mg HS PRN Administration Insomnia Pantoprazole Sodium 40 mg 08/09/20 09:00 08/15/20 09:55 Pantoprazole 40 Mg Tab PO 40 mg DAILY MELINA Administration Sacubitril/Valsartan 1 tab 08/09/20 21:00 08/15/20 09:55 Sacubitril 24mg/Valsartan 26mg Tab PO 1 tab BID MELINA Administration Sodium Bicarbonate 650 mg 08/13/20 09:00 08/15/20 14:52 Sodium Bicarbonate Tab 325 Mg Tab PO 650 mg TID MELINA Administration Sodium Chloride 10 ml 07/25/20 09:00 08/15/20 09:55 Flush - Normal Saline 10 Ml Syringe IVF Not Given Q12HR MELINA Sodium Chloride 10 ml 07/27/20 11:11 07/31/20 05:36 Flush - Normal Saline 10 Ml Syringe IVF 10 ml PRN PRN Administration Saline Flush Spironolactone 100 mg 08/08/20 08:00 08/15/20 09:54 Spironolactone 25 Mg Tab PO 100 mg QAM-WM MELINA Administration Zolpidem Tartrate 5 mg 08/07/20 17:12 08/10/20 20:24 Zolpidem Tartrate 5 Mg Tab PO 5 mg HSPRN PRN Administration Insomnia - Exam General Appearance: NAD, awake alert Eye: PERRL, anicteric sclera ENT: normocephalic atraumatic, no oropharyngeal lesions Neck: supple, symmetric, no JVD, no thyromegaly, no lymphadenopathy Heart: RRR, no gallops, no rubs, normal peripheral pulses Heart - other findings: S1, S2 Respiratory - other findings: basilar rhonchi, diminished in bases Gastrointestinal: soft, non-tender, non-distended, normal bowel sounds Gastrointestinal - other findings: + colostomy Extremities: no cyanosis, no clubbing, no edema Skin: normal turgor, no lesions Neurological: cranial nerve grossly intact, no new deficit Musculoskeletal: generalized weakness Psychiatric: oriented to person, oriented to place, somnolent Hosp A/P (1) WAYNE (acute kidney injury) Code(s): N17.9 - ACUTE KIDNEY FAILURE, UNSPECIFIED Status: Acute Plan: Slowly improving, avoid nephrotoxic meds and limit contrast (2) Hypernatremia Code(s): E87.0 - HYPEROSMOLALITY AND HYPERNATREMIA Status: Acute Plan: Resolved, serial Na+ monitoring (3) Acute metabolic encephalopathy Code(s): G93.41 - METABOLIC ENCEPHALOPATHY Status: Acute Plan: Improved overall, continue supportive mgmt, likely multifactorial process (4) Acute CVA (cerebrovascular accident) Code(s): I63.9 - CEREBRAL INFARCTION, UNSPECIFIED Status: Acute (5) Acute blood loss anemia Code(s): D62 - ACUTE POSTHEMORRHAGIC ANEMIA Status: Acute Plan: s/p 2u PRBC's, H/H stable currently, multiple erosions/ulcerations of the esophagus/gastric region (6) COVID-19 Code(s): U07.1 - COVID-19 Status: Chronic (7) Chronic subdural hematoma Code(s): I62.03 - NONTRAUMATIC CHRONIC SUBDURAL HEMORRHAGE Status: Chronic - Plan PT/OT, social worker, speech therapy, out of bed/ambulate, DVT proph w/SCDs Consults: Palliative Care Continue supportive mgmt OOB with PT for mobilization Saline lock IVF's Encourage po intake, monitor with assistance with PHONE BANKER/Dietary Placement options with CM Continue Protonix 40mg
[2020-08-15] MEDS: Zolpidem Tartrate 5 MG TAB PO PRN (21:43)
[2020-08-15] MEDS: Atorvastatin Calcium 40 MG TAB PO SCH (21:43)
[2020-08-16] MEDS: Sodium Bicarbonate Tab 325 MG TAB PO SCH ×3 (08:20→20:25)
[2020-08-16] MEDS: Spironolactone 25 MG TAB PO SCH (08:20)
[2020-08-16] MEDS: Carvedilol 6.25 MG TAB PO SCH ×2 (08:21→16:39)
--- NOTE | 2020-08-16 13:12 | PDOC.NEPPN ---
- Subjective Encounter Date: 08/16/20 Subjective: No new problem - Objective Vital Signs & Weight: Vital Signs (12 hours) Temp Pulse Resp BP Pulse Ox 08/16/20 11:30 98.3 F 78 18 118/58 L 100 08/16/20 07:21 98.3 F 87 18 122/64 100 08/16/20 04:04 98.2 F 83 14 126/84 100 Weight Admit Weight 120 lb 9.486 oz Weight 132 lb 1.6 oz Most Recent Monitor Data Heart Rate from ECG 81 NIBP 112/48 NIBP BP-Mean 69 Respiration from ECG 22 SpO2 97 I&O: 08/15/20 08/16/20 08/17/20 06:59 06:59 06:59 Intake Total 600 610 Output Total 550 475 Balance 50 135 Result Diagrams: 08/10/20 05:09 08/15/20 10:20 Nephrology ROS - Medication Medications: Active Medications Generic Name Dose Route Start Last Admin Trade Name Freq PRN Reason Stop Dose Admin Acetaminophen 650 mg 07/29/20 13:08 08/12/20 09:51 Acetaminophen 325 Mg Tab PER TUBE 650 mg Q4H PRN Administration Headache/Fever or Pain Atorvastatin Calcium 40 mg 08/07/20 21:00 08/15/20 21:43 Atorvastatin Calcium 40 Mg Tab PO 40 mg HS MELINA Administration Benzocaine 0 gm 07/24/20 22:13 08/13/20 12:39 Benzocaine (Dental) 7 Gm Tube TOP 7 gm QIDPRN PRN Administration Topical Anesthetic Carvedilol 12.5 mg 08/13/20 17:00 08/16/20 08:21 Carvedilol 6.25 Mg Tab PO 12.5 mg BID-WM MELINA Administration Al Hydroxide/Mg Hydroxide 60 0 ml 07/26/20 10:31 07/26/20 13:59 ml/ Diphenhydramine HCl 150 mg SSW 10 ml / Lidocaine HCl 60 ml/ Q8H PRN Administration Nystatin 6,000,000 units Mouth Irritation Melatonin 3 mg 08/07/20 17:12 08/13/20 20:57 Melatonin 3 Mg Tab PO 3 mg HS PRN Administration Insomnia Pantoprazole Sodium 40 mg 08/09/20 09:00 08/16/20 08:21 Pantoprazole 40 Mg Tab PO 40 mg DAILY MELINA Administration Sacubitril/Valsartan 1 tab 08/09/20 21:00 08/16/20 08:20 Sacubitril 24mg/Valsartan 26mg Tab PO 1 tab BID MELINA Administration Sodium Bicarbonate 650 mg 08/13/20 09:00 08/16/20 08:20 Sodium Bicarbonate Tab 325 Mg Tab PO 650 mg TID MELINA Administration Sodium Chloride 10 ml 07/25/20 09:00 08/16/20 08:44 Flush - Normal Saline 10 Ml Syringe IVF Not Given Q12HR MELINA Sodium Chloride 10 ml 07/27/20 11:11 07/31/20 05:36 Flush - Normal Saline 10 Ml Syringe IVF 10 ml PRN PRN Administration Saline Flush Spironolactone 100 mg 08/08/20 08:00 08/16/20 08:20 Spironolactone 25 Mg Tab PO 100 mg QAM-WM MELINA Administration Zolpidem Tartrate 5 mg 08/07/20 17:12 08/10/20 20:24 Zolpidem Tartrate 5 Mg Tab PO 5 mg HSPRN PRN Administration Insomnia - Exam General Appearance: awake alert Eye: anicteric sclera ENT: normocephalic atraumatic Neck: supple Respiratory: no ronchi, normal chest expansion, no tachypnea Cardiovascular: RRR Gastrointestinal: soft Extremities: no edema Neurological: CN's grossly intact PSYCH: oriented to person, oriented to place Nephrology Results - Labs Result Diagrams: 08/10/20 05:09 08/15/20 10:20 Lab results: WBC 15.2 thou/uL (4.8-10.8) H 08/10/20 05:09 Hgb 8.8 g/dL (12.0-16.0) L 08/10/20 05:09 Hct 27.6 % (36.0-47.0) L 08/10/20 05:09 MCV 102.0 fL (78.0-98.0) H 08/10/20 05:09 Plt Count 269 thou/uL (130-400) 08/10/20 05:09 Neutrophils % 90.9 % (42.0-75.0) H 08/09/20 08:05 Band Neuts % (Manual) 20 % (5-11) H 08/08/20 04:44 ABG pH 7.48 (7.35-7.45) H 07/28/20 00:06 ABG pCO2 23.3 mmHg (35.0-45.0) L* 07/28/20 00:06 ABG pO2 63.8 mmHg (> 80.0) 07/28/20 00:06 VBG pCO2 21.5 mmHg (40.0-50.0) L* 07/23/20 20:52 VBG pO2 43.3 mmHg (35.0-45.0) 07/23/20 20:52 Sodium 139 mmol/L (136-145) 08/15/20 10:20 Potassium 3.8 mmol/L (3.5-5.1) 08/15/20 10:20 Chloride 108 mmol/L (98-107) H 08/15/20 10:20 Carbon Dioxide 19 mmol/L (23-31) L 08/15/20 10:20 BUN 31 mg/dL (9.8-20.1) H 08/15/20 10:20 Creatinine 2.30 mg/dL (0.6-1.1) H 08/15/20 10:20 Glucose 112 mg/dL (80-115) 08/15/20 10:20 Lactic Acid 3.1 mmol/L (0.5-2.2) H 07/24/20 06:29 Calcium 7.9 mg/dL (7.8-10.44) 08/15/20 10:20 Total Bilirubin 1.0 mg/dL (0.2-1.2) 08/05/20 07:40 AST 71 U/L (5-34) H 08/05/20 07:40 ALT 120 U/L (8-55) H 08/05/20 07:40 Alkaline Phosphatase 116 U/L (40-110) H 08/05/20 07:40 Ammonia 20 umol/L (18-72) 07/27/20 04:56 Creatine Kinase 205 U/L (29-168) H 07/23/20 20:25 CK-MB (CK-2) 3.1 ng/mL (0-6.6) 07/28/20 12:03 Troponin I 0.352 ng/mL (< 0.028) H* 07/28/20 12:03 Serum Total Protein 6.0 g/dL (6.0-8.3) 08/05/20 07:40 Albumin 2.9 g/dL (3.4-4.8) L 08/15/20 10:20 Urine Ketones Negative mg/dL (Negative) 08/08/20 15:00 Urine Blood Negative (Negative) 08/08/20 15:00 Urine Nitrite Negative (Negative) 08/08/20 15:00 Ur Leukocyte Esterase Negative Fariha/uL (Negative) 08/08/20 15:00 Urine RBC 0-3 HPF (0-3) 08/08/20 15:00 Urine WBC 4-6 HPF (0-3) A 08/08/20 15:00 Ur Squamous Epith Cells 0-3 HPF (0-3) 08/08/20 15:00 Urine Bacteria None Seen HPF (None Seen) 08/08/20 15:00 Sodium 139 mmol/L (136-145) 08/15/20 10:20 Potassium 3.8 mmol/L (3.5-5.1) 08/15/20 10:20 Chloride 108 mmol/L (98-107) H 08/15/20 10:20 Carbon Dioxide 19 mmol/L (23-31) L 08/15/20 10:20 Anion Gap 16 mmol/L (10-20) 08/15/20 10:20 BUN 31 mg/dL (9.8-20.1) H 08/15/20 10:20 Creatinine 2.30 mg/dL (0.6-1.1) H 08/15/20 10:20 Glucose 112 mg/dL (80-115) 08/15/20 10:20 Calcium 7.9 mg/dL (7.8-10.44) 08/15/20 10:20 Phosphorus 4.0 mg/dL (2.3-4.7) 08/15/20 10:20 Magnesium 2.1 mg/dL (1.6-2.6) 08/15/20 10:20 Albumin 2.9 g/dL (3.4-4.8) L 08/15/20 10:20 Nephrology AP PN - Plan ASSESSMENT Acute renal failure: Multifactorial related severe dehydration, cardiorenal syndrome and septic shock. Improved. Presumed CKD. baseline creat is unknown Hypokalemia: Repleted Hypomagnesemia: Repleted. Metabolic acidosis Hyoernatremia: Resolved. Acute systolic and diastolic HF. Dobutamine discontinued on 08/04/20. Improved. Cardiomyopathy with EF of 10-15. etiology is unclear. ? acute related to uremia and acute illness. Rechecking Echo may be prudent. Encephalopathy: Etiology remained unclear. ? acute illness and or uremia electrolyte derangements. Improving slowly. PCM Colon cancer s/p colon resection and colostomy PLAN Nutritional rehabilitation to continue. Continue alkali therapy Get CBC, RFP and magnesium in the am.
--- NOTE | 2020-08-16 13:48 | PDOC.HOSPP ---
- Subjective Encounter Date: 08/16/20 Encounter Time: 13:47 Subjective: Ms. Villatoro is a 69-year-old female who has had a very protracted and prolonged hospitalization. Today's hospital day #24. She was admitted originally for encephalopathy and found to have acute kidney injury. She had multiple electrolyte derangements on admission. Her kidney issues were felt to be related to severe dehydration. Since being admitted she has seen multiple specialties including nephrology and the GI services. She had an EGD and colonoscopy and was found to have erosive gastritis and duodenal ulcers. She also had a stroke while hospitalized. She has evidence of cardiomyopathy with an EF on echo showing 10 to 15%. She has received a couple units of packed red cells for blood loss anemia. Earlier on admission her urine culture did grew out Pseudomonas. Overall she is better and awaiting SNF placement. - Objective Vital Signs & Weight: Vital Signs (12 hours) Temp Pulse Resp BP Pulse Ox 08/16/20 11:30 98.3 F 78 18 118/58 L 100 08/16/20 07:21 98.3 F 87 18 122/64 100 08/16/20 04:04 98.2 F 83 14 126/84 100 Weight Admit Weight 120 lb 9.486 oz Weight 132 lb 1.6 oz Most Recent Monitor Data Heart Rate from ECG 81 NIBP 112/48 NIBP BP-Mean 69 Respiration from ECG 22 SpO2 97 I&O: 08/15/20 08/16/20 08/17/20 06:59 06:59 06:59 Intake Total 600 610 Output Total 550 475 Balance 50 135 Result Diagrams: 08/10/20 05:09 08/15/20 10:20 Radiology Reviewed by me: Yes EKG Reviewed by me: Yes Hospitalist ROS - Review of Systems Constitutional: reports: weakness, malaise Gastrointestinal: reports: nausea Neurological: reports: weakness - Medication Medications: Active Medications Generic Name Dose Route Start Last Admin Trade Name Freq PRN Reason Stop Dose Admin Acetaminophen 650 mg 07/29/20 13:08 08/12/20 09:51 Acetaminophen 325 Mg Tab PER TUBE 650 mg Q4H PRN Administration Headache/Fever or Pain Atorvastatin Calcium 40 mg 08/07/20 21:00 08/15/20 21:43 Atorvastatin Calcium 40 Mg Tab PO 40 mg HS MELINA Administration Benzocaine 0 gm 07/24/20 22:13 08/13/20 12:39 Benzocaine (Dental) 7 Gm Tube TOP 7 gm QIDPRN PRN Administration Topical Anesthetic Carvedilol 12.5 mg 08/13/20 17:00 08/16/20 08:21 Carvedilol 6.25 Mg Tab PO 12.5 mg BID-WM MELINA Administration Al Hydroxide/Mg Hydroxide 60 0 ml 07/26/20 10:31 07/26/20 13:59 ml/ Diphenhydramine HCl 150 mg SSW 10 ml / Lidocaine HCl 60 ml/ Q8H PRN Administration Nystatin 6,000,000 units Mouth Irritation Melatonin 3 mg 08/07/20 17:12 08/13/20 20:57 Melatonin 3 Mg Tab PO 3 mg HS PRN Administration Insomnia Pantoprazole Sodium 40 mg 08/09/20 09:00 08/16/20 08:21 Pantoprazole 40 Mg Tab PO 40 mg DAILY MELINA Administration Sacubitril/Valsartan 1 tab 08/09/20 21:00 08/16/20 08:20 Sacubitril 24mg/Valsartan 26mg Tab PO 1 tab BID MELINA Administration Sodium Bicarbonate 650 mg 08/13/20 09:00 08/16/20 08:20 Sodium Bicarbonate Tab 325 Mg Tab PO 650 mg TID MELINA Administration Sodium Chloride 10 ml 07/25/20 09:00 08/16/20 08:44 Flush - Normal Saline 10 Ml Syringe IVF Not Given Q12HR MELINA Sodium Chloride 10 ml 07/27/20 11:11 07/31/20 05:36 Flush - Normal Saline 10 Ml Syringe IVF 10 ml PRN PRN Administration Saline Flush Spironolactone 100 mg 08/08/20 08:00 08/16/20 08:20 Spironolactone 25 Mg Tab PO 100 mg QAM-WM MELINA Administration Zolpidem Tartrate 5 mg 08/07/20 17:12 08/10/20 20:24 Zolpidem Tartrate 5 Mg Tab PO 5 mg HSPRN PRN Administration Insomnia - Exam General Appearance: awake alert, ill appearing Eye: PERRL, anicteric sclera ENT: normocephalic atraumatic, no oropharyngeal lesions, dry oral mucosa Neck: supple, symmetric, no JVD, no thyromegaly Heart: RRR, no murmur, no gallops, no rubs, normal peripheral pulses Respiratory: CTAB, no wheezes, no rales, no ronchi, normal chest expansion Gastrointestinal: soft, non-tender, non-distended, normal bowel sounds, no palpable masses Extremities: no cyanosis, no clubbing, no edema Neurological: cranial nerve grossly intact, normal sensation to touch Musculoskeletal: normal tone, normal strength Psychiatric: normal affect, normal behavior, A&O x 3 Hosp A/P (1) WAYNE (acute kidney injury) Code(s): N17.9 - ACUTE KIDNEY FAILURE, UNSPECIFIED Status: Acute Plan: Her renal function appears to have recovered significantly. Creatinine is down to 2.3. This will likely be her baseline now going forward. We appreciate nephrology for their help. (2) Acute CVA (cerebrovascular accident) Code(s): I63.9 - CEREBRAL INFARCTION, UNSPECIFIED Status: Acute Plan: She had a CVA while hospitalized. There does not appear to be any focal deficit today on my exam. (3) Acute blood loss anemia Code(s): D62 - ACUTE POSTHEMORRHAGIC ANEMIA Status: Acute Plan: She has received 2 units of packed red cells. Her hemoglobin appears relatively stable. (4) Acute metabolic encephalopathy Code(s): G93.41 - METABOLIC ENCEPHALOPATHY Status: Acute Plan: This has resolved. Suspected metabolic in nature due to renal dysfunction. 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 Patient overall seems to be doing better. She is pending transfer to SNF which I think likely happen early next week. We will continue current management plan.
[2020-08-16] MEDS: Atorvastatin Calcium 40 MG TAB PO SCH (20:25)
[2020-08-17 04:37] LABS: #Eosinphils 0.1 thou/uL (0.0-0.7); #Monocytes 0.7 thou/uL (0.11-0.59); #Neutrophils 8.4 thou/uL (1.40-6.50); %Basophils 0.1 % (0.0-1.0); %Eosinophils 1.2 % (0.0-10.0); %Lymphocytes 10.2 % (21.0-51.0); %Monocytes 6.8 % (0.0-10.0); %Neutrophils 81.7 % (42.0-75.0); Hemoglobin 7.2 g/dL (12.0-16.0); Mean Corpuscular HGB CONC 33.1 g/dL (32.0-36.0); Mean Corpuscular Hemoglobin 33.3 pg (27.0-31.0); Mean Platelet Volume 9.4 fL (7.4-10.4); Platelet Count 267 thou/uL (130-400); Red Blood Cell (RBC) Count 2.16 mill/uL (4.20-5.40); White Blood Cell (WBC) Count 10.2 thou/uL (4.8-10.8)
[2020-08-17 05:03] LABS: Albumin 2.7 g/dL (3.4-4.8); Anion Gap 15 mmol/L (10-20); BUN (Urea Nitrogen) 27 mg/dL (9.8-20.1); Calc. Creatinine Clearance 20 mL/min (70-130); Calcium 7.7 mg/dL (7.8-10.44); Carbon Dioxide 21 mmol/L (23-31); Chloride 106 mmol/L (98-107); Glucose 86 mg/dL (80-115); Magnesium 1.8 mg/dL (1.6-2.6); Phosphorus 4.4 mg/dL (2.3-4.7); Potassium 3.3 mmol/L (3.5-5.1); Sodium 139 mmol/L (136-145)
[2020-08-17] MEDS ORDERED: Potassium Chloride 20 MEQ TAB PO SCH (07:00)
[2020-08-17] MEDS: Carvedilol 6.25 MG TAB PO SCH ×2 (07:51→15:29)
[2020-08-17] MEDS: Folic Acid 1 MG TAB PO SCH (07:51)
[2020-08-17] MEDS: Sodium Bicarbonate Tab 325 MG TAB PO SCH ×3 (07:51→20:36)
[2020-08-17] MEDS: Cyanocobalamin (Vitamin B-12) 1,000 MCG TAB PO SCH (07:52)
[2020-08-17] MEDS: Spironolactone 25 MG TAB PO SCH (07:52)
[2020-08-17] MEDS: Ferrous Sulfate 325 MG TAB PO SCH (07:52)
[2020-08-17] MEDS: Magnesium Oxide 400 MG TAB PO SCH (07:52)
[2020-08-17] MEDS: Multivitamin W/ Minerals 1 TAB PO SCH (07:53)
[2020-08-17] MEDS ORDERED: EPOETIN ALFA-EPBX (ESRD) 10,000 UNIT/ML VIAL SC SCH (09:00)
--- NOTE | 2020-08-17 09:40 | PDOC.NEPPN ---
- Subjective Encounter Date: 08/17/20 Subjective: Seen and examined. No new problem - Objective Vital Signs & Weight: Vital Signs (12 hours) Temp Pulse Resp BP Pulse Ox 08/17/20 06:45 99.1 F 89 18 123/69 99 08/17/20 03:43 98.6 F 86 20 127/69 98 08/17/20 00:00 79 08/16/20 23:45 110/64 Weight Admit Weight 120 lb 9.486 oz Weight 120 lb 3.2 oz Most Recent Monitor Data Heart Rate from ECG 81 NIBP 112/48 NIBP BP-Mean 69 Respiration from ECG 22 SpO2 97 I&O: 08/16/20 08/17/20 08/18/20 06:59 06:59 06:59 Intake Total 610 640 Output Total 475 450 Balance 135 190 Result Diagrams: 08/17/20 04:21 08/17/20 04:21 Nephrology ROS - Medication Medications: Active Medications Generic Name Dose Route Start Last Admin Trade Name Freq PRN Reason Stop Dose Admin Acetaminophen 650 mg 07/29/20 13:08 08/12/20 09:51 Acetaminophen 325 Mg Tab PER TUBE 650 mg Q4H PRN Administration Headache/Fever or Pain Atorvastatin Calcium 40 mg 08/07/20 21:00 08/16/20 20:25 Atorvastatin Calcium 40 Mg Tab PO 40 mg HS MELINA Administration Benzocaine 0 gm 07/24/20 22:13 08/13/20 12:39 Benzocaine (Dental) 7 Gm Tube TOP 7 gm QIDPRN PRN Administration Topical Anesthetic Carvedilol 12.5 mg 08/13/20 17:00 08/17/20 07:51 Carvedilol 6.25 Mg Tab PO 12.5 mg BID-WM MELINA Administration Al Hydroxide/Mg Hydroxide 60 0 ml 07/26/20 10:31 07/26/20 13:59 ml/ Diphenhydramine HCl 150 mg SSW 10 ml / Lidocaine HCl 60 ml/ Q8H PRN Administration Nystatin 6,000,000 units Mouth Irritation Cyanocobalamin 1,000 mcg 08/17/20 09:00 08/17/20 07:52 Cyanocobalamin (Vitamin B-12) 1,000 Mcg Tab PO 1,000 mcg DAILY MELINA Administration Ferrous Sulfate 325 mg 08/17/20 08:00 08/17/20 07:52 Ferrous Sulfate 325 Mg Tab PO 325 mg QAM-WM MELINA Administration Folic Acid 1 mg 08/17/20 09:00 08/17/20 07:51 Folic Acid 1 Mg Tab PO 1 mg DAILY MELINA Administration Iron/Minerals/Multivitamins 1 tab 08/17/20 09:00 08/17/20 07:53 Multivitamin W/ Minerals 1 Tab PO 1 tab DAILY MELINA Administration Magnesium Oxide 400 mg 08/17/20 09:00 08/17/20 07:52 Magnesium Oxide 400 Mg Tab PO 400 mg DAILY MELINA Administration Melatonin 3 mg 08/07/20 17:12 08/13/20 20:57 Melatonin 3 Mg Tab PO 3 mg HS PRN Administration Insomnia Pantoprazole Sodium 40 mg 08/09/20 09:00 08/17/20 07:52 Pantoprazole 40 Mg Tab PO 40 mg DAILY MELINA Administration Sacubitril/Valsartan 1 tab 08/09/20 21:00 08/17/20 07:51 Sacubitril 24mg/Valsartan 26mg Tab PO 1 tab BID MELINA Administration Sodium Bicarbonate 650 mg 08/13/20 09:00 08/17/20 07:51 Sodium Bicarbonate Tab 325 Mg Tab PO 650 mg TID MELINA Administration Sodium Chloride 10 ml 07/25/20 09:00 08/17/20 08:36 Flush - Normal Saline 10 Ml Syringe IVF Not Given Q12HR MELINA Sodium Chloride 10 ml 07/27/20 11:11 07/31/20 05:36 Flush - Normal Saline 10 Ml Syringe IVF 10 ml PRN PRN Administration Saline Flush Spironolactone 100 mg 08/08/20 08:00 08/17/20 07:52 Spironolactone 25 Mg Tab PO 100 mg QAM-WM MELINA Administration Zolpidem Tartrate 5 mg 08/07/20 17:12 08/10/20 20:24 Zolpidem Tartrate 5 Mg Tab PO 5 mg HSPRN PRN Administration Insomnia - Exam General Appearance: awake alert Eye: anicteric sclera ENT: normocephalic atraumatic Neck: supple, symmetric Respiratory: no wheezes, no rales, no ronchi, normal chest expansion, no tachypnea Cardiovascular: RRR Gastrointestinal: soft, non-distended, normal bowel sounds Gastrointestinal - other findings: colostomy noted Extremities: no edema Neurological: CN's grossly intact PSYCH: A&O x 3 Nephrology Results - Labs Result Diagrams: 08/17/20 04:21 08/17/20 04:21 Lab results: WBC 10.2 thou/uL (4.8-10.8) 08/17/20 04:21 Hgb 7.2 g/dL (12.0-16.0) L 08/17/20 04:21 Hct 21.7 % (36.0-47.0) L 08/17/20 04:21 MCV 101.0 fL (78.0-98.0) H 08/17/20 04:21 Plt Count 267 thou/uL (130-400) 08/17/20 04:21 Neutrophils % 81.7 % (42.0-75.0) H 08/17/20 04:21 Band Neuts % (Manual) 20 % (5-11) H 08/08/20 04:44 ABG pH 7.48 (7.35-7.45) H 07/28/20 00:06 ABG pCO2 23.3 mmHg (35.0-45.0) L* 07/28/20 00:06 ABG pO2 63.8 mmHg (> 80.0) 07/28/20 00:06 VBG pCO2 21.5 mmHg (40.0-50.0) L* 07/23/20 20:52 VBG pO2 43.3 mmHg (35.0-45.0) 07/23/20 20:52 Sodium 139 mmol/L (136-145) 08/17/20 04:21 Potassium 3.3 mmol/L (3.5-5.1) L 08/17/20 04:21 Chloride 106 mmol/L (98-107) 08/17/20 04:21 Carbon Dioxide 21 mmol/L (23-31) L 08/17/20 04:21 BUN 27 mg/dL (9.8-20.1) H 08/17/20 04:21 Creatinine 2.25 mg/dL (0.6-1.1) H 08/17/20 04:21 Glucose 86 mg/dL (80-115) 08/17/20 04:21 Lactic Acid 3.1 mmol/L (0.5-2.2) H 07/24/20 06:29 Calcium 7.7 mg/dL (7.8-10.44) L 08/17/20 04:21 Total Bilirubin 1.0 mg/dL (0.2-1.2) 08/05/20 07:40 AST 71 U/L (5-34) H 08/05/20 07:40 ALT 120 U/L (8-55) H 08/05/20 07:40 Alkaline Phosphatase 116 U/L (40-110) H 08/05/20 07:40 Ammonia 20 umol/L (18-72) 07/27/20 04:56 Creatine Kinase 205 U/L (29-168) H 07/23/20 20:25 CK-MB (CK-2) 3.1 ng/mL (0-6.6) 07/28/20 12:03 Troponin I 0.352 ng/mL (< 0.028) H* 07/28/20 12:03 Serum Total Protein 6.0 g/dL (6.0-8.3) 08/05/20 07:40 Albumin 2.7 g/dL (3.4-4.8) L 08/17/20 04:21 Urine Ketones Negative mg/dL (Negative) 08/08/20 15:00 Urine Blood Negative (Negative) 08/08/20 15:00 Urine Nitrite Negative (Negative) 08/08/20 15:00 Ur Leukocyte Esterase Negative Fariha/uL (Negative) 08/08/20 15:00 Urine RBC 0-3 HPF (0-3) 08/08/20 15:00 Urine WBC 4-6 HPF (0-3) A 08/08/20 15:00 Ur Squamous Epith Cells 0-3 HPF (0-3) 08/08/20 15:00 Urine Bacteria None Seen HPF (None Seen) 08/08/20 15:00 Sodium 139 mmol/L (136-145) 08/17/20 04:21 Potassium 3.3 mmol/L (3.5-5.1) L 08/17/20 04:21 Chloride 106 mmol/L (98-107) 08/17/20 04:21 Carbon Dioxide 21 mmol/L (23-31) L 08/17/20 04:21 Anion Gap 15 mmol/L (10-20) 08/17/20 04:21 BUN 27 mg/dL (9.8-20.1) H 08/17/20 04:21 Creatinine 2.25 mg/dL (0.6-1.1) H 08/17/20 04:21 Glucose 86 mg/dL (80-115) 08/17/20 04:21 Calcium 7.7 mg/dL (7.8-10.44) L 08/17/20 04:21 Phosphorus 4.4 mg/dL (2.3-4.7) 08/17/20 04:21 Magnesium 1.8 mg/dL (1.6-2.6) 08/17/20 04:21 Albumin 2.7 g/dL (3.4-4.8) L 08/17/20 04:21 Nephrology AP PN - Plan ASSESSMENT Hypokalemia Acute renal failure: Multifactorial related severe dehydration, cardiorenal syndrome and septic shock. Improved. Presumed CKD. baseline creat is unknown Anemia: multifactorial.CKD and nutritional Hypokalemia: Repleted Hypomagnesemia: Repleted. Metabolic acidosis Hypernatremia: Resolved. Acute systolic and diastolic HF.Improved. Cardiomyopathy with EF of 10-15. etiology is unclear. ? acute related to uremia and acute illness. Seem improved. Encephalopathy: Etiology remained unclear. ? acute illness and or uremia electrolyte derangements. Improving slowly. PCM Colon cancer s/p colon resection and colostomy PLAN Replete serum potassium Start multivitamins and iron supplementation. Will also start epo. Nutritional rehabilitation to continue. Continue alkali therapy Follow CBC, RFP and magnesium in the am.
--- NOTE | 2020-08-17 12:12 | PDOC.HOSPP ---
- Subjective Encounter Date: 08/17/20 Encounter Time: 12:10 Subjective: Patient seen and evaluated this morning. She became a little bit more anemic overnight. We will go ahead and transfuse 1 unit of packed red cells. Her electrolytes have been replaced as well. She is pending transfer to [facility] whenever she is approved. - Objective Vital Signs & Weight: Vital Signs (12 hours) Temp Pulse Pulse Resp BP BP Pulse Ox 08/17/20 11:35 98.1 F 82 18 121/67 100 08/17/20 09:40 98.5 F 87 18 101/58 L 100 08/17/20 06:45 99.1 F 89 18 123/69 99 08/17/20 03:43 98.6 F 86 20 127/69 98 Weight Admit Weight 120 lb 9.486 oz Weight 120 lb 3.2 oz Most Recent Monitor Data Heart Rate from ECG 81 NIBP 112/48 NIBP BP-Mean 69 Respiration from ECG 22 SpO2 97 I&O: 08/16/20 08/17/20 08/18/20 06:59 06:59 06:59 Intake Total 610 640 0 Output Total 475 450 Balance 135 190 0 Result Diagrams: 08/17/20 04:21 08/17/20 04:21 Radiology Reviewed by me: Yes EKG Reviewed by me: Yes Hospitalist ROS - Review of Systems Constitutional: reports: weakness, malaise Gastrointestinal: reports: nausea Neurological: reports: weakness - Medication Medications: Active Medications Generic Name Dose Route Start Last Admin Trade Name Freq PRN Reason Stop Dose Admin Acetaminophen 650 mg 07/29/20 13:08 08/12/20 09:51 Acetaminophen 325 Mg Tab PER TUBE 650 mg Q4H PRN Administration Headache/Fever or Pain Atorvastatin Calcium 40 mg 08/07/20 21:00 08/16/20 20:25 Atorvastatin Calcium 40 Mg Tab PO 40 mg HS MELINA Administration Benzocaine 0 gm 07/24/20 22:13 08/13/20 12:39 Benzocaine (Dental) 7 Gm Tube TOP 7 gm QIDPRN PRN Administration Topical Anesthetic Carvedilol 12.5 mg 08/13/20 17:00 08/17/20 07:51 Carvedilol 6.25 Mg Tab PO 12.5 mg BID-WM MELINA Administration Al Hydroxide/Mg Hydroxide 60 0 ml 07/26/20 10:31 07/26/20 13:59 ml/ Diphenhydramine HCl 150 mg SSW 10 ml / Lidocaine HCl 60 ml/ Q8H PRN Administration Nystatin 6,000,000 units Mouth Irritation Cyanocobalamin 1,000 mcg 08/17/20 09:00 08/17/20 07:52 Cyanocobalamin (Vitamin B-12) 1,000 Mcg Tab PO 1,000 mcg DAILY MELINA Administration Epoetin Mckinley-epbx 10,000 unit 08/17/20 09:00 08/17/20 12:10 Epoetin Mckinley-Epbx (Esrd) 10,000 Unit/Ml Vial SC 10,000 unit Q7DAYS MELINA Administration Ferrous Sulfate 325 mg 08/17/20 08:00 08/17/20 07:52 Ferrous Sulfate 325 Mg Tab PO 325 mg QAM-WM MELINA Administration Folic Acid 1 mg 08/17/20 09:00 08/17/20 07:51 Folic Acid 1 Mg Tab PO 1 mg DAILY MELINA Administration Iron/Minerals/Multivitamins 1 tab 08/17/20 09:00 08/17/20 07:53 Multivitamin W/ Minerals 1 Tab PO 1 tab DAILY MELINA Administration Magnesium Oxide 400 mg 08/17/20 09:00 08/17/20 07:52 Magnesium Oxide 400 Mg Tab PO 400 mg DAILY MELINA Administration Melatonin 3 mg 08/07/20 17:12 08/13/20 20:57 Melatonin 3 Mg Tab PO 3 mg HS PRN Administration Insomnia Pantoprazole Sodium 40 mg 08/09/20 09:00 08/17/20 07:52 Pantoprazole 40 Mg Tab PO 40 mg DAILY MELINA Administration Sacubitril/Valsartan 1 tab 08/09/20 21:00 08/17/20 07:51 Sacubitril 24mg/Valsartan 26mg Tab PO 1 tab BID MELINA Administration Sodium Bicarbonate 650 mg 08/13/20 09:00 08/17/20 07:51 Sodium Bicarbonate Tab 325 Mg Tab PO 650 mg TID MELINA Administration Sodium Chloride 10 ml 07/25/20 09:00 08/17/20 08:36 Flush - Normal Saline 10 Ml Syringe IVF Not Given Q12HR MELINA Sodium Chloride 10 ml 07/27/20 11:11 07/31/20 05:36 Flush - Normal Saline 10 Ml Syringe IVF 10 ml PRN PRN Administration Saline Flush Spironolactone 100 mg 08/08/20 08:00 08/17/20 07:52 Spironolactone 25 Mg Tab PO 100 mg QAM-WM MELINA Administration Zolpidem Tartrate 5 mg 08/07/20 17:12 08/10/20 20:24 Zolpidem Tartrate 5 Mg Tab PO 5 mg HSPRN PRN Administration Insomnia - Exam General Appearance: awake alert, ill appearing Eye: PERRL, scleral icterus ENT: normocephalic atraumatic, no oropharyngeal lesions, moist mucosa Neck: supple, symmetric, no JVD, no thyromegaly Heart: RRR, no murmur, no gallops, no rubs, normal peripheral pulses Respiratory: CTAB, no wheezes, no rales, no ronchi, normal chest expansion Gastrointestinal: soft, non-tender, non-distended, normal bowel sounds Extremities: no edema Neurological: cranial nerve grossly intact Musculoskeletal: normal tone, normal strength, no muscle wasting Psychiatric: normal affect, normal behavior, A&O x 3 Hosp A/P (1) WAYNE (acute kidney injury) Code(s): N17.9 - ACUTE KIDNEY FAILURE, UNSPECIFIED Status: Acute (2) Acute CVA (cerebrovascular accident) Code(s): I63.9 - CEREBRAL INFARCTION, UNSPECIFIED Status: Acute 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 Patient overall seems to be doing better. She is pending transfer to SNF which I think likely happen early next week. We will continue current management plan. 08/17/2020. She is more anemic today. On exam she does look very cyanotic. We will transfuse 1 extra unit of packed red cells today. She is [facility] and hopefully this can happen within the next 24 hours. We discussed the need for her to increase her participation in physical therapy.
[2020-08-17] MEDS: Acetaminophen 325 MG TAB PO PRN (15:27)
[2020-08-17] MEDS: Atorvastatin Calcium 40 MG TAB PO SCH (20:36)
[2020-08-18] MEDS: Acetaminophen 325 MG TAB PO PRN ×2 (04:22→21:00)
[2020-08-18] MEDS: Spironolactone 25 MG TAB PO SCH (08:28)
[2020-08-18] MEDS: Ferrous Sulfate 325 MG TAB PO SCH (08:29)
[2020-08-18] MEDS: Sodium Bicarbonate Tab 325 MG TAB PO SCH ×3 (08:29→20:56)
[2020-08-18] MEDS: Multivitamin W/ Minerals 1 TAB PO SCH (08:29)
[2020-08-18] MEDS: Carvedilol 6.25 MG TAB PO SCH ×2 (08:29→16:06)
[2020-08-18] MEDS: Potassium Chloride 20 MEQ TAB PO SCH (08:30)
[2020-08-18] MEDS: Folic Acid 1 MG TAB PO SCH (08:30)
[2020-08-18] MEDS: Cyanocobalamin (Vitamin B-12) 1,000 MCG TAB PO SCH (08:30)
[2020-08-18] MEDS: Magnesium Oxide 400 MG TAB PO SCH (08:30)
--- NOTE | 2020-08-18 09:03 | PDOC.NEPPN ---
- Subjective Encounter Date: 08/18/20 Subjective: No new problem.Discharge to in patient rehab contemplated. - Objective Vital Signs & Weight: Vital Signs (12 hours) Temp Pulse Resp BP Pulse Ox 08/18/20 06:45 98.2 F 77 16 107/61 99 08/18/20 04:00 98.1 F 84 28 H 113/82 99 08/18/20 00:00 81 Weight Admit Weight 120 lb 9.486 oz Weight 124 lb 11.2 oz Most Recent Monitor Data Heart Rate from ECG 81 NIBP 112/48 NIBP BP-Mean 69 Respiration from ECG 22 SpO2 97 I&O: 08/17/20 08/18/20 08/19/20 06:59 06:59 06:59 Intake Total 640 1630 Output Total 450 500 Balance 190 1130 Result Diagrams: 08/17/20 04:21 08/17/20 04:21 Nephrology ROS - Medication Medications: Active Medications Generic Name Dose Route Start Last Admin Trade Name Freq PRN Reason Stop Dose Admin Acetaminophen 650 mg 07/29/20 13:08 08/12/20 09:51 Acetaminophen 325 Mg Tab PER TUBE 650 mg Q4H PRN Administration Headache/Fever or Pain Acetaminophen 650 mg 08/17/20 14:42 08/18/20 04:22 Acetaminophen 325 Mg Tab PO 650 mg Q6H PRN Administration Headache/Fever or Pain Atorvastatin Calcium 40 mg 08/07/20 21:00 08/17/20 20:36 Atorvastatin Calcium 40 Mg Tab PO 40 mg HS MELINA Administration Benzocaine 0 gm 07/24/20 22:13 08/13/20 12:39 Benzocaine (Dental) 7 Gm Tube TOP 7 gm QIDPRN PRN Administration Topical Anesthetic Carvedilol 12.5 mg 08/13/20 17:00 08/18/20 08:29 Carvedilol 6.25 Mg Tab PO 12.5 mg BID-WM MELINA Administration Al Hydroxide/Mg Hydroxide 60 0 ml 07/26/20 10:31 07/26/20 13:59 ml/ Diphenhydramine HCl 150 mg SSW 10 ml / Lidocaine HCl 60 ml/ Q8H PRN Administration Nystatin 6,000,000 units Mouth Irritation Cyanocobalamin 1,000 mcg 08/17/20 09:00 08/18/20 08:30 Cyanocobalamin (Vitamin B-12) 1,000 Mcg Tab PO 1,000 mcg DAILY MELINA Administration Epoetin Mckinley-epbx 10,000 unit 08/17/20 09:00 08/17/20 12:10 Epoetin Mckinley-Epbx (Esrd) 10,000 Unit/Ml Vial SC 10,000 unit Q7DAYS MELINA Administration Ferrous Sulfate 325 mg 08/17/20 08:00 08/18/20 08:29 Ferrous Sulfate 325 Mg Tab PO 325 mg QAM-WM MELINA Administration Folic Acid 1 mg 08/17/20 09:00 08/18/20 08:30 Folic Acid 1 Mg Tab PO 1 mg DAILY MELINA Administration Iron/Minerals/Multivitamins 1 tab 08/17/20 09:00 08/18/20 08:29 Multivitamin W/ Minerals 1 Tab PO 1 tab DAILY MELINA Administration Magnesium Oxide 400 mg 08/17/20 09:00 08/18/20 08:30 Magnesium Oxide 400 Mg Tab PO 400 mg DAILY MELINA Administration Melatonin 3 mg 08/07/20 17:12 08/13/20 20:57 Melatonin 3 Mg Tab PO 3 mg HS PRN Administration Insomnia Pantoprazole Sodium 40 mg 08/09/20 09:00 08/18/20 08:30 Pantoprazole 40 Mg Tab PO 40 mg DAILY MELINA Administration Potassium Chloride 20 meq 08/18/20 08:00 08/18/20 08:30 Potassium Chloride 20 Meq Tab PO 20 meq QAM-WM MELINA Administration Sacubitril/Valsartan 1 tab 08/09/20 21:00 08/18/20 08:29 Sacubitril 24mg/Valsartan 26mg Tab PO 1 tab BID MELINA Administration Sodium Bicarbonate 650 mg 08/13/20 09:00 08/18/20 08:29 Sodium Bicarbonate Tab 325 Mg Tab PO 650 mg TID MELINA Administration Sodium Chloride 10 ml 07/25/20 09:00 08/18/20 08:50 Flush - Normal Saline 10 Ml Syringe IVF 10 ml Q12HR MELINA Administration Sodium Chloride 10 ml 07/27/20 11:11 07/31/20 05:36 Flush - Normal Saline 10 Ml Syringe IVF 10 ml PRN PRN Administration Saline Flush Spironolactone 100 mg 08/08/20 08:00 08/18/20 08:28 Spironolactone 25 Mg Tab PO 100 mg QAM-WM MELINA Administration Zolpidem Tartrate 5 mg 08/07/20 17:12 08/10/20 20:24 Zolpidem Tartrate 5 Mg Tab PO 5 mg HSPRN PRN Administration Insomnia - Exam General Appearance: awake alert Eye: anicteric sclera ENT: normocephalic atraumatic Neck: symmetric Respiratory: no wheezes, no rales, no ronchi, normal chest expansion, no tachypnea Cardiovascular: RRR Gastrointestinal: soft, non-distended, normal bowel sounds Gastrointestinal - other findings: colostomy noted Extremities: no edema Neurological: CN's grossly intact, no focal deficits PSYCH: oriented to person, oriented to place Nephrology Results - Labs Result Diagrams: 08/17/20 04:21 08/17/20 04:21 Lab results: WBC 10.2 thou/uL (4.8-10.8) 08/17/20 04:21 Hgb 7.2 g/dL (12.0-16.0) L 08/17/20 04:21 Hct 21.7 % (36.0-47.0) L 08/17/20 04:21 MCV 101.0 fL (78.0-98.0) H 08/17/20 04:21 Plt Count 267 thou/uL (130-400) 08/17/20 04:21 Neutrophils % 81.7 % (42.0-75.0) H 08/17/20 04:21 Band Neuts % (Manual) 20 % (5-11) H 08/08/20 04:44 ABG pH 7.48 (7.35-7.45) H 07/28/20 00:06 ABG pCO2 23.3 mmHg (35.0-45.0) L* 07/28/20 00:06 ABG pO2 63.8 mmHg (> 80.0) 07/28/20 00:06 VBG pCO2 21.5 mmHg (40.0-50.0) L* 07/23/20 20:52 VBG pO2 43.3 mmHg (35.0-45.0) 07/23/20 20:52 Sodium 139 mmol/L (136-145) 08/17/20 04:21 Potassium 3.3 mmol/L (3.5-5.1) L 08/17/20 04:21 Chloride 106 mmol/L (98-107) 08/17/20 04:21 Carbon Dioxide 21 mmol/L (23-31) L 08/17/20 04:21 BUN 27 mg/dL (9.8-20.1) H 08/17/20 04:21 Creatinine 2.25 mg/dL (0.6-1.1) H 08/17/20 04:21 Glucose 86 mg/dL (80-115) 08/17/20 04:21 Lactic Acid 3.1 mmol/L (0.5-2.2) H 07/24/20 06:29 Calcium 7.7 mg/dL (7.8-10.44) L 08/17/20 04:21 Total Bilirubin 1.0 mg/dL (0.2-1.2) 08/05/20 07:40 AST 71 U/L (5-34) H 08/05/20 07:40 ALT 120 U/L (8-55) H 08/05/20 07:40 Alkaline Phosphatase 116 U/L (40-110) H 08/05/20 07:40 Ammonia 20 umol/L (18-72) 07/27/20 04:56 Creatine Kinase 205 U/L (29-168) H 07/23/20 20:25 CK-MB (CK-2) 3.1 ng/mL (0-6.6) 07/28/20 12:03 Troponin I 0.352 ng/mL (< 0.028) H* 07/28/20 12:03 Serum Total Protein 6.0 g/dL (6.0-8.3) 08/05/20 07:40 Albumin 2.7 g/dL (3.4-4.8) L 08/17/20 04:21 Urine Ketones Negative mg/dL (Negative) 08/08/20 15:00 Urine Blood Negative (Negative) 08/08/20 15:00 Urine Nitrite Negative (Negative) 08/08/20 15:00 Ur Leukocyte Esterase Negative Fariha/uL (Negative) 08/08/20 15:00 Urine RBC 0-3 HPF (0-3) 08/08/20 15:00 Urine WBC 4-6 HPF (0-3) A 08/08/20 15:00 Ur Squamous Epith Cells 0-3 HPF (0-3) 08/08/20 15:00 Urine Bacteria None Seen HPF (None Seen) 08/08/20 15:00 Sodium 139 mmol/L (136-145) 08/17/20 04:21 Potassium 3.3 mmol/L (3.5-5.1) L 08/17/20 04:21 Chloride 106 mmol/L (98-107) 08/17/20 04:21 Carbon Dioxide 21 mmol/L (23-31) L 08/17/20 04:21 Anion Gap 15 mmol/L (10-20) 08/17/20 04:21 BUN 27 mg/dL (9.8-20.1) H 08/17/20 04:21 Creatinine 2.25 mg/dL (0.6-1.1) H 08/17/20 04:21 Glucose 86 mg/dL (80-115) 08/17/20 04:21 Calcium 7.7 mg/dL (7.8-10.44) L 08/17/20 04:21 Phosphorus 4.4 mg/dL (2.3-4.7) 08/17/20 04:21 Magnesium 1.8 mg/dL (1.6-2.6) 08/17/20 04:21 Albumin 2.7 g/dL (3.4-4.8) L 08/17/20 04:21 Nephrology AP PN - Plan ASSESSMENT Hypokalemia Acute renal failure: Multifactorial related severe dehydration, cardiorenal syndrome and septic shock. Improved. Creat still elevated. ? baseline or new baseline Presumed CKD. baseline creat is unknown Anemia: multifactorial.CKD and nutritional Hypokalemia: Repleted Hypomagnesemia: Repleted. Metabolic acidosis Hypernatremia: Resolved. Acute systolic and diastolic HF.Improved. Cardiomyopathy with EF of 10-15. etiology is unclear. ? acute related to uremia and acute illness. Seem improved. Encephalopathy: Etiology remained unclear. ? acute illness and or uremia electrolyte derangements. Improving slowly. PCM Colon cancer s/p colon resection and colostomy PLAN Start potassium and magnesium supplementation Continue multivitamins and iron supplementation. Continue epo and alkali therapy Can be discharged to rehab from nephrology point of view. Follow CBC, RFP and magnesium in the am.
[2020-08-18 10:23] LABS: Hemoglobin 10.1 g/dL (12.0-16.0); Platelet Count 256 thou/uL (130-400)
--- NOTE | 2020-08-18 12:53 | PDOC.HOSPP ---
- Subjective Encounter Date: 08/18/20 Encounter Time: 12:52 Subjective: Evaluated Ms. Villatoro earlier today. She is a 69-year-old who has had a very protracted hospitalization. She appears to be clinically stable and is pending transfer to rehab when a bed becomes available. No other issues reported per nursing staff. She is awake and alert and off of restraints. - Objective Vital Signs & Weight: Vital Signs (12 hours) Temp Pulse Resp BP Pulse Ox 08/18/20 11:01 98.4 F 81 18 108/61 99 08/18/20 06:45 98.2 F 77 16 107/61 99 08/18/20 04:00 98.1 F 84 28 H 113/82 99 Weight Admit Weight 120 lb 9.486 oz Weight 124 lb 11.2 oz Most Recent Monitor Data Heart Rate from ECG 81 NIBP 112/48 NIBP BP-Mean 69 Respiration from ECG 22 SpO2 97 I&O: 08/17/20 08/18/20 08/19/20 06:59 06:59 06:59 Intake Total 640 1630 Output Total 450 500 Balance 190 1130 Result Diagrams: 08/18/20 10:07 08/17/20 04:21 Radiology Reviewed by me: Yes EKG Reviewed by me: Yes Hospitalist ROS - Review of Systems Constitutional: reports: weakness, malaise Gastrointestinal: reports: nausea Neurological: reports: weakness All other systems reviewed; all pertinent +/- noted in HPI/Subj - Medication Medications: Active Medications Generic Name Dose Route Start Last Admin Trade Name Freq PRN Reason Stop Dose Admin Acetaminophen 650 mg 07/29/20 13:08 08/12/20 09:51 Acetaminophen 325 Mg Tab PER TUBE 650 mg Q4H PRN Administration Headache/Fever or Pain Acetaminophen 650 mg 08/17/20 14:42 08/18/20 04:22 Acetaminophen 325 Mg Tab PO 650 mg Q6H PRN Administration Headache/Fever or Pain Atorvastatin Calcium 40 mg 08/07/20 21:00 08/17/20 20:36 Atorvastatin Calcium 40 Mg Tab PO 40 mg HS MELINA Administration Benzocaine 0 gm 07/24/20 22:13 08/13/20 12:39 Benzocaine (Dental) 7 Gm Tube TOP 7 gm QIDPRN PRN Administration Topical Anesthetic Carvedilol 12.5 mg 08/13/20 17:00 08/18/20 08:29 Carvedilol 6.25 Mg Tab PO 12.5 mg BID-WM MELINA Administration Al Hydroxide/Mg Hydroxide 60 0 ml 07/26/20 10:31 07/26/20 13:59 ml/ Diphenhydramine HCl 150 mg SSW 10 ml / Lidocaine HCl 60 ml/ Q8H PRN Administration Nystatin 6,000,000 units Mouth Irritation Cyanocobalamin 1,000 mcg 08/17/20 09:00 08/18/20 08:30 Cyanocobalamin (Vitamin B-12) 1,000 Mcg Tab PO 1,000 mcg DAILY MELINA Administration Epoetin Mckinley-epbx 10,000 unit 08/17/20 09:00 08/17/20 12:10 Epoetin Mckinley-Epbx (Esrd) 10,000 Unit/Ml Vial SC 10,000 unit Q7DAYS MELINA Administration Ferrous Sulfate 325 mg 08/17/20 08:00 08/18/20 08:29 Ferrous Sulfate 325 Mg Tab PO 325 mg QAM-WM MELINA Administration Folic Acid 1 mg 08/17/20 09:00 08/18/20 08:30 Folic Acid 1 Mg Tab PO 1 mg DAILY MELINA Administration Iron/Minerals/Multivitamins 1 tab 08/17/20 09:00 08/18/20 08:29 Multivitamin W/ Minerals 1 Tab PO 1 tab DAILY MELINA Administration Magnesium Oxide 400 mg 08/17/20 09:00 08/18/20 08:30 Magnesium Oxide 400 Mg Tab PO 400 mg DAILY MELINA Administration Melatonin 3 mg 08/07/20 17:12 08/13/20 20:57 Melatonin 3 Mg Tab PO 3 mg HS PRN Administration Insomnia Pantoprazole Sodium 40 mg 08/09/20 09:00 08/18/20 08:30 Pantoprazole 40 Mg Tab PO 40 mg DAILY MELINA Administration Potassium Chloride 20 meq 08/18/20 08:00 08/18/20 08:30 Potassium Chloride 20 Meq Tab PO 20 meq QAM-WM MELINA Administration Sacubitril/Valsartan 1 tab 08/09/20 21:00 08/18/20 08:29 Sacubitril 24mg/Valsartan 26mg Tab PO 1 tab BID MELINA Administration Sodium Bicarbonate 650 mg 08/13/20 09:00 08/18/20 08:29 Sodium Bicarbonate Tab 325 Mg Tab PO 650 mg TID MELINA Administration Sodium Chloride 10 ml 07/25/20 09:00 08/18/20 08:50 Flush - Normal Saline 10 Ml Syringe IVF 10 ml Q12HR MELINA Administration Sodium Chloride 10 ml 07/27/20 11:11 07/31/20 05:36 Flush - Normal Saline 10 Ml Syringe IVF 10 ml PRN PRN Administration Saline Flush Spironolactone 100 mg 08/08/20 08:00 08/18/20 08:28 Spironolactone 25 Mg Tab PO 100 mg QAM-WM MELINA Administration Zolpidem Tartrate 5 mg 08/07/20 17:12 08/10/20 20:24 Zolpidem Tartrate 5 Mg Tab PO 5 mg HSPRN PRN Administration Insomnia - Exam General Appearance: NAD, awake alert Eye: PERRL, anicteric sclera ENT: normocephalic atraumatic, no oropharyngeal lesions, moist mucosa Neck: supple, symmetric, no JVD, no thyromegaly Heart: RRR, no murmur, no gallops, no rubs, normal peripheral pulses Respiratory: CTAB, no wheezes, no rales, no ronchi Gastrointestinal: soft, non-tender, non-distended, normal bowel sounds Neurological: cranial nerve grossly intact Psychiatric: normal affect, normal behavior, A&O x 3 Hosp A/P (1) WAYNE (acute kidney injury) Code(s): N17.9 - ACUTE KIDNEY FAILURE, UNSPECIFIED Status: Resolved Plan: Her renal function is in recovery. She continues to make urine. (2) Acute CVA (cerebrovascular accident) Code(s): I63.9 - CEREBRAL INFARCTION, UNSPECIFIED Status: Resolved Plan: [facility]. 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 Patient overall seems to be doing better. She is pending transfer to SNF which I think likely happen early next week. We will continue current management plan. 08/17/2020. She is more anemic today. On exam she does look very cyanotic. We will transfuse 1 extra unit of packed red cells today. She is [facility] and hopefully this can happen within the next 24 hours. We discussed the need for her to increase her participation in physical therapy. 08/18/2020. Clinically she seems to be doing really well. She responded today 1 unit of packed red cells. Hemoglobin today of 10. Her diet continues to be poor but she is gradually eating more. She is aware medically stable and can transfer to rehab whenever she is approved. No other acute issues reported per nursing staff.
[2020-08-18 12:57] VITALS: BMI 22.8
[2020-08-18] MEDS: Atorvastatin Calcium 40 MG TAB PO SCH (20:56)
[2020-08-19 04:28] LABS: Hemoglobin 8.9 g/dL (12.0-16.0)
[2020-08-19] MEDS: Folic Acid 1 MG TAB PO SCH (09:03)
[2020-08-19] MEDS: Ferrous Sulfate 325 MG TAB PO SCH (09:04)
[2020-08-19] MEDS: Spironolactone 25 MG TAB PO SCH (09:05)
[2020-08-19] MEDS: Carvedilol 6.25 MG TAB PO SCH (09:06)
[2020-08-19] MEDS: Cyanocobalamin (Vitamin B-12) 1,000 MCG TAB PO SCH (09:07)
[2020-08-19] MEDS: Magnesium Oxide 400 MG TAB PO SCH (09:08)
[2020-08-19] MEDS: Sodium Bicarbonate Tab 325 MG TAB PO SCH ×2 (09:09→14:09)
[2020-08-19] MEDS: Multivitamin W/ Minerals 1 TAB PO SCH (09:10)
[2020-08-19] MEDS: Potassium Chloride 20 MEQ TAB PO SCH (09:10)
--- NOTE | 2020-08-19 12:17 | PDOC.DS.DS ---
Provider - Provider Date of Admission: 07/23/20 21:15 Date of Discharge: 08/19/20 Admitting Provider: Martinez Sr MD Consultations: Cardiology, Gastroentrology, Nephrology, Neurology Primary Care Physician: OUT OF TOWN Course - Hospital Course Hospital Course: Ms. Villatoro is a 69-year-old female who has had a very protracted and prolonged hospitalization. She was admitted originally for encephalopathy and found to have acute kidney injury. She had multiple electrolyte derangements on admission. Her kidney issues were felt to be related to severe dehydration. Since being admitted she has seen multiple specialties including nephrology, Neurology , Cardiology and the GI services. She had an EGD and colonoscopy and was found to have erosive gastritis and duodenal ulcers. She required Protonix drip but this was eventually switched over to oral Protonix. He is appropriately on guideline directed medical therapy. She also had a stroke while hospitalized. She has evidence of cardiomyopathy with an EF on echo showing 10 to 15%. She was placed on Entresto by the canary raiser. She also is on beta-fani and statins. I discontinued her losartan. She will remain on her hydrochlorothiazide. She is not on any antiplatelet as she had issues with GI bleeding. She had evidence of severe erosive gastritis and antiplatelet is contraindicated at the moment. She has received a couple units of packed red cells for blood loss anemia. Earlier on admission her urine culture did grew out Pseudomonas. She was treated appropriately with intravenous antibiotics. Her speech and diet appears to be stable and she is now awake and alert and oriented x3. She has since been approved to go to [facility] facility and she is being discharged today. Resuscitation Status: 07/23/20 21:44 Resuscitation Status Routine Resuscitation Status: FULL: Full Resuscitation - Labs Lab Results: 08/19/20 04:18 08/17/20 04:21 Abnormal Lab Results - Last 48 hrs 08/17/20 08:12: Crossmatch See Detail 08/18/20 10:07: Hgb 10.1 L, Hct 31.2 L 08/19/20 04:18: Hgb 8.9 L, Hct 27.5 L Microbiology - Entire Visit 08/09/20 03:57 Catheter Tip Catheter Tip Culture - Final 08/08/20 15:50 Urine Straight Catheter Urine Culture - Final Presumptive Kiah albicans 07/23/20 20:25 Central Line - Right Subclavian Vein Blood Culture - Final NO GROWTH IN 5 DAYS 07/23/20 20:48 Central Line - Right Subclavian Vein Blood Culture - Final NO GROWTH IN 5 DAYS 07/24/20 Unknown Urine bernal catheter Urine Culture - Final Pseudomonas aeruginosa 07/24/20 17:30 Stool Stool Occult Blood (DEWAYNE) - Final - Physical Exam Vitals: Vital Signs (12 hours) Temp Pulse Resp BP Pulse Ox 08/19/20 11:02 98.1 F 78 16 138/83 99 08/19/20 07:35 98.3 F 88 18 152/84 H 99 08/19/20 04:00 98.7 F 92 16 142/72 H 97 Weight Admit Weight 120 lb 9.486 oz Weight 124 lb 11.2 oz Most Recent Monitor Data Heart Rate from ECG 81 NIBP 112/48 NIBP BP-Mean 69 Respiration from ECG 22 SpO2 97 Physical Exam: The patient was seen and examined on the day of discharge. Problem - Problem (1) WAYNE (acute kidney injury) Code(s): N17.9 - ACUTE KIDNEY FAILURE, UNSPECIFIED Status: Resolved (2) Acute CVA (cerebrovascular accident) Code(s): I63.9 - CEREBRAL INFARCTION, UNSPECIFIED Status: Resolved Plan: She will continue guideline directed medical therapy. 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 Code(s): U07.1 - COVID-19; I43 - CARDIOMYOPATHY IN DISEASES CLASSIFIED ELSEWHERE Status: Acute (7) Colitis Code(s): K52.9 - NONINFECTIVE GASTROENTERITIS AND COLITIS, UNSPECIFIED Status: Acute (8) Erosive gastritis Code(s): K29.60 - OTHER GASTRITIS WITHOUT BLEEDING Status: Acute - Time spent with Patient (mins): 30 Plan - Discharge Medications Prescriptions: Sodium Bicarbonate [Bicarbonate, Sodium] 650 mg PO TID #90 tab Carvedilol [Coreg] 12.5 mg PO BID-WM #60 tab Sacubitril/Valsartan [Entresto 24 mg-26 mg Tablet] 1 tab PO BID #60 tab Atorvastatin Calcium [Lipitor] 40 mg PO HS #30 tab Pantoprazole [Protonix] 40 mg PO DAILY #30 tab Home Medications: Medication Instructions Recorded Confirmed Type SUMAtriptan Succinate 100 mg PO DAILY 07/25/20 08/06/20 History Hydrochlorothiazide 25 mg PO DAILY 08/06/20 08/06/20 History Atorvastatin Calcium [Lipitor] 40 mg PO HS #30 tab 08/19/20 Rx Carvedilol [Coreg] 12.5 mg PO BID-WM #60 tab 08/19/20 Rx Pantoprazole [Protonix] 40 mg PO DAILY #30 tab 08/19/20 Rx Sacubitril/Valsartan [Entresto 24 1 tab PO BID #60 tab 08/19/20 Rx mg-26 mg Tablet] Sodium Bicarbonate [Bicarbonate, 650 mg PO TID #90 tab 08/19/20 Rx Sodium] Allergies: No Known Drug Allergies Allergy (Verified 07/23/20 23:39) PER ER NOTES - Discharge Instructions Nourishment:: Heart Healthy Diet, Low Sodium Diet Therapies:: Occupational Therapy, Physical Therapy Equipment/Supplies:: Not Applicable IV Therapy:: Not Applicable - Follow up Plan Referrals: [facility] [Primary Care Provider] - Disposition: LONG-TERM FACILITY Quality - Care Measures CORE MEASURES:: Stroke/TIA - Stroke/TIA Did you prescribe antithrombotic therapy?: No Specify reason for no DC antithrombotic therapy: Antithrombotic not tolerated Did you prescribe anticoagulant for A Fib/Flutter?: No Specify reason for no DC anticoagulant: Treatment not indicated Did you prescribe a statin medication?: Yes
[2020-08-19 15:39] VITALS: BP 133/71; TEMP 98.9
== END 2020-08-19 15:42 | disposition swing bed (61) | DRG 871 ==
LOC: ERS 19:36 → CCU 21:15 → IMCU/EMU 07-26 16:24 → 2SE 08-05 21:10 → IMCU/EMU 08-05 21:24 → 2SE 08-05 23:38 → 2NO 08-13 16:19
PROVIDERS: ADMIT Student in an Organized Health Care Education/Training Program; ATTEND Hospitalist
PROC: 0DB98ZX Excision of Duodenum, Via Natural or Artificial Opening Endoscopic, Diagnostic (ICD-10-PCS; 2020-07-20)
PROC: 0DB78ZX Excision of Stomach, Pylorus, Via Natural or Artificial Opening Endoscopic, Diagnostic (ICD-10-PCS; 2020-07-20)
PROC: 0DB48ZX Excision of Esophagogastric Junction, Via Natural or Artificial Opening Endoscopic, Diagnostic (ICD-10-PCS; 2020-07-20)
PROC: 0DJD8ZZ Inspection of Lower Intestinal Tract, Via Natural or Artificial Opening Endoscopic (ICD-10-PCS; 2020-07-20)
PROC: 0D9770Z Drainage of Stomach, Pylorus with Drainage Device, Via Natural or Artificial Opening (ICD-10-PCS; 2020-07-20)
PROC: 8E0ZXY6 Isolation (ICD-10-PCS; principal; 2020-07-23)
PROC: 3E033XZ Introduction of Vasopressor into Peripheral Vein, Percutaneous Approach (ICD-10-PCS; 2020-07-23)
PROC: 30230N1 Transfusion of Nonautologous Red Blood Cells into Peripheral Vein, Open Approach (ICD-10-PCS; 2020-07-25)
PROC: 30230R1 Transfusion of Nonautologous Platelets into Peripheral Vein, Open Approach (ICD-10-PCS; 2020-07-27)
DX: A41.9 Sepsis, unspecified organism (principal); R65.21 Severe sepsis with septic shock; G93.41 Metabolic encephalopathy; I50.41 Acute combined systolic (congestive) and diastolic (congestive) heart failure; I21.A1 Myocardial infarction type 2; D65 Disseminated intravascular coagulation [defibrination syndrome]; U07.1 COVID-19; E43 Unspecified severe protein-calorie malnutrition; I62.03 Nontraumatic chronic subdural hemorrhage; K22.11 Ulcer of esophagus with bleeding; K29.01 Acute gastritis with bleeding; N17.9 Acute kidney failure, unspecified; E87.2 Acidosis; E87.0 Hyperosmolality and hypernatremia; D62 Acute posthemorrhagic anemia; I13.0 Hypertensive heart and chronic kidney disease with heart failure and stage 1 through stage 4 chronic kidney disease, or unspecified chronic kidney disease; I43 Cardiomyopathy in diseases classified elsewhere; E87.6 Hypokalemia; R74.01 Elevation of levels of liver transaminase levels; K43.5 Parastomal hernia without obstruction or gangrene; N18.9 Chronic kidney disease, unspecified; E88.09 Other disorders of plasma-protein metabolism, not elsewhere classified; D69.59 Other secondary thrombocytopenia; K52.9 Noninfective gastroenteritis and colitis, unspecified; E86.0 Dehydration; E83.51 Hypocalcemia; G93.89 Other specified disorders of brain; E83.42 Hypomagnesemia; Z68.22 Body mass index [BMI] 22.0-22.9, adult; Z93.3 Colostomy status; Z85.038 Personal history of other malignant neoplasm of large intestine; Z79.899 Other long term (current) drug therapy; F03.90 Unspecified dementia, unspecified severity, without behavioral disturbance, psychotic disturbance, mood disturbance, and anxiety; R73.9 Hyperglycemia, unspecified
CPT/HCPCS: 0240U; 36415; 36430; 36600; 70450; 70551; 71045; 74018; 74176; 80048; 80053; 80069; 80074; 80076; 80202; 80306; 80307; 81001; 82140; 82274; 82306; 82330; 82533; 82550; 82553; 82570; 82607; 82728; 82746; 82803; 82805; 82941; 83540; 83550; 83605; 83615; 83735; 83970; 84100; 84156; 84300; 84443; 84484; 84540; 85007; 85014; 85018; 85025; 85027; 85046; 85049; 85060; 85300; 85362; 85379; 85384; 85610; 85730; 86038; 86160; 86225; 86644; 86645; 86769; 86850; 86900; 86901; 87071; 87077; 87086; 87186; 87389; 88305; 88312; 88313; 93005; 93306; 94660; 95712; 95816; 95819; 95957; 96365; 96368; C9113; J1250; J1644; J1940; J2543; J3370; J3411; J3475; J3480; J3490; J7042; J7050; J7070; J7620; P9016; P9035; P9047; Q0163; Q5105